=== PATIENT | male | born 1935 | race African-American/Black ===

== ENCOUNTER 2016-06-21 14:33 | Inpatient (IN) | payer MEDICARE, MEDICAID ==
[~2016-06-21] VITALS: Ht 182.9 cm; Wt 68.0 kg
[2016-06-21 15:45] VITALS: BP 149/98
[2016-06-21 15:52] LABS: BASOPHILS % (AUTO) 0.4 % (0.0-2.0); EOSINOPHILS % (AUTO) 0.1 % (0.0-3.0); LYMPHOCYTES % (AUTO) 5.2 % (20.0-45.0); MEAN CORPUSCULAR HEMOGLOBIN 29.9 PG (27.0-31.0); MEAN CORPUSCULAR HGB CONC 31.4 G/DL (32.0-36.0); MEAN CORPUSCULAR VOLUME 95 FL (80-99); MEAN PLATELET VOLUME 5.9 FL (6.5-10.1); MONOCYTES % (AUTO) 11.1 % (1.0-10.0); NEUTROPHILS % (AUTO) 83.2 % (45.0-75.0); PLATELET COUNT 264 K/UL (150-450); RED BLOOD COUNT 5.45 M/UL (4.70-6.10); RED CELL DISTRIBUTION WIDTH 12.8 % (11.6-14.8); WHITE BLOOD COUNT 11.4 K/UL (4.8-10.8)
[2016-06-21 16:00] LABS: APPEARANCE,URINE SLIGHTLY CLOUDY; KETONES,URINE NEGATIVE (NEGATIVE); LEUKOCYTE ESTERASE ,URINE 3+ (NEGATIVE); NITRITE,URINE POSITIVE (NEGATIVE); PH,URINE 8 (4.5-8.0); PROTEIN,URINE 2+ (NEGATIVE); UROBILINOGEN,URINE 4 MG/DL (0.0-1.0)
[2016-06-21 16:03] LABS: INR 1.1 (0.9-1.1); PROTHROMBIN TIME 10.8 SEC (9.30-11.50)
[2016-06-21 16:04] LABS: ALANINE AMINOTRANSFERASE 21 U/L (3-41); ALBUMIN/GLOBULIN RATIO 1.7 (1.0-2.7); ALCOHOL < 10 mg/dL; ANION GAP 22 (5-15); ASPARTATE AMINO TRANSFERASE 35 U/L (5-40); CALCIUM 9.9 mg/dL (8.6-10.2); CARBON DIOXIDE 20 mEQ/L (20-30); CHLORIDE 95 mEQ/L (98-107); CREATININE 1.3 mg/dL (0.7-1.2); HEMOLYSIS 71; POTASSIUM 5.2 mEQ/L (3.4-4.9); SODIUM 137 mEQ/L (135-145); TOTAL PROTEIN 6.8 g/dL (6.6-8.7)
[2016-06-21 16:13] LABS: BACTERIA,URINE MODERATE /HPF; ICTOTEST NEGATIVE; RBC,URINE 0-2 /HPF (0 - 0); SQUAMOUS EPITHELIAL CELL,UR OCCASIONAL /LPF (NONE/OCC); TRIPLE PHOSPHATE CRYSTAL,UR FEW /LPF
[2016-06-21 16:15] LABS: TROPONIN I < 0.30 ng/mL (<=0.30)
[2016-06-21 16:26] LABS: BILIRUBIN,DIRECT 0.4 mg/dL (0.1-0.3)
[2016-06-21] MEDS ORDERED: NKM (16:57)
--- NOTE | 2016-06-21 17:21 | Emergency Room Report ---
History of Present Illness General Chief Complaint: Syncope Source: Patient Present Illness HPI The patient is brought in apparently for a syncopal episode. The patient is stating that he is weak. Denies any pain at this time. Paramedics state Accu- Chek was normal. The patient denies any headache or trauma. He is incontinent of urine. 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 The patient was evaluated August of this year for syncope. He was bradycardic at that time. Admission was considered at that time but it was elected to have the patient observed at home when speaking with the patient's conservator. We are unable to determine who the conservatives at this time. Patient can't give more history. Allergies: Coded Allergies: No Known Allergies (Unverified , 09/04/15) Patient History Limited by: medical condition Past Medical History: see triage record Social History Narrative at home Reviewed Nursing Documentation: PMH: Agreed, PSxH: Agreed Nursing Documentation-PMH Hx Hypertension: Yes Review of Systems All Other Systems: limited Physical Exam Vital Signs Date Time Temp Pulse Resp B/P Pulse Ox O2 Delivery O2 Flow Rate FiO2 06/21/16 14:36 98.4 80 18 111/76 98 Room Air Sp02 EP Interpretation: reviewed, normal General Appearance: well appearing, no apparent distress, other - confused Head: normocephalic, atraumatic Eyes: bilateral eye PERRL, bilateral eye normal inspection ENT: moist mucus membranes Neck: supple, no bony tend Respiratory: lungs clear, normal breath sounds Cardiovascular #1: regular rate, rhythm Cardiovascular #2: 2+ radial (R) Gastrointestinal: normal inspection, normal bowel sounds, non tender, no mass, non-distended Musculoskeletal: back normal, normal range of motion, other - patient laying on gurney, not ambulatory Neurologic: alert, sensory intact, aphasia, other - eyes closed, moves all 4 with generalized weakness Psychiatric: other - confused, but attempts to answer Reflexes: 2+ knee (R), 2+ knee (L) Skin: normal inspection, warm/dry Medical Decision Making Diagnostic Impression: Primary Impression: Syncope Qualified Codes: R55 - Syncope and collapse Additional Impressions: UTI (urinary tract infection) Qualified Codes: N30.00 - Acute cystitis without hematuria Altered level of consciousness ER Course Pt presents after alleged syncopal episode. Ddx: AMI, arrhythmia, electrolyte abnormality, dehydration amongst others. Emergent evaluation with labs, EKG, CT head, CXR. Treatment with gentle hydration, cardiac monitoring. Noted prior history of similar. Complicated patient as little history available and symptoms denied. Smells of UTI. EKG unremarkable, CT with chronic changes. CXR unremarkable. Labs with UTI. Antibiotics begun. Unable to contact family or calculus professor. Patient still confused. Needs cardiac monitoring. Admit telemetry, Dr. Starks. Laboratory Tests Test 06/21/16 15:30 06/21/16 16:10 White Blood Count 11.4 K/UL (4.8-10.8) H Red Blood Count 5.45 M/UL (4.70-6.10) Hemoglobin 16.3 G/DL (14.2-18.0) Hematocrit 51.9 % (42.0-52.0) Mean Corpuscular Volume 95 FL (80-99) Mean Corpuscular Hemoglobin 29.9 PG (27.0-31.0) Mean Corpuscular Hemoglobin Concent 31.4 G/DL (32.0-36.0) L Red Cell Distribution Width 12.8 % (11.6-14.8) Platelet Count 264 K/UL (150-450) Mean Platelet Volume 5.9 FL (6.5-10.1) L Neutrophils (%) (Auto) 83.2 % (45.0-75.0) H Lymphocytes (%) (Auto) 5.2 % (20.0-45.0) L Monocytes (%) (Auto) 11.1 % (1.0-10.0) H Eosinophils (%) (Auto) 0.1 % (0.0-3.0) Basophils (%) (Auto) 0.4 % (0.0-2.0) Prothrombin Time 10.8 SEC (9.30-11.50) Prothrombin Time INR 1.1 (0.9-1.1) PTT 21 SEC (23-33) L Urine Color Yellow Urine Appearance Slightly cloudy Urine pH 8 (4.5-8.0) Urine Specific [place] 1.010 (1.005-1.035) Urine Protein 2+ (NEGATIVE) H Urine Glucose (UA) Negative (NEGATIVE) Urine Ketones Negative (NEGATIVE) Urine Occult Blood 1+ (NEGATIVE) H Urine Nitrite Positive (NEGATIVE) H Urine Bilirubin 2+ (NEGATIVE) H Urine Ictotest Negative Urine Urobilinogen 4 MG/DL (0.0-1.0) H Urine Leukocyte Esterase 3+ (NEGATIVE) H Urine RBC 0-2 /HPF (0 - 0) H Urine WBC 10-15 /HPF (0 - 0) H Urine Squamous Epithelial Cells Occasional /LPF Urine Triple Phosphate Crystals Few /LPF (NONE) H Urine Bacteria Moderate /HPF (NONE) H Sodium Level 137 mEQ/L (135-145) Potassium Level 5.2 mEQ/L (3.4-4.9) H Chloride Level 95 mEQ/L (98-107) L Carbon Dioxide Level 20 mEQ/L (20-30) Anion Gap 22 (5-15) H Blood Urea Nitrogen 32 mg/dL (7-23) H Creatinine 1.3 mg/dL (0.7-1.2) H Estimate Glomerular Filtration Rate mL/min (>60) Glucose Level 110 mg/dL (74-106) H Lactic Acid Level 0.20 mmol/L (0.66-2.22) L Calcium Level 9.9 mg/dL (8.6-10.2) Total Bilirubin 1.5 mg/dL (0.0-1.2) H Direct Bilirubin 0.4 mg/dL (0.1-0.3) H Aspartate Amino Transferase (AST) 35 U/L (5-40) Alanine Aminotransferase (ALT) 21 U/L (3-41) Alkaline Phosphatase 96 U/L (40-129) Total Creatine Kinase 440 U/L (38-174) H Troponin I < 0.30 ng/mL (<=0.30) Pro-B-Type Natriuretic Peptide 131 pg/mL (0-450) Total Protein 6.8 g/dL (6.6-8.7) Albumin 4.3 g/dL (3.5-5.2) Globulin 2.5 g/dL Albumin/Globulin Ratio 1.7 (1.0-2.7) Urine Opiates Screen Negative (NEGATIVE) Urine Barbiturates Screen Negative (NEGATIVE) Phencyclidine (PCP) Screen Negative (NEGATIVE) Urine Amphetamines Screen Negative (NEGATIVE) Urine Benzodiazepines Screen Negative (NEGATIVE) Urine Cocaine Screen Negative (NEGATIVE) Urine Marijuana (THC) Screen Negative (NEGATIVE) Serum Alcohol < 10 mg/dL Erythrocyte Sedimentation Rate 6 MM/HR (0-20) EKG Diagnostic Results Rate: normal Rhythm: NSR ST Segments: no acute changes Rhythm Strip Diag. Results EP Interpretation: yes Rhythm: NSR, no PVC's, no ectopy Chest X-Ray Diagnostic Results EP Interpretation: Yes Findings: no consolidation, no effusion, no pneumothorax, no acute cardiopulmonary disease Number of Views: 1 CT/MRI/US Diagnostic Results CT/MRI/US Diagnostic Results : Imaging Test Ordered: head Impression atrophy Last Vital Signs Date Time Temp Pulse Resp B/P Pulse Ox O2 Delivery O2 Flow Rate FiO2 06/21/16 15:45 98.0 100 23 149/98 99 Room Air Status: unchanged Disposition: ADMITTED INPATIENT Condition: Serious Referrals: NOT CHOSEN IPA/,REFERRING (PCP) Michel Davis M.D. Jun 21, 2016 17:21
[2016-06-21 17:39] VITALS: BP 124/86
[2016-06-21 20:00] VITALS: BP 140/86
[2016-06-21] MEDS ORDERED: Morphine Sulfate 2mg/ml Inj IVP PRN ×2 (21:30)
[2016-06-21] MEDS ORDERED: DuoNeb 0.5-3(2.5)mg/3ml neb HHN PRN (21:30)
[2016-06-21] MEDS ORDERED: Mylanta II UD 30ml ORAL PRN (21:30)
[2016-06-22] VITALS: BP 128/75
[2016-06-22] MEDS: D5 1/2NS 1,000 ML IV SCH ×2 (00:03→11:05)
[2016-06-22 04:00] VITALS: BP 142/83
[2016-06-22 08:00] VITALS: BP 128/85
[2016-06-22 08:15] LABS: THYROID STIMULATING HORMONE 0.987 uIU/mL (0.300-4.500)
[2016-06-22 08:17] LABS: ANION GAP 12 (5-15); BASOPHILS % (AUTO) 0.3 % (0.0-2.0); CALCIUM 8.5 mg/dL (8.6-10.2); CARBON DIOXIDE 26 mEQ/L (20-30); CHLORIDE 103 mEQ/L (98-107); CHOLESTEROL 110 mg/dL (< 200); CHOLESTEROL/HDL RATIO 1.7 (3.3-4.4); EOSINOPHILS % (AUTO) 0.3 % (0.0-3.0); HEMOLYSIS 3; LDL CHOLESTEROL (CALC.) 36 mg/dL (60-99); LYMPHOCYTES % (AUTO) 9.6 % (20.0-45.0); MAGNESIUM 2.2 mg/dL (1.7-2.5); MEAN CORPUSCULAR HEMOGLOBIN 30.6 PG (27.0-31.0); MEAN CORPUSCULAR HGB CONC 32.6 G/DL (32.0-36.0); MEAN CORPUSCULAR VOLUME 94 FL (80-99); MEAN PLATELET VOLUME 5.8 FL (6.5-10.1); MONOCYTES % (AUTO) 10.7 % (1.0-10.0); NEUTROPHILS % (AUTO) 79.2 % (45.0-75.0); PLATELET COUNT 250 K/UL (150-450); POTASSIUM 4.3 mEQ/L (3.4-4.9); RED BLOOD COUNT 4.42 M/UL (4.70-6.10); RED CELL DISTRIBUTION WIDTH 12.8 % (11.6-14.8); SODIUM 141 mEQ/L (135-145); WHITE BLOOD COUNT 10.9 K/UL (4.8-10.8)
[2016-06-22] MEDS: Aspirin Baby 81mg ORAL SCH (08:57)
[2016-06-22] MEDS: Heparin 5000 units/ml inj SUBQ SCH ×2 (09:04→21:00)
--- NOTE | 2016-06-22 09:40 | Infectious Diseases Prog Note ---
Assessment/Plan Problems: (1) UTI (urinary tract infection) Assessment & Plan: will start ceftriaxon empirically and send urine culture (2) Syncope Assessment & Plan: work up as per primary, continue tele monitor Subjective Allergies: Coded Allergies: No Known Allergies (Unverified , 09/04/15) Objective Vital Signs Last 24 Hour Vital Signs Date Time Temp Pulse Resp B/P Pulse Ox O2 Delivery O2 Flow Rate FiO2 06/22/16 08:10 80 14 Room Air 21 06/22/16 08:00 78 06/22/16 04:00 83 06/22/16 04:00 97.6 85 16 142/83 95 Room Air 06/22/16 00:00 97.9 87 16 128/75 95 Room Air 06/22/16 00:00 93 06/21/16 20:00 98 06/21/16 20:00 97.7 100 18 140/86 97 Room Air 06/21/16 18:20 98.0 98 22 138/72 99 Room Air 06/21/16 17:39 98.0 95 23 124/86 99 Room Air 06/21/16 15:45 98.0 100 23 149/98 99 Room Air 06/21/16 14:36 98.4 80 18 111/76 98 Room Air Height (Feet): 6 Height (Inches): 0.00 Weight (Pounds): 150 Laboratory Tests Test 06/21/16 15:30 06/21/16 16:10 06/22/16 07:15 White Blood Count 11.4 K/UL (4.8-10.8) H 10.9 K/UL (4.8-10.8) H Red Blood Count 5.45 M/UL (4.70-6.10) 4.42 M/UL (4.70-6.10) L Hemoglobin 16.3 G/DL (14.2-18.0) 13.5 G/DL (14.2-18.0) L Hematocrit 51.9 % (42.0-52.0) 41.4 % (42.0-52.0) L Mean Corpuscular Volume 95 FL (80-99) 94 FL (80-99) Mean Corpuscular Hemoglobin 29.9 PG (27.0-31.0) 30.6 PG (27.0-31.0) Mean Corpuscular Hemoglobin Concent 31.4 G/DL (32.0-36.0) L 32.6 G/DL (32.0-36.0) Red Cell Distribution Width 12.8 % (11.6-14.8) 12.8 % (11.6-14.8) Platelet Count 264 K/UL (150-450) 250 K/UL (150-450) Mean Platelet Volume 5.9 FL (6.5-10.1) L 5.8 FL (6.5-10.1) L Neutrophils (%) (Auto) 83.2 % (45.0-75.0) H 79.2 % (45.0-75.0) H Lymphocytes (%) (Auto) 5.2 % (20.0-45.0) L 9.6 % (20.0-45.0) L Monocytes (%) (Auto) 11.1 % (1.0-10.0) H 10.7 % (1.0-10.0) H Eosinophils (%) (Auto) 0.1 % (0.0-3.0) 0.3 % (0.0-3.0) Basophils (%) (Auto) 0.4 % (0.0-2.0) 0.3 % (0.0-2.0) Prothrombin Time 10.8 SEC (9.30-11.50) Prothromb Time International Ratio 1.1 (0.9-1.1) Activated Partial Thromboplast Time 21 SEC (23-33) L Urine Color Yellow Urine Appearance Slightly cloudy Urine pH 8 (4.5-8.0) Urine Specific [place] 1.010 (1.005-1.035) Urine Protein 2+ (NEGATIVE) H Urine Glucose (UA) Negative (NEGATIVE) Urine Ketones Negative (NEGATIVE) Urine Occult Blood 1+ (NEGATIVE) H Urine Nitrite Positive (NEGATIVE) H Urine Bilirubin 2+ (NEGATIVE) H Urine Ictotest Negative Urine Urobilinogen 4 MG/DL (0.0-1.0) H Urine Leukocyte Esterase 3+ (NEGATIVE) H Urine RBC 0-2 /HPF (0 - 0) H Urine WBC 10-15 /HPF (0 - 0) H Urine Squamous Epithelial Cells Occasional /LPF Urine Triple Phosphate Crystals Few /LPF (NONE) H Urine Bacteria Moderate /HPF (NONE) H Sodium Level 137 mEQ/L (135-145) 141 mEQ/L (135-145) Potassium Level 5.2 mEQ/L (3.4-4.9) H 4.3 mEQ/L (3.4-4.9) Chloride Level 95 mEQ/L (98-107) L 103 mEQ/L (98-107) Carbon Dioxide Level 20 mEQ/L (20-30) 26 mEQ/L (20-30) Anion Gap 22 (5-15) H 12 (5-15) Blood Urea Nitrogen 32 mg/dL (7-23) H 29 mg/dL (7-23) H Creatinine 1.3 mg/dL (0.7-1.2) H 1.0 mg/dL (0.7-1.2) Estimat Glomerular Filtration Rate mL/min (>60) mL/min (>60) Glucose Level 110 mg/dL (74-106) H 109 mg/dL (74-106) H Lactic Acid Level 0.20 mmol/L (0.66-2.22) L Calcium Level 9.9 mg/dL (8.6-10.2) 8.5 mg/dL (8.6-10.2) L Total Bilirubin 1.5 mg/dL (0.0-1.2) H Direct Bilirubin 0.4 mg/dL (0.1-0.3) H Aspartate Amino Transf (AST/SGOT) 35 U/L (5-40) Alanine Aminotransferase (ALT/SGPT) 21 U/L (3-41) Alkaline Phosphatase 96 U/L (40-129) Total Creatine Kinase 440 U/L (38-174) H Troponin I < 0.30 ng/mL (<=0.30) Pro-B-Type Natriuretic Peptide 131 pg/mL (0-450) Total Protein 6.8 g/dL (6.6-8.7) Albumin 4.3 g/dL (3.5-5.2) Globulin 2.5 g/dL Albumin/Globulin Ratio 1.7 (1.0-2.7) Urine Opiates Screen Negative (NEGATIVE) Urine Barbiturates Screen Negative (NEGATIVE) Phencyclidine (PCP) Screen Negative (NEGATIVE) Urine Amphetamines Screen Negative (NEGATIVE) Urine Benzodiazepines Screen Negative (NEGATIVE) Urine Cocaine Screen Negative (NEGATIVE) Urine Marijuana (THC) Screen Negative (NEGATIVE) Serum Alcohol < 10 mg/dL Erythrocyte Sedimentation Rate 6 MM/HR (0-20) Magnesium Level 2.2 mg/dL (1.7-2.5) Triglycerides Level 45 mg/dL (< 150) Cholesterol Level 110 mg/dL (< 200) LDL Cholesterol 36 mg/dL (60-99) L HDL Cholesterol 65 mg/dL (> 60) H Cholesterol/HDL Ratio 1.7 (3.3-4.4) L Thyroid Stimulating Hormone (TSH) 0.987 uIU/mL (0.300-4.500) Current Medications Medications (Trade) Dose Ordered Sig/Rufina Route PRN Reason Start Time Stop Time Status Last Admin Dose Admin Acetaminophen (Tylenol) 650 mg Q4H PRN ORAL Mild Pain (Pain Scale 1-3) 06/21/16 21:30 07/21/16 21:29 Al Hydroxide/Mg Hydroxide (Mylanta II) 30 ml Q6H PRN ORAL dyspepsia 06/21/16 21:30 07/21/16 21:29 Albuterol/ Ipratropium (DuoNeb 0.5-3(2.5)mg/3ml) 3 ml Q4H PRN HHN Shortness of Breath 06/21/16 21:30 06/26/16 21:29 Aspirin (ASA) 81 mg DAILY ORAL 06/22/16 09:00 07/22/16 08:59 06/22/16 08:57 Ceftriaxone Sodium/Dextrose (Rocephin/D5W 50ml) 50 ml @ 100 mls/hr Q24H IVPB 06/22/16 09:45 06/29/16 09:44 UNV Dextrose (Dextrose 50%) STAT PRN IV Hypoglycemia 06/21/16 21:30 07/21/16 21:29 Dextrose/Sodium Chloride (D5 0.45% NS) 1,000 ml @ 75 mls/hr [id number] IV 06/21/16 23:00 07/21/16 22:59 06/22/16 00:03 Diphenhydramine HCl (Benadryl) 25 mg Q6H PRN ORAL Itching/Pruritis 06/21/16 21:30 07/21/16 21:29 Heparin Sodium (Porcine) (Heparin 5000 units/ml) 5,000 units EVERY 12 HOURS SUBQ 06/22/16 09:00 07/22/16 08:59 06/22/16 09:04 Lorazepam 1 mg 1 mg Q6H PRN IV For Anxiety 06/21/16 22:15 06/28/16 22:14 Morphine Sulfate (Morphine Sulfate) 1 mg Q4H PRN IVP For Pain 06/21/16 21:30 06/28/16 21:29 Morphine Sulfate (Morphine Sulfate) 2 mg Q6H PRN IVP Moderate Pain (Pain Scale 4-6) 06/21/16 21:30 06/28/16 21:29 Ondansetron HCl (Zofran) 4 mg Q6H PRN IVP Nausea & Vomiting 06/21/16 21:30 07/21/16 21:29 Temazepam (Restoril) 15 mg DAILYPRN PRN ORAL Insomnia 06/21/16 21:30 06/28/16 21:29 aKrrie Ashby M.D. Jun 22, 2016 09:40
--- NOTE | 2016-06-22 10:28 | Diagnostic Imaging Report ---
Indication: Altered level of consciousness Technique: Continuous helical CT scanning of the head was performed utilizing automated exposure control without intravenous contrast material. Axial and coronal reconstructions were obtained. Comparison: 12/21/09 CT dose: Total DLP 1425 mGycm; CTDI vol 70.4 mGy Findings: There is no acute intracranial hemorrhage, mass effect or cortical edema. The ventricles, cisterns and sulci are prominent consistent with atrophy. Periventricular and subcortical hypoattenuation are seen, a nonspecific finding. The posterior fossa and fourth ventricle are unremarkable. Sellar and suprasellar regions are grossly unremarkable. Visualized mastoid air cells and paranasal sinuses are unremarkable. No focal lesions of the bony calvarium or soft tissues of the scalp are seen. Impression: No evidence of acute intracranial hemorrhage, mass effect or cortical edema. MRI may be obtained for more sensitive evaluation as clinically indicated. Atrophy and nonspecific periventricular and subcortical hypoattenuation suggestive of chronic ischemic microvascular changes. The CT scanner at [facility] is accredited by the [employer] and the scans are performed using protocols designed to limit radiation exposure to as low as reasonably achievable to attain images of sufficient resolution adequate for diagnostic evaluation.
--- NOTE | 2016-06-22 10:33 | Diagnostic Imaging Report ---
Indication: Shortness of breath Technique: XRAY CHEST 1 V Comparison: 09/04/15 Findings: Cardiomediastinal silhouette is stable. There is central pulmonary vascular congestion. Bibasilar interstitial opacities are noted. There is no pneumothorax or obvious effusion. Left hemidiaphragm is elevated. Atherosclerotic changes are seen. Impression: Mild central pulmonary vascular congestion. Bibasilar atelectasis. Infiltrate in the left base not excluded. Followup recommended.
--- NOTE | 2016-06-22 10:51 | Consultation ---
Consult Note Consult Note Cardiology/ EP for Dr. Martins Full note dictated. #[id number] Pt adm w/ syncope, in setting of UTI. He has a hx of syncope and loop recorder was previously inserted. Agree w/ plan for hydration, cultures, antibiotics. Continue telemetry monitoring. Will check ortho VS. Will arrange interrogation of loop recorder (st emani med) BRANDT BRADY Jun 22, 2016 10:51
--- NOTE | 2016-06-22 11:15 | History and Physical ---
History of Present Illness General Date patient seen: Jun 22, 2016 Reason for Hospitalization: Syncope Present Illness HPI The pt is a 80 yr old AA male who presented yesterday to the ED after a syncopal episode, at the time he denied any associated symptoms, he is in bed unable to provide any history at this time. He has a hx of syncope and loop recorder was previously inserted. On abx for UTI. No family to give history. Allergies: Coded Allergies: No Known Allergies (Unverified , 09/04/15) Medication History Scheduled No Known Medications* (NKM - No Known Medications*), 0 ., (Reported) Patient History Limited by: medical condition History Provided By: Medical Record, EMS Healthcare decision maker N Resuscitation status Advanced Directive on File Past Medical/Surgical History Past Medical/Surgical History: (1) Bradycardia (2) History of loop recorder Review of Systems ROS Narrative Unable to obtain any health information from pt at this time due to his mental state Physical Exam General Appearance: no apparent distress, confused Lines, tubes and drains: peripheral HEENT: normocephalic, atraumatic Neck: non-tender, normal alignment, supple Respiratory/Chest: decreased breath sounds Cardiovascular/Chest: normal rate, regular rhythm, no JVD Abdomen: non tender, soft Extremities: non-tender, normal inspection, no calf tenderness Skin Exam: warm/dry Neurologic: alert, disoriented Last 24 Hour Vital Signs Date Time Temp Pulse Resp B/P Pulse Ox O2 Delivery O2 Flow Rate FiO2 06/22/16 08:10 80 14 Room Air 21 06/22/16 08:00 78 06/22/16 08:00 97.0 98 18 128/85 95 Room Air 06/22/16 04:00 83 06/22/16 04:00 97.6 85 16 142/83 95 Room Air 06/22/16 00:00 97.9 87 16 128/75 95 Room Air 06/22/16 00:00 93 06/21/16 20:00 98 06/21/16 20:00 97.7 100 18 140/86 97 Room Air 06/21/16 18:20 98.0 98 22 138/72 99 Room Air 06/21/16 17:39 98.0 95 23 124/86 99 Room Air 06/21/16 15:45 98.0 100 23 149/98 99 Room Air 06/21/16 14:36 98.4 80 18 111/76 98 Room Air Intake and Output 06/21/16 06/22/16 19:00 07:00 Intake Total 1000 ml 596.25 ml Output Total 750 ml Balance 1000 ml -153.75 ml Intake IV Total 1000 ml 596.25 ml Output Urine Total 750 ml Laboratory Tests Test 06/21/16 15:30 06/21/16 16:10 06/22/16 07:15 White Blood Count 11.4 K/UL (4.8-10.8) H 10.9 K/UL (4.8-10.8) H Red Blood Count 5.45 M/UL (4.70-6.10) 4.42 M/UL (4.70-6.10) L Hemoglobin 16.3 G/DL (14.2-18.0) 13.5 G/DL (14.2-18.0) L Hematocrit 51.9 % (42.0-52.0) 41.4 % (42.0-52.0) L Mean Corpuscular Volume 95 FL (80-99) 94 FL (80-99) Mean Corpuscular Hemoglobin 29.9 PG (27.0-31.0) 30.6 PG (27.0-31.0) Mean Corpuscular Hemoglobin Concent 31.4 G/DL (32.0-36.0) L 32.6 G/DL (32.0-36.0) Red Cell Distribution Width 12.8 % (11.6-14.8) 12.8 % (11.6-14.8) Platelet Count 264 K/UL (150-450) 250 K/UL (150-450) Mean Platelet Volume 5.9 FL (6.5-10.1) L 5.8 FL (6.5-10.1) L Neutrophils (%) (Auto) 83.2 % (45.0-75.0) H 79.2 % (45.0-75.0) H Lymphocytes (%) (Auto) 5.2 % (20.0-45.0) L 9.6 % (20.0-45.0) L Monocytes (%) (Auto) 11.1 % (1.0-10.0) H 10.7 % (1.0-10.0) H Eosinophils (%) (Auto) 0.1 % (0.0-3.0) 0.3 % (0.0-3.0) Basophils (%) (Auto) 0.4 % (0.0-2.0) 0.3 % (0.0-2.0) Prothrombin Time 10.8 SEC (9.30-11.50) Prothromb Time International Ratio 1.1 (0.9-1.1) Activated Partial Thromboplast Time 21 SEC (23-33) L Urine Color Yellow Urine Appearance Slightly cloudy Urine pH 8 (4.5-8.0) Urine Specific [place] 1.010 (1.005-1.035) Urine Protein 2+ (NEGATIVE) H Urine Glucose (UA) Negative (NEGATIVE) Urine Ketones Negative (NEGATIVE) Urine Occult Blood 1+ (NEGATIVE) H Urine Nitrite Positive (NEGATIVE) H Urine Bilirubin 2+ (NEGATIVE) H Urine Ictotest Negative Urine Urobilinogen 4 MG/DL (0.0-1.0) H Urine Leukocyte Esterase 3+ (NEGATIVE) H Urine RBC 0-2 /HPF (0 - 0) H Urine WBC 10-15 /HPF (0 - 0) H Urine Squamous Epithelial Cells Occasional /LPF Urine Triple Phosphate Crystals Few /LPF (NONE) H Urine Bacteria Moderate /HPF (NONE) H Sodium Level 137 mEQ/L (135-145) 141 mEQ/L (135-145) Potassium Level 5.2 mEQ/L (3.4-4.9) H 4.3 mEQ/L (3.4-4.9) Chloride Level 95 mEQ/L (98-107) L 103 mEQ/L (98-107) Carbon Dioxide Level 20 mEQ/L (20-30) 26 mEQ/L (20-30) Anion Gap 22 (5-15) H 12 (5-15) Blood Urea Nitrogen 32 mg/dL (7-23) H 29 mg/dL (7-23) H Creatinine 1.3 mg/dL (0.7-1.2) H 1.0 mg/dL (0.7-1.2) Estimat Glomerular Filtration Rate mL/min (>60) mL/min (>60) Glucose Level 110 mg/dL (74-106) H 109 mg/dL (74-106) H Lactic Acid Level 0.20 mmol/L (0.66-2.22) L Calcium Level 9.9 mg/dL (8.6-10.2) 8.5 mg/dL (8.6-10.2) L Total Bilirubin 1.5 mg/dL (0.0-1.2) H Direct Bilirubin 0.4 mg/dL (0.1-0.3) H Aspartate Amino Transf (AST/SGOT) 35 U/L (5-40) Alanine Aminotransferase (ALT/SGPT) 21 U/L (3-41) Alkaline Phosphatase 96 U/L (40-129) Total Creatine Kinase 440 U/L (38-174) H Troponin I < 0.30 ng/mL (<=0.30) Pro-B-Type Natriuretic Peptide 131 pg/mL (0-450) Total Protein 6.8 g/dL (6.6-8.7) Albumin 4.3 g/dL (3.5-5.2) Globulin 2.5 g/dL Albumin/Globulin Ratio 1.7 (1.0-2.7) Urine Opiates Screen Negative (NEGATIVE) Urine Barbiturates Screen Negative (NEGATIVE) Phencyclidine (PCP) Screen Negative (NEGATIVE) Urine Amphetamines Screen Negative (NEGATIVE) Urine Benzodiazepines Screen Negative (NEGATIVE) Urine Cocaine Screen Negative (NEGATIVE) Urine Marijuana (THC) Screen Negative (NEGATIVE) Serum Alcohol < 10 mg/dL Erythrocyte Sedimentation Rate 6 MM/HR (0-20) Magnesium Level 2.2 mg/dL (1.7-2.5) Triglycerides Level 45 mg/dL (< 150) Cholesterol Level 110 mg/dL (< 200) LDL Cholesterol 36 mg/dL (60-99) L HDL Cholesterol 65 mg/dL (> 60) H Cholesterol/HDL Ratio 1.7 (3.3-4.4) L Thyroid Stimulating Hormone (TSH) 0.987 uIU/mL (0.300-4.500) Height (Feet): 6 Height (Inches): 0.00 Weight (Pounds): 150 Medications Current Medications Medications (Trade) Dose Ordered Sig/Rufina Route PRN Reason Start Time Stop Time Status Last Admin Dose Admin Acetaminophen (Tylenol) 650 mg Q4H PRN ORAL Mild Pain (Pain Scale 1-3) 06/21/16 21:30 07/21/16 21:29 Al Hydroxide/Mg Hydroxide (Mylanta II) 30 ml Q6H PRN ORAL dyspepsia 06/21/16 21:30 07/21/16 21:29 Albuterol/ Ipratropium (DuoNeb 0.5-3(2.5)mg/3ml) 3 ml Q4H PRN HHN Shortness of Breath 06/21/16 21:30 06/26/16 21:29 Aspirin (ASA) 81 mg DAILY ORAL 06/22/16 09:00 07/22/16 08:59 06/22/16 08:57 Ceftriaxone Sodium/Dextrose (Rocephin/D5W 50ml) 50 ml @ 100 mls/hr Q24H IVPB 06/22/16 16:00 06/29/16 15:59 Dextrose (Dextrose 50%) STAT PRN IV Hypoglycemia 06/21/16 21:30 07/21/16 21:29 Dextrose/Sodium Chloride (D5 0.45% NS) 1,000 ml @ 75 mls/hr [id number] IV 06/21/16 23:00 07/21/16 22:59 06/22/16 00:03 Diphenhydramine HCl (Benadryl) 25 mg Q6H PRN ORAL Itching/Pruritis 06/21/16 21:30 07/21/16 21:29 Heparin Sodium (Porcine) (Heparin 5000 units/ml) 5,000 units EVERY 12 HOURS SUBQ 06/22/16 09:00 07/22/16 08:59 06/22/16 09:04 Lorazepam 1 mg 1 mg Q6H PRN IV For Anxiety 06/21/16 22:15 06/28/16 22:14 Morphine Sulfate (Morphine Sulfate) 1 mg Q4H PRN IVP For Pain 06/21/16 21:30 06/28/16 21:29 Morphine Sulfate (Morphine Sulfate) 2 mg Q6H PRN IVP Moderate Pain (Pain Scale 4-6) 06/21/16 21:30 06/28/16 21:29 Ondansetron HCl (Zofran) 4 mg Q6H PRN IVP Nausea & Vomiting 06/21/16 21:30 07/21/16 21:29 Temazepam (Restoril) 15 mg DAILYPRN PRN ORAL Insomnia 06/21/16 21:30 06/28/16 21:29 Objective Narrative Procedure: XRAY Chest 1v Indication: Shortness of breath Technique: XRAY CHEST 1 V Comparison: 09/04/15 Findings: Cardiomediastinal silhouette is stable. There is central pulmonary vascular congestion. Bibasilar interstitial opacities are noted. There is no pneumothorax or obvious effusion. Left hemidiaphragm is elevated. Atherosclerotic changes are seen. Impression: Mild central pulmonary vascular congestion. Bibasilar atelectasis. Infiltrate in the left base not excluded. Followup recommended. CT HEAD NO CONTRAST Impression: No evidence of acute intracranial hemorrhage, mass effect or cortical edema. MRI may be obtained for more sensitive evaluation as clinically indicated. Atrophy and nonspecific periventricular and subcortical hypoattenuation suggestive of chronic ischemic microvascular changes. Assessment/Plan Problem List: (1) Syncope ICD Codes: R55 - Syncope and collapse SNOMED: [id number] Qualifiers: Qualified Codes: R55 - Syncope and collapse Status: stable Assessment/Plan Cardiology consult ID consult Neurology Consult Abx per ID Monitor neuro status Strict intake and output Hypokalemia - resolved Monitor BUN/cr Monitor Vitals Carline Fernandez N.P. Jun 22, 2016 11:15
[2016-06-22 11:59] VITALS: BP 115/77
--- NOTE | 2016-06-22 13:08 | Consultation ---
DATE OF CONSULTATION: CARDIOLOGY CONSULTATION CONSULTING PHYSICIAN: Danielle Flowers M.D. Cardiology consult is being done as coverage for Luciano Martins M.D. REASON FOR CONSULT: Syncope. HISTORY OF PRESENT ILLNESS: History is obtained primarily from the chart as the patient is a poor historian. The patient is a 80-year-old man with a history of syncope, status post loop recorder insertion, who was admitted following a syncopal episode. He cannot give any details of the event. Per the note, he was brought in by paramedics and complained of weakness. His blood pressure was 111/76 and pulse is 80, sinus rhythm. On admission, he was noted to have a mildly elevated white blood count of 11,400, normal troponin level less than 0.3, pyuria and bacteriuria. PAST MEDICAL HISTORY: As noted above. MEDICATIONS: Medications on admission unknown. Currently, ceftriaxone 1 g intravenous q.24 hours, aspirin 81 mg daily, Ativan p.r.n., DuoNeb nebulizer every 4 hours p.r.n., Tylenol, morphine, Restoril, Zofran, and Benadryl p.r.n. ALLERGIES: No known drug allergies. SOCIAL HISTORY: The patient reports smoking less than one and half pack per day and denies alcohol use. PHYSICAL EXAMINATION: VITAL SIGNS: Blood pressure is 142/83, pulse is 85, regular, respirations 16, and afebrile. GENERAL: The patient is alert, elderly appearing man in no acute distress. HEENT: Normocephalic and atraumatic. Pupils are equal, round, and reactive to light. Sclerae anicteric. NECK: Supple. There is no jugular venous distention. No carotid bruits. LUNGS: Lungs are clear to auscultation bilaterally. HEART: Regular S1 and S2 with no murmurs or S3. ABDOMEN: Soft and nontender. No palpable mass. EXTREMITIES: No cyanosis, clubbing, or edema. LABORATORY DATA: Hemoglobin 13.5, white blood count 10,900, and platelets 250,000. Sodium 141, potassium 4.3, BUN 29, creatinine 1.0, and glucose 109. Troponin less than 0.3. Urinalysis cloudy 3+ leukocyte esterase, 10-15 white blood cells, and moderate bacteria. Chest x-ray shows borderline cardiomegaly, shows no infiltrates or effusions, borderline cardiomegaly. EKG is pending. ASSESSMENT AND RECOMMENDATIONS: The patient is a 80-year-old man with a history of syncope, status post loop recorder insertion, who was admitted following a syncopal episode. He is noted to have a urinary tract infection and treatment has been initiated because of the syncope is uncertain. He may have orthostatic hypotension or may have had an arrhythmia causing this event. He will be monitored on telemetry. Orthostatic vital signs will be checked. Loop recorder interrogation will be done. Further recommendations will be made based on his clinical course and results of the above testing. Danielle Walden M.D. DR: Luis JOB#: [id number] CC:
[2016-06-22] MEDS: cefTRIAXone 1 GM in D5W 50 ML IVPB SCH (17:14)
[2016-06-22 20:00] VITALS: BP 145/92
[2016-06-22] MEDS: LORazepam Inj 2mg/ml 1ml IV PRN (21:14)
--- NOTE | 2016-06-22 21:37 | Consultation ---
DATE OF CONSULTATION: INFECTIOUS DISEASE CONSULTATION CONSULTING PHYSICIAN: Karrie Ashby M.D. REQUESTING PHYSICIAN: Saqib Starks M.D. REASON FOR CONSULTATION: Urinary tract infection. HISTORY OF PRESENT ILLNESS: The patient is a 80-year-old male who has past medical history of hypertension and syncope in the past and was brought into the [facility] for syncopal episode. The patient felt weak. Denied any headache, blurry vision, or dizziness. No head trauma. No fall. No seizure activity. He has urine incontinence. His blood sugar was found to be okay by the paramedics upon arrival. The patient had workup in the ED. The patient's urinalysis showed evidence of infection. So, I was asked by the primary provider for antibiotics recommendation. PAST MEDICAL HISTORY: Significant for hypertension and syncope. PAST SURGICAL HISTORY: Negative. MEDICATIONS: He is on heparin, aspirin, lorazepam, DuoNeb, acetaminophen, morphine, Zofran, Restoril, Benadryl, and Mylanta. ALLERGIES: He has no known drug allergy. SOCIAL HISTORY: The patient lives at home. Denied using any drugs, tobacco, or alcohol. FAMILY HISTORY: Not contributory. REVIEW OF SYSTEMS: A 12-point of system reviewed were all negative apart from the one I mentioned above in my History and Physical. PHYSICAL EXAMINATION: GENERAL: An elderly male, lying in bed, awake, alert, not in acute distress. VITAL SIGNS: Temperature 98.0 degrees, pulse 95, respirations 23, blood pressure 124/86, and pulse oximetry 99% on room air. HEENT: Normocephalic and atraumatic. Pupils are reactive to light equally. Dry oral mucosa. No exudate. NECK: Supple. No lymphadenopathy. CARDIOVASCULAR: Regular rate and rhythm. No murmur. No gallop. LUNGS: Clear bilaterally. No wheezing. No rhonchi. ABDOMEN: Soft, nontender, and nondistended. Positive bowel sounds. No hepatosplenomegaly or ascites. Repeat abdominal exam showed tenderness in the right lower quadrant with rebound, and positive McBurney's sign. No guarding. No stiffness. EXTREMITIES: Trace edema. No cyanosis. LABORATORY DATA: Lab showed white count of 11.4, hemoglobin 16.3, and platelet count of 264,000. BUN of 32 and creatinine of 1.3. Lactic acid of 0.2. Total bilirubin of 0.15. Toxicology screen was negative. Urinalysis was positive for nitrites, +3 leukocyte esterase, WBC 2-15, and moderate amount of bacteria. IMAGING: Has not reported in the computer yet. ASSESSMENT AND PLAN: 1. Urinary tract infection. The patient will be started on ceftriaxone. We will send urine culture, await results. 2. Syncope. Workup as per primary provider, recommend echocardiogram. 3. Hypertension. Continue oral medications to control blood pressure. Karrie Ashby M.D. DR: Danny JOB#: [id number] CC: MEG
[2016-06-23] MEDS: D5 1/2NS 1,000 ML IV SCH ×3 (01:40→16:51)
[2016-06-23 04:00] VITALS: BP 124/69
[2016-06-23 08:02] VITALS: BP 108/64
[2016-06-23] MEDS: Aspirin Baby 81mg ORAL SCH (08:30)
[2016-06-23] MEDS: Heparin 5000 units/ml inj SUBQ SCH ×2 (08:33→20:48)
--- NOTE | 2016-06-23 11:03 | Consultation ---
History of Present Illness General Date patient seen: Jun 23, 2016 Time patient seen: 10:59 Chief Complaint: Syncope Reason for Consultation: hematuria, UTI, retention Present Illness HPI Hx is limited due to patient's confusion, but does admit to peeing all the time at night. Does not admit to retention. Just frequency, especially at night. Can't really explain what happened last night during admission. Allergies: Coded Allergies: No Known Allergies (Unverified , 09/04/15) Medication History Scheduled No Known Medications* (NKM - No Known Medications*), 0 ., (Reported) Patient History Limited by: medical condition History Provided By: Patient Healthcare decision maker N Resuscitation status Advanced Directive on File Past Medical/Surgical History Past Medical/Surgical History: (1) Status post placement of implantable loop recorder Review of Systems Constitutional: Denies: chills, fever, malaise, no symptoms, other, see HPI, sweats, weakness Eye: Denies: acuity changes, blurred vision, discharge, double vision, eye pain , no symptoms, nose congestion, nose pain, other, see HPI, tearing ENT: Denies: ear discharge, ear pain, hearing loss, mouth pain, nasal discharge , no symptoms, nose congestion, nose pain, other, see HPI, throat pain, throat swelling Respiratory: Denies: MIRELES, cough, no symptoms, orthopnea, other, see HPI, shortness of breath, sputum, stridor, wheezing Gastrointestinal: Denies: abdominal pain, constipation, diarrhea, hematemesis, melena, nausea, no symptoms, other, see HPI, vomiting Genitourinary: Reports: dysuria Musculoskeletal: Denies: back pain, gout, joint pain, joint swelling, muscle pain, muscle stiffness, no symptoms, other, see HPI Skin: Denies: change in color, change in hair/nails, dryness, lesions, no symptoms, other, rash, see HPI Neurological: Denies: dizziness, focal weakness, headache, no symptoms, numbness, other, paresthesia, see HPI, seizure, syncope, tingling, tremors Endocrine: Denies: excessive sweating, flushing, increased thirst, increased urine, intolerance to temperature, no symptoms, other, see HPI, unexplained weight loss Hematologic/Lymphatic: Denies: anemia, blood clots, diathesis, easy bleeding, easy bruising, no symptoms, other, see HPI, swollen glands Physical Exam General Appearance: lethargic, confused Cardiovascular/Chest: normal rate Abdomen: non tender, soft Genitourinary/Rectal: martínez, other - yellow urine in tubing Skin Exam: normal pigmentation Last 24 Hour Vital Signs Date Time Temp Pulse Resp B/P Pulse Ox O2 Delivery O2 Flow Rate FiO2 06/23/16 08:02 97.3 86 20 108/64 92 Room Air 06/23/16 08:00 87 06/23/16 07:53 85 14 Room Air 21 06/23/16 04:00 98.4 92 22 124/69 93 Room Air 06/23/16 04:00 86 06/23/16 00:00 88 06/22/16 20:00 98 06/22/16 20:00 97.7 87 22 145/92 96 Room Air 06/22/16 19:00 92 14 Room Air 21 06/22/16 16:00 78 06/22/16 16:00 98.0 92 06/22/16 12:00 81 06/22/16 11:59 98.1 81 18 115/77 Room Air Intake and Output 06/22/16 06/23/16 19:00 07:00 Intake Total 1245 ml 806.25 ml Output Total 600 ml 250 ml Balance 645 ml 556.25 ml Intake Oral 320 ml IV Total 925 ml 806.25 ml Output Urine Total 600 ml 250 ml # Bowel Movements 1 1 Microbiology Date/Time Source Procedure Growth Status 06/22/16 13:30 Stool Clostridium difficile Toxin Assay - Final Complete 06/22/16 11:00 Urine,Clean Catch Urine Culture - Preliminary NO GROWTH Resulted Height (Feet): 6 Height (Inches): 0.00 Weight (Pounds): 150 Medications Current Medications Medications (Trade) Dose Ordered Sig/Rufina Route PRN Reason Start Time Stop Time Status Last Admin Dose Admin Acetaminophen (Tylenol) 650 mg Q4H PRN ORAL Mild Pain (Pain Scale 1-3) 06/21/16 21:30 07/21/16 21:29 Al Hydroxide/Mg Hydroxide (Mylanta II) 30 ml Q6H PRN ORAL dyspepsia 06/21/16 21:30 07/21/16 21:29 Albuterol/ Ipratropium (DuoNeb 0.5-3(2.5)mg/3ml) 3 ml Q4H PRN HHN Shortness of Breath 06/21/16 21:30 06/26/16 21:29 Aspirin (ASA) 81 mg DAILY ORAL 06/22/16 09:00 07/22/16 08:59 06/23/16 08:30 Ceftriaxone Sodium/Dextrose (Rocephin/D5W 50ml) 50 ml @ 100 mls/hr Q24H IVPB 06/22/16 16:00 06/29/16 15:59 06/22/16 17:14 Dextrose (Dextrose 50%) STAT PRN IV Hypoglycemia 06/21/16 21:30 07/21/16 21:29 Dextrose/Sodium Chloride (D5 0.45% NS) 1,000 ml @ 75 mls/hr [id number] IV 06/21/16 23:00 07/21/16 22:59 06/23/16 03:00 Diphenhydramine HCl (Benadryl) 25 mg Q6H PRN ORAL Itching/Pruritis 06/21/16 21:30 07/21/16 21:29 Heparin Sodium (Porcine) (Heparin 5000 units/ml) 5,000 units EVERY 12 HOURS SUBQ 06/22/16 09:00 07/22/16 08:59 06/23/16 08:33 Lorazepam 1 mg 1 mg Q6H PRN IV For Anxiety 06/21/16 22:15 06/28/16 22:14 06/22/16 21:14 Morphine Sulfate (Morphine Sulfate) 1 mg Q4H PRN IVP For Pain 06/21/16 21:30 06/28/16 21:29 Morphine Sulfate (Morphine Sulfate) 2 mg Q6H PRN IVP Moderate Pain (Pain Scale 4-6) 06/21/16 21:30 06/28/16 21:29 Ondansetron HCl (Zofran) 4 mg Q6H PRN IVP Nausea & Vomiting 06/21/16 21:30 07/21/16 21:29 Temazepam (Restoril) 15 mg DAILYPRN PRN ORAL Insomnia 06/21/16 21:30 06/28/16 21:29 Assessment/Plan Status: stable Assessment/Plan 80 yo male here for syncope. UA seems consistent with UTI, being treated. Martínez was placed in ER, but patient is more arousable now. Would not recommend retirement martínez catheterization. Recommend culture specific abx for 7-10 days, start flomax today, recommend removing martínez catheter tomorrow AM as he is high risk of self dc'ing martínez again. 1. 7-10 days culture specific abx 2. Flomax 0.8 mg daily (should continue on discharge as well) 3. Remove martínez catheter tomorrow. Jose Alfredo Guerin M.D. Jun 23, 2016 11:03
[2016-06-23 11:20] VITALS: BP 108/65
[2016-06-23 16:00] VITALS: BP_SYST 124; BP_SYST 147; BP_DIAS 79; BP_DIAS 85
--- NOTE | 2016-06-23 16:20 | General Progress Note ---
Assessment/Plan Problem List: (1) Syncope ICD Codes: R55 - Syncope and collapse SNOMED: 765258404 Qualifiers: Qualified Codes: R55 - Syncope and collapse (2) UTI (urinary tract infection) ICD Codes: N39.0 - Urinary tract infection, site not specified SNOMED: 45421224 Qualifiers: Qualified Codes: N30.00 - Acute cystitis without hematuria (3) Status post placement of implantable loop recorder ICD Codes: Z95.818 - Presence of other cardiac implants and grafts SNOMED: 499424063, 622266919, 368711308 (4) Altered level of consciousness ICD Codes: R40.4 - Transient alteration of awareness SNOMED: 8683923 Assessment/Plan Cardiology F/U ID f/u DVT prophylaxis Hematuria due to trauma - will monitor output AM labs Subjective Date patient seen: Jun 23, 2016 ROS Limited/Unobtainable: Yes Allergies: Coded Allergies: No Known Allergies (Unverified , 09/04/15) All Systems: reviewed and negative except above Subjective Trying to get out of bed, confused, not in distress Objective Last 24 Hour Vital Signs Date Time Temp Pulse Resp B/P Pulse Ox O2 Delivery O2 Flow Rate FiO2 06/23/16 12:00 75 06/23/16 11:20 97.1 70 20 108/65 93 Room Air 06/23/16 08:02 97.3 86 20 108/64 92 Room Air 06/23/16 08:00 87 06/23/16 07:53 85 14 Room Air 21 06/23/16 04:00 98.4 92 22 124/69 93 Room Air 06/23/16 04:00 86 06/23/16 00:00 88 06/22/16 20:00 98 06/22/16 20:00 97.7 87 22 145/92 96 Room Air 06/22/16 19:00 92 14 Room Air 21 Intake and Output 06/22/16 06/23/16 19:00 07:00 Intake Total 1245 ml 806.25 ml Output Total 600 ml 250 ml Balance 645 ml 556.25 ml Intake Oral 320 ml IV Total 925 ml 806.25 ml Output Urine Total 600 ml 250 ml # Bowel Movements 1 1 Height (Feet): 6 Height (Inches): 0.00 Weight (Pounds): 150 General Appearance: no apparent distress, confused EENT: normal ENT inspection Neck: non-tender, normal alignment Cardiovascular: normal peripheral pulses, normal rate, regular rhythm Respiratory/Chest: normal breath sounds, no respiratory distress Abdomen: non tender, soft, no organomegaly Extremities: non-tender, normal inspection Neurologic: disoriented Skin: normal pigmentation, warm/dry Carline Fernandez N.P. Jun 23, 2016 16:20
--- NOTE | 2016-06-23 16:28 | Cardiac Electrophysiology PN ---
Assessment/Plan Assessment/Plan 1. Recurrent Syncope and multiple documentations of bradycardia with Heart rate in 30s by interrogation of his SJ implantable loop recorder. Off Any MCKEON or AVN boo. Needs permanent pacer implantation after UTI is resolved. Watch on tele. 2. UTI.On Ceftriaxone. DW DR Wooten [employer]AD ME[employer]. Subjective Subjective Doing well on tele. No chest pain or SOB. Pacer interrogation showed Juliano episodes down to 30s on 06/01, and . Objective Last 24 Hour Vital Signs Date Time Temp Pulse Resp B/P Pulse Ox O2 Delivery O2 Flow Rate FiO2 06/23/16 12:00 75 06/23/16 11:20 97.1 70 20 108/65 93 Room Air 06/23/16 08:02 97.3 86 20 108/64 92 Room Air 06/23/16 08:00 87 06/23/16 07:53 85 14 Room Air 21 06/23/16 04:00 98.4 92 22 124/69 93 Room Air 06/23/16 04:00 86 06/23/16 00:00 88 06/22/16 20:00 98 06/22/16 20:00 97.7 87 22 145/92 96 Room Air 06/22/16 19:00 92 14 Room Air 21 Intake and Output 06/22/16 06/23/16 19:00 07:00 Intake Total 1245 ml 806.25 ml Output Total 600 ml 250 ml Balance 645 ml 556.25 ml Intake Oral 320 ml IV Total 925 ml 806.25 ml Output Urine Total 600 ml 250 ml # Bowel Movements 1 1 Microbiology Date/Time Source Procedure Growth Status 06/22/16 13:30 Stool Clostridium difficile Toxin Assay - Final Complete 06/22/16 11:00 Urine,Clean Catch Urine Culture - Preliminary NO GROWTH Resulted 06/21/16 15:30 Urine,Clean Catch Urine Culture - Final Proteus Mirabilis Complete Objective NECK: No jugular venous distention. No carotid bruits. LUNGS: Lungs are clear to auscultation bilaterally. HEART: Regular S1 and S2 with no murmurs or S3. ABDOMEN: Soft and nontender. No palpable mass. EXTREMITIES: No cyanosis, clubbing, or edema. MARY JO MCCOLLUM Jun 23, 2016 16:28
[2016-06-23] MEDS: cefTRIAXone 1 GM in D5W 50 ML IVPB SCH (16:50)
--- NOTE | 2016-06-23 18:04 | Infectious Diseases Prog Note ---
Assessment/Plan Problems: (1) UTI (urinary tract infection) Assessment & Plan: with pansensitive proteus mirabilis , will continue ceftriaxon for 7 days (2) Syncope Assessment & Plan: work up as per primary, continue tele monitor Subjective Constitutional: Reports: no symptoms HEENT: Reports: no symptoms Respiratory: Reports: no symptoms Breasts: Reports: no symptoms Cardiovascular: Reports: no symptoms Gastrointestinal/Abdominal: Reports: no symptoms Genitourinary: Reports: no symptoms Neurologic: Reports: no symptoms Psychiatric: Reports: no symptoms Skin: Reports: no symptoms Endocrine: Reports: no symptoms Hematologic: Reports: no symptoms Musculoskeletal: Reports: no symptoms Allergies: Coded Allergies: No Known Allergies (Unverified , 09/04/15) Subjective up in bed, doing well , not symptomatic Objective Vital Signs Last 24 Hour Vital Signs Date Time Temp Pulse Resp B/P Pulse Ox O2 Delivery O2 Flow Rate FiO2 06/23/16 16:00 97.4 77 19 124/79 98 Room Air 06/23/16 12:00 75 06/23/16 11:20 97.1 70 20 108/65 93 Room Air 06/23/16 08:02 97.3 86 20 108/64 92 Room Air 06/23/16 08:00 87 06/23/16 07:53 85 14 Room Air 21 06/23/16 04:00 98.4 92 22 124/69 93 Room Air 06/23/16 04:00 86 06/23/16 00:00 88 06/22/16 20:00 98 06/22/16 20:00 97.7 87 22 145/92 96 Room Air 06/22/16 19:00 92 14 Room Air 21 Height (Feet): 6 Height (Inches): 0.00 Weight (Pounds): 150 General Appearance: WD/WN, no acute distress HEENT: normocephalic, atraumatic, anicteric, mucous membranes moist Respiratory/Chest: chest wall non-tender, lungs clear, normal breath sounds, no respiratory distress, no accessory muscle use Cardiovascular: normal peripheral pulses, normal rate, regular rhythm, no gallop/murmur Abdomen: normal bowel sounds, soft, non tender, no organomegaly, non distended , no mass Extremities: no cyanosis, no clubbing Skin: no rash, no lesions, no ulcers Microbiology Date/Time Source Procedure Growth Status 06/22/16 13:30 Stool Clostridium difficile Toxin Assay - Final Complete 06/22/16 11:00 Urine,Clean Catch Urine Culture - Preliminary NO GROWTH Resulted 06/21/16 15:30 Urine,Clean Catch Urine Culture - Final Proteus Mirabilis Complete Current Medications Medications (Trade) Dose Ordered Sig/Rufina Route PRN Reason Start Time Stop Time Status Last Admin Dose Admin Acetaminophen (Tylenol) 650 mg Q4H PRN ORAL Mild Pain (Pain Scale 1-3) 06/21/16 21:30 07/21/16 21:29 Al Hydroxide/Mg Hydroxide (Mylanta II) 30 ml Q6H PRN ORAL dyspepsia 06/21/16 21:30 07/21/16 21:29 Albuterol/ Ipratropium (DuoNeb 0.5-3(2.5)mg/3ml) 3 ml Q4H PRN HHN Shortness of Breath 06/21/16 21:30 06/26/16 21:29 Aspirin (ASA) 81 mg DAILY ORAL 06/22/16 09:00 07/22/16 08:59 06/23/16 08:30 Ceftriaxone Sodium/Dextrose (Rocephin/D5W 50ml) 50 ml @ 100 mls/hr Q24H IVPB 06/22/16 16:00 06/29/16 15:59 06/23/16 16:50 Dextrose (Dextrose 50%) STAT PRN IV Hypoglycemia 06/21/16 21:30 07/21/16 21:29 Dextrose/Sodium Chloride (D5 0.45% NS) 1,000 ml @ 75 mls/hr [id number] IV 06/21/16 23:00 07/21/16 22:59 06/23/16 16:51 Diphenhydramine HCl (Benadryl) 25 mg Q6H PRN ORAL Itching/Pruritis 06/21/16 21:30 07/21/16 21:29 Heparin Sodium (Porcine) (Heparin 5000 units/ml) 5,000 units EVERY 12 HOURS SUBQ 06/22/16 09:00 07/22/16 08:59 06/23/16 08:33 Lorazepam 1 mg 1 mg Q6H PRN IV For Anxiety 06/21/16 22:15 06/28/16 22:14 06/22/16 21:14 Morphine Sulfate (Morphine Sulfate) 1 mg Q4H PRN IVP For Pain 06/21/16 21:30 06/28/16 21:29 Morphine Sulfate (Morphine Sulfate) 2 mg Q6H PRN IVP Moderate Pain (Pain Scale 4-6) 06/21/16 21:30 06/28/16 21:29 Ondansetron HCl (Zofran) 4 mg Q6H PRN IVP Nausea & Vomiting 06/21/16 21:30 07/21/16 21:29 Tamsulosin HCl (Flomax) 0.8 mg BEDTIME ORAL 06/23/16 21:00 07/23/16 20:59 Temazepam (Restoril) 15 mg DAILYPRN PRN ORAL Insomnia 06/21/16 21:30 06/28/16 21:29 Karrie Ashby M.D. Jun 23, 2016 18:04
[2016-06-23 18:34] LABS: ANION GAP 10 (5-15); CALCIUM 8.2 mg/dL (8.6-10.2); CARBON DIOXIDE 28 mEQ/L (20-30); CHLORIDE 96 mEQ/L (98-107); CREATININE 0.8 mg/dL (0.7-1.2); HEMOLYSIS 12; POTASSIUM 4.2 mEQ/L (3.4-4.9); SODIUM 134 mEQ/L (135-145)
[2016-06-23 20:00] VITALS: BP 147/85
[2016-06-23] MEDS: Tamsulosin 0.4mg cap ORAL SCH (20:53)
[2016-06-24] VITALS (7 sets, daily range): BP systolic 131–153; BP diastolic 76–100
[2016-06-24 08:50] LABS: BASOPHILS % (AUTO) 0.3 % (0.0-2.0); EOSINOPHILS % (AUTO) 0.5 % (0.0-3.0); LYMPHOCYTES % (AUTO) 8.7 % (20.0-45.0); MEAN CORPUSCULAR HEMOGLOBIN 30.3 PG (27.0-31.0); MEAN CORPUSCULAR HGB CONC 32.3 G/DL (32.0-36.0); MEAN CORPUSCULAR VOLUME 94 FL (80-99); MEAN PLATELET VOLUME 5.3 FL (6.5-10.1); MONOCYTES % (AUTO) 11.6 % (1.0-10.0); NEUTROPHILS % (AUTO) 78.8 % (45.0-75.0); PLATELET COUNT 217 K/UL (150-450); RED BLOOD COUNT 4.22 M/UL (4.70-6.10); RED CELL DISTRIBUTION WIDTH 12.3 % (11.6-14.8); WHITE BLOOD COUNT 9.3 K/UL (4.8-10.8)
[2016-06-24] MEDS: Aspirin Baby 81mg ORAL SCH (08:58)
[2016-06-24] MEDS: Heparin 5000 units/ml inj SUBQ SCH ×2 (08:59→21:10)
--- NOTE | 2016-06-24 10:07 | Cardiology Report ---
APPROVED REPORT EKG Measurement Heart [id number] Sinus rhythm with occasional premature ventricular complexes and fusion complexes Possible Inferior infarct, age undetermined Abnormal ECG
[2016-06-24] MEDS ORDERED: D5 1/2NS 1000ml IV ONE (14:52)
[2016-06-24] MEDS: cefTRIAXone 1 GM in D5W 50 ML IVPB SCH (16:55)
--- NOTE | 2016-06-24 16:59 | Cardiac Electrophysiology PN ---
Assessment/Plan Assessment/Plan 1. Recurrent Syncope and multiple documentations of bradycardia with Heart rate in 20s and 30s by interrogation of his SJ implantable loop recorder. Off Any MCKEON or AVN boo. Needs permanent pacer implantation after UTI is resolved and with psych clearance. Watch on tele. 2. UTI.On Ceftriaxone. DW RN Subjective Subjective Doing well. No chest pain or SOB. SJ Implantable loop recorder interrogation showed Juliano episodes down to 30s on 06/01, and . Objective Last 24 Hour Vital Signs Date Time Temp Pulse Resp B/P Pulse Ox O2 Delivery O2 Flow Rate FiO2 06/24/16 16:52 65 75 06/24/16 16:00 97.9 68 20 144/98 98 Room Air 06/24/16 12:00 72 06/24/16 11:22 97.3 71 20 145/86 95 Room Air 06/24/16 08:51 84 138/98 06/24/16 08:50 84 06/24/16 08:45 86 06/24/16 08:35 89 16 Room Air 21 06/24/16 08:00 79 06/24/16 07:39 97.1 53 20 153/100 91 Room Air 06/24/16 04:00 94 91 06/24/16 04:00 97.0 91 20 131/78 96 Room Air 06/24/16 04:00 87 06/24/16 00:00 97.6 94 20 133/76 95 Room Air 06/23/16 21:36 70 75 06/23/16 20:00 79 06/23/16 20:00 97.7 74 18 147/85 96 Room Air 06/23/16 19:05 89 16 Room Air 21 Intake and Output 06/23/16 06/24/16 19:00 07:00 Intake Total 1190 ml 900 ml Output Total 150 ml Balance 1040 ml 900 ml Intake Oral 390 ml IV Total 800 ml 900 ml Output Urine Total 150 ml # Voids 8 Laboratory Tests Test 06/23/16 18:08 06/24/16 08:35 Sodium Level 134 mEQ/L (135-145) L Potassium Level 4.2 mEQ/L (3.4-4.9) Chloride Level 96 mEQ/L (98-107) L Carbon Dioxide Level 28 mEQ/L (20-30) Anion Gap 10 (5-15) Blood Urea Nitrogen 14 mg/dL (7-23) Creatinine 0.8 mg/dL (0.7-1.2) Estimat Glomerular Filtration Rate mL/min (>60) Glucose Level 91 mg/dL (74-106) Calcium Level 8.2 mg/dL (8.6-10.2) L White Blood Count 9.3 K/UL (4.8-10.8) Red Blood Count 4.22 M/UL (4.70-6.10) L Hemoglobin 12.8 G/DL (14.2-18.0) L Hematocrit 39.7 % (42.0-52.0) L Mean Corpuscular Volume 94 FL (80-99) Mean Corpuscular Hemoglobin 30.3 PG (27.0-31.0) Mean Corpuscular Hemoglobin Concent 32.3 G/DL (32.0-36.0) Red Cell Distribution Width 12.3 % (11.6-14.8) Platelet Count 217 K/UL (150-450) Mean Platelet Volume 5.3 FL (6.5-10.1) L Neutrophils (%) (Auto) 78.8 % (45.0-75.0) H Lymphocytes (%) (Auto) 8.7 % (20.0-45.0) L Monocytes (%) (Auto) 11.6 % (1.0-10.0) H Eosinophils (%) (Auto) 0.5 % (0.0-3.0) Basophils (%) (Auto) 0.3 % (0.0-2.0) Microbiology Date/Time Source Procedure Growth Status 06/22/16 13:30 Stool Clostridium difficile Toxin Assay - Final Complete 06/22/16 11:00 Urine,Clean Catch Urine Culture - Preliminary Gram Negative Bacillus 1 Resulted Objective NECK: No jugular venous distention. No carotid bruits. LUNGS: Lungs are clear to auscultation bilaterally. HEART: Regular S1 and S2 with no murmurs or S3.ILR left chest ABDOMEN: Soft and nontender. No palpable mass. EXTREMITIES: No cyanosis, clubbing, or edema. MARY JO MCCOLLUM Jun 24, 2016 16:59
[2016-06-24] MEDS: D5 1/2NS 1,000 ML IV SCH (17:40)
--- NOTE | 2016-06-24 17:52 | Infectious Diseases Prog Note ---
Assessment/Plan Problems: (1) UTI (urinary tract infection) Assessment & Plan: with pansensitive proteus mirabilis , will continue ceftriaxon for 7 days (2) Syncope Assessment & Plan: work up as per primary, continue tele monitor Subjective Constitutional: Reports: no symptoms HEENT: Reports: no symptoms Respiratory: Reports: no symptoms Breasts: Reports: no symptoms Cardiovascular: Reports: no symptoms Gastrointestinal/Abdominal: Reports: no symptoms Genitourinary: Reports: no symptoms Neurologic: Reports: no symptoms Psychiatric: Reports: no symptoms Skin: Reports: no symptoms Allergies: Coded Allergies: No Known Allergies (Unverified , 09/04/15) Subjective up in bed, doing well , not symptomatic Objective Vital Signs Last 24 Hour Vital Signs Date Time Temp Pulse Resp B/P Pulse Ox O2 Delivery O2 Flow Rate FiO2 06/24/16 16:52 65 75 06/24/16 16:00 97.9 68 20 144/98 98 Room Air 06/24/16 12:00 72 06/24/16 11:22 97.3 71 20 145/86 95 Room Air 06/24/16 08:51 84 138/98 06/24/16 08:50 84 06/24/16 08:45 86 06/24/16 08:35 89 16 Room Air 21 06/24/16 08:00 79 06/24/16 07:39 97.1 53 20 153/100 91 Room Air 06/24/16 04:00 94 91 06/24/16 04:00 97.0 91 20 131/78 96 Room Air 06/24/16 04:00 87 06/24/16 00:00 97.6 94 20 133/76 95 Room Air 06/23/16 21:36 70 75 06/23/16 20:00 79 06/23/16 20:00 97.7 74 18 147/85 96 Room Air 06/23/16 19:05 89 16 Room Air 21 Height (Feet): 6 Height (Inches): 0.00 Weight (Pounds): 150 General Appearance: WD/WN, no acute distress HEENT: normocephalic, atraumatic, anicteric, mucous membranes moist Respiratory/Chest: chest wall non-tender, lungs clear, normal breath sounds, no respiratory distress, no accessory muscle use Cardiovascular: normal peripheral pulses, normal rate, regular rhythm, no gallop/murmur Abdomen: normal bowel sounds, soft, non tender, no organomegaly, non distended , no mass Extremities: no cyanosis, no clubbing Skin: no rash, no lesions, no ulcers Microbiology Date/Time Source Procedure Growth Status 06/22/16 13:30 Stool Clostridium difficile Toxin Assay - Final Complete 06/22/16 11:00 Urine,Clean Catch Urine Culture - Preliminary Gram Negative Bacillus 1 Resulted Laboratory Tests Test 06/23/16 18:08 06/24/16 08:35 Sodium Level 134 mEQ/L (135-145) L Potassium Level 4.2 mEQ/L (3.4-4.9) Chloride Level 96 mEQ/L (98-107) L Carbon Dioxide Level 28 mEQ/L (20-30) Anion Gap 10 (5-15) Blood Urea Nitrogen 14 mg/dL (7-23) Creatinine 0.8 mg/dL (0.7-1.2) Estimat Glomerular Filtration Rate mL/min (>60) Glucose Level 91 mg/dL (74-106) Calcium Level 8.2 mg/dL (8.6-10.2) L White Blood Count 9.3 K/UL (4.8-10.8) Red Blood Count 4.22 M/UL (4.70-6.10) L Hemoglobin 12.8 G/DL (14.2-18.0) L Hematocrit 39.7 % (42.0-52.0) L Mean Corpuscular Volume 94 FL (80-99) Mean Corpuscular Hemoglobin 30.3 PG (27.0-31.0) Mean Corpuscular Hemoglobin Concent 32.3 G/DL (32.0-36.0) Red Cell Distribution Width 12.3 % (11.6-14.8) Platelet Count 217 K/UL (150-450) Mean Platelet Volume 5.3 FL (6.5-10.1) L Neutrophils (%) (Auto) 78.8 % (45.0-75.0) H Lymphocytes (%) (Auto) 8.7 % (20.0-45.0) L Monocytes (%) (Auto) 11.6 % (1.0-10.0) H Eosinophils (%) (Auto) 0.5 % (0.0-3.0) Basophils (%) (Auto) 0.3 % (0.0-2.0) Current Medications Medications (Trade) Dose Ordered Sig/Rufina Route PRN Reason Start Time Stop Time Status Last Admin Dose Admin Acetaminophen (Tylenol) 650 mg Q4H PRN ORAL Mild Pain (Pain Scale 1-3) 06/21/16 21:30 07/21/16 21:29 Al Hydroxide/Mg Hydroxide (Mylanta II) 30 ml Q6H PRN ORAL dyspepsia 06/21/16 21:30 07/21/16 21:29 Albuterol/ Ipratropium (DuoNeb 0.5-3(2.5)mg/3ml) 3 ml Q4H PRN HHN Shortness of Breath 06/21/16 21:30 06/26/16 21:29 Aspirin (ASA) 81 mg DAILY ORAL 06/22/16 09:00 07/22/16 08:59 06/23/16 08:30 Ceftriaxone Sodium/Dextrose (Rocephin/D5W 50ml) 50 ml @ 100 mls/hr Q24H IVPB 06/22/16 16:00 06/29/16 15:59 06/24/16 16:55 Dextrose (Dextrose 50%) STAT PRN IV Hypoglycemia 06/21/16 21:30 07/21/16 21:29 Dextrose/Sodium Chloride (D5 0.45% NS) 1,000 ml @ 75 mls/hr [id number] IV 06/21/16 23:00 07/21/16 22:59 06/23/16 16:51 Diphenhydramine HCl (Benadryl) 25 mg Q6H PRN ORAL Itching/Pruritis 06/21/16 21:30 07/21/16 21:29 Heparin Sodium (Porcine) (Heparin 5000 units/ml) 5,000 units EVERY 12 HOURS SUBQ 06/22/16 09:00 07/22/16 08:59 06/23/16 20:48 Lorazepam 1 mg 1 mg Q6H PRN IV For Anxiety 06/21/16 22:15 06/28/16 22:14 06/22/16 21:14 Morphine Sulfate (Morphine Sulfate) 1 mg Q4H PRN IVP For Pain 06/21/16 21:30 06/28/16 21:29 Morphine Sulfate (Morphine Sulfate) 2 mg Q6H PRN IVP Moderate Pain (Pain Scale 4-6) 06/21/16 21:30 06/28/16 21:29 Ondansetron HCl (Zofran) 4 mg Q6H PRN IVP Nausea & Vomiting 06/21/16 21:30 07/21/16 21:29 Tamsulosin HCl (Flomax) 0.8 mg BEDTIME ORAL 06/23/16 21:00 07/23/16 20:59 Temazepam (Restoril) 15 mg DAILYPRN PRN ORAL Insomnia 06/21/16 21:30 06/28/16 21:29 Karrie Ashby M.D. Jun 24, 2016 17:52
[2016-06-24] MEDS: Tamsulosin 0.4mg cap ORAL SCH (21:08)
[2016-06-24] MEDS: LORazepam Inj 2mg/ml 1ml IV PRN (21:08)
--- NOTE | 2016-06-24 21:24 | Nephrology Progress Note ---
Assessment/Plan Problem List: (1) Status post placement of implantable loop recorder (2) Bradycardia (3) Syncope (4) UTI (urinary tract infection) Plan cont Rocephin per ID. cardiology following, likely needs permanent pacemaker. cont telemetry. Subjective Subjective no new c/o. bradycardia noted on implantable loop recorder. Objective Objective Last 24 Hour Vital Signs Date Time Temp Pulse Resp B/P Pulse Ox O2 Delivery O2 Flow Rate FiO2 06/24/16 20:00 97.8 79 20 145/96 98 Room Air 06/24/16 16:52 65 75 06/24/16 16:00 97.9 68 20 144/98 98 Room Air 06/24/16 16:00 67 06/24/16 12:00 72 06/24/16 11:22 97.3 71 20 145/86 95 Room Air 06/24/16 08:51 84 138/98 06/24/16 08:50 84 06/24/16 08:45 86 06/24/16 08:35 89 16 Room Air 21 06/24/16 08:00 79 06/24/16 07:39 97.1 53 20 153/100 91 Room Air 06/24/16 04:00 94 91 06/24/16 04:00 97.0 91 20 131/78 96 Room Air 06/24/16 04:00 87 06/24/16 00:00 97.6 94 20 133/76 95 Room Air 06/23/16 21:36 70 75 Intake and Output 06/23/16 06/24/16 19:00 07:00 Intake Total 1190 ml 900 ml Output Total 150 ml Balance 1040 ml 900 ml Intake Oral 390 ml IV Total 800 ml 900 ml Output Urine Total 150 ml # Voids 8 Laboratory Tests 06/24/16 08:35: White Blood Count 9.3, Red Blood Count 4.22L, Hemoglobin 12.8L, Hematocrit 39.7L , Mean Corpuscular Volume 94, Mean Corpuscular Hemoglobin 30.3, Mean Corpuscular Hemoglobin Concent 32.3, Red Cell Distribution Width 12.3, Platelet Count 217, Mean Platelet Volume 5.3L, Neutrophils (%) (Auto) 78.8H, Lymphocytes (%) (Auto) 8.7L, Monocytes (%) (Auto) 11.6H, Eosinophils (%) (Auto) 0.5, Basophils (%) (Auto) 0.3 Height (Feet): 6 Height (Inches): 0.00 Weight (Pounds): 150 General Appearance: no apparent distress Cardiovascular: normal rate, regular rhythm Respiratory/Chest: lungs clear Abdomen: non tender, soft ALMA ROSA LAN Jun 24, 2016 21:24
[2016-06-25] VITALS (7 sets, daily range): BP systolic 134–164; BP diastolic 83–113
[2016-06-25] MEDS: D5 1/2NS 1,000 ML IV SCH ×2 (07:34→20:20)
[2016-06-25] MEDS: Heparin 5000 units/ml inj SUBQ SCH ×2 (09:07→21:11)
[2016-06-25] MEDS: Aspirin Baby 81mg ORAL SCH (09:07)
--- NOTE | 2016-06-25 10:23 | General Progress Note ---
Assessment/Plan Problem List: (1) Syncope ICD Codes: R55 - Syncope and collapse SNOMED: 092642456 Qualifiers: Qualified Codes: R55 - Syncope and collapse (2) UTI (urinary tract infection) ICD Codes: N39.0 - Urinary tract infection, site not specified SNOMED: 88254209 Qualifiers: Qualified Codes: N30.00 - Acute cystitis without hematuria (3) Status post placement of implantable loop recorder ICD Codes: Z95.818 - Presence of other cardiac implants and grafts SNOMED: 393360087, 171555142, 958044502 (4) Altered level of consciousness ICD Codes: R40.4 - Transient alteration of awareness SNOMED: 7025298 Assessment/Plan Needs permanent pacer implantation after UTI is resolved and with psych clearance per cardiology Continue Rocephin per ID f/u DVT prophylaxis Monitor Neuro status AM labs Subjective Date patient seen: Jun 25, 2016 Allergies: Coded Allergies: No Known Allergies (Unverified , 09/04/15) Subjective Pt is in bed, asleep, no distress noted, according to the sitter at bedside, pt stayed awake all night Objective Last 24 Hour Vital Signs Date Time Temp Pulse Resp B/P Pulse Ox O2 Delivery O2 Flow Rate FiO2 06/25/16 08:00 97.2 96 20 147/109 92 Room Air 06/25/16 04:00 97.1 75 18 134/95 97 Room Air 06/25/16 00:00 06/25/16 00:00 98.2 64 20 164/113 97 Room Air 06/25/16 00:00 64 97 06/24/16 21:00 78 18 Room Air 21 06/24/16 20:00 91 06/24/16 20:00 97.8 79 20 145/96 98 Room Air 06/24/16 16:52 65 75 06/24/16 16:00 97.9 68 20 144/98 98 Room Air 06/24/16 16:00 67 06/24/16 12:00 72 06/24/16 11:22 97.3 71 20 145/86 95 Room Air Intake and Output 06/24/16 06/25/16 19:00 07:00 Intake Total 600 ml Output Total 250 ml 4 ml Balance 350 ml -4 ml Intake Oral 600 ml Output Urine Total 250 ml 4 ml # Voids 3 4 Height (Feet): 6 Height (Inches): 0.00 Weight (Pounds): 150 General Appearance: no apparent distress EENT: normal ENT inspection, TMs normal Neck: normal alignment, supple, normal inspection Cardiovascular: normal rate, regular rhythm, no JVD Respiratory/Chest: normal breath sounds, no respiratory distress Abdomen: non tender, soft, no organomegaly Pelvis: normal external exam Extremities: normal range of motion, non-tender Neurologic: disoriented Skin: normal pigmentation, warm/dry Carline Fernandez N.P. Jun 25, 2016 10:23
--- NOTE | 2016-06-25 15:27 | Cardiac Electrophysiology PN ---
Assessment/Plan Assessment/Plan 1. Recurrent Syncope and bradycardia with Heart rate in 20s and 30s by interrogation of his SJ implantable loop recorder. Off Any MCKEON or AVN boo. Needs permanent pacer implantation after UTI is resolved and after psych clearance. Watch on tele. 2. UTI.On Ceftriaxone. BEBE RN Subjective Subjective Confused and agitated. Sitter at bedside. No chest pain or SOB. No larry episodes or syncope while in hospital. Objective Last 24 Hour Vital Signs Date Time Temp Pulse Resp B/P Pulse Ox O2 Delivery O2 Flow Rate FiO2 06/25/16 12:00 77 06/25/16 11:57 97.2 74 19 139/95 93 Room Air 06/25/16 08:00 97.2 96 20 147/109 92 Room Air 06/25/16 08:00 85 06/25/16 07:53 96 18 Room Air 21 06/25/16 04:00 97.1 75 18 134/95 97 Room Air 06/25/16 00:00 06/25/16 00:00 98.2 64 20 164/113 97 Room Air 06/25/16 00:00 64 97 06/24/16 21:00 78 18 Room Air 21 06/24/16 20:00 91 06/24/16 20:00 97.8 79 20 145/96 98 Room Air 06/24/16 16:52 65 75 06/24/16 16:00 97.9 68 20 144/98 98 Room Air 06/24/16 16:00 67 Intake and Output 06/24/16 06/25/16 19:00 07:00 Intake Total 600 ml Output Total 250 ml 4 ml Balance 350 ml -4 ml Intake Oral 600 ml Output Urine Total 250 ml 4 ml # Voids 3 4 Labs Test 06/23/16 18:08 06/24/16 08:35 Sodium Level 134 mEQ/L (135-145) Potassium Level 4.2 mEQ/L (3.4-4.9) Chloride Level 96 mEQ/L (98-107) Carbon Dioxide Level 28 mEQ/L (20-30) Anion Gap 10 (5-15) Blood Urea Nitrogen 14 mg/dL (7-23) Creatinine 0.8 mg/dL (0.7-1.2) Estimat Glomerular Filtration Rate mL/min (>60) Glucose Level 91 mg/dL (74-106) Calcium Level 8.2 mg/dL (8.6-10.2) White Blood Count 9.3 K/UL (4.8-10.8) Red Blood Count 4.22 M/UL (4.70-6.10) Hemoglobin 12.8 G/DL (14.2-18.0) Hematocrit 39.7 % (42.0-52.0) Mean Corpuscular Volume 94 FL (80-99) Mean Corpuscular Hemoglobin 30.3 PG (27.0-31.0) Mean Corpuscular Hemoglobin Concent 32.3 G/DL (32.0-36.0) Red Cell Distribution Width 12.3 % (11.6-14.8) Platelet Count 217 K/UL (150-450) Mean Platelet Volume 5.3 FL (6.5-10.1) Neutrophils (%) (Auto) 78.8 % (45.0-75.0) Lymphocytes (%) (Auto) 8.7 % (20.0-45.0) Monocytes (%) (Auto) 11.6 % (1.0-10.0) Eosinophils (%) (Auto) 0.5 % (0.0-3.0) Basophils (%) (Auto) 0.3 % (0.0-2.0) Current Medications Medications (Trade) Dose Ordered Sig/Rufina Route PRN Reason Start Time Stop Time Status Last Admin Dose Admin Acetaminophen (Tylenol) 650 mg Q4H PRN ORAL Mild Pain (Pain Scale 1-3) 06/21/16 21:30 07/21/16 21:29 Al Hydroxide/Mg Hydroxide (Mylanta II) 30 ml Q6H PRN ORAL dyspepsia 06/21/16 21:30 07/21/16 21:29 Albuterol/ Ipratropium (DuoNeb 0.5-3(2.5)mg/3ml) 3 ml Q4H PRN HHN Shortness of Breath 06/21/16 21:30 06/26/16 21:29 Aspirin (ASA) 81 mg DAILY ORAL 06/22/16 09:00 07/22/16 08:59 06/25/16 09:07 Ceftriaxone Sodium/Dextrose (Rocephin/D5W 50ml) 50 ml @ 100 mls/hr Q24H IVPB 06/22/16 16:00 06/29/16 15:59 06/24/16 16:55 Dextrose (Dextrose 50%) STAT PRN IV Hypoglycemia 06/21/16 21:30 07/21/16 21:29 Dextrose/Sodium Chloride (D5 0.45% NS) 1,000 ml @ 75 mls/hr [id number] IV 06/21/16 23:00 07/21/16 22:59 06/25/16 07:34 Diphenhydramine HCl (Benadryl) 25 mg Q6H PRN ORAL Itching/Pruritis 06/21/16 21:30 07/21/16 21:29 Heparin Sodium (Porcine) (Heparin 5000 units/ml) 5,000 units EVERY 12 HOURS SUBQ 06/22/16 09:00 07/22/16 08:59 06/25/16 09:07 Lorazepam 1 mg 1 mg Q6H PRN IV For Anxiety 06/21/16 22:15 06/28/16 22:14 06/24/16 21:08 Morphine Sulfate (Morphine Sulfate) 1 mg Q4H PRN IVP For Pain 06/21/16 21:30 06/28/16 21:29 Morphine Sulfate (Morphine Sulfate) 2 mg Q6H PRN IVP Moderate Pain (Pain Scale 4-6) 06/21/16 21:30 06/28/16 21:29 Ondansetron HCl (Zofran) 4 mg Q6H PRN IVP Nausea & Vomiting 06/21/16 21:30 07/21/16 21:29 Tamsulosin HCl (Flomax) 0.8 mg BEDTIME ORAL 06/23/16 21:00 07/23/16 20:59 06/24/16 21:08 Temazepam (Restoril) 15 mg DAILYPRN PRN ORAL Insomnia 06/21/16 21:30 06/28/16 21:29 Objective NECK: No jugular venous distention. No carotid bruits. LUNGS: Lungs are clear to auscultation bilaterally. HEART: Regular S1 and S2 with no murmurs or S3.ILR left chest ABDOMEN: Soft and nontender. No palpable mass. EXTREMITIES: No cyanosis, clubbing, or edema. MARY JO MCCOLLUM Jun 25, 2016 15:27
[2016-06-25] MEDS: cefTRIAXone 1 GM in D5W 50 ML IVPB SCH (16:26)
--- NOTE | 2016-06-25 16:44 | Physician Query ---
PLEASE COMPLETE QUESTION IN RED BEFORE SIGNING Dear Dr. Alma Rosa Lan Date: May Senior Reservations Agent/CDS Name: Leobardo Fuller CDS Senior Reservations Agent / CDS Exercise your independent professional judgment when responding to query. Question asked do not imply a particular answer is desired/expected. Clinical Documentation States: " Altered Level Of Consciousness " documented in the assessment notes of [employer] OPERATOR Carline Fernandez. Pt is in bed, trying to get out of bed, confused, not in distress. Clinical Findings Show: Neurologic: alert, disoriented WBC=11.4,10.9 Please indicate the nature and chronicity of the condition below: [] Metabolic Encephalopathy [] Toxic Encephalopathy [] Toxic - Metabolic Encephalopathy [] Progressive Encephalopathy [] Encephalopathy, Other [] Other: [] Not Applicable Severity: [] Acute [] Chronic [] Acute on Chronic [] Unable to determine Condition Present on Admission: [] Yes [] No []Clinically Undeterminable Please also document in your Progress Notes and/or Discharge Summary and indicate if the condition was present on admission. ALMA ROSA LAN MD TIME/DATE MTDD
[2016-06-25] MEDS ORDERED: D5 1/2NS 1000ml IV ONE (17:01)
[2016-06-25] MEDS ORDERED: Tubing IV Secondary IV ONE (17:01)
--- NOTE | 2016-06-25 17:55 | Infectious Diseases Prog Note ---
Assessment/Plan Problems: (1) UTI (urinary tract infection) Assessment & Plan: with pansensitive proteus mirabilis , will continue ceftriaxon for 7 days (2) Syncope Assessment & Plan: work up as per primary, continue tele monitor Subjective Constitutional: Reports: no symptoms HEENT: Reports: no symptoms Respiratory: Reports: no symptoms Breasts: Reports: no symptoms Cardiovascular: Reports: no symptoms Gastrointestinal/Abdominal: Reports: no symptoms Genitourinary: Reports: no symptoms Neurologic: Reports: no symptoms Psychiatric: Reports: no symptoms Allergies: Coded Allergies: No Known Allergies (Unverified , 09/04/15) Subjective up in bed, doing well , not symptomatic Objective Vital Signs Last 24 Hour Vital Signs Date Time Temp Pulse Resp B/P Pulse Ox O2 Delivery O2 Flow Rate FiO2 06/25/16 16:00 97.7 84 20 142/94 95 Room Air 06/25/16 12:00 77 06/25/16 11:57 97.2 74 19 139/95 93 Room Air 06/25/16 08:00 97.2 96 20 147/109 92 Room Air 06/25/16 08:00 85 06/25/16 07:53 96 18 Room Air 21 06/25/16 04:00 97.1 75 18 134/95 97 Room Air 06/25/16 00:00 06/25/16 00:00 98.2 64 20 164/113 97 Room Air 06/25/16 00:00 64 97 06/24/16 21:00 78 18 Room Air 21 06/24/16 20:00 91 06/24/16 20:00 97.8 79 20 145/96 98 Room Air Height (Feet): 6 Height (Inches): 0.00 Weight (Pounds): 150 General Appearance: WD/WN, no acute distress HEENT: normocephalic, atraumatic, anicteric, mucous membranes moist Respiratory/Chest: chest wall non-tender, lungs clear, normal breath sounds, no respiratory distress, no accessory muscle use Cardiovascular: normal peripheral pulses, normal rate, regular rhythm, no gallop/murmur Abdomen: normal bowel sounds, soft, non tender, no organomegaly, non distended , no mass, no scars Extremities: no cyanosis, no clubbing Skin: no rash, no lesions, no ulcers Current Medications Medications (Trade) Dose Ordered Sig/Rufina Route PRN Reason Start Time Stop Time Status Last Admin Dose Admin Acetaminophen (Tylenol) 650 mg Q4H PRN ORAL Mild Pain (Pain Scale 1-3) 06/21/16 21:30 07/21/16 21:29 Al Hydroxide/Mg Hydroxide (Mylanta II) 30 ml Q6H PRN ORAL dyspepsia 06/21/16 21:30 07/21/16 21:29 Albuterol/ Ipratropium (DuoNeb 0.5-3(2.5)mg/3ml) 3 ml Q4H PRN HHN Shortness of Breath 06/21/16 21:30 06/26/16 21:29 Aspirin (ASA) 81 mg DAILY ORAL 06/22/16 09:00 07/22/16 08:59 06/25/16 09:07 Ceftriaxone Sodium/Dextrose (Rocephin/D5W 50ml) 50 ml @ 100 mls/hr Q24H IVPB 06/22/16 16:00 06/29/16 15:59 06/25/16 16:26 Dextrose (Dextrose 50%) STAT PRN IV Hypoglycemia 06/21/16 21:30 07/21/16 21:29 Dextrose/Sodium Chloride (D5 0.45% NS) 1,000 ml @ 75 mls/hr [id number] IV 06/21/16 23:00 07/21/16 22:59 06/25/16 07:34 Diphenhydramine HCl (Benadryl) 25 mg Q6H PRN ORAL Itching/Pruritis 06/21/16 21:30 07/21/16 21:29 Heparin Sodium (Porcine) (Heparin 5000 units/ml) 5,000 units EVERY 12 HOURS SUBQ 06/22/16 09:00 07/22/16 08:59 06/25/16 09:07 Lorazepam 1 mg 1 mg Q6H PRN IV For Anxiety 06/21/16 22:15 06/28/16 22:14 06/24/16 21:08 Morphine Sulfate (Morphine Sulfate) 1 mg Q4H PRN IVP For Pain 06/21/16 21:30 06/28/16 21:29 Morphine Sulfate (Morphine Sulfate) 2 mg Q6H PRN IVP Moderate Pain (Pain Scale 4-6) 06/21/16 21:30 06/28/16 21:29 Ondansetron HCl (Zofran) 4 mg Q6H PRN IVP Nausea & Vomiting 06/21/16 21:30 07/21/16 21:29 Tamsulosin HCl (Flomax) 0.8 mg BEDTIME ORAL 06/23/16 21:00 07/23/16 20:59 06/24/16 21:08 Temazepam (Restoril) 15 mg DAILYPRN PRN ORAL Insomnia 06/21/16 21:30 06/28/16 21:29 Karrie Ashby M.D. Jun 25, 2016 17:55
[2016-06-25] MEDS: Tamsulosin 0.4mg cap ORAL SCH (21:08)
[2016-06-26 00:39] VITALS: BP 151/95
[2016-06-26] MEDS: D5 1/2NS 1,000 ML IV SCH ×2 (01:38→21:42)
[2016-06-26 07:07] LABS: MEAN CORPUSCULAR HEMOGLOBIN 30.5 PG (27.0-31.0); MEAN CORPUSCULAR HGB CONC 32.7 G/DL (32.0-36.0); MEAN CORPUSCULAR VOLUME 93 FL (80-99); MEAN PLATELET VOLUME 6.4 FL (6.5-10.1); PLATELET COUNT 236 K/UL (150-450); RED BLOOD COUNT 3.93 M/UL (4.70-6.10); RED CELL DISTRIBUTION WIDTH 12.3 % (11.6-14.8); WHITE BLOOD COUNT 6.2 K/UL (4.8-10.8)
[2016-06-26 07:18] LABS: ANION GAP 13 (5-15); CALCIUM 8.2 mg/dL (8.6-10.2); CARBON DIOXIDE 27 mEQ/L (20-30); CHLORIDE 99 mEQ/L (98-107); CREATININE 0.7 mg/dL (0.7-1.2); HEMOLYSIS 3; POTASSIUM 3.8 mEQ/L (3.4-4.9); SODIUM 139 mEQ/L (135-145)
[2016-06-26 07:30] VITALS: BP 136/72
[2016-06-26 09:28] LABS: BAND NEUTROPHILS % (MANUAL) 0 % (0-8); BASOPHILS % (MANUAL) 0 % (0-2); EOSINOPHILS % (MANUAL) 0 % (0-3); LYMPHOCYTES % (MANUAL) 20 % (20-45); NEUTROPHILS % (MANUAL) 60 % (45-75); PLATELET ESTIMATE ADEQUATE; PLATELET MORPHOLOGY NORMAL; TOTAL CELLS COUNTED 100
[2016-06-26] MEDS: Aspirin Baby 81mg ORAL SCH (09:29)
[2016-06-26] MEDS: Heparin 5000 units/ml inj SUBQ SCH ×2 (09:31→21:40)
[2016-06-26 11:27] VITALS: BP 126/52
[2016-06-26 15:50] VITALS: BP 133/81
--- NOTE | 2016-06-26 16:44 | Cardiac Electrophysiology PN ---
Assessment/Plan Assessment/Plan 1. Recurrent Syncope and bradycardia with Heart rate in 20s and 30s by interrogation of his SJ implantable loop recorder. Off Any MCKEON or AVN boo. Needs permanent pacer implantation after UTI is resolved and after psych clearance. No syncope or larry on tele. 2. UTI.On Ceftriaxone. BEBE RN Subjective Subjective Pleasantly Confused. Sitter at bedside. No larry episodes or syncope while in hospital. Objective Last 24 Hour Vital Signs Date Time Temp Pulse Resp B/P Pulse Ox O2 Delivery O2 Flow Rate FiO2 06/26/16 15:50 98.2 77 23 133/81 97 Room Air 06/26/16 12:00 83 06/26/16 11:27 98.1 86 20 126/52 95 Room Air 06/26/16 08:00 90 06/26/16 07:30 97.2 87 20 136/72 95 Room Air 06/26/16 07:16 81 18 Room Air 21 06/26/16 04:00 85 06/26/16 00:39 98.1 88 19 151/95 95 Room Air 06/26/16 00:00 86 06/25/16 20:00 98.1 92 20 141/83 96 Room Air 06/25/16 20:00 93 06/25/16 19:36 99 18 Room Air 21 Intake and Output 06/25/16 06/26/16 19:00 07:00 Intake Total 877.5 ml 855 ml Output Total 20 ml Balance 877.5 ml 835 ml Intake Oral 120 ml 180 ml IV Total 757.5 ml 675 ml Output Urine Total 20 ml # Voids 2 2 Laboratory Tests Test 06/26/16 06:10 White Blood Count 6.2 K/UL (4.8-10.8) Red Blood Count 3.93 M/UL (4.70-6.10) L Hemoglobin 12.0 G/DL (14.2-18.0) L Hematocrit 36.6 % (42.0-52.0) L Mean Corpuscular Volume 93 FL (80-99) Mean Corpuscular Hemoglobin 30.5 PG (27.0-31.0) Mean Corpuscular Hemoglobin Concent 32.7 G/DL (32.0-36.0) Red Cell Distribution Width 12.3 % (11.6-14.8) Platelet Count 236 K/UL (150-450) Mean Platelet Volume 6.4 FL (6.5-10.1) L Neutrophils (%) (Auto) % (45.0-75.0) Lymphocytes (%) (Auto) % (20.0-45.0) Monocytes (%) (Auto) % (1.0-10.0) Eosinophils (%) (Auto) % (0.0-3.0) Basophils (%) (Auto) % (0.0-2.0) Differential Total Cells Counted 100 Neutrophils % (Manual) 60 % (45-75) Lymphocytes % (Manual) 20 % (20-45) Monocytes % (Manual) 20 % (1-10) H Eosinophils % (Manual) 0 % (0-3) Basophils % (Manual) 0 % (0-2) Band Neutrophils 0 % (0-8) Platelet Estimate Adequate Platelet Morphology Normal Red Blood Cell Morphology Normal Sodium Level 139 mEQ/L (135-145) Potassium Level 3.8 mEQ/L (3.4-4.9) Chloride Level 99 mEQ/L (98-107) Carbon Dioxide Level 27 mEQ/L (20-30) Anion Gap 13 (5-15) Blood Urea Nitrogen 11 mg/dL (7-23) Creatinine 0.7 mg/dL (0.7-1.2) Estimat Glomerular Filtration Rate mL/min (>60) Glucose Level 106 mg/dL (74-106) Calcium Level 8.2 mg/dL (8.6-10.2) L Objective NECK: No jugular venous distention. LUNGS: Lungs are clear bilaterally. HEART: Regular S1 and S2 with no murmurs or S3.ILR left chest ABDOMEN: Soft and nontender. No palpable mass. EXTREMITIES: No cyanosis, clubbing, or edema. MARY JO MCCOLLUM Jun 26, 2016 16:44
--- NOTE | 2016-06-26 17:18 | Infectious Diseases Prog Note ---
Assessment/Plan Problems: (1) UTI (urinary tract infection) Assessment & Plan: with pansensitive proteus mirabilis , will continue ceftriaxon for 7 days (2) Syncope Assessment & Plan: work up as per primary, continue tele monitor Subjective Constitutional: Reports: no symptoms HEENT: Reports: no symptoms Respiratory: Reports: no symptoms Cardiovascular: Reports: no symptoms Genitourinary: Reports: no symptoms Neurologic: Reports: no symptoms Allergies: Coded Allergies: No Known Allergies (Unverified , 09/04/15) Subjective up in bed, doing well , not symptomatic Objective Vital Signs Last 24 Hour Vital Signs Date Time Temp Pulse Resp B/P Pulse Ox O2 Delivery O2 Flow Rate FiO2 06/26/16 15:50 98.2 77 23 133/81 97 Room Air 06/26/16 12:00 83 06/26/16 11:27 98.1 86 20 126/52 95 Room Air 06/26/16 08:00 90 06/26/16 07:30 97.2 87 20 136/72 95 Room Air 06/26/16 07:16 81 18 Room Air 21 06/26/16 04:00 85 06/26/16 00:39 98.1 88 19 151/95 95 Room Air 06/26/16 00:00 86 06/25/16 20:00 98.1 92 20 141/83 96 Room Air 06/25/16 20:00 93 06/25/16 19:36 99 18 Room Air 21 Height (Feet): 6 Height (Inches): 0.00 Weight (Pounds): 150 General Appearance: WD/WN, no acute distress HEENT: normocephalic, atraumatic, anicteric Respiratory/Chest: chest wall non-tender, lungs clear, normal breath sounds, no respiratory distress, no accessory muscle use Cardiovascular: normal peripheral pulses, normal rate, regular rhythm, no gallop/murmur Abdomen: normal bowel sounds, soft, non tender, no organomegaly, non distended , no mass Extremities: no cyanosis, no clubbing Skin: no rash, no lesions Laboratory Tests Test 06/26/16 06:10 White Blood Count 6.2 K/UL (4.8-10.8) Red Blood Count 3.93 M/UL (4.70-6.10) L Hemoglobin 12.0 G/DL (14.2-18.0) L Hematocrit 36.6 % (42.0-52.0) L Mean Corpuscular Volume 93 FL (80-99) Mean Corpuscular Hemoglobin 30.5 PG (27.0-31.0) Mean Corpuscular Hemoglobin Concent 32.7 G/DL (32.0-36.0) Red Cell Distribution Width 12.3 % (11.6-14.8) Platelet Count 236 K/UL (150-450) Mean Platelet Volume 6.4 FL (6.5-10.1) L Neutrophils (%) (Auto) % (45.0-75.0) Lymphocytes (%) (Auto) % (20.0-45.0) Monocytes (%) (Auto) % (1.0-10.0) Eosinophils (%) (Auto) % (0.0-3.0) Basophils (%) (Auto) % (0.0-2.0) Differential Total Cells Counted 100 Neutrophils % (Manual) 60 % (45-75) Lymphocytes % (Manual) 20 % (20-45) Monocytes % (Manual) 20 % (1-10) H Eosinophils % (Manual) 0 % (0-3) Basophils % (Manual) 0 % (0-2) Band Neutrophils 0 % (0-8) Platelet Estimate Adequate Platelet Morphology Normal Red Blood Cell Morphology Normal Sodium Level 139 mEQ/L (135-145) Potassium Level 3.8 mEQ/L (3.4-4.9) Chloride Level 99 mEQ/L (98-107) Carbon Dioxide Level 27 mEQ/L (20-30) Anion Gap 13 (5-15) Blood Urea Nitrogen 11 mg/dL (7-23) Creatinine 0.7 mg/dL (0.7-1.2) Estimat Glomerular Filtration Rate mL/min (>60) Glucose Level 106 mg/dL (74-106) Calcium Level 8.2 mg/dL (8.6-10.2) L Current Medications Medications (Trade) Dose Ordered Sig/Rufina Route PRN Reason Start Time Stop Time Status Last Admin Dose Admin Acetaminophen (Tylenol) 650 mg Q4H PRN ORAL Mild Pain (Pain Scale 1-3) 06/21/16 21:30 07/21/16 21:29 Al Hydroxide/Mg Hydroxide (Mylanta II) 30 ml Q6H PRN ORAL dyspepsia 06/21/16 21:30 07/21/16 21:29 Albuterol/ Ipratropium (DuoNeb 0.5-3(2.5)mg/3ml) 3 ml Q4H PRN HHN Shortness of Breath 06/21/16 21:30 06/26/16 21:29 Aspirin (ASA) 81 mg DAILY ORAL 06/22/16 09:00 07/22/16 08:59 06/26/16 09:29 Ceftriaxone Sodium/Dextrose (Rocephin/D5W 50ml) 50 ml @ 100 mls/hr Q24H IVPB 06/22/16 16:00 06/29/16 15:59 06/25/16 16:26 Dextrose (Dextrose 50%) STAT PRN IV Hypoglycemia 06/21/16 21:30 07/21/16 21:29 Dextrose/Sodium Chloride (D5 0.45% NS) 1,000 ml @ 75 mls/hr [id number] IV 06/21/16 23:00 07/21/16 22:59 06/26/16 01:38 Diphenhydramine HCl (Benadryl) 25 mg Q6H PRN ORAL Itching/Pruritis 06/21/16 21:30 07/21/16 21:29 Heparin Sodium (Porcine) (Heparin 5000 units/ml) 5,000 units EVERY 12 HOURS SUBQ 06/22/16 09:00 07/22/16 08:59 06/25/16 21:11 Lorazepam 1 mg 1 mg Q6H PRN IV For Anxiety 06/21/16 22:15 06/28/16 22:14 06/24/16 21:08 Morphine Sulfate (Morphine Sulfate) 1 mg Q4H PRN IVP For Pain 06/21/16 21:30 06/28/16 21:29 Morphine Sulfate (Morphine Sulfate) 2 mg Q6H PRN IVP Moderate Pain (Pain Scale 4-6) 06/21/16 21:30 06/28/16 21:29 Ondansetron HCl (Zofran) 4 mg Q6H PRN IVP Nausea & Vomiting 06/21/16 21:30 07/21/16 21:29 Tamsulosin HCl (Flomax) 0.8 mg BEDTIME ORAL 06/23/16 21:00 07/23/16 20:59 06/25/16 21:08 Temazepam (Restoril) 15 mg DAILYPRN PRN ORAL Insomnia 06/21/16 21:30 06/28/16 21:29 Karrie Ashby M.D. Jun 26, 2016 17:18
[2016-06-26] MEDS: cefTRIAXone 1 GM in D5W 50 ML IVPB SCH (17:25)
--- NOTE | 2016-06-26 18:55 | General Progress Note ---
Assessment/Plan Problem List: (1) Syncope ICD Codes: R55 - Syncope and collapse SNOMED: 715418234 Qualifiers: Qualified Codes: R55 - Syncope and collapse (2) UTI (urinary tract infection) ICD Codes: N39.0 - Urinary tract infection, site not specified SNOMED: 83704397 Qualifiers: Qualified Codes: N30.00 - Acute cystitis without hematuria (3) Status post placement of implantable loop recorder ICD Codes: Z95.818 - Presence of other cardiac implants and grafts SNOMED: 403402475, 785932069, 403842016 (4) Altered level of consciousness ICD Codes: R40.4 - Transient alteration of awareness SNOMED: 4745105 Status: stable, progressing Assessment/Plan Needs permanent pacer implantation after UTI is resolved and with psych clearance per cardiology Continue Rocephin per ID, f/u DVT prophylaxis Monitor Neuro status PT/OT eval Social service consult - placement AM labs Subjective Constitutional: Denies: chills, diaphoresis, fever, malaise, no symptoms, other , weakness HEENT: Denies: blurred vision, double vision, ear discharge, ear pain, eye pain , mouth pain, mouth swelling, no symptoms, nose congestion, nose pain, other, tearing, throat pain, throat swelling Cardiovascular: Denies: chest pain, edema, irregular heart rate, lightheadedness, no symptoms, other, palpitations, syncope Respiratory: Denies: SOB at rest, SOB with excertion, cough, no symptoms, orthopnea, other, shortness of breath, sputum, stridor, wheezing Gastrointestinal/Abdominal: Denies: abdomen distended, abdominal pain, black stools, blood in stool, constipated, diarrhea, difficulty swallowing, nausea, no symptoms, other, poor appetite, poor fluid intake, rectal bleeding, tarry stools, vomiting Genitourinary: Denies: burning, discharge, flank pain, frequency, hematuria, incontinence, no symptoms, other, pain, urgency Neurologic/Psychiatric: Denies: anxiety, depressed, emotional problems, headache, no symptoms, numbness, other, paresthesia, pre-existing deficit, seizure, tingling, tremors, weakness Endocrine: Denies: excessive sweating, flushing, increased hunger, increased thirst, increased urine, intolerance to cold, intolerance to heat, no symptoms, other, unexplained weight gain, unexplained weight loss Hematologic/Lymphatic: Denies: anemia, easy bleeding, easy bruising, no symptoms, other Allergies: Coded Allergies: No Known Allergies (Unverified , 09/04/15) Subjective Pt is in bed in no distress, denies discomfort, daughter at bedside who has questions about the patient's condition, she stated that the patient lives with her but that she works all day, wants to speak to the social services manager. She also wants patient to have smoking privileges, according to her, the patient gets agitated when he doesn't smoke. Objective Last 24 Hour Vital Signs Date Time Temp Pulse Resp B/P Pulse Ox O2 Delivery O2 Flow Rate FiO2 06/26/16 15:50 98.2 77 23 133/81 97 Room Air 06/26/16 12:00 83 06/26/16 11:27 98.1 86 20 126/52 95 Room Air 06/26/16 08:00 90 06/26/16 07:30 97.2 87 20 136/72 95 Room Air 06/26/16 07:16 81 18 Room Air 21 06/26/16 04:00 85 06/26/16 00:39 98.1 88 19 151/95 95 Room Air 06/26/16 00:00 86 06/25/16 20:00 98.1 92 20 141/83 96 Room Air 06/25/16 20:00 93 06/25/16 19:36 99 18 Room Air 21 Intake and Output 06/25/16 06/26/16 19:00 07:00 Intake Total 877.5 ml 855 ml Output Total 20 ml Balance 877.5 ml 835 ml Intake Oral 120 ml 180 ml IV Total 757.5 ml 675 ml Output Urine Total 20 ml # Voids 2 2 Laboratory Tests 06/26/16 06:10: White Blood Count 6.2, Red Blood Count 3.93L, Hemoglobin 12.0L, Hematocrit 36.6L , Mean Corpuscular Volume 93, Mean Corpuscular Hemoglobin 30.5, Mean Corpuscular Hemoglobin Concent 32.7, Red Cell Distribution Width 12.3, Platelet Count 236, Mean Platelet Volume 6.4L, Neutrophils (%) (Auto) , Lymphocytes (%) ( Auto) , Monocytes (%) (Auto) , Eosinophils (%) (Auto) , Basophils (%) (Auto) , Differential Total Cells Counted 100, Neutrophils % (Manual) 60, Lymphocytes % ( Manual) 20, Monocytes % (Manual) 20H, Eosinophils % (Manual) 0, Basophils % ( Manual) 0, Band Neutrophils 0, Platelet Estimate Adequate, Platelet Morphology Normal, Red Blood Cell Morphology Normal, Sodium Level 139, Potassium Level 3.8 , Chloride Level 99, Carbon Dioxide Level 27, Anion Gap 13, Blood Urea Nitrogen 11, Creatinine 0.7, Estimat Glomerular Filtration Rate , Glucose Level 106, Calcium Level 8.2L Height (Feet): 6 Height (Inches): 0.00 Weight (Pounds): 150 General Appearance: no apparent distress, confused EENT: normal ENT inspection, TMs normal Neck: normal alignment, supple, normal inspection Cardiovascular: normal rate, regular rhythm, no JVD Respiratory/Chest: normal breath sounds, no respiratory distress Abdomen: non tender, soft, no organomegaly, no mass Pelvis: normal external exam Extremities: normal range of motion, non-tender, normal inspection, no calf tenderness Neurologic: normal mood/affect, disoriented Carline Fernandez N.P. Jun 26, 2016 18:55
[2016-06-26 20:00] VITALS: BP 136/78
[2016-06-26] MEDS: Tamsulosin 0.4mg cap ORAL SCH (21:39)
[2016-06-27] VITALS: BP 148/95
[2016-06-27 04:00] VITALS: BP 159/91
[2016-06-27] MEDS: Aspirin Baby 81mg ORAL SCH (09:18)
[2016-06-27] MEDS: Heparin 5000 units/ml inj SUBQ SCH ×2 (09:19→22:00)
[2016-06-27 12:00] VITALS: BP 131/92
[2016-06-27 12:30] LABS: BASOPHILS % (AUTO) 2.5 % (0.0-2.0); LYMPHOCYTES % (AUTO) 28.7 % (20.0-45.0); MEAN CORPUSCULAR HEMOGLOBIN 30.5 PG (27.0-31.0); MEAN CORPUSCULAR HGB CONC 31.9 G/DL (32.0-36.0); MEAN CORPUSCULAR VOLUME 96 FL (80-99); MEAN PLATELET VOLUME 5.2 FL (6.5-10.1); MONOCYTES % (AUTO) 13.1 % (1.0-10.0); NEUTROPHILS % (AUTO) 54.6 % (45.0-75.0); PLATELET COUNT 260 K/UL (150-450); RED BLOOD COUNT 4.45 M/UL (4.70-6.10); RED CELL DISTRIBUTION WIDTH 12.3 % (11.6-14.8); WHITE BLOOD COUNT 5.5 K/UL (4.8-10.8)
[2016-06-27 12:50] LABS: ANION GAP 12 (5-15); CALCIUM 8.8 mg/dL (8.6-10.2); CARBON DIOXIDE 26 mEQ/L (20-30); CHLORIDE 100 mEQ/L (98-107); CREATININE 0.7 mg/dL (0.7-1.2); HEMOLYSIS 7; POTASSIUM 3.9 mEQ/L (3.4-4.9); SODIUM 138 mEQ/L (135-145)
[2016-06-27] MEDS: D5 1/2NS 1,000 ML IV SCH (12:51)
--- NOTE | 2016-06-27 14:13 | Cardiology Report ---
APPROVED REPORT EKG Measurement Heart [id number] ID [id number] Normal sinus rhythm Nonspecific ST abnormality Abnormal ECG
--- NOTE | 2016-06-27 14:54 | Cardiac Electrophysiology PN ---
Assessment/Plan Assessment/Plan 1. Recurrent Syncope and bradycardia with Heart rate in 20s and 30s by interrogation of his S[employer] implantable loop recorder. Off Any MCKOEN or AVN boo. Consider permanent pacer implantation after UTI is resolved and after psych clearance. No syncope or larry on tele. 2. UTI.On Ceftriaxone. BEBE RN Subjective Subjective Pleasant. More alert. Sitter at bedside. No arrhythmia or syncope while in hospital. Objective Last 24 Hour Vital Signs Date Time Temp Pulse Resp B/P Pulse Ox O2 Delivery O2 Flow Rate FiO2 06/27/16 12:00 80 06/27/16 12:00 97.5 71 20 131/92 95 Room Air 06/27/16 08:00 96 06/27/16 07:30 96 18 Room Air 21 06/27/16 04:00 63 06/27/16 00:00 97.9 75 18 148/95 94 Room Air 06/27/16 00:00 102 06/26/16 20:00 97 06/26/16 20:00 97.7 82 25 136/78 98 Room Air 06/26/16 18:30 98 18 Room Air 21 06/26/16 16:00 78 06/26/16 15:50 98.2 77 23 133/81 97 Room Air Intake and Output 06/26/16 06/27/16 19:00 07:00 Intake Total 1995 ml 1465 ml Output Total 750 ml 775 ml Balance 1245 ml 690 ml Intake Oral 1320 ml 790 ml IV Total 675 ml 675 ml Output Urine Total 750 ml 775 ml # Voids 8 Laboratory Tests Test 06/27/16 12:05 White Blood Count 5.5 K/UL (4.8-10.8) Red Blood Count 4.45 M/UL (4.70-6.10) L Hemoglobin 13.6 G/DL (14.2-18.0) L Hematocrit 42.6 % (42.0-52.0) Mean Corpuscular Volume 96 FL (80-99) Mean Corpuscular Hemoglobin 30.5 PG (27.0-31.0) Mean Corpuscular Hemoglobin Concent 31.9 G/DL (32.0-36.0) L Red Cell Distribution Width 12.3 % (11.6-14.8) Platelet Count 260 K/UL (150-450) Mean Platelet Volume 5.2 FL (6.5-10.1) L Neutrophils (%) (Auto) 54.6 % (45.0-75.0) Lymphocytes (%) (Auto) 28.7 % (20.0-45.0) Monocytes (%) (Auto) 13.1 % (1.0-10.0) H Eosinophils (%) (Auto) 1.0 % (0.0-3.0) Basophils (%) (Auto) 2.5 % (0.0-2.0) H Sodium Level 138 mEQ/L (135-145) Potassium Level 3.9 mEQ/L (3.4-4.9) Chloride Level 100 mEQ/L (98-107) Carbon Dioxide Level 26 mEQ/L (20-30) Anion Gap 12 (5-15) Blood Urea Nitrogen 10 mg/dL (7-23) Creatinine 0.7 mg/dL (0.7-1.2) Estimat Glomerular Filtration Rate mL/min (>60) Glucose Level 93 mg/dL (74-106) Calcium Level 8.8 mg/dL (8.6-10.2) Objective NECK: No jugular venous distention. LUNGS: Lungs are clear bilaterally. HEART: Regular S1 and S2 with no murmurs or S3.ILR left chest ABDOMEN: Soft and nontender. No palpable mass. EXTREMITIES: No cyanosis, clubbing, or edema. MARY JO MCCOLLUM Jun 27, 2016 14:54
[2016-06-27 16:00] VITALS: BP 139/91
[2016-06-27] MEDS: cefTRIAXone 1 GM in D5W 50 ML IVPB SCH (17:28)
--- NOTE | 2016-06-27 17:42 | Infectious Diseases Prog Note ---
Assessment/Plan Problems: (1) UTI (urinary tract infection) Assessment & Plan: with pansensitive proteus mirabilis , will continue ceftriaxon for 7 days (2) Syncope Assessment & Plan: work up as per primary, continue tele monitor Subjective Constitutional: Reports: no symptoms HEENT: Reports: no symptoms Respiratory: Reports: no symptoms Breasts: Reports: no symptoms Cardiovascular: Reports: no symptoms Gastrointestinal/Abdominal: Reports: no symptoms Genitourinary: Reports: no symptoms Neurologic: Reports: no symptoms Psychiatric: Reports: no symptoms Skin: Reports: no symptoms Endocrine: Reports: no symptoms Hematologic: Reports: no symptoms Allergies: Coded Allergies: No Known Allergies (Unverified , 09/04/15) Subjective up in bed, doing well , not symptomatic Objective Vital Signs Last 24 Hour Vital Signs Date Time Temp Pulse Resp B/P Pulse Ox O2 Delivery O2 Flow Rate FiO2 06/27/16 16:00 98.1 77 20 139/91 96 Room Air 06/27/16 12:00 80 06/27/16 12:00 97.5 71 20 131/92 95 Room Air 06/27/16 08:00 96 06/27/16 07:30 96 18 Room Air 21 06/27/16 04:00 63 06/27/16 00:00 97.9 75 18 148/95 94 Room Air 06/27/16 00:00 102 06/26/16 20:00 97 06/26/16 20:00 97.7 82 25 136/78 98 Room Air 06/26/16 18:30 98 18 Room Air 21 Height (Feet): 6 Height (Inches): 0.00 Weight (Pounds): 150 General Appearance: WD/WN, no acute distress HEENT: normocephalic, atraumatic, anicteric Respiratory/Chest: chest wall non-tender, lungs clear, normal breath sounds, no respiratory distress Cardiovascular: normal peripheral pulses, normal rate, regular rhythm, no gallop/murmur Abdomen: normal bowel sounds, soft, non tender, no organomegaly, non distended , no mass Extremities: no cyanosis, no clubbing Skin: no rash, no lesions Laboratory Tests Test 06/27/16 12:05 White Blood Count 5.5 K/UL (4.8-10.8) Red Blood Count 4.45 M/UL (4.70-6.10) L Hemoglobin 13.6 G/DL (14.2-18.0) L Hematocrit 42.6 % (42.0-52.0) Mean Corpuscular Volume 96 FL (80-99) Mean Corpuscular Hemoglobin 30.5 PG (27.0-31.0) Mean Corpuscular Hemoglobin Concent 31.9 G/DL (32.0-36.0) L Red Cell Distribution Width 12.3 % (11.6-14.8) Platelet Count 260 K/UL (150-450) Mean Platelet Volume 5.2 FL (6.5-10.1) L Neutrophils (%) (Auto) 54.6 % (45.0-75.0) Lymphocytes (%) (Auto) 28.7 % (20.0-45.0) Monocytes (%) (Auto) 13.1 % (1.0-10.0) H Eosinophils (%) (Auto) 1.0 % (0.0-3.0) Basophils (%) (Auto) 2.5 % (0.0-2.0) H Sodium Level 138 mEQ/L (135-145) Potassium Level 3.9 mEQ/L (3.4-4.9) Chloride Level 100 mEQ/L (98-107) Carbon Dioxide Level 26 mEQ/L (20-30) Anion Gap 12 (5-15) Blood Urea Nitrogen 10 mg/dL (7-23) Creatinine 0.7 mg/dL (0.7-1.2) Estimat Glomerular Filtration Rate mL/min (>60) Glucose Level 93 mg/dL (74-106) Calcium Level 8.8 mg/dL (8.6-10.2) Current Medications Medications (Trade) Dose Ordered Sig/Rufina Route PRN Reason Start Time Stop Time Status Last Admin Dose Admin Acetaminophen (Tylenol) 650 mg Q4H PRN ORAL Mild Pain (Pain Scale 1-3) 06/21/16 21:30 07/21/16 21:29 Al Hydroxide/Mg Hydroxide (Mylanta II) 30 ml Q6H PRN ORAL dyspepsia 06/21/16 21:30 07/21/16 21:29 Aspirin (ASA) 81 mg DAILY ORAL 06/22/16 09:00 07/22/16 08:59 06/27/16 09:18 Ceftriaxone Sodium/Dextrose (Rocephin/D5W 50ml) 50 ml @ 100 mls/hr Q24H IVPB 06/22/16 16:00 06/29/16 15:59 06/27/16 17:28 Dextrose (Dextrose 50%) STAT PRN IV Hypoglycemia 06/21/16 21:30 07/21/16 21:29 Dextrose/Sodium Chloride (D5 0.45% NS) 1,000 ml @ 75 mls/hr [id number] IV 06/21/16 23:00 07/21/16 22:59 06/27/16 12:51 Diphenhydramine HCl (Benadryl) 25 mg Q6H PRN ORAL Itching/Pruritis 06/21/16 21:30 07/21/16 21:29 Heparin Sodium (Porcine) (Heparin 5000 units/ml) 5,000 units EVERY 12 HOURS SUBQ 06/22/16 09:00 07/22/16 08:59 06/27/16 09:19 Lorazepam 1 mg 1 mg Q6H PRN IV For Anxiety 06/21/16 22:15 06/28/16 22:14 06/24/16 21:08 Morphine Sulfate (Morphine Sulfate) 1 mg Q4H PRN IVP For Pain 06/21/16 21:30 06/28/16 21:29 Morphine Sulfate (Morphine Sulfate) 2 mg Q6H PRN IVP Moderate Pain (Pain Scale 4-6) 06/21/16 21:30 06/28/16 21:29 Ondansetron HCl (Zofran) 4 mg Q6H PRN IVP Nausea & Vomiting 06/21/16 21:30 07/21/16 21:29 Tamsulosin HCl (Flomax) 0.8 mg BEDTIME ORAL 06/23/16 21:00 07/23/16 20:59 06/26/16 21:39 Temazepam (Restoril) 15 mg DAILYPRN PRN ORAL Insomnia 06/21/16 21:30 06/28/16 21:29 06/27/16 00:41 Karrie Ashby M.D. Jun 27, 2016 17:42
--- NOTE | 2016-06-27 18:20 | General Progress Note ---
Assessment/Plan Problem List: (1) Syncope ICD Codes: R55 - Syncope and collapse SNOMED: 268027932 Qualifiers: Qualified Codes: R55 - Syncope and collapse (2) UTI (urinary tract infection) ICD Codes: N39.0 - Urinary tract infection, site not specified SNOMED: 85871946 Qualifiers: Qualified Codes: N30.00 - Acute cystitis without hematuria (3) Status post placement of implantable loop recorder ICD Codes: Z95.818 - Presence of other cardiac implants and grafts SNOMED: 972897325, 247896860, 126649978 (4) Altered level of consciousness ICD Codes: R40.4 - Transient alteration of awareness SNOMED: 5820387 Assessment/Plan Needs permanent pacer implantation after UTI is resolved and with psych clearance per cardiology Continue Rocephin per ID, f/u DVT prophylaxis Monitor Neuro status PT/OT eval Social service consult - placement Psyche consult - Dr Mendoza AM labs Subjective ROS Limited/Unobtainable: Yes Allergies: Coded Allergies: No Known Allergies (Unverified , 09/04/15) Subjective Pt is in bed in no distress, denies discomfort, having dinner, confused, sitter at bedside Objective Last 24 Hour Vital Signs Date Time Temp Pulse Resp B/P Pulse Ox O2 Delivery O2 Flow Rate FiO2 06/27/16 16:00 98.1 77 20 139/91 96 Room Air 06/27/16 12:00 80 06/27/16 12:00 97.5 71 20 131/92 95 Room Air 06/27/16 08:00 96 06/27/16 07:30 96 18 Room Air 21 06/27/16 04:00 63 06/27/16 00:00 97.9 75 18 148/95 94 Room Air 06/27/16 00:00 102 06/26/16 20:00 97 06/26/16 20:00 97.7 82 25 136/78 98 Room Air 06/26/16 18:30 98 18 Room Air 21 Intake and Output 06/26/16 06/27/16 19:00 07:00 Intake Total 1995 ml 1465 ml Output Total 750 ml 775 ml Balance 1245 ml 690 ml Intake Oral 1320 ml 790 ml IV Total 675 ml 675 ml Output Urine Total 750 ml 775 ml # Voids 8 Laboratory Tests 06/27/16 12:05: White Blood Count 5.5, Red Blood Count 4.45L, Hemoglobin 13.6L, Hematocrit 42.6 , Mean Corpuscular Volume 96, Mean Corpuscular Hemoglobin 30.5, Mean Corpuscular Hemoglobin Concent 31.9L, Red Cell Distribution Width 12.3, Platelet Count 260, Mean Platelet Volume 5.2L, Neutrophils (%) (Auto) 54.6, Lymphocytes (%) (Auto) 28.7, Monocytes (%) (Auto) 13.1H, Eosinophils (%) (Auto) 1.0, Basophils (%) (Auto) 2.5H, Sodium Level 138, Potassium Level 3.9, Chloride Level 100, Carbon Dioxide Level 26, Anion Gap 12, Blood Urea Nitrogen 10, Creatinine 0.7, Estimat Glomerular Filtration Rate , Glucose Level 93, Calcium Level 8.8 Height (Feet): 6 Height (Inches): 0.00 Weight (Pounds): 150 General Appearance: no apparent distress, alert EENT: normal ENT inspection, TMs normal Neck: normal alignment, supple, normal inspection Cardiovascular: normal rate, regular rhythm, no JVD Respiratory/Chest: lungs clear, normal breath sounds Abdomen: non tender, soft, no organomegaly, no mass Pelvis: normal external exam Extremities: normal range of motion, non-tender, normal inspection, no calf tenderness Neurologic: alert, responsive, disoriented Skin: normal pigmentation, warm/dry Carline Fernandez N.P. Jun 27, 2016 18:20
[2016-06-27 20:00] VITALS: BP 121/73
[2016-06-27] MEDS: Tamsulosin 0.4mg cap ORAL SCH (21:58)
[2016-06-28 00:14] VITALS: BP 111/70
[2016-06-28] MEDS: D5 1/2NS 1,000 ML IV SCH ×2 (03:00→15:00)
[2016-06-28 04:08] VITALS: BP 121/79
[2016-06-28 08:04] VITALS: BP 148/76
[2016-06-28] MEDS: Aspirin Baby 81mg ORAL SCH (09:28)
[2016-06-28] MEDS: Heparin 5000 units/ml inj SUBQ SCH ×2 (09:30→20:25)
--- NOTE | 2016-06-28 11:03 | Nephrology Progress Note ---
Assessment/Plan Problem List: (1) Status post placement of implantable loop recorder (2) Bradycardia (3) Syncope (4) UTI (urinary tract infection) (5) Altered level of consciousness Plan per cardio, patient will need pacemaker placement once cleared by ID. however, patient has been uncooperative with medical management. psycho following. d/c planning to snf if ok with cardio. Subjective Subjective appears comfortable. calm. sitter at bedside. Objective Objective Last 24 Hour Vital Signs Date Time Temp Pulse Resp B/P Pulse Ox O2 Delivery O2 Flow Rate FiO2 06/28/16 08:04 97.7 68 20 148/76 95 Room Air 06/28/16 04:08 98.6 79 21 121/79 94 Room Air 06/28/16 03:23 74 06/28/16 00:14 97.5 93 20 111/70 98 06/27/16 23:47 78 06/27/16 20:00 99.1 78 19 121/73 96 Room Air 06/27/16 20:00 91 06/27/16 16:00 98.1 77 20 139/91 96 Room Air 06/27/16 16:00 86 06/27/16 12:00 80 06/27/16 12:00 97.5 71 20 131/92 95 Room Air Intake and Output 06/27/16 06/28/16 19:00 07:00 Intake Total 1355 ml 1140 ml Output Total 225 ml 300 ml Balance 1130 ml 840 ml Intake Oral 480 ml 240 ml IV Total 875 ml 900 ml Output Urine Total 225 ml 300 ml # Voids 1 Laboratory Tests 06/27/16 12:05: White Blood Count 5.5, Red Blood Count 4.45L, Hemoglobin 13.6L, Hematocrit 42.6 , Mean Corpuscular Volume 96, Mean Corpuscular Hemoglobin 30.5, Mean Corpuscular Hemoglobin Concent 31.9L, Red Cell Distribution Width 12.3, Platelet Count 260, Mean Platelet Volume 5.2L, Neutrophils (%) (Auto) 54.6, Lymphocytes (%) (Auto) 28.7, Monocytes (%) (Auto) 13.1H, Eosinophils (%) (Auto) 1.0, Basophils (%) (Auto) 2.5H, Sodium Level 138, Potassium Level 3.9, Chloride Level 100, Carbon Dioxide Level 26, Anion Gap 12, Blood Urea Nitrogen 10, Creatinine 0.7, Estimat Glomerular Filtration Rate , Glucose Level 93, Calcium Level 8.8 Height (Feet): 6 Height (Inches): 0.00 Weight (Pounds): 150 General Appearance: no apparent distress Cardiovascular: normal rate, regular rhythm Respiratory/Chest: lungs clear Abdomen: non tender, soft TODD SERRATO Jun 28, 2016 11:03
[2016-06-28 11:15] VITALS: BP 133/80
--- NOTE | 2016-06-28 14:24 | Cardiac Electrophysiology PN ---
Assessment/Plan Assessment/Plan 1. Recurrent Syncope and bradycardia with Heart rate in 20s and 30s by interrogation of his SJ implantable loop recorder. Off Any MCKEON or AVN boo.Permanent pacer implantation after UTI is resolved and after psych clearance if able to get consent. Currently patient confused. 2. UTI.On Ceftriaxone. BEBE RN Subjective Subjective Comfortable in NAD. Sitter at bedside. No arrhythmia or syncope on tele. Objective Last 24 Hour Vital Signs Date Time Temp Pulse Resp B/P Pulse Ox O2 Delivery O2 Flow Rate FiO2 06/28/16 12:37 62 06/28/16 11:15 97.9 79 20 133/80 96 Room Air 06/28/16 08:04 97.7 68 20 148/76 95 Room Air 06/28/16 08:00 76 06/28/16 04:08 98.6 79 21 121/79 94 Room Air 06/28/16 03:23 74 06/28/16 00:14 97.5 93 20 111/70 98 06/27/16 23:47 78 06/27/16 20:00 99.1 78 19 121/73 96 Room Air 06/27/16 20:00 91 06/27/16 16:00 98.1 77 20 139/91 96 Room Air 06/27/16 16:00 86 Intake and Output 06/27/16 06/28/16 19:00 07:00 Intake Total 1355 ml 1140 ml Output Total 225 ml 300 ml Balance 1130 ml 840 ml Intake Oral 480 ml 240 ml IV Total 875 ml 900 ml Output Urine Total 225 ml 300 ml # Voids 1 Labs Test 06/27/16 12:05 White Blood Count 5.5 K/UL (4.8-10.8) Red Blood Count 4.45 M/UL (4.70-6.10) Hemoglobin 13.6 G/DL (14.2-18.0) Hematocrit 42.6 % (42.0-52.0) Mean Corpuscular Volume 96 FL (80-99) Mean Corpuscular Hemoglobin 30.5 PG (27.0-31.0) Mean Corpuscular Hemoglobin Concent 31.9 G/DL (32.0-36.0) Red Cell Distribution Width 12.3 % (11.6-14.8) Platelet Count 260 K/UL (150-450) Mean Platelet Volume 5.2 FL (6.5-10.1) Neutrophils (%) (Auto) 54.6 % (45.0-75.0) Lymphocytes (%) (Auto) 28.7 % (20.0-45.0) Monocytes (%) (Auto) 13.1 % (1.0-10.0) Eosinophils (%) (Auto) 1.0 % (0.0-3.0) Basophils (%) (Auto) 2.5 % (0.0-2.0) Sodium Level 138 mEQ/L (135-145) Potassium Level 3.9 mEQ/L (3.4-4.9) Chloride Level 100 mEQ/L (98-107) Carbon Dioxide Level 26 mEQ/L (20-30) Anion Gap 12 (5-15) Blood Urea Nitrogen 10 mg/dL (7-23) Creatinine 0.7 mg/dL (0.7-1.2) Estimat Glomerular Filtration Rate mL/min (>60) Glucose Level 93 mg/dL (74-106) Calcium Level 8.8 mg/dL (8.6-10.2) Current Medications Medications (Trade) Dose Ordered Sig/Rufina Route PRN Reason Start Time Stop Time Status Last Admin Dose Admin Acetaminophen (Tylenol) 650 mg Q4H PRN ORAL Mild Pain (Pain Scale 1-3) 06/21/16 21:30 07/21/16 21:29 Al Hydroxide/Mg Hydroxide (Mylanta II) 30 ml Q6H PRN ORAL dyspepsia 06/21/16 21:30 07/21/16 21:29 Aspirin (ASA) 81 mg DAILY ORAL 06/22/16 09:00 07/22/16 08:59 06/28/16 09:28 Ceftriaxone Sodium/Dextrose (Rocephin/D5W 50ml) 50 ml @ 100 mls/hr Q24H IVPB 06/22/16 16:00 06/29/16 15:59 06/27/16 17:28 Dextrose (Dextrose 50%) STAT PRN IV Hypoglycemia 06/21/16 21:30 07/21/16 21:29 Dextrose/Sodium Chloride (D5 0.45% NS) 1,000 ml @ 75 mls/hr [id number] IV 06/21/16 23:00 07/21/16 22:59 06/28/16 03:00 Diphenhydramine HCl (Benadryl) 25 mg Q6H PRN ORAL Itching/Pruritis 06/21/16 21:30 07/21/16 21:29 Heparin Sodium (Porcine) (Heparin 5000 units/ml) 5,000 units EVERY 12 HOURS SUBQ 06/22/16 09:00 07/22/16 08:59 06/28/16 09:30 Lorazepam 1 mg 1 mg Q6H PRN IV For Anxiety 06/21/16 22:15 06/28/16 22:14 06/24/16 21:08 Morphine Sulfate (Morphine Sulfate) 1 mg Q4H PRN IVP For Pain 06/21/16 21:30 06/28/16 21:29 Morphine Sulfate (Morphine Sulfate) 2 mg Q6H PRN IVP Moderate Pain (Pain Scale 4-6) 06/21/16 21:30 06/28/16 21:29 Ondansetron HCl (Zofran) 4 mg Q6H PRN IVP Nausea & Vomiting 06/21/16 21:30 07/21/16 21:29 Tamsulosin HCl (Flomax) 0.8 mg BEDTIME ORAL 06/23/16 21:00 07/23/16 20:59 06/27/16 21:58 Temazepam (Restoril) 15 mg DAILYPRN PRN ORAL Insomnia 06/21/16 21:30 06/28/16 21:29 06/27/16 00:41 Objective NECK: No jugular venous distention. LUNGS: Lungs are clear bilaterally. HEART: Regular S1 and S2 with no murmurs or S3.ILR left chest ABDOMEN: Soft and nontender. No palpable mass. EXTREMITIES: No cyanosis, clubbing, or edema. MARY JO MCCOLLUM Jun 28, 2016 14:24
--- NOTE | 2016-06-28 14:35 | Diagnostic Imaging Report ---
Indication: Pain and acute renal failure Technique: Renal ultrasound Findings: The right kidney measures 11.7 cm in length. The left kidney measures 10.7 cm in length. Bilateral kidneys demonstrate normal echogenicity. There is no hydronephrosis. There is a questionable punctate echogenic non-shadowing focus of the left kidney. The visualized portions of the inferior vena cava are unremarkable. Bladder is collapsed by Bran catheter. Impression: No hydronephrosis. Bran catheter. Questionable punctate echogenic non-shadowing focus of the left kidney possibly representing a nonobstructive calculus if real. Clinical correlation recommended.
[2016-06-28] MEDS: cefTRIAXone 1 GM in D5W 50 ML IVPB SCH (16:00)
[2016-06-28] MEDS ORDERED: NS 275ml ONE (16:21)
[2016-06-28] MEDS ORDERED: Tubing IV Secondary IV ONE (16:24)
[2016-06-28] MEDS ORDERED: D5 1/2NS 1000ml IV ONE (16:24)
[2016-06-28 16:30] VITALS: BP 148/76
--- NOTE | 2016-06-28 17:58 | Infectious Diseases Prog Note ---
Assessment/Plan Problems: (1) UTI (urinary tract infection) Assessment & Plan: with pansensitive proteus mirabilis , received ceftriaxon for 7 days , will d/c today (2) Syncope Assessment & Plan: resolved, continue tele monitor Subjective Constitutional: Reports: no symptoms HEENT: Reports: no symptoms Respiratory: Reports: no symptoms Breasts: Reports: no symptoms Cardiovascular: Reports: no symptoms Gastrointestinal/Abdominal: Reports: no symptoms Genitourinary: Reports: no symptoms Neurologic: Reports: no symptoms Psychiatric: Reports: no symptoms Skin: Reports: no symptoms Allergies: Coded Allergies: No Known Allergies (Unverified , 09/04/15) Subjective up in bed, doing well , not symptomatic Objective Vital Signs Last 24 Hour Vital Signs Date Time Temp Pulse Resp B/P Pulse Ox O2 Delivery O2 Flow Rate FiO2 06/28/16 16:00 76 06/28/16 12:37 62 06/28/16 11:15 97.9 79 20 133/80 96 Room Air 06/28/16 08:04 97.7 68 20 148/76 95 Room Air 06/28/16 08:00 76 06/28/16 04:08 98.6 79 21 121/79 94 Room Air 06/28/16 03:23 74 06/28/16 00:14 97.5 93 20 111/70 98 06/27/16 23:47 78 06/27/16 20:00 99.1 78 19 121/73 96 Room Air 06/27/16 20:00 91 Height (Feet): 6 Height (Inches): 0.00 Weight (Pounds): 150 General Appearance: WD/WN, no acute distress HEENT: normocephalic, atraumatic, anicteric Respiratory/Chest: chest wall non-tender, lungs clear, normal breath sounds, no respiratory distress Cardiovascular: normal peripheral pulses, normal rate, regular rhythm, no JVD Abdomen: normal bowel sounds, soft, non tender, no organomegaly, non distended , no scars Extremities: no cyanosis, no clubbing Current Medications Medications (Trade) Dose Ordered Sig/Rufina Route PRN Reason Start Time Stop Time Status Last Admin Dose Admin Acetaminophen (Tylenol) 650 mg Q4H PRN ORAL Mild Pain (Pain Scale 1-3) 06/21/16 21:30 07/21/16 21:29 Al Hydroxide/Mg Hydroxide (Mylanta II) 30 ml Q6H PRN ORAL dyspepsia 06/21/16 21:30 07/21/16 21:29 Aspirin (ASA) 81 mg DAILY ORAL 06/22/16 09:00 07/22/16 08:59 06/28/16 09:28 Ceftriaxone Sodium/Dextrose (Rocephin/D5W 50ml) 50 ml @ 100 mls/hr Q24H IVPB 06/22/16 16:00 06/29/16 15:59 06/27/16 17:28 Dextrose (Dextrose 50%) STAT PRN IV Hypoglycemia 06/21/16 21:30 07/21/16 21:29 Dextrose/Sodium Chloride (D5 0.45% NS) 1,000 ml @ 75 mls/hr [id number] IV 06/21/16 23:00 07/21/16 22:59 06/28/16 15:00 Diphenhydramine HCl (Benadryl) 25 mg Q6H PRN ORAL Itching/Pruritis 06/21/16 21:30 07/21/16 21:29 Donepezil HCl (Aricept) 5 mg QHS ORAL 06/28/16 21:00 07/28/16 20:59 Heparin Sodium (Porcine) (Heparin 5000 units/ml) 5,000 units EVERY 12 HOURS SUBQ 06/22/16 09:00 07/22/16 08:59 06/28/16 09:30 Lorazepam 1 mg 1 mg Q6H PRN IV For Anxiety 06/21/16 22:15 06/28/16 22:14 06/24/16 21:08 Morphine Sulfate (Morphine Sulfate) 1 mg Q4H PRN IVP For Pain 06/21/16 21:30 06/28/16 21:29 Morphine Sulfate (Morphine Sulfate) 2 mg Q6H PRN IVP Moderate Pain (Pain Scale 4-6) 06/21/16 21:30 06/28/16 21:29 Ondansetron HCl (Zofran) 4 mg Q6H PRN IVP Nausea & Vomiting 06/21/16 21:30 07/21/16 21:29 Tamsulosin HCl (Flomax) 0.8 mg BEDTIME ORAL 06/23/16 21:00 07/23/16 20:59 06/27/16 21:58 Temazepam (Restoril) 15 mg DAILYPRN PRN ORAL Insomnia 06/21/16 21:30 06/28/16 21:29 06/27/16 00:41 Karrie Ashby M.D. Jun 28, 2016 17:58
[2016-06-28 19:39] VITALS: BP 121/84
[2016-06-28 20:40] LABS: BASOPHILS % (AUTO) 0.9 % (0.0-2.0); EOSINOPHILS % (AUTO) 1.8 % (0.0-3.0); LYMPHOCYTES % (AUTO) 26.5 % (20.0-45.0); MEAN CORPUSCULAR HEMOGLOBIN 30.7 PG (27.0-31.0); MEAN CORPUSCULAR VOLUME 96 FL (80-99); MEAN PLATELET VOLUME 4.6 FL (6.5-10.1); MONOCYTES % (AUTO) 15.6 % (1.0-10.0); NEUTROPHILS % (AUTO) 55.2 % (45.0-75.0); PLATELET COUNT 299 K/UL (150-450); RED BLOOD COUNT 3.98 M/UL (4.70-6.10); RED CELL DISTRIBUTION WIDTH 12.3 % (11.6-14.8); WHITE BLOOD COUNT 5.8 K/UL (4.8-10.8)
[2016-06-28] MEDS: Donepezil 5mg Tab ORAL SCH (20:41)
[2016-06-28] MEDS: Tamsulosin 0.4mg cap ORAL SCH (22:06)
[2016-06-29] VITALS (7 sets, daily range): BP systolic 111–188; BP diastolic 60–92
--- NOTE | 2016-06-29 00:17 | Consultation ---
DATE OF CONSULTATION: 06/27/2016 INITIAL PSYCHIATRIC CONSULTATION HISTORY OF PRESENT ILLNESS: This is a patient who is 80-year-old. The patient was admitted to [facility] after syncopal episode, but the problem is that he has been very confused and has altered mental status, confused and disorganized. He also has a urinary tract infection for which he takes antibiotics for. So there was a psychiatric consultation requesting clearance for this patient. He is denying suicidal or homicidal ideations, although he does have altered mental status and confusion. PAST MEDICAL HISTORY: See Internal Medicine note, but appears he has bradycardia and syncopal reaction. PSYCHIATRIC HISTORY: Paranoid schizophrenia, rule out dementia with psychosis. SOCIAL HISTORY: Financially supported by [facility] and Medicare. SUBSTANCE ABUSE HISTORY: No history of any drug or alcohol use. ALLERGIES: No known drug allergies. MENTAL STATUS EXAMINATION: The patient is a 80-year-old male with psychomotor retardation. Mood is depressed. Affect guarded and restricted. Thought process is disorganized and illogical. No signs of any suicidal or homicidal thoughts. Insight and judgment is poor. DIAGNOSES: AXIS I Major depression with psychotic features, rule out pseudodementia. PLAN: This patient is a pleasant male. I am going to start this patient on psychotropic medication regimen consisting of . I am going to continue his current medications, but now this patient does have some altered mental status. I will continue to follow him throughout hospital course. Try to improve his cognition. So, I am going to observe this patient throughout hospital course. I would like to thank, Dr. Starks, for this interesting consultation. Chart reviewed. Discussed with the staff. The patient was seen and assessed at bedside. Divya Donald M.D. DR: ALESSANDRO JOB#: [id number] CC:
--- NOTE | 2016-06-29 00:28 | Progress Note ---
DATE: 06/28/2016 FOLLOWUP NOTE: This is a 80-year-old male patient. The patient appears to be psychiatrically cleared. He appears to be at baseline, but I am also going to add medication regimen. The patient has medication regimen of Aricept 5 mg daily at bedtime to prevent any further decline in his cognition. He does have altered mental status. He is confused and seems to have no insight while he is in the hospital currently. He has been in the hospital for days now. Chart is reviewed and discussed with the staff. The patient was seen and assessed at the bedside. Divya Donald M.D. DR: Jair JOB#: [id number] CC:
[2016-06-29] MEDS: Aspirin Baby 81mg ORAL SCH (08:25)
[2016-06-29] MEDS: D5 1/2NS 1,000 ML IV SCH ×2 (08:25→17:40)
[2016-06-29] MEDS: Heparin 5000 units/ml inj SUBQ SCH ×2 (08:25→20:23)
--- NOTE | 2016-06-29 12:00 | Diagnostic Imaging Report ---
Indication: Pain Technique: Grayscale and duplex images of the kidneys, retroperitoneum, and bladder were obtained. Comparison:6 06/22/2016 Findings: Right kidney measures 11.4 cm in length. Left kidney measures 11 cm in length. Both kidneys demonstrate normal echogenicity. No hydronephrosis. Right kidney demonstrates a small cyst. Non-shadowing echogenic foci are seen in the left renal sinus, could represent small nonobstructing calculi in the left lower renal sinus. Normal inferior vena cava. Bladder is normal. Previously demonstrated Bran catheter is no longer present There is a normal-sized prostate Impression: Questionable nonobstructing left lower pole renal calculi, also described previously Negative for hydronephrosis Incidental finding right renal cyst.
--- NOTE | 2016-06-29 12:38 | Consultation ---
History of Present Illness General Date patient seen: Jun 29, 2016 Time patient seen: 12:34 Chief Complaint: Syncope Reason for Consultation: hematuria, UTI, retention Present Illness HPI 80 yo male seen in last admission a few days ago as well for traumatic martínez pull, hematuria, UTI. Returned a few days ago for syncope again. nurse noted blood at tip of penis last night. since then patient has been symptom free, clear yellow urine. patient is confused but comfortable Allergies: Coded Allergies: No Known Allergies (Unverified , 09/04/15) Medication History Scheduled No Known Medications* (NKM - No Known Medications*), 0 ., (Reported) Patient History Limited by: medical condition History Provided By: Patient, Medical Record Healthcare decision maker N Resuscitation status Advanced Directive on File Past Medical/Surgical History Past Medical/Surgical History: (1) UTI (urinary tract infection) (2) Bradycardia (3) Status post placement of implantable loop recorder Review of Systems Constitutional: Denies: chills, fever, malaise, no symptoms, other, see HPI, sweats, weakness Eye: Denies: acuity changes, blurred vision, discharge, double vision, eye pain , no symptoms, nose congestion, nose pain, other, see HPI, tearing ENT: Denies: ear discharge, ear pain, hearing loss, mouth pain, nasal discharge , no symptoms, nose congestion, nose pain, other, see HPI, throat pain, throat swelling Respiratory: Denies: MIRELES, cough, no symptoms, orthopnea, other, see HPI, shortness of breath, sputum, stridor, wheezing Cardiovascular: Denies: PND, chest pain, edema, no symptoms, other, palpitations, see HPI, syncope Gastrointestinal: Denies: abdominal pain, constipation, diarrhea, hematemesis, melena, nausea, no symptoms, other, see HPI, vomiting Genitourinary: Denies: discharge, dysuria, frequency, hematuria, incontinence, no symptoms, other, pain, retention, see HPI, urgency, vag bleed/dc Musculoskeletal: Denies: back pain, gout, joint pain, joint swelling, muscle pain, muscle stiffness, no symptoms, other, see HPI Skin: Denies: change in color, change in hair/nails, dryness, lesions, no symptoms, other, rash, see HPI Psychiatric: Denies: HI, SI, anxiety, depressed feelings, emotional problems, hallucinations, no symptoms, other, prior hx, see HPI Neurological: Denies: dizziness, focal weakness, headache, no symptoms, numbness, other, paresthesia, see HPI, seizure, syncope, tingling, tremors Endocrine: Denies: excessive sweating, flushing, increased thirst, increased urine, intolerance to temperature, no symptoms, other, see HPI, unexplained weight loss Hematologic/Lymphatic: Denies: anemia, blood clots, diathesis, easy bleeding, easy bruising, no symptoms, other, see HPI, swollen glands Physical Exam General Appearance: WD/WN Neck: non-tender Respiratory/Chest: lungs clear Abdomen: non tender, soft Genitourinary/Rectal: normal genital exam Skin Exam: normal pigmentation, warm/dry Last 24 Hour Vital Signs Date Time Temp Pulse Resp B/P Pulse Ox O2 Delivery O2 Flow Rate FiO2 06/29/16 11:35 96.8 60 20 158/92 95 Room Air 06/29/16 08:00 67 06/29/16 07:51 96.6 72 20 131/87 98 Room Air 06/29/16 06:40 155/91 06/29/16 04:04 98.4 81 21 161/86 95 Room Air 06/29/16 03:57 65 06/29/16 00:25 98.7 75 20 188/90 98 Room Air 06/28/16 23:57 62 06/28/16 19:51 70 06/28/16 19:39 98.4 79 20 121/84 95 Room Air 06/28/16 16:30 98.2 86 20 148/76 96 Room Air 06/28/16 16:00 76 06/28/16 12:37 62 Intake and Output 06/28/16 06/29/16 19:00 07:00 Intake Total 635 ml 825 ml Output Total 200 ml Balance 635 ml 625 ml Intake Oral 560 ml IV Total 75 ml 825 ml Output Urine Total 200 ml # Voids 4 2 Laboratory Tests Test 06/28/16 20:30 White Blood Count 5.8 K/UL (4.8-10.8) Red Blood Count 3.98 M/UL (4.70-6.10) L Hemoglobin 12.2 G/DL (14.2-18.0) L Hematocrit 38.2 % (42.0-52.0) L Mean Corpuscular Volume 96 FL (80-99) Mean Corpuscular Hemoglobin 30.7 PG (27.0-31.0) Mean Corpuscular Hemoglobin Concent 32.0 G/DL (32.0-36.0) Red Cell Distribution Width 12.3 % (11.6-14.8) Platelet Count 299 K/UL (150-450) Mean Platelet Volume 4.6 FL (6.5-10.1) L Neutrophils (%) (Auto) 55.2 % (45.0-75.0) Lymphocytes (%) (Auto) 26.5 % (20.0-45.0) Monocytes (%) (Auto) 15.6 % (1.0-10.0) H Eosinophils (%) (Auto) 1.8 % (0.0-3.0) Basophils (%) (Auto) 0.9 % (0.0-2.0) Height (Feet): 6 Height (Inches): 0.00 Weight (Pounds): 150 Medications Current Medications Medications (Trade) Dose Ordered Sig/Rufina Route PRN Reason Start Time Stop Time Status Last Admin Dose Admin Acetaminophen (Tylenol) 650 mg Q4H PRN ORAL Mild Pain (Pain Scale 1-3) 06/21/16 21:30 07/21/16 21:29 Al Hydroxide/Mg Hydroxide (Mylanta II) 30 ml Q6H PRN ORAL dyspepsia 06/21/16 21:30 07/21/16 21:29 Aspirin (ASA) 81 mg DAILY ORAL 06/22/16 09:00 07/22/16 08:59 06/29/16 08:25 Dextrose (Dextrose 50%) STAT PRN IV Hypoglycemia 06/21/16 21:30 07/21/16 21:29 Dextrose/Sodium Chloride (D5 0.45% NS) 1,000 ml @ 75 mls/hr [id number] IV 06/21/16 23:00 07/21/16 22:59 06/29/16 08:25 Diphenhydramine HCl (Benadryl) 25 mg Q6H PRN ORAL Itching/Pruritis 06/21/16 21:30 07/21/16 21:29 06/29/16 08:25 Donepezil HCl (Aricept) 5 mg QHS ORAL 06/28/16 21:00 07/28/16 20:59 06/28/16 20:41 Heparin Sodium (Porcine) (Heparin 5000 units/ml) 5,000 units EVERY 12 HOURS SUBQ 06/22/16 09:00 07/22/16 08:59 06/28/16 09:30 Ondansetron HCl (Zofran) 4 mg Q6H PRN IVP Nausea & Vomiting 06/21/16 21:30 07/21/16 21:29 Tamsulosin HCl (Flomax) 0.8 mg BEDTIME ORAL 06/23/16 21:00 07/23/16 20:59 06/28/16 22:06 Objective Narrative Renal ultrasound: no hydro, empty bladder Assessment/Plan Status: doing well Assessment/Plan 80 yo male here for syncope. seen originally for traumatic martínez pull and hematuria that resolved quickly. still being treated for UTI. hematuria likely left over from UTI and traumatic martínez pull. patient is not a good candidate for new martínez and ultrasound shows empty bladder. Would highly recommend AGAINST martínez catheterization. Continue abx and flomax into skilled nursing. 1. Finish abx course 2. no oley 3. continue flomax 0.4 mg indefinitely. Jose Alfredo Guerin M.D. Jun 29, 2016 12:38
[2016-06-29] MEDS: Donepezil 5mg Tab ORAL SCH (20:16)
[2016-06-29] MEDS: Tamsulosin 0.4mg cap ORAL SCH (20:17)
--- NOTE | 2016-06-29 22:29 | Nephrology Progress Note ---
Assessment/Plan Problem List: (1) Status post placement of implantable loop recorder (2) Bradycardia (3) Syncope (4) UTI (urinary tract infection) Plan cont Rocephin per ID. cardiology following, likely needs permanent pacemaker. cont telemetry. needs psych clearance for consent. if deemed unable to make consent, will need DPOA or conservator. Subjective Subjective no acute events. Objective Objective Last 24 Hour Vital Signs Date Time Temp Pulse Resp B/P Pulse Ox O2 Delivery O2 Flow Rate FiO2 06/29/16 20:03 97.2 75 16 142/68 97 Room Air 06/29/16 19:35 63 06/29/16 16:26 97.3 113 20 111/68 92 Room Air 06/29/16 16:00 64 06/29/16 12:00 94 06/29/16 11:35 96.8 60 20 158/92 95 Room Air 06/29/16 08:00 67 06/29/16 07:51 96.6 72 20 131/87 98 Room Air 06/29/16 06:40 155/91 06/29/16 04:04 98.4 81 21 161/86 95 Room Air 06/29/16 03:57 65 06/29/16 00:25 98.7 75 20 188/90 98 Room Air 06/28/16 23:57 62 Intake and Output 06/28/16 06/29/16 19:00 07:00 Intake Total 635 ml 825 ml Output Total 200 ml Balance 635 ml 625 ml Intake Oral 560 ml IV Total 75 ml 825 ml Output Urine Total 200 ml # Voids 4 2 Height (Feet): 6 Height (Inches): 0.00 Weight (Pounds): 150 General Appearance: no apparent distress Cardiovascular: normal rate, regular rhythm, bradycardia Respiratory/Chest: lungs clear Abdomen: normal bowel sounds, non tender, soft Neurologic: alert ALMA ROSA LAN Jun 29, 2016 22:29
[2016-06-30] VITALS: BP 161/99
[2016-06-30 04:02] VITALS: BP 154/96
[2016-06-30] MEDS: D5 1/2NS 1,000 ML IV SCH ×2 (07:00→20:08)
[2016-06-30 08:00] VITALS: BP 160/95
[2016-06-30] MEDS: Aspirin Baby 81mg ORAL SCH (08:45)
[2016-06-30] MEDS: Heparin 5000 units/ml inj SUBQ SCH ×2 (08:45→20:11)
--- NOTE | 2016-06-30 09:58 | Consultation ---
DATE OF CONSULTATION: 06/28/2016 PSYCHOTHERAPY CONSULTATION PROGRESS NOTE TREATING ATTENDING PHYSICIAN: Saqib Starks M.D. HISTORY OF PRESENT ILLNESS: The patient is a 80-year-old male. The patient was admitted to the hospital with syncope, slightly confused, disorganized, and altered mental status, unable to provide a viable information. He is poorly cooperative and communicative; however, he does not recall why he was brought to the hospital, what he is being treated for, does not recall the episode of syncope that he experienced as well. He states that he feels very helpless and hopeless due to his current condition during the hospital, states he does not like to be in the hospital. However, he does not know why he was brought into the hospital. The patient is aware of his date of , he is not aware of the day or the time. He is referred for psychotherapeutic services due to confusion and disorientation in his thought process and altered mental status. This clinician assessed the patient. At this time, the patient denies suicidal or homicidal thoughts of ideation. There is no indication for auditory or visual hallucinations for this patient. PAST MEDICAL HISTORY: Includes a history of bradycardia and history of reported. ALLERGIES: The patient has no known drug allergies. SUBSTANCE ABUSE HISTORY: There is no indication of history of alcohol use, illicit substance use, or smoking cigarettes for this patient. PSYCHIATRIC HISTORY: There is no indicated history of specific confusion in the past. SOCIAL HISTORY: The patient is independent according to his self report, financially sustained through Medicare. MENTAL STATUS EXAMINATION: The patient is alert and oriented to person and place. His mood is depressed. Affect is blunted. Thought process, disorganized. Thought content confused. The patient has poor attention and concentration. Poor insight, judgment, and impulse control. This clinician assessed the patient. Provided the patient with supportive psychotherapy, reality orientation, and coping skills DIAGNOSES: AXIS I: Rule out major neurocognitive disorder, Alzheimer's type without behavioral disturbances, rule out severe dementia. AXIS II: Deferred. AXIS III: Per History and Physical. AXIS IV: Problems with social environment. PLAN: This clinician assessed the patient. Provided the patient with reality orientation, provided the patient with supportive psychotherapy, encouraging the patient to articulate his thoughts with the nursing staff. Continue with medication management and behavioral management. This clinician has reviewed the patient's chart. Discussed the treatment with nursing staff. Kayode Stevnes PsyD. DR: PIERCE JOB#: [id number] CC:
--- NOTE | 2016-06-30 09:58 | Progress Note ---
DATE: 06/29/2016 SUBJECTIVE: This is a 80-year-old male patient. He is still confused, disorganized, and altered mental status. PLAN: For this patient is cleared. I am going to continue treatment. He will be continued to be followed by Psychiatry to prevent any decline in his cognition. Continue him on Aricept 5 mg q.h.s. Chart reviewed and discussed with staff. Seen and assessed at bedside. Divya Donald M.D. DR: DORIE JOB#: [id number] CC:
--- NOTE | 2016-06-30 09:58 | Progress Note ---
DATE: 06/29/2016 PSYCHOTHERAPY CONSULTATION PROGRESS NOTE TREATING ATTENDING PHYSICIAN: Saqib Starks M.D. SUBJECTIVE: The patient is a 80-year-old male. The patient has confusion and altered mental status with a diagnosis of major depression with psychotic features, rule out pseudodementia. The patient has in the past also . This clinician assessed this patient and provided the patient with reality orientation and supportive psychotherapy. Encouraging the patient to participate in treatment milieu. Adjusting the patient's . Continue with medication management and behavioral management. This clinician has reviewed the patient's chart. Discussed the treatment with the nursing staff. Kayode Stevens PsyD. DR: JOHNNIE JOB#: [id number] CC:
--- NOTE | 2016-06-30 10:48 | General Progress Note ---
Assessment/Plan Problem List: (1) Syncope ICD Codes: R55 - Syncope and collapse SNOMED: 061369869 Qualifiers: Qualified Codes: R55 - Syncope and collapse (2) UTI (urinary tract infection) ICD Codes: N39.0 - Urinary tract infection, site not specified SNOMED: 67281417 Qualifiers: Qualified Codes: N30.00 - Acute cystitis without hematuria (3) Status post placement of implantable loop recorder ICD Codes: Z95.818 - Presence of other cardiac implants and grafts SNOMED: 670646436, [id number], [id number] (4) Altered level of consciousness ICD Codes: R40.4 - Transient alteration of awareness SNOMED: 8247008 Status: doing well, stable Assessment/Plan Needs permanent pacer implantation after UTI is resolved and with psych clearance per cardiology Continue Rocephin per ID, f/u DVT prophylaxis Monitor Neuro status PT/OT eval Social service consult - placement Psyche f/u DC plan - SNF AM labs Subjective Date patient seen: Jun 30, 2016 Constitutional: Denies: chills, diaphoresis, fever, malaise, no symptoms, other , weakness HEENT: Denies: blurred vision, double vision, ear discharge, ear pain, eye pain , mouth pain, mouth swelling, no symptoms, nose congestion, nose pain, other, tearing, throat pain, throat swelling Cardiovascular: Denies: chest pain, edema, irregular heart rate, lightheadedness, no symptoms, other, palpitations, syncope Respiratory: Denies: SOB at rest, SOB with excertion, cough, no symptoms, orthopnea, other, shortness of breath, sputum, stridor, wheezing Gastrointestinal/Abdominal: Denies: abdomen distended, abdominal pain, black stools, blood in stool, constipated, diarrhea, difficulty swallowing, nausea, no symptoms, other, poor appetite, poor fluid intake, rectal bleeding, tarry stools, vomiting Genitourinary: Denies: burning, discharge, flank pain, frequency, hematuria, incontinence, no symptoms, other, pain, urgency Neurologic/Psychiatric: Denies: anxiety, depressed, emotional problems, headache, no symptoms, numbness, other, paresthesia, pre-existing deficit, seizure, tingling, tremors, weakness Endocrine: Denies: excessive sweating, flushing, increased hunger, increased thirst, increased urine, intolerance to cold, intolerance to heat, no symptoms, other, unexplained weight gain, unexplained weight loss Hematologic/Lymphatic: Denies: anemia, easy bleeding, easy bruising, no symptoms, other Allergies: Coded Allergies: No Known Allergies (Unverified , 09/04/15) Subjective Pt is in bed in no distress, denies discomfort, confused, sitter at bedside Objective Last 24 Hour Vital Signs Date Time Temp Pulse Resp B/P Pulse Ox O2 Delivery O2 Flow Rate FiO2 06/30/16 08:00 97.7 65 20 160/95 97 Room Air 06/30/16 04:02 97.8 88 21 154/96 94 Room Air 06/30/16 04:00 79 06/30/16 00:00 98.4 68 20 161/99 96 Room Air 06/29/16 23:55 64 06/29/16 20:03 97.2 75 16 142/68 97 Room Air 06/29/16 19:35 63 06/29/16 16:26 97.3 113 20 111/68 92 Room Air 06/29/16 16:00 64 06/29/16 12:00 94 06/29/16 11:35 96.8 60 20 158/92 95 Room Air Intake and Output 06/29/16 06/30/16 19:00 07:00 Intake Total 975 ml 790 ml Output Total 400 ml 400 ml Balance 575 ml 390 ml Intake Oral 900 ml IV Total 75 ml 790 ml Output Urine Total 400 ml 400 ml # Voids 2 1 Height (Feet): 6 Height (Inches): 0.00 Weight (Pounds): 150 General Appearance: no apparent distress EENT: normal ENT inspection Neck: non-tender, normal alignment, supple, normal inspection Cardiovascular: normal rate, regular rhythm, no JVD Respiratory/Chest: lungs clear, normal breath sounds Abdomen: soft, no organomegaly, no mass, abnormal bowel sounds Pelvis: normal external exam Extremities: normal range of motion, non-tender Neurologic: disoriented Skin: normal pigmentation, warm/dry Carline Fernandez N.P. Jun 30, 2016 10:48
[2016-06-30 12:00] VITALS: BP 129/54
--- NOTE | 2016-06-30 15:05 | Infectious Diseases Prog Note ---
Assessment/Plan Problems: (1) UTI (urinary tract infection) Assessment & Plan: with pansensitive proteus mirabilis , received ceftriaxon for 7 days already , off antibiotics (2) Syncope Assessment & Plan: resolved, continue tele monitor Subjective Constitutional: Reports: no symptoms HEENT: Reports: no symptoms Respiratory: Reports: no symptoms Breasts: Reports: no symptoms Cardiovascular: Reports: no symptoms Gastrointestinal/Abdominal: Reports: no symptoms Genitourinary: Reports: no symptoms Neurologic: Reports: no symptoms Psychiatric: Reports: no symptoms Skin: Reports: no symptoms Endocrine: Reports: no symptoms Allergies: Coded Allergies: No Known Allergies (Unverified , 09/04/15) Subjective he was comfortable, resting in bed, denied any symptoms Objective Vital Signs Last 24 Hour Vital Signs Date Time Temp Pulse Resp B/P Pulse Ox O2 Delivery O2 Flow Rate FiO2 06/30/16 12:00 75 06/30/16 12:00 97.7 60 18 129/54 95 Room Air 06/30/16 08:00 97.7 65 20 160/95 97 Room Air 06/30/16 08:00 73 06/30/16 04:02 97.8 88 21 154/96 94 Room Air 06/30/16 04:00 79 06/30/16 00:00 98.4 68 20 161/99 96 Room Air 06/29/16 23:55 64 06/29/16 20:03 97.2 75 16 142/68 97 Room Air 06/29/16 19:35 63 06/29/16 16:26 97.3 113 20 111/68 92 Room Air 06/29/16 16:00 64 Height (Feet): 6 Height (Inches): 0.00 Weight (Pounds): 150 General Appearance: WD/WN, no acute distress HEENT: normocephalic, atraumatic, anicteric Respiratory/Chest: chest wall non-tender, lungs clear, normal breath sounds, no respiratory distress, no accessory muscle use Cardiovascular: normal peripheral pulses, normal rate, regular rhythm, no gallop/murmur Abdomen: normal bowel sounds, soft, non tender, no organomegaly, non distended , no mass Extremities: no cyanosis, no clubbing Skin: no rash, no lesions, no ulcers Current Medications Medications (Trade) Dose Ordered Sig/Rufnia Route PRN Reason Start Time Stop Time Status Last Admin Dose Admin Acetaminophen (Tylenol) 650 mg Q4H PRN ORAL Mild Pain (Pain Scale 1-3) 06/21/16 21:30 07/21/16 21:29 Al Hydroxide/Mg Hydroxide (Mylanta II) 30 ml Q6H PRN ORAL dyspepsia 06/21/16 21:30 07/21/16 21:29 Aspirin (ASA) 81 mg DAILY ORAL 06/22/16 09:00 07/22/16 08:59 06/30/16 08:45 Dextrose (Dextrose 50%) STAT PRN IV Hypoglycemia 06/21/16 21:30 07/21/16 21:29 Dextrose/Sodium Chloride (D5 0.45% NS) 1,000 ml @ 75 mls/hr [id number] IV 06/21/16 23:00 07/21/16 22:59 06/29/16 08:25 Diphenhydramine HCl (Benadryl) 25 mg Q6H PRN ORAL Itching/Pruritis 06/21/16 21:30 07/21/16 21:29 06/29/16 20:16 Heparin Sodium (Porcine) (Heparin 5000 units/ml) 5,000 units EVERY 12 HOURS SUBQ 06/22/16 09:00 07/22/16 08:59 06/30/16 08:45 Lorazepam (Ativan) 1 mg Q6H PRN ORAL For Anxiety 06/29/16 22:45 07/06/16 22:44 Olanzapine (ZyPREXA) 2.5 mg BEDTIME ORAL 06/30/16 21:00 07/30/16 20:59 Ondansetron HCl (Zofran) 4 mg Q6H PRN IVP Nausea & Vomiting 06/21/16 21:30 07/21/16 21:29 Tamsulosin HCl (Flomax) 0.8 mg BEDTIME ORAL 06/23/16 21:00 07/23/16 20:59 06/29/16 20:17 Karrie Ashby M.D. Jun 30, 2016 15:05
--- NOTE | 2016-06-30 15:56 | Cardiac Electrophysiology PN ---
Assessment/Plan Assessment/Plan 1. Recurrent Syncope and bradycardia with Heart rate in 20s and 30s by interrogation of his SJ implantable loop recorder. Off Any MCKEON or AVN boo. Permanent pacer implantation after psych clearance. Currently patient confused and unable to consent. 2. UTI. Resolved. BEBE RN Subjective Subjective Comfortable in NAD. Sitter at bedside.No events over the weekend. Objective Last 24 Hour Vital Signs Date Time Temp Pulse Resp B/P Pulse Ox O2 Delivery O2 Flow Rate FiO2 06/30/16 12:00 75 06/30/16 12:00 97.7 60 18 129/54 95 Room Air 06/30/16 08:00 97.7 65 20 160/95 97 Room Air 06/30/16 08:00 73 06/30/16 04:02 97.8 88 21 154/96 94 Room Air 06/30/16 04:00 79 06/30/16 00:00 98.4 68 20 161/99 96 Room Air 06/29/16 23:55 64 06/29/16 20:03 97.2 75 16 142/68 97 Room Air 06/29/16 19:35 63 06/29/16 16:26 97.3 113 20 111/68 92 Room Air 06/29/16 16:00 64 Intake and Output 06/29/16 06/30/16 19:00 07:00 Intake Total 975 ml 790 ml Output Total 400 ml 400 ml Balance 575 ml 390 ml Intake Oral 900 ml IV Total 75 ml 790 ml Output Urine Total 400 ml 400 ml # Voids 2 1 Labs Test 06/28/16 20:30 White Blood Count 5.8 K/UL (4.8-10.8) Red Blood Count 3.98 M/UL (4.70-6.10) Hemoglobin 12.2 G/DL (14.2-18.0) Hematocrit 38.2 % (42.0-52.0) Mean Corpuscular Volume 96 FL (80-99) Mean Corpuscular Hemoglobin 30.7 PG (27.0-31.0) Mean Corpuscular Hemoglobin Concent 32.0 G/DL (32.0-36.0) Red Cell Distribution Width 12.3 % (11.6-14.8) Platelet Count 299 K/UL (150-450) Mean Platelet Volume 4.6 FL (6.5-10.1) Neutrophils (%) (Auto) 55.2 % (45.0-75.0) Lymphocytes (%) (Auto) 26.5 % (20.0-45.0) Monocytes (%) (Auto) 15.6 % (1.0-10.0) Eosinophils (%) (Auto) 1.8 % (0.0-3.0) Basophils (%) (Auto) 0.9 % (0.0-2.0) Current Medications Medications (Trade) Dose Ordered Sig/Rufina Route PRN Reason Start Time Stop Time Status Last Admin Dose Admin Acetaminophen (Tylenol) 650 mg Q4H PRN ORAL Mild Pain (Pain Scale 1-3) 06/21/16 21:30 07/21/16 21:29 Al Hydroxide/Mg Hydroxide (Mylanta II) 30 ml Q6H PRN ORAL dyspepsia 06/21/16 21:30 07/21/16 21:29 Aspirin (ASA) 81 mg DAILY ORAL 06/22/16 09:00 07/22/16 08:59 06/30/16 08:45 Dextrose (Dextrose 50%) STAT PRN IV Hypoglycemia 06/21/16 21:30 07/21/16 21:29 Dextrose/Sodium Chloride (D5 0.45% NS) 1,000 ml @ 75 mls/hr [id number] IV 06/21/16 23:00 07/21/16 22:59 06/29/16 08:25 Diphenhydramine HCl (Benadryl) 25 mg Q6H PRN ORAL Itching/Pruritis 06/21/16 21:30 07/21/16 21:29 06/29/16 20:16 Heparin Sodium (Porcine) (Heparin 5000 units/ml) 5,000 units EVERY 12 HOURS SUBQ 06/22/16 09:00 07/22/16 08:59 06/30/16 08:45 Lorazepam (Ativan) 1 mg Q6H PRN ORAL For Anxiety 06/29/16 22:45 07/06/16 22:44 Olanzapine (ZyPREXA) 2.5 mg BEDTIME ORAL 06/30/16 21:00 07/30/16 20:59 Ondansetron HCl (Zofran) 4 mg Q6H PRN IVP Nausea & Vomiting 06/21/16 21:30 07/21/16 21:29 Tamsulosin HCl (Flomax) 0.8 mg BEDTIME ORAL 06/23/16 21:00 07/23/16 20:59 06/29/16 20:17 Objective NECK: No jugular venous distention. LUNGS: Lungs are clear bilaterally. HEART: Regular S1 and S2 with no murmurs or S3.ILR left chest ABDOMEN: Soft and nontender. No palpable mass. EXTREMITIES: No cyanosis, clubbing, or edema. MARY JO MCCOLLUM Jun 30, 2016 15:56
[2016-06-30 16:00] VITALS: BP 120/74
[2016-06-30] MEDS ORDERED: D5 1/2NS 1000ml IV ONE (18:03)
--- NOTE | 2016-06-30 19:17 | Consultation ---
DATE OF CONSULTATION: 06/29/2016 HISTORY OF PRESENT ILLNESS: This is a 80-year-old male who has been admitted to the hospital for syncopal episode and psychiatry was consulted to clear the patient prior to the pacemaker placement. Apparently, the patient has been discharged two days prior now has been readmitted due to syncopal episode again. The patient also has some amount of UA, UTI, and retention. During the evaluation, the patient is mucid, alert, and oriented. He was able to provide history. We discussed the permanent pacer implantation after UTI is resolved. The patient was able to understand and minimum amount of information was given to her, as the patient was still confused and somewhat disorganized. The patient is 1 to 1. According to nay, the patient has been confused most of the day. However, there is no waxing and waning consciousness. It is reviewed the patient has become more lucid and more engaged. However, he is not at his baseline. He does endorse impairment of concentration and memory attention. He does not endorse any delusions. No auditory or visual hallucinations. However there is a disorder with the thought process. There is also some episodes of anxiety and agitation. During the evaluation, patient was unable to understand process, communicate, nor appreciate. The information was giving to him in regards to the permanent pacer implantation. PAST PSYCHIATRIC HISTORY: The patient was admitted with no psychotropic medication on board and he has been no known psychiatric illness, however, it does appear that he has endorsed with delirium due to urinary tract infection. PAST MEDICAL HISTORY: Significant for urinary tract infection, congestive heart failure, bradycardia, syncopal status post placement of implantable loop recorder. ALLERGIES: No known drug allergies. SUBSTANCE ABUSE HISTORY: No history of illicit drugs or alcohol. SOCIAL HISTORY: The patient resides in a detention. MENTAL STATUS EXAM: The patient was in no acute distress however confused and was unable to understand. Medical admission was given to him. He does endorse impairment, concentration, and memory attention. ASSESSMENT: Mason I Delirium due to urinary tract infection and cognitive impairment. Mason II Deferred. Mason III As above. Mason IV Moderate. Mason V Global assessment of functioning is 25. PLAN: 1. The patient will be started on Zyprexa 2.5 mg at bedtime. 2. Ativan as needed. 3. If the patient's cognitive impairment does not improved, the patient may need probate conservatorship. Susan Garcia M.D. DR: JODI JOB#: [id number] CC:
[2016-06-30 20:00] VITALS: BP 127/60
[2016-06-30] MEDS: OLANZapine 2.5mg tab ORAL SCH (20:08)
[2016-06-30] MEDS: Tamsulosin 0.4mg cap ORAL SCH (20:09)
[2016-06-30] MEDS ORDERED: Losartan 50mg tab ORAL PRN (21:45)
[2016-07-01 00:05] VITALS: BP 149/89
[2016-07-01 04:07] VITALS: BP 159/90
--- NOTE | 2016-07-01 04:37 | Progress Note ---
DATE: 06/30/2016 PSYCHOTHERAPY CONSULTATION PROGRESS NOTE TREATING ATTENDING PHYSICIAN: Saqib Starks M.D. SUBJECTIVE: The patient is a 80-year-old male, very confused, disorganized, altered in his mental status, unable to requiring continued hospitalization . The patient has poor insight, poor judgement, and poor impulse control. PLAN: This clinician assessed this patient . Provided the patient with reality orientation and supportive psychotherapy. Continue with medication management and behavioral management. This clinician has reviewed the patient's chart. Discussed the treatment with the nursing staff. 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 Kaoyde Stevens PsyD. DR: PARMJIT JOB#: [id number] CC:
[2016-07-01 08:00] VITALS: BP 174/93
[2016-07-01] MEDS: LORazepam 1mg tab ORAL PRN (09:53)
[2016-07-01] MEDS: Aspirin Baby 81mg ORAL SCH (09:53)
[2016-07-01] MEDS: Heparin 5000 units/ml inj SUBQ SCH ×2 (09:53→22:00)
[2016-07-01] MEDS: D5 1/2NS 1,000 ML IV SCH ×2 (09:58→23:00)
[2016-07-01 12:00] VITALS: BP 133/57
[2016-07-01 16:00] VITALS: BP 170/65
--- NOTE | 2016-07-01 16:18 | Cardiac Electrophysiology PN ---
Assessment/Plan Assessment/Plan 1. Recurrent Syncope and bradycardia with Heart rate in 20s and 30s by interrogation of his SJ implantable loop recorder. Off Any MCKEON or AVN boo. Permanent pacer implantation tomorrow if OK with psych. Consent for upgrading ILR to PPM was signed by DPOA/sister 2. UTI. Resolved. 3. 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 Sitter at bedside. Sister who has the DPOA signed the consent for ILR upgrade to pacer. Objective Last 24 Hour Vital Signs Date Time Temp Pulse Resp B/P Pulse Ox O2 Delivery O2 Flow Rate FiO2 07/01/16 12:00 72 07/01/16 12:00 97.7 73 18 133/57 93 Room Air 07/01/16 08:00 87 18 174/93 Room Air 07/01/16 08:00 75 07/01/16 04:07 98.0 71 20 159/90 100 Room Air 07/01/16 00:05 97.2 70 20 149/89 98 Room Air 07/01/16 00:00 70 06/30/16 20:00 69 06/30/16 20:00 97.4 77 21 127/60 96 Room Air Intake and Output 06/30/16 07/01/16 19:00 07:00 Intake Total 150 ml Output Total 260 ml Balance 150 ml -260 ml Intake Oral 150 ml Output Urine Total 260 ml # Voids 1 4 Objective NECK: No jugular venous distention. LUNGS: Lungs are clear bilaterally. HEART: Regular S1 and S2 with no murmurs or S3.ILR left chest ABDOMEN: Soft and nontender. EXTREMITIES: No cyanosis, clubbing, or edema. MARY JO MCCOLLUM Jul 01, 2016 16:18
--- NOTE | 2016-07-01 17:18 | Infectious Diseases Prog Note ---
Assessment/Plan Problems: (1) UTI (urinary tract infection) Assessment & Plan: with pansensitive proteus mirabilis , received ceftriaxon for 7 days already , off antibiotics (2) Syncope Assessment & Plan: resolved, continue tele monitor Subjective Constitutional: Reports: no symptoms HEENT: Reports: no symptoms Respiratory: Reports: no symptoms Breasts: Reports: no symptoms Cardiovascular: Reports: no symptoms Gastrointestinal/Abdominal: Reports: no symptoms Genitourinary: Reports: no symptoms Neurologic: Reports: no symptoms Psychiatric: Reports: no symptoms Skin: Reports: no symptoms Allergies: Coded Allergies: No Known Allergies (Unverified , 09/04/15) Subjective he was comfortable, resting in bed, denied any symptoms Objective Vital Signs Last 24 Hour Vital Signs Date Time Temp Pulse Resp B/P Pulse Ox O2 Delivery O2 Flow Rate FiO2 07/01/16 16:00 97.7 65 18 170/65 95 07/01/16 12:00 72 07/01/16 12:00 97.7 73 18 133/57 93 Room Air 07/01/16 08:00 87 18 174/93 Room Air 07/01/16 08:00 75 07/01/16 04:07 98.0 71 20 159/90 100 Room Air 07/01/16 00:05 97.2 70 20 149/89 98 Room Air 07/01/16 00:00 70 06/30/16 20:00 69 06/30/16 20:00 97.4 77 21 127/60 96 Room Air Height (Feet): 6 Height (Inches): 0.00 Weight (Pounds): 150 General Appearance: WD/WN, no acute distress HEENT: normocephalic, atraumatic, anicteric, mucous membranes moist Respiratory/Chest: chest wall non-tender, lungs clear, normal breath sounds, no respiratory distress, no accessory muscle use Cardiovascular: normal peripheral pulses, normal rate, regular rhythm, no gallop/murmur Abdomen: normal bowel sounds, soft, non tender, no organomegaly, non distended , no mass Extremities: no cyanosis, no clubbing Skin: no rash, no lesions, no ulcers Current Medications Medications (Trade) Dose Ordered Sig/Rufina Route PRN Reason Start Time Stop Time Status Last Admin Dose Admin Acetaminophen (Tylenol) 650 mg Q4H PRN ORAL Mild Pain (Pain Scale 1-3) 06/21/16 21:30 07/21/16 21:29 Al Hydroxide/Mg Hydroxide (Mylanta II) 30 ml Q6H PRN ORAL dyspepsia 06/21/16 21:30 07/21/16 21:29 Aspirin (ASA) 81 mg DAILY ORAL 06/22/16 09:00 07/22/16 08:59 07/01/16 09:53 Dextrose (Dextrose 50%) STAT PRN IV Hypoglycemia 06/21/16 21:30 07/21/16 21:29 Dextrose/Sodium Chloride (D5 0.45% NS) 1,000 ml @ 75 mls/hr [id number] IV 06/21/16 23:00 07/21/16 22:59 07/01/16 09:58 Diphenhydramine HCl (Benadryl) 25 mg Q6H PRN ORAL Itching/Pruritis 06/21/16 21:30 07/21/16 21:29 06/29/16 20:16 Heparin Sodium (Porcine) (Heparin 5000 units/ml) 5,000 units EVERY 12 HOURS SUBQ 06/22/16 09:00 07/22/16 08:59 07/01/16 09:53 Lorazepam (Ativan) 1 mg Q6H PRN ORAL For Anxiety 06/29/16 22:45 07/06/16 22:44 07/01/16 09:53 Losartan Potassium (Cozaar) 50 mg Q12H PRN ORAL SBP > 150 06/30/16 21:45 07/30/16 21:44 Olanzapine (ZyPREXA) 2.5 mg BEDTIME ORAL 06/30/16 21:00 07/30/16 20:59 06/30/16 20:08 Ondansetron HCl (Zofran) 4 mg Q6H PRN IVP Nausea & Vomiting 06/21/16 21:30 07/21/16 21:29 Tamsulosin HCl (Flomax) 0.8 mg BEDTIME ORAL 06/23/16 21:00 07/23/16 20:59 06/30/16 20:09 Karrie Ashby M.D. Jul 01, 2016 17:18
[2016-07-01 20:00] VITALS: BP 136/72
[2016-07-01] MEDS: Tamsulosin 0.4mg cap ORAL SCH (22:00)
[2016-07-01] MEDS: OLANZapine 2.5mg tab ORAL SCH (22:00)
--- NOTE | 2016-07-01 22:11 | Nephrology Progress Note ---
Assessment/Plan Problem List: (1) Status post placement of implantable loop recorder (2) Bradycardia (3) Syncope (4) UTI (urinary tract infection) Assessment: s/p abx. Plan cardiology following, needs permanent pacemaker. consent signed by DPOA. f/u recs per cardio. Subjective Subjective no new c/o. Objective Objective Last 24 Hour Vital Signs Date Time Temp Pulse Resp B/P Pulse Ox O2 Delivery O2 Flow Rate FiO2 07/01/16 20:00 97.8 63 19 136/72 96 Room Air 07/01/16 17:38 170/65 07/01/16 16:00 97.7 65 18 170/65 95 07/01/16 12:00 72 07/01/16 12:00 97.7 73 18 133/57 93 Room Air 07/01/16 08:00 87 18 174/93 Room Air 07/01/16 08:00 75 07/01/16 04:07 98.0 71 20 159/90 100 Room Air 07/01/16 00:05 97.2 70 20 149/89 98 Room Air 07/01/16 00:00 70 Intake and Output 06/30/16 07/01/16 19:00 07:00 Intake Total 150 ml Output Total 260 ml Balance 150 ml -260 ml Intake Oral 150 ml Output Urine Total 260 ml # Voids 1 4 Height (Feet): 6 Height (Inches): 0.00 Weight (Pounds): 150 General Appearance: no apparent distress Cardiovascular: normal rate, regular rhythm Respiratory/Chest: lungs clear Abdomen: non tender, soft, no organomegaly Extremities: trace edema Neurologic: alert ALMA ROSA LAN Jul 01, 2016 22:11
[2016-07-02] VITALS: BP 134/77
[2016-07-02 04:08] VITALS: BP 140/78
[2016-07-02 07:48] VITALS: BP 116/74
[2016-07-02] MEDS: LORazepam 1mg tab ORAL PRN (08:29)
[2016-07-02] MEDS: Aspirin Baby 81mg ORAL SCH (08:29)
[2016-07-02] MEDS: Heparin 5000 units/ml inj SUBQ SCH ×3 (08:31→20:46)
--- NOTE | 2016-07-02 10:49 | General Progress Note ---
Assessment/Plan Problem List: (1) Syncope ICD Codes: R55 - Syncope and collapse SNOMED: 927792685 Qualifiers: Qualified Codes: R55 - Syncope and collapse (2) UTI (urinary tract infection) ICD Codes: N39.0 - Urinary tract infection, site not specified SNOMED: 35769550 Qualifiers: Qualified Codes: N30.00 - Acute cystitis without hematuria Status: doing well, stable Assessment/Plan Needs permanent pacer implantation after UTI is resolved and with psych clearance per cardiology off abx per ID, f/u DVT prophylaxis Monitor Neuro status PT/OT eval Social service consult - placement Psyche f/u DC plan - SNF AM labs Subjective ROS Limited/Unobtainable: Yes Allergies: Coded Allergies: No Known Allergies (Unverified , 09/04/15) Subjective In bed, asleep, not in distress, according to the sitter at bedside, pt has been cooperative Objective Last 24 Hour Vital Signs Date Time Temp Pulse Resp B/P Pulse Ox O2 Delivery O2 Flow Rate FiO2 07/02/16 07:48 97.2 74 20 116/74 94 Room Air 07/02/16 04:08 97.0 66 20 140/78 100 Room Air 07/02/16 04:00 60 07/02/16 00:00 70 07/02/16 00:00 97.0 69 20 134/77 98 Room Air 07/01/16 20:00 83 07/01/16 20:00 97.8 63 19 136/72 96 Room Air 07/01/16 17:38 170/65 07/01/16 16:00 68 07/01/16 16:00 97.7 65 18 170/65 95 07/01/16 12:00 72 07/01/16 12:00 97.7 73 18 133/57 93 Room Air Intake and Output 07/01/16 07/02/16 19:00 07:00 Intake Total 725 ml Output Total 2 ml Balance 725 ml -2 ml Intake Oral 500 ml IV Total 225 ml Output Urine Total 2 ml Height (Feet): 6 Height (Inches): 0.00 Weight (Pounds): 150 General Appearance: no apparent distress EENT: normal ENT inspection Neck: normal alignment, supple Cardiovascular: normal rate, regular rhythm, no JVD Respiratory/Chest: normal breath sounds, no respiratory distress Abdomen: non tender, soft, no organomegaly Pelvis: normal external exam Extremities: normal range of motion Neurologic: responsive, normal mood/affect Skin: normal pigmentation, warm/dry Carline Fernandez N.P. Jul 02, 2016 10:49
[2016-07-02 11:30] VITALS: BP 127/75
[2016-07-02] MEDS: D5 1/2NS 1,000 ML IV SCH (12:20)
--- NOTE | 2016-07-02 14:21 | Cardiac Electrophysiology PN ---
Assessment/Plan Assessment/Plan 1. Recurrent Syncope and bradycardia with Heart rate in 20s and 30s by interrogation of his SJ implantable loop recorder. Off Any MCKEON or AVN boo. Permanent pacer implantation when OK with psych. Consent for upgrading ILR to PPM was signed by DPOA/sister. Now awaiting paper works from daughter. 2. UTI. Resolved. 3. 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 Sister who has the DPOA signed the consent for ILR upgrade to pacer and bringing the DPOA documents today. Objective Last 24 Hour Vital Signs Date Time Temp Pulse Resp B/P Pulse Ox O2 Delivery O2 Flow Rate FiO2 07/02/16 12:00 89 07/02/16 11:30 97.3 63 20 127/75 93 Room Air 07/02/16 08:00 71 07/02/16 07:48 97.2 74 20 116/74 94 Room Air 07/02/16 04:08 97.0 66 20 140/78 100 Room Air 07/02/16 04:00 60 07/02/16 00:00 70 07/02/16 00:00 97.0 69 20 134/77 98 Room Air 07/01/16 20:00 83 07/01/16 20:00 97.8 63 19 136/72 96 Room Air 07/01/16 17:38 170/65 07/01/16 16:00 68 07/01/16 16:00 97.7 65 18 170/65 95 Intake and Output 07/01/16 07/02/16 19:00 07:00 Intake Total 725 ml Output Total 2 ml Balance 725 ml -2 ml Intake Oral 500 ml IV Total 225 ml Output Urine Total 2 ml Objective NECK: No jugular venous distention. LUNGS: Lungs are clear bilaterally. HEART: Regular S1 and S2 with no murmurs or S3.ILR left chest ABDOMEN: Soft and nontender. EXTREMITIES: No cyanosis, clubbing, or edema. MARY JO MCCOLLUM Jul 02, 2016 14:21
[2016-07-02 16:00] VITALS: BP 136/80
--- NOTE | 2016-07-02 16:23 | Infectious Diseases Prog Note ---
Assessment/Plan Problems: (1) UTI (urinary tract infection) Assessment & Plan: with pansensitive proteus mirabilis , received Ceftriaxon for 7 days already , now off antibiotics , doing well , afebrile (2) Syncope Assessment & Plan: need PPM as per cardiology recommendation, continue tele monitor Subjective Constitutional: Reports: no symptoms HEENT: Reports: no symptoms Respiratory: Reports: no symptoms Cardiovascular: Reports: no symptoms Gastrointestinal/Abdominal: Reports: no symptoms Genitourinary: Reports: no symptoms Neurologic: Reports: no symptoms Psychiatric: Reports: no symptoms Skin: Reports: no symptoms Allergies: Coded Allergies: No Known Allergies (Unverified , 09/04/15) Subjective he denied any syncope, comfortable, resting in bed, not in distress Objective Vital Signs Last 24 Hour Vital Signs Date Time Temp Pulse Resp B/P Pulse Ox O2 Delivery O2 Flow Rate FiO2 07/02/16 12:00 89 07/02/16 11:30 97.3 63 20 127/75 93 Room Air 07/02/16 08:00 71 07/02/16 07:48 97.2 74 20 116/74 94 Room Air 07/02/16 04:08 97.0 66 20 140/78 100 Room Air 07/02/16 04:00 60 07/02/16 00:00 70 07/02/16 00:00 97.0 69 20 134/77 98 Room Air 07/01/16 20:00 83 07/01/16 20:00 97.8 63 19 136/72 96 Room Air 07/01/16 17:38 170/65 Height (Feet): 6 Height (Inches): 0.00 Weight (Pounds): 150 General Appearance: WD/WN, no acute distress HEENT: normocephalic, atraumatic, anicteric, mucous membranes moist Respiratory/Chest: chest wall non-tender, lungs clear, normal breath sounds, no respiratory distress, no accessory muscle use Cardiovascular: normal peripheral pulses, normal rate, regular rhythm, no gallop/murmur, no JVD Abdomen: normal bowel sounds, soft, non tender, no organomegaly, non distended , no mass, no scars Extremities: no cyanosis, no clubbing Skin: no rash, no lesions Current Medications Medications (Trade) Dose Ordered Sig/Rufina Route PRN Reason Start Time Stop Time Status Last Admin Dose Admin Acetaminophen (Tylenol) 650 mg Q4H PRN ORAL Mild Pain (Pain Scale 1-3) 06/21/16 21:30 07/21/16 21:29 Al Hydroxide/Mg Hydroxide (Mylanta II) 30 ml Q6H PRN ORAL dyspepsia 06/21/16 21:30 07/21/16 21:29 Aspirin (ASA) 81 mg DAILY ORAL 06/22/16 09:00 07/22/16 08:59 07/02/16 08:29 Dextrose (Dextrose 50%) STAT PRN IV Hypoglycemia 06/21/16 21:30 07/21/16 21:29 Dextrose/Sodium Chloride (D5 0.45% NS) 1,000 ml @ 75 mls/hr [id number] IV 06/21/16 23:00 07/21/16 22:59 07/01/16 09:58 Diphenhydramine HCl (Benadryl) 25 mg Q6H PRN ORAL Itching/Pruritis 06/21/16 21:30 07/21/16 21:29 06/29/16 20:16 Heparin Sodium (Porcine) (Heparin 5000 units/ml) 5,000 units EVERY 12 HOURS SUBQ 06/22/16 09:00 07/22/16 08:59 07/02/16 08:31 Lorazepam (Ativan) 1 mg Q6H PRN ORAL For Anxiety 06/29/16 22:45 07/06/16 22:44 07/02/16 08:29 Losartan Potassium (Cozaar) 50 mg Q12H ORAL 07/02/16 21:00 07/05/16 20:59 Olanzapine (ZyPREXA) 2.5 mg BEDTIME ORAL 06/30/16 21:00 07/30/16 20:59 06/30/16 20:08 Ondansetron HCl (Zofran) 4 mg Q6H PRN IVP Nausea & Vomiting 06/21/16 21:30 07/21/16 21:29 Tamsulosin HCl (Flomax) 0.8 mg BEDTIME ORAL 06/23/16 21:00 07/23/16 20:59 06/30/16 20:09 Karrie Ashby M.D. Jul 02, 2016 16:23
[2016-07-02 20:00] VITALS: BP 103/67
[2016-07-02] MEDS: OLANZapine 2.5mg tab ORAL SCH (20:39)
[2016-07-02] MEDS: Losartan 50mg tab ORAL SCH (20:39)
[2016-07-02] MEDS: Tamsulosin 0.4mg cap ORAL SCH (20:40)
--- NOTE | 2016-07-03 00:10 | General Progress Note ---
Assessment/Plan Status: not improved Assessment/Plan The pt lacks capacity to sign consent form please see the subjective section. Subjective Date patient seen: Jul 02, 2016 Neurologic/Psychiatric: Reports: emotional problems, pre-existing deficit Allergies: Coded Allergies: No Known Allergies (Unverified , 09/04/15) Subjective The pt is still confused and has cognitive impairment. the pt is unable to sign consent form. I have spoken to staff and inform them. A person who has power of account services specialist or probate conservatorship may sign the consent instead of pt. Objective Last 24 Hour Vital Signs Date Time Temp Pulse Resp B/P Pulse Ox O2 Delivery O2 Flow Rate FiO2 07/02/16 20:00 97.9 66 19 103/67 97 Room Air 07/02/16 20:00 73 07/02/16 16:00 63 07/02/16 16:00 97.8 67 19 136/80 97 Room Air 07/02/16 12:00 89 07/02/16 11:30 97.3 63 20 127/75 93 Room Air 07/02/16 08:00 71 07/02/16 07:48 97.2 74 20 116/74 94 Room Air 07/02/16 04:08 97.0 66 20 140/78 100 Room Air 07/02/16 04:00 60 07/02/16 00:00 70 07/02/16 00:00 97.0 69 20 134/77 98 Room Air Intake and Output 07/01/16 07/02/16 19:00 07:00 Intake Total 725 ml Output Total 2 ml Balance 725 ml -2 ml Intake Oral 500 ml IV Total 225 ml Output Urine Total 2 ml Height (Feet): 6 Height (Inches): 0.00 Weight (Pounds): 150 General Appearance: no apparent distress, alert, confused, thin Neurologic: alert, normal mood/affect, disoriented Susan Garcia M.D. Jul 03, 2016 00:10
[2016-07-03 00:20] VITALS: BP 150/93
[2016-07-03] MEDS: D5 1/2NS 1,000 ML IV SCH ×2 (01:40→15:00)
[2016-07-03 04:03] VITALS: BP 159/93
[2016-07-03 07:54] VITALS: BP 104/56
[2016-07-03] MEDS: Aspirin Baby 81mg ORAL SCH (08:44)
[2016-07-03] MEDS: Heparin 5000 units/ml inj SUBQ SCH ×2 (08:46→20:50)
[2016-07-03] MEDS: Losartan 50mg tab ORAL SCH ×2 (09:00→20:49)
[2016-07-03 11:36] VITALS: BP 159/86
--- NOTE | 2016-07-03 11:37 | Nephrology Progress Note ---
Assessment/Plan Problem List: (1) Status post placement of implantable loop recorder (2) Bradycardia (3) Syncope (4) UTI (urinary tract infection) Assessment: s/p abx. Plan cardiology following, needs permanent pacemaker. consent signed by DPOA.need to confirm DPOA. f/u recs per cardio. Subjective Subjective no acute events. waiting on DPOA documents from sister to consent for pacemaker. Objective Objective Last 24 Hour Vital Signs Date Time Temp Pulse Resp B/P Pulse Ox O2 Delivery O2 Flow Rate FiO2 07/03/16 09:00 104/56 07/03/16 08:00 73 07/03/16 07:54 97.3 66 20 104/56 91 Room Air 07/03/16 04:03 98.3 59 21 159/93 94 Room Air 07/03/16 04:00 65 07/03/16 00:20 98.4 63 20 150/93 96 Room Air 07/03/16 00:00 66 07/02/16 20:00 97.9 66 19 103/67 97 Room Air 07/02/16 20:00 73 07/02/16 16:00 63 07/02/16 16:00 97.8 67 19 136/80 97 Room Air 07/02/16 12:00 89 Intake and Output 07/02/16 07/03/16 19:00 07:00 Intake Total 690 ml Output Total 700 ml Balance 690 ml -700 ml Intake Oral 690 ml Output Urine Total 700 ml # Voids 1 Height (Feet): 6 Height (Inches): 0.00 Weight (Pounds): 150 General Appearance: no apparent distress Cardiovascular: normal rate, regular rhythm Respiratory/Chest: lungs clear Abdomen: non tender, soft Extremities: non-pitting Neurologic: alert, responsive ALMA ROSA LAN Jul 03, 2016 11:37
[2016-07-03 16:12] VITALS: BP 154/98
--- NOTE | 2016-07-03 16:22 | Infectious Diseases Prog Note ---
Assessment/Plan Problems: (1) UTI (urinary tract infection) Assessment & Plan: with pansensitive proteus mirabilis , received Ceftriaxon for 7 days already , now off antibiotics , doing well , afebrile (2) Syncope Assessment & Plan: need PPM as per cardiology recommendation, continue tele monitor Subjective Constitutional: Reports: no symptoms HEENT: Reports: no symptoms Respiratory: Reports: no symptoms Breasts: Reports: no symptoms Cardiovascular: Reports: no symptoms Gastrointestinal/Abdominal: Reports: no symptoms Genitourinary: Reports: no symptoms Neurologic: Reports: no symptoms Psychiatric: Reports: no symptoms Skin: Reports: no symptoms Allergies: Coded Allergies: No Known Allergies (Unverified , 09/04/15) Subjective he denied any syncope, comfortable, resting in bed, not in distress Objective Vital Signs Last 24 Hour Vital Signs Date Time Temp Pulse Resp B/P Pulse Ox O2 Delivery O2 Flow Rate FiO2 07/03/16 16:12 98.2 62 18 154/98 97 Room Air 07/03/16 12:00 80 07/03/16 11:36 97.6 69 18 159/86 93 Room Air 07/03/16 09:00 104/56 07/03/16 08:00 73 07/03/16 07:54 97.3 66 20 104/56 91 Room Air 07/03/16 04:03 98.3 59 21 159/93 94 Room Air 07/03/16 04:00 65 07/03/16 00:20 98.4 63 20 150/93 96 Room Air 07/03/16 00:00 66 07/02/16 20:00 97.9 66 19 103/67 97 Room Air 07/02/16 20:00 73 Height (Feet): 6 Height (Inches): 0.00 Weight (Pounds): 150 General Appearance: WD/WN, no acute distress HEENT: normocephalic, atraumatic, anicteric, mucous membranes moist Respiratory/Chest: chest wall non-tender, lungs clear, normal breath sounds, no respiratory distress, no accessory muscle use Cardiovascular: normal peripheral pulses, normal rate, regular rhythm, no gallop/murmur Abdomen: normal bowel sounds, soft, non tender, no organomegaly, non distended , no mass Extremities: no cyanosis, no clubbing Skin: no rash, no lesions, no ulcers Current Medications Medications (Trade) Dose Ordered Sig/Rufina Route PRN Reason Start Time Stop Time Status Last Admin Dose Admin Acetaminophen (Tylenol) 650 mg Q4H PRN ORAL Mild Pain (Pain Scale 1-3) 06/21/16 21:30 07/21/16 21:29 Al Hydroxide/Mg Hydroxide (Mylanta II) 30 ml Q6H PRN ORAL dyspepsia 06/21/16 21:30 07/21/16 21:29 Aspirin (ASA) 81 mg DAILY ORAL 06/22/16 09:00 07/22/16 08:59 07/03/16 08:44 Dextrose (Dextrose 50%) STAT PRN IV Hypoglycemia 06/21/16 21:30 07/21/16 21:29 Dextrose/Sodium Chloride (D5 0.45% NS) 1,000 ml @ 75 mls/hr [id number] IV 06/21/16 23:00 07/21/16 22:59 07/01/16 09:58 Diphenhydramine HCl (Benadryl) 25 mg Q6H PRN ORAL Itching/Pruritis 06/21/16 21:30 07/21/16 21:29 06/29/16 20:16 Heparin Sodium (Porcine) (Heparin 5000 units/ml) 5,000 units EVERY 12 HOURS SUBQ 06/22/16 09:00 07/22/16 08:59 07/02/16 08:31 Lorazepam (Ativan) 1 mg Q6H PRN ORAL For Anxiety 06/29/16 22:45 07/06/16 22:44 07/02/16 08:29 Losartan Potassium (Cozaar) 50 mg Q12H ORAL 07/02/16 21:00 07/05/16 20:59 Olanzapine (ZyPREXA) 2.5 mg BEDTIME ORAL 06/30/16 21:00 07/30/16 20:59 07/02/16 20:39 Ondansetron HCl (Zofran) 4 mg Q6H PRN IVP Nausea & Vomiting 06/21/16 21:30 07/21/16 21:29 Tamsulosin HCl (Flomax) 0.8 mg BEDTIME ORAL 06/23/16 21:00 07/23/16 20:59 07/02/16 20:40 Karrie Ashby M.D. Jul 03, 2016 16:22
--- NOTE | 2016-07-03 18:22 | Cardiac Electrophysiology PN ---
Assessment/Plan Problem List: (1) Status post placement of implantable loop recorder (2) Bradycardia (3) Syncope (4) Altered level of consciousness Status: stable, progressing Status Narrative Mr. Barbour was adm w/ syncope He has inserted loop recorder which showed SB w/ rates in the 30s at times, incl day of syncope (though not certain of time) Assessment/Plan Will review tracings of ILR recording w/ [facility]. Would favor perm pacing and loop rec explant if low HRs confirmed. Subjective ROS Limited/Unobtainable: No Subjective No c/o chest pain, palpitations or dyspnea Alert/ confused, Objective Last 24 Hour Vital Signs Date Time Temp Pulse Resp B/P Pulse Ox O2 Delivery O2 Flow Rate FiO2 07/03/16 16:12 98.2 62 18 154/98 97 Room Air 07/03/16 12:00 80 07/03/16 11:36 97.6 69 18 159/86 93 Room Air 07/03/16 09:00 104/56 07/03/16 08:00 73 07/03/16 07:54 97.3 66 20 104/56 91 Room Air 07/03/16 04:03 98.3 59 21 159/93 94 Room Air 07/03/16 04:00 65 07/03/16 00:20 98.4 63 20 150/93 96 Room Air 07/03/16 00:00 66 07/02/16 20:00 97.9 66 19 103/67 97 Room Air 07/02/16 20:00 73 General Appearance: WD/WN, no apparent distress, alert EENT: PERRL/EOMI Neck: supple, no JVD Rhythm: NSR Cardiovascular: normal rate, regular rhythm, no gallop/murmur Respiratory/Chest: lungs clear Abdomen: non tender, soft Intake and Output 07/02/16 07/03/16 19:00 07:00 Intake Total 690 ml Output Total 700 ml Balance 690 ml -700 ml Intake Oral 690 ml Output Urine Total 700 ml # Voids 1 BRANDT BRADY Jul 03, 2016 18:22
[2016-07-03 20:00] VITALS: BP 122/74
[2016-07-03] MEDS: Tamsulosin 0.4mg cap ORAL SCH (20:49)
[2016-07-03] MEDS: OLANZapine 2.5mg tab ORAL SCH (20:50)
[2016-07-04] VITALS (14 sets, daily range): BP systolic 130–183; BP diastolic 72–107
[2016-07-04] MEDS ORDERED: NS Irrig 1000ml ONE (07:00)
[2016-07-04] MEDS ORDERED: LR 1000ml ONE (07:00)
[2016-07-04] MEDS ORDERED: Lidocaine 1% MPF 10mg/ml 5ml ONE (07:00)
[2016-07-04] MEDS ORDERED: Midazolam 2mg/2ml Inj ONE (07:00)
[2016-07-04] MEDS ORDERED: Propofol 10mg/ml 20ml IV ONE (07:00)
[2016-07-04 08:23] LABS: ANION GAP 10 (5-15); CALCIUM 9.3 mg/dL (8.6-10.2); CARBON DIOXIDE 29 mEQ/L (20-30); CHLORIDE 101 mEQ/L (98-107); CREATININE 0.9 mg/dL (0.7-1.2); HEMOLYSIS 8; POTASSIUM 4.4 mEQ/L (3.4-4.9); SODIUM 140 mEQ/L (135-145)
[2016-07-04 08:32] LABS: BASOPHILS % (AUTO) 0.9 % (0.0-2.0); EOSINOPHILS % (AUTO) 0.6 % (0.0-3.0); LYMPHOCYTES % (AUTO) 20.8 % (20.0-45.0); MEAN CORPUSCULAR HEMOGLOBIN 30.9 PG (27.0-31.0); MEAN CORPUSCULAR HGB CONC 32.9 G/DL (32.0-36.0); MEAN CORPUSCULAR VOLUME 94 FL (80-99); MEAN PLATELET VOLUME 4.8 FL (6.5-10.1); MONOCYTES % (AUTO) 7.1 % (1.0-10.0); NEUTROPHILS % (AUTO) 70.6 % (45.0-75.0); PLATELET COUNT 366 K/UL (150-450); RED BLOOD COUNT 4.41 M/UL (4.70-6.10); RED CELL DISTRIBUTION WIDTH 12.8 % (11.6-14.8); WHITE BLOOD COUNT 6.6 K/UL (4.8-10.8)
[2016-07-04 08:41] LABS: INR 1.1 (0.9-1.1); PROTHROMBIN TIME 10.7 SEC (9.30-11.50)
[2016-07-04] MEDS: Aspirin Baby 81mg ORAL SCH (08:56)
[2016-07-04] MEDS: Losartan 50mg tab ORAL SCH ×2 (09:00→21:00)
[2016-07-04] MEDS: Heparin 5000 units/ml inj SUBQ SCH ×3 (09:00→22:00)
[2016-07-04] MEDS: LORazepam 1mg tab ORAL PRN (12:27)
--- NOTE | 2016-07-04 16:26 | Infectious Diseases Prog Note ---
Assessment/Plan Problems: (1) UTI (urinary tract infection) Assessment & Plan: resolved , with pansensitive proteus mirabilis , received Ceftriaxon for 7 days already , now off antibiotics , doing well , afebrile (2) Syncope Assessment & Plan: need PPM as per cardiology recommendation, continue tele monitor Subjective Constitutional: Reports: no symptoms HEENT: Reports: no symptoms Respiratory: Reports: no symptoms Breasts: Reports: no symptoms Cardiovascular: Reports: no symptoms Gastrointestinal/Abdominal: Reports: no symptoms Genitourinary: Reports: no symptoms Neurologic: Reports: no symptoms Psychiatric: Reports: no symptoms Skin: Reports: no symptoms Allergies: Coded Allergies: No Known Allergies (Unverified , 09/04/15) Subjective he denied any syncope, comfortable, resting in bed, not in distress Objective Vital Signs Last 24 Hour Vital Signs Date Time Temp Pulse Resp B/P Pulse Ox O2 Delivery O2 Flow Rate FiO2 07/04/16 16:00 97.1 81 20 147/97 97 Room Air 07/04/16 12:00 79 07/04/16 11:19 97.8 70 20 134/72 95 Room Air 07/04/16 08:00 62 07/04/16 07:50 97.7 75 19 130/94 94 Room Air 07/04/16 04:20 59 145/90 07/04/16 04:18 98.2 68 169/92 94 Room Air 07/04/16 04:00 59 07/04/16 00:24 98.8 65 19 147/90 95 Room Air 07/03/16 20:49 154/98 07/03/16 20:00 73 07/03/16 20:00 97.9 72 18 122/74 93 Room Air Height (Feet): 6 Height (Inches): 0.00 Weight (Pounds): 150 General Appearance: WD/WN, no acute distress HEENT: normocephalic, atraumatic, anicteric, mucous membranes moist Respiratory/Chest: chest wall non-tender, lungs clear, normal breath sounds, no respiratory distress, no accessory muscle use Cardiovascular: normal peripheral pulses, normal rate, regular rhythm Abdomen: normal bowel sounds, soft, non tender, no organomegaly, non distended , no mass Extremities: no cyanosis, no clubbing Skin: no rash, no lesions, no ulcers Laboratory Tests Test 07/04/16 07:20 White Blood Count 6.6 K/UL (4.8-10.8) Red Blood Count 4.41 M/UL (4.70-6.10) L Hemoglobin 13.6 G/DL (14.2-18.0) L Hematocrit 41.4 % (42.0-52.0) L Mean Corpuscular Volume 94 FL (80-99) Mean Corpuscular Hemoglobin 30.9 PG (27.0-31.0) Mean Corpuscular Hemoglobin Concent 32.9 G/DL (32.0-36.0) Red Cell Distribution Width 12.8 % (11.6-14.8) Platelet Count 366 K/UL (150-450) Mean Platelet Volume 4.8 FL (6.5-10.1) L Neutrophils (%) (Auto) 70.6 % (45.0-75.0) Lymphocytes (%) (Auto) 20.8 % (20.0-45.0) Monocytes (%) (Auto) 7.1 % (1.0-10.0) Eosinophils (%) (Auto) 0.6 % (0.0-3.0) Basophils (%) (Auto) 0.9 % (0.0-2.0) Prothrombin Time 10.7 SEC (9.30-11.50) Prothromb Time International Ratio 1.1 (0.9-1.1) Activated Partial Thromboplast Time 26 SEC (23-33) Sodium Level 140 mEQ/L (135-145) Potassium Level 4.4 mEQ/L (3.4-4.9) Chloride Level 101 mEQ/L (98-107) Carbon Dioxide Level 29 mEQ/L (20-30) Anion Gap 10 (5-15) Blood Urea Nitrogen 15 mg/dL (7-23) Creatinine 0.9 mg/dL (0.7-1.2) Estimat Glomerular Filtration Rate mL/min (>60) Glucose Level 84 mg/dL (74-106) Calcium Level 9.3 mg/dL (8.6-10.2) Current Medications Medications (Trade) Dose Ordered Sig/Rufina Route PRN Reason Start Time Stop Time Status Last Admin Dose Admin Acetaminophen (Tylenol) 650 mg Q4H PRN ORAL Mild Pain (Pain Scale 1-3) 06/21/16 21:30 07/21/16 21:29 Al Hydroxide/Mg Hydroxide (Mylanta II) 30 ml Q6H PRN ORAL dyspepsia 06/21/16 21:30 07/21/16 21:29 Aspirin (ASA) 81 mg DAILY ORAL 06/22/16 09:00 07/22/16 08:59 07/04/16 08:56 Dextrose (Dextrose 50%) STAT PRN IV Hypoglycemia 06/21/16 21:30 07/21/16 21:29 Diphenhydramine HCl (Benadryl) 25 mg Q6H PRN ORAL Itching/Pruritis 06/21/16 21:30 07/21/16 21:29 06/29/16 20:16 Heparin Sodium (Porcine) (Heparin 5000 units/ml) 5,000 units EVERY 12 HOURS SUBQ 06/22/16 09:00 07/22/16 08:59 07/03/16 20:50 Lorazepam (Ativan) 1 mg Q6H PRN ORAL For Anxiety 06/29/16 22:45 07/06/16 22:44 07/04/16 12:27 Losartan Potassium 50 mg 50 mg Q12H ORAL 07/02/16 21:00 07/05/16 20:59 07/03/16 20:49 Olanzapine (ZyPREXA) 2.5 mg BEDTIME ORAL 06/30/16 21:00 07/30/16 20:59 07/03/16 20:50 Ondansetron HCl (Zofran) 4 mg Q6H PRN IVP Nausea & Vomiting 06/21/16 21:30 07/21/16 21:29 Sodium Chloride (0.45% NS 1000ml) 1,000 ml @ 70 mls/hr [id number] IV 07/03/16 20:00 08/02/16 19:59 07/04/16 11:05 Tamsulosin HCl (Flomax) 0.8 mg BEDTIME ORAL 06/23/16 21:00 07/23/16 20:59 07/03/16 20:49 Karrie Ashby M.D. Jul 04, 2016 16:26
--- NOTE | 2016-07-04 16:47 | General Progress Note ---
Assessment/Plan Problem List: (1) Syncope ICD Codes: R55 - Syncope and collapse SNOMED: 239779327 Qualifiers: Qualified Codes: R55 - Syncope and collapse (2) UTI (urinary tract infection) ICD Codes: N39.0 - Urinary tract infection, site not specified SNOMED: 73057055 Qualifiers: Qualified Codes: N30.00 - Acute cystitis without hematuria (3) Altered level of consciousness ICD Codes: R40.4 - Transient alteration of awareness SNOMED: 8200610 Assessment/Plan Cardiology f/u off abx per ID, f/u DVT prophylaxis Monitor Neuro status PT/OT eval Psych f/u DC plan - SNF AM labs Subjective ROS Limited/Unobtainable: Yes Allergies: Coded Allergies: No Known Allergies (Unverified , 09/04/15) Subjective Sitting in wheelchair outside the room with the sitter watching him, he occasionally tries to get up and walk. In no distress. Objective Last 24 Hour Vital Signs Date Time Temp Pulse Resp B/P Pulse Ox O2 Delivery O2 Flow Rate FiO2 07/04/16 16:00 97.1 81 20 147/97 97 Room Air 07/04/16 12:00 79 07/04/16 11:19 97.8 70 20 134/72 95 Room Air 07/04/16 08:00 62 07/04/16 07:50 97.7 75 19 130/94 94 Room Air 07/04/16 04:20 59 145/90 07/04/16 04:18 98.2 68 169/92 94 Room Air 07/04/16 04:00 59 07/04/16 00:24 98.8 65 19 147/90 95 Room Air 07/03/16 20:49 154/98 07/03/16 20:00 73 07/03/16 20:00 97.9 72 18 122/74 93 Room Air Intake and Output 07/03/16 07/04/16 19:00 07:00 Intake Total 700 ml 1100 ml Output Total 650 ml 1200 ml Balance 50 ml -100 ml Intake Oral 700 ml 400 ml IV Total 700 ml Output Urine Total 650 ml 1200 ml Laboratory Tests 07/04/16 07:20: White Blood Count 6.6, Red Blood Count 4.41L, Hemoglobin 13.6L, Hematocrit 41.4L , Mean Corpuscular Volume 94, Mean Corpuscular Hemoglobin 30.9, Mean Corpuscular Hemoglobin Concent 32.9, Red Cell Distribution Width 12.8, Platelet Count 366, Mean Platelet Volume 4.8L, Neutrophils (%) (Auto) 70.6, Lymphocytes ( %) (Auto) 20.8, Monocytes (%) (Auto) 7.1, Eosinophils (%) (Auto) 0.6, Basophils (%) (Auto) 0.9, Prothrombin Time 10.7, Prothromb Time International Ratio 1.1, Activated Partial Thromboplast Time 26, Sodium Level 140, Potassium Level 4.4, Chloride Level 101, Carbon Dioxide Level 29, Anion Gap 10, Blood Urea Nitrogen 15, Creatinine 0.9, Estimat Glomerular Filtration Rate , Glucose Level 84, Calcium Level 9.3 Height (Feet): 6 Height (Inches): 0.00 Weight (Pounds): 150 General Appearance: no apparent distress, confused, agitated EENT: normal ENT inspection Neck: normal alignment, supple, normal inspection Cardiovascular: normal rate, regular rhythm Respiratory/Chest: lungs clear, normal breath sounds, no respiratory distress Abdomen: non tender, soft, no organomegaly Pelvis: normal external exam Extremities: normal range of motion, non-tender, normal inspection, no calf tenderness Neurologic: disoriented Skin: normal pigmentation, warm/dry Carline Fernandez N.P. Jul 04, 2016 16:47
[2016-07-04] MEDS ORDERED: Iothalamate Meglumine 60% 30ML INJ ONE (17:04)
[2016-07-04] MEDS ORDERED: Bacitracin 50000 Units Vial ONE (17:04)
[2016-07-04] MEDS ORDERED: Bupivacaine 0.25% Inj 30ml INJ ONE (17:29)
[2016-07-04] MEDS ORDERED: NS Irrig 1000ml IRRIG ONE (17:30)
--- NOTE | 2016-07-04 17:43 | Anethesia Preoperative Eval ---
Anesthesia Pre-op PMH/ROS General Date of Evaluation: Jul 04, 2016 Time of Evaluation: 17:03 Anesthesiologist: Ethan ASA Score: ASA 4 Mallampati Score Class I : Soft palate, uvula, fauces, pillars visible Class II: Soft palate, uvula, fauces visible Class III: Soft palate, base of uvula visible Class IV: Only hard plate visible Surgeon: Win Diagnosis: Bradycardia Anesthesia History: none Social History: smoking Family History: no anesthesia problems Allergies: Coded Allergies: No Known Allergies (Unverified , 09/04/15) Medications: see eMAR Past Medical History Cardiovascular: Reports: HTN, arrhythmia - Syncope, Juliano to 30,s Neurologic/Psychiatric: Reports: dementia HEENT: Reports: cataract (L), cataract (R) Anesthesia Pre-op Phys. Exam Physician Exam Last Vital Signs Date Time Temp Pulse Resp B/P Pulse Ox O2 Delivery O2 Flow Rate FiO2 07/04/16 16:00 97.1 81 20 147/97 97 Room Air 06/29/16 20:03 Constitutional: NAD Neurologic: CN 2-12 intact Cardiovascular: RRR Respiratory: CTA Gastrointestinal: S/NT/ND Airway Exam Mallampati Score: Class III MO: limited ROM: limited Teeth: missing Anesthesia Pre-op A/P Labs Hematology Test 07/04/16 07:20 White Blood Count 6.6 K/UL (4.8-10.8) Red Blood Count 4.41 M/UL (4.70-6.10) L Hemoglobin 13.6 G/DL (14.2-18.0) L Hematocrit 41.4 % (42.0-52.0) L Mean Corpuscular Volume 94 FL (80-99) Mean Corpuscular Hemoglobin 30.9 PG (27.0-31.0) Mean Corpuscular Hemoglobin Concent 32.9 G/DL (32.0-36.0) Red Cell Distribution Width 12.8 % (11.6-14.8) Platelet Count 366 K/UL (150-450) Mean Platelet Volume 4.8 FL (6.5-10.1) L Neutrophils (%) (Auto) 70.6 % (45.0-75.0) Lymphocytes (%) (Auto) 20.8 % (20.0-45.0) Monocytes (%) (Auto) 7.1 % (1.0-10.0) Eosinophils (%) (Auto) 0.6 % (0.0-3.0) Basophils (%) (Auto) 0.9 % (0.0-2.0) Coagulation Test 07/04/16 07:20 Prothrombin Time 10.7 SEC (9.30-11.50) Prothromb Time International Ratio 1.1 (0.9-1.1) Activated Partial Thromboplast Time 26 SEC (23-33) Chemistry Test 07/04/16 07:20 Sodium Level 140 mEQ/L (135-145) Potassium Level 4.4 mEQ/L (3.4-4.9) Chloride Level 101 mEQ/L (98-107) Carbon Dioxide Level 29 mEQ/L (20-30) Anion Gap 10 (5-15) Blood Urea Nitrogen 15 mg/dL (7-23) Creatinine 0.9 mg/dL (0.7-1.2) Estimat Glomerular Filtration Rate mL/min (>60) Glucose Level 84 mg/dL (74-106) Calcium Level 9.3 mg/dL (8.6-10.2) Risk Assessment & Plan Assessment: ASA 4 Plan: GA Status Change Before Surgery: No Pre-Antibiotics Dru Gram Ancef IV Given Within 1 Hr of Incision: Yes Time Given: 17:44 Norm Long MD Jul 04, 2016 17:43
--- NOTE | 2016-07-04 17:50 | Immediate Post-Op Evaluation ---
Immediate Post-Op Evalulation Immediate Post-Op Evalulation Procedure: Permanent Pacemaker Date of Evaluation: Jul 04, 2016 Time of Evaluation: 19:08 IV Fluids: 600 LR Blood Products: 0 Estimated Blood Loss: 20 Urinary Output: 0 Blood Pressure Systolic: 180 Blood Pressure Diastolic: 107 Pulse Rate: 82 Respiratory Rate: 16 O2 Sat by Pulse Oximetry: 100 Temperature (Fahrenheit): 98.6 Pain Score (1-10): 2 Nausea: No Vomiting: No Complications 0 Patient Status: awake, reacts, patent, none Hydration Status: adequate Dru Gram Ancef IV Given Within 1 Hr of Incision: Yes Time Given: 17:44 Norm Long MD Jul 04, 2016 17:50
--- NOTE | 2016-07-04 17:50 | 48 Hour Post Anesthesia Eval ---
Post Anesthesia Evaluation Procedure: Permanent Pacemaker Date of Evaluation: Jul 04, 2016 Time of Evaluation: 21:11 Blood Pressure Systolic: 172 0: 101 Pulse Rate: 82 Respiratory Rate: 18 Temperature (Fahrenheit): 98.6 O2 Sat by Pulse Oximetry: 99 Airway: patent Nausea: No Vomiting: No Pain Intensity: 2 Hydration Status: adequate Cardiopulmonary Status: Stable Mental Status/LOC: patient returned to baseline Follow-up Care/Observations: 0 Post-Anesthesia Complications: 0 Follow-up care needed: N/A Norm Long MD Jul 04, 2016 17:50
--- NOTE | 2016-07-04 18:54 | Pre-Procedure Note/Attestation ---
Pre-Procedure Note/Attestation Complete Prior to Procedure Planned Procedure: not applicable Procedure Narrative: syncope/ sick sinus Indications for Procedure Pre-Operative Diagnosis: perm pacemaker implanted via L cephalic vein Loop recorder explanted Attestation I attest that I discussed the nature of the procedure; its benefits; risks and complications; and alternatives (and the risks and benefits of such alternatives ), prior to the procedure, with the patient (or the patient's legal community relations representative). I attest that, if there was a reasonable possibility of needing a blood transfusion, the patient (or the patient's legal community relations representative) was given the [facility] standardized written summary, pursuant to the Iván Rehobeth Blood Safety Act ([place] Health and Safety Code # 1645, as amended). I attest that I re-evaluated the patient just prior to the surgery and that there has been no change in the patient's H&P, except as documented below: none BRANDT BRADY Jul 04, 2016 18:54
--- NOTE | 2016-07-04 18:58 | Operative Note - PDOC ---
Operative Note Operative Note Pre-op Diagnosis: sick sinus/ syncope Procedure: pacemaker implant. loop recorder explant Post-op Diagnosis: same as preop Surgeon: betsy melo Rivet Hole Puncher: none Anesthesia: general Specimen: yes Condition: stable Estimated Blood Loss: minimal Drains: none Implant(s) used?: Yes Indications for Procedure perm pacemaker implant Description of Procedure see dictation Pacemaker implanted via L cephalic v BRANDT MELO Jul 04, 2016 18:58
[2016-07-04] MEDS ORDERED: Milk of Magnesia 30ml Ud ORAL PRN (19:00)
[2016-07-04] MEDS ORDERED: Norco 5mg/325mg tab ORAL PRN ×2 (19:00→19:15)
[2016-07-04] MEDS ORDERED: fentaNYL 100 mcg/2 mL IV PRN (19:15)
[2016-07-04] MEDS ORDERED: Labetalol 5mg/ml 20ml vial IV PRN (19:15)
[2016-07-04] MEDS ORDERED: Midazolam 2mg/2ml Inj IVP PRN (19:15)
[2016-07-04] MEDS ORDERED: DiphenhydrAMINE 50mg/ml Inj IVP PRN (19:15)
[2016-07-04] MEDS ORDERED: Metoclopramide 10mg/2ml Inj IVP PRN (19:15)
[2016-07-04] MEDS ORDERED: Norco 7.5mg/325mg tab ORAL PRN (19:15)
[2016-07-04] MEDS ORDERED: Hydromorphone 0.5mg/0.5ml inj IVP PRN (19:15)
[2016-07-04] MEDS ORDERED: Meperidine 25mg/ml Inj IV PRN (19:15)
[2016-07-04] MEDS ORDERED: Ketorolac 30mg Inj IV PRN (19:15)
[2016-07-04] MEDS ORDERED: Ketorolac 60mg Inj IV PRN (19:15)
[2016-07-04] MEDS ORDERED: Oxycodone/Acetaminophen 5-325 ORAL PRN (19:15)
[2016-07-04] MEDS ORDERED: LR 1000ml 1,000 ML IVLG SCH (19:15)
[2016-07-04] MEDS ORDERED: LORazepam Inj 2mg/ml 1ml IV PRN (19:15)
[2016-07-04] MEDS ORDERED: Atropine Inj 1mg/10ml Syr IV PRN (19:15)
[2016-07-04] MEDS: Tamsulosin 0.4mg cap ORAL SCH (21:00)
[2016-07-04] MEDS: OLANZapine 2.5mg tab ORAL SCH (21:00)
--- NOTE | 2016-07-04 23:07 | Operative Note - Dictated ---
PERMANENT PACEMAKER PLACEMENT AND LOOP RECORDER REMOVAL INDICATION: Syncope and severe sinus bradycardia. CLINICAL HISTORY: The patient is a 80-year-old man, who was admitted with syncope. He had had previous syncopal episodes and had an inserted loop recorder placed. The loop recorder showed sinus bradycardia, rate of about 30 beats per minute at the time of his syncope. The implanted device is a [employer] [id number], serial number [id number]. The atrial lead is a [employer] Tendril 2088TC, serial number [id number]. The ventricle lead is [employer] Tendril 2088TC, serial number [id number]. Pacing and sensing in the atrium, pacing threshold 1 volt at 0.4 milliseconds, in the ventricle 0.5 volts at 0.4 milliseconds. Sensing is greater than 5 millivolts in the atrium and greater than 12 millivolts in the ventricle. Lead impedance is 430 ohms in the atrium and 530 ohms in the ventricle. ANESTHESIA: Local and intravenous sedation. DESCRIPTION OF PROCEDURE: The patient was brought to the operating room and received sedation as per the anesthesiologist, Dr. De La Cruz. The left chest was sterilely prepped and draped in the usual manner. The skin and underlying soft tissues over the left deltopectoral groove were infiltrated with 1% Xylocaine local anesthetic. An incision was made and this was carried down to the prepectoral fascia using blunt and Bovie dissection. The left cephalic vein was isolated. The proximal loop and distal tie of silk suture were placed. The vein was then incised. Two guidewires were advanced under fluoroscopy into the low right atrium. The ventricular lead was placed directly through the vein and positioned in the right ventricular apex under fluoroscopy. The screw was advanced under fluoroscopy. The above pacing and sensing thresholds were obtained. There was no diaphragmatic stimulation with pacing at 10 volts. The lead was secured with two nonabsorbable sutures via the suture sleeve. Next, the atrial lead was passed directly through the vein and was positioned in the right atrial appendage under fluoroscopy. The screw was advanced under fluoroscopy. The above pacing and sensing thresholds were obtained. There was no diaphragmatic stimulation with pacing at 10 volts. The lead was gently secured with two nonabsorbable sutures via the suture sleeve. An intramuscular pocket was created using blunt and Bovie dissection. The pocket was flushed with an antibiotic solution. The generator was brought to the field. Atrial and ventricular leads were attached and the setscrew was tightened and checked. The leads and generator were placed into the intramuscular pocket with the excess lead coiled beneath the generator. The incision was then closed with 2-0 and 4-0 Monocryl absorbable suture. A sterile dressing was applied. Next, the loop recorder was explanted. An incision was made over the previous incision. This was carried down to the capsule on closing the recorder. The recorder was extracted. The pocket was flushed with antibiotic solution. The incision was then closed with 2-0 and 4-0 Monocryl absorbable suture and a sterile dressing applied. The patient tolerated the procedure well and there were no intraprocedural complications. Danielle Walden M.D. DR: DERRICK JOB#: [id number] CC:
[2016-07-05 00:12] VITALS: BP 154/62
--- NOTE | 2016-07-05 00:18 | Progress Note ---
SUBJECTIVE: Today, he had placement of permanent pacemaker. Mental status unchanged. He is a poor historian and unable to provide any history. Calm and he is in no acute distress. MENTAL STATUS EXAMINATION: Confused and disoriented. Mood is anxious. Affect is constricted. Congruent mood. Thought process is concrete. Thought content, no suicidal or homicidal ideations. ASSESSMENT: Cognitive impairment. PLAN: 1. The patient will be continued on current medications. 2. We will continue to follow and adjust the medications. Susan Garcia M.D. DR: Lon JOB#: [id number] CC:
[2016-07-05 04:10] VITALS: BP 163/99
--- NOTE | 2016-07-05 07:38 | Progress Note 2 Sig ---
DATE: 06/21/2016 SUBJECTIVE: The patient is seen in the telemetry unit sitting in the wheelchair outside the room, obviously agitated with at the bedside trying to get him to sit in the wheelchair. The patient is scheduled for pacemaker placement today. MEDICATIONS: Cozaar, Zyprexa, Ativan, Flomax, heparin, aspirin, Tylenol, and Zofran. OBJECTIVE: VITAL SIGNS: Blood pressure 145/90, heart rate is 59, temperature is 97.7 degrees, O2 saturation is 94% on room air. HEAD AND NECK: Normocephalic and atraumatic. NECK: Supple. Trachea midline. LUNGS: Clear bilaterally. CARDIOVASCULAR: Regular rate and rhythm. S1 and S2. ABDOMEN: Soft, nontender, and nondistended. EXTREMITIES: No edema. No cyanosis. No clubbing. LABORATORY DATA: Chemistry shows white count of 6.6, hemoglobin 10.6, hematocrit 41.4, and platelet count of 366,000. BMP, sodium is 140, potassium 4.4, chloride is 101, bicarbonate 29, BUN 15, creatinine 0.9, and glucose is 84. ASSESSMENT: 1. Altered mental status. 2. Hypertension. 3. Urinary tract infection. 4. Syncope. 5. Psychosis. PLAN: Continue Psychiatry followup. Continue medications. Monitor the patient's neurological status. Pacemaker placement per Cardiology. The patient is off antibiotics and will continue with Infectious Disease recommendation. We will continue PT/OT evaluation. Discharge planning needs to be made after pacemaker placement. Saqib Starks M.D. Carline Fernandez DR: Ling JOB#: [id number] CC:
[2016-07-05 08:00] VITALS: BP 160/101
[2016-07-05] MEDS: Losartan 50mg tab ORAL SCH ×2 (09:00→09:49)
[2016-07-05] MEDS: Aspirin Baby 81mg ORAL SCH (09:22)
[2016-07-05] MEDS: Heparin 5000 units/ml inj SUBQ SCH ×2 (09:23→20:21)
[2016-07-05] MEDS: Docusate 100mg cap ORAL SCH ×2 (09:35→17:17)
--- NOTE | 2016-07-05 09:49 | Nephrology Progress Note ---
Assessment/Plan Problem List: (1) Status post placement of implantable loop recorder (2) Bradycardia Assessment: s/p pacemaker (3) Syncope (4) UTI (urinary tract infection) (5) Altered level of consciousness Plan pacemaker interrogation pending. psycho following. d/c planning to snf if ok with cardio. Subjective Subjective s/p pacemaker yest. tolerated well. no complaints. Objective Objective Last 24 Hour Vital Signs Date Time Temp Pulse Resp B/P Pulse Ox O2 Delivery O2 Flow Rate FiO2 07/05/16 08:00 96.8 66 22 160/101 97 Room Air 07/05/16 04:10 98.6 69 20 163/99 96 Room Air 07/05/16 04:00 68 07/05/16 00:12 98.7 78 20 154/62 94 Nasal Cannula 3.0 07/05/16 00:00 71 07/04/16 20:00 97.4 62 18 164/97 99 Nasal Cannula 3.0 07/04/16 19:50 61 17 166/95 99 Nasal Cannula 3.0 07/04/16 19:40 79 182/106 07/04/16 19:40 68 18 183/101 99 Nasal Cannula 3.0 07/04/16 19:30 70 21 170/100 97 Nasal Cannula 3.0 07/04/16 19:15 72 17 182/103 97 Nasal Cannula 3.0 07/04/16 19:05 77 18 162/103 100 Nasal Cannula 3.0 07/04/16 19:00 70 15 148/103 100 Nasal Cannula 3.0 07/04/16 19:00 82 18 99 07/04/16 18:59 82 16 100 07/04/16 18:57 97.6 77 16 180/107 100 Simple Mask 6.0 07/04/16 16:00 97.1 81 20 147/97 97 Room Air 07/04/16 12:00 79 07/04/16 11:19 97.8 70 20 134/72 95 Room Air Intake and Output 07/04/16 07/05/16 19:00 07:00 Intake Total 1000 ml 1050 ml Output Total 440 ml Balance 560 ml 1050 ml IV Total 1000 ml 1050 ml Output Urine Total 425 ml Estimated Blood Loss 15 ml # Voids 3 Height (Feet): 6 Height (Inches): 0.00 Weight (Pounds): 150 General Appearance: no apparent distress Cardiovascular: normal rate, regular rhythm Respiratory/Chest: lungs clear Abdomen: non tender, soft TODD SERRATO Jul 05, 2016 09:49
--- NOTE | 2016-07-05 11:05 | Diagnostic Imaging Report ---
Indication: Status post pacemaker Comparison: 06/21/16 A single view chest radiograph was obtained. Findings: Pacemakers in place in the left anterior chest wall. 2 leads are noted. There is no pneumothorax demonstrated. There is mild patchy atelectasis at the lung bases. Heart is enlarged. Aorta is moderately ectatic. Impression: Status post pacemaker placement.
[2016-07-05 12:00] VITALS: BP 132/83
[2016-07-05 12:03] LABS: BASOPHILS % (AUTO) 0.5 % (0.0-2.0); EOSINOPHILS % (AUTO) 0.7 % (0.0-3.0); LYMPHOCYTES % (AUTO) 12.6 % (20.0-45.0); MEAN CORPUSCULAR HEMOGLOBIN 31.1 PG (27.0-31.0); MEAN CORPUSCULAR HGB CONC 33.2 G/DL (32.0-36.0); MEAN CORPUSCULAR VOLUME 94 FL (80-99); MEAN PLATELET VOLUME 5.1 FL (6.5-10.1); NEUTROPHILS % (AUTO) 75.2 % (45.0-75.0); PLATELET COUNT 327 K/UL (150-450); RED BLOOD COUNT 4.11 M/UL (4.70-6.10); RED CELL DISTRIBUTION WIDTH 12.6 % (11.6-14.8); WHITE BLOOD COUNT 6.7 K/UL (4.8-10.8)
[2016-07-05 12:21] LABS: ANION GAP 11 (5-15); CARBON DIOXIDE 30 mEQ/L (20-30); CHLORIDE 99 mEQ/L (98-107); CREATININE 0.9 mg/dL (0.7-1.2); HEMOLYSIS 2; POTASSIUM 4.2 mEQ/L (3.4-4.9); SODIUM 140 mEQ/L (135-145)
--- NOTE | 2016-07-05 14:48 | Infectious Diseases Prog Note ---
Assessment/Plan Problems: (1) UTI (urinary tract infection) Assessment & Plan: resolved , with pansensitive proteus mirabilis , received Ceftriaxon for 7 days already , now off antibiotics , doing well , afebrile (2) Syncope Assessment & Plan: need PPM as per cardiology recommendation, continue tele monitor Subjective Constitutional: Reports: no symptoms HEENT: Reports: no symptoms Respiratory: Reports: no symptoms Breasts: Reports: no symptoms Cardiovascular: Reports: no symptoms Gastrointestinal/Abdominal: Reports: no symptoms Genitourinary: Reports: no symptoms Neurologic: Reports: no symptoms Psychiatric: Reports: no symptoms Skin: Reports: no symptoms Endocrine: Reports: no symptoms Hematologic: Reports: no symptoms Allergies: Coded Allergies: No Known Allergies (Unverified , 09/04/15) Subjective he denied any syncope, comfortable, resting in bed, not in distress Objective Vital Signs Last 24 Hour Vital Signs Date Time Temp Pulse Resp B/P Pulse Ox O2 Delivery O2 Flow Rate FiO2 07/05/16 12:00 69 07/05/16 12:00 97.5 70 18 132/83 97 Room Air 07/05/16 09:49 160/101 07/05/16 08:00 66 07/05/16 08:00 96.8 66 22 160/101 97 Room Air 07/05/16 04:10 98.6 69 20 163/99 96 Room Air 07/05/16 04:00 68 07/05/16 00:12 98.7 78 20 154/62 94 Nasal Cannula 3.0 07/05/16 00:00 71 07/04/16 20:00 97.4 62 18 164/97 99 Nasal Cannula 3.0 07/04/16 19:50 61 17 166/95 99 Nasal Cannula 3.0 07/04/16 19:40 79 182/106 07/04/16 19:40 68 18 183/101 99 Nasal Cannula 3.0 07/04/16 19:30 70 21 170/100 97 Nasal Cannula 3.0 07/04/16 19:15 72 17 182/103 97 Nasal Cannula 3.0 07/04/16 19:05 77 18 162/103 100 Nasal Cannula 3.0 07/04/16 19:00 70 15 148/103 100 Nasal Cannula 3.0 07/04/16 19:00 82 18 99 07/04/16 18:59 82 16 100 07/04/16 18:57 97.6 77 16 180/107 100 Simple Mask 6.0 07/04/16 16:00 97.1 81 20 147/97 97 Room Air Height (Feet): 6 Height (Inches): 0.00 Weight (Pounds): 150 General Appearance: WD/WN, no acute distress HEENT: normocephalic, atraumatic, anicteric Respiratory/Chest: chest wall non-tender, lungs clear, normal breath sounds, no respiratory distress, no accessory muscle use Cardiovascular: normal peripheral pulses, normal rate, regular rhythm, no gallop/murmur Abdomen: normal bowel sounds, soft, non tender, no organomegaly, non distended , no mass Extremities: no cyanosis, no clubbing Skin: no rash, no lesions Laboratory Tests Test 07/05/16 10:50 White Blood Count 6.7 K/UL (4.8-10.8) Red Blood Count 4.11 M/UL (4.70-6.10) L Hemoglobin 12.8 G/DL (14.2-18.0) L Hematocrit 38.5 % (42.0-52.0) L Mean Corpuscular Volume 94 FL (80-99) Mean Corpuscular Hemoglobin 31.1 PG (27.0-31.0) H Mean Corpuscular Hemoglobin Concent 33.2 G/DL (32.0-36.0) Red Cell Distribution Width 12.6 % (11.6-14.8) Platelet Count 327 K/UL (150-450) Mean Platelet Volume 5.1 FL (6.5-10.1) L Neutrophils (%) (Auto) 75.2 % (45.0-75.0) H Lymphocytes (%) (Auto) 12.6 % (20.0-45.0) L Monocytes (%) (Auto) 11.0 % (1.0-10.0) H Eosinophils (%) (Auto) 0.7 % (0.0-3.0) Basophils (%) (Auto) 0.5 % (0.0-2.0) Sodium Level 140 mEQ/L (135-145) Potassium Level 4.2 mEQ/L (3.4-4.9) Chloride Level 99 mEQ/L (98-107) Carbon Dioxide Level 30 mEQ/L (20-30) Anion Gap 11 (5-15) Blood Urea Nitrogen 13 mg/dL (7-23) Creatinine 0.9 mg/dL (0.7-1.2) Estimat Glomerular Filtration Rate mL/min (>60) Glucose Level 136 mg/dL (74-106) H Calcium Level 9.0 mg/dL (8.6-10.2) Current Medications Medications (Trade) Dose Ordered Sig/Rufina Route PRN Reason Start Time Stop Time Status Last Admin Dose Admin Acetaminophen (Tylenol) 650 mg Q6H PRN ORAL Mild Pain (Pain Scale 1-3) 07/04/16 19:00 08/03/16 18:59 Acetaminophen/ Hydrocodone Bitart (Imbler 5/325) 1 tab Q4H PRN ORAL Moderate Pain (Pain Scale 4-6) 07/04/16 19:00 07/11/16 18:59 Al Hydroxide/Mg Hydroxide (Mylanta II) 30 ml Q6H PRN ORAL dyspepsia 06/21/16 21:30 07/21/16 21:29 Aspirin (ASA) 81 mg DAILY ORAL 06/22/16 09:00 07/22/16 08:59 07/05/16 09:22 Clonidine HCl (Catapres) 0.1 mg EVERY 6 HOURS PRN ORAL For High Blood Pressure 07/05/16 11:15 08/04/16 11:14 Dextrose (Dextrose 50%) STAT PRN IV Hypoglycemia 06/21/16 21:30 07/21/16 21:29 Diphenhydramine HCl (Benadryl) 25 mg Q6H PRN ORAL Itching/Pruritis 06/21/16 21:30 07/21/16 21:29 06/29/16 20:16 Docusate Sodium (Colace) 100 mg TWICE A DAY ORAL 07/05/16 09:00 08/04/16 08:59 07/05/16 09:35 Heparin Sodium (Porcine) (Heparin 5000 units/ml) 5,000 units EVERY 12 HOURS SUBQ 07/04/16 22:00 08/03/16 21:59 07/05/16 09:23 Lorazepam (Ativan) 1 mg Q6H PRN ORAL For Anxiety 06/29/16 22:45 07/06/16 22:44 07/04/16 12:27 Losartan Potassium 50 mg 50 mg Q12H ORAL 07/02/16 21:00 07/05/16 20:59 07/05/16 09:49 Magnesium Hydroxide (Mom) 30 ml BIDPRN PRN ORAL Constipation 07/04/16 19:00 08/03/16 18:59 Olanzapine (ZyPREXA) 2.5 mg BEDTIME ORAL 06/30/16 21:00 07/30/16 20:59 07/03/16 20:50 Ondansetron HCl (Zofran) 4 mg Q6H PRN IVP Nausea & Vomiting 07/04/16 19:00 08/03/16 18:59 Sennosides (Senokot) 8.6 mg BIDPRN PRN ORAL Constipation 07/04/16 19:00 08/03/16 18:59 Sodium Chloride (0.45% NS 1000ml) 1,000 ml @ 70 mls/hr [id number] IV 07/03/16 20:00 08/02/16 19:59 07/05/16 11:14 Tamsulosin HCl (Flomax) 0.8 mg BEDTIME ORAL 06/23/16 21:00 07/23/16 20:59 07/03/16 20:49 Karrie Ashby M.D. Jul 05, 2016 14:48
[2016-07-05 16:00] VITALS: BP 127/80
[2016-07-05 20:00] VITALS: BP 118/55
[2016-07-05] MEDS: Tamsulosin 0.4mg cap ORAL SCH (20:20)
[2016-07-05] MEDS: OLANZapine 2.5mg tab ORAL SCH (20:20)
[2016-07-06] VITALS: BP 139/68
[2016-07-06 04:00] VITALS: BP 124/68
[2016-07-06 08:00] VITALS: BP 126/85
[2016-07-06] MEDS: Aspirin Baby 81mg ORAL SCH (09:05)
[2016-07-06] MEDS: Docusate 100mg cap ORAL SCH (09:05)
[2016-07-06] MEDS: Heparin 5000 units/ml inj SUBQ SCH (09:09)
[2016-07-06] MEDS ORDERED: TYLENOL EXTRA500 MG ORAL (10:32)
[2016-07-06] MEDS ORDERED: MYLANTA30 M1 ORAL (10:35)
[2016-07-06] MEDS ORDERED: ASPIRIN81 MG ORAL (10:36)
[2016-07-06] MEDS ORDERED: CLONIDINE HCL0.1 MG PO (10:37)
[2016-07-06] MEDS ORDERED: BENADRYL25 MG ORAL (10:39)
[2016-07-06] MEDS ORDERED: COLACE100 MG/10 GT (10:39)
[2016-07-06] MEDS ORDERED: NORCO 5-325 TA1 EACH ORAL (10:40)
[2016-07-06] MEDS ORDERED: ATIVAN1 MG ORAL (10:41)
[2016-07-06] MEDS ORDERED: MOM30 ML ORAL (10:42)
[2016-07-06] MEDS ORDERED: SENNA8.6 M2 PO (10:43)
[2016-07-06] MEDS ORDERED: OLANZAPINE2.5 MG ORAL (10:43)
[2016-07-06] MEDS ORDERED: TAMSULOSIN HCL0.4 MG ORAL (10:44)
[2016-07-06] MEDS ORDERED: 1/2 NS 1000ml IV ONE (11:19)
[2016-07-06] MEDS ORDERED: Tubing IV Secondary IV ONE ×2 (11:19)
--- NOTE | 2016-07-07 13:52 | Discharge Summary ---
Discharge Summary Hospital Course Date of Admission Jun 21, 2016 at 16:58 Date of Discharge Jul 06, 2016 at 11:20 Admitting Diagnosis SYNCOPE Reason for Hospitalization: recurrent syncope HPI Ariel Barbour is a 80 year old male who was admitted on Jun 21, 2016 at 16:58 for Syncope The patient is brought in apparently for a syncopal episode. The patient is stating that he is weak. Denies any pain at this time. Paramedics state Accu- Chek was normal. The patient denies any headache or trauma. He is incontinent of urine. Apparently family state the patient passed out (according to dipper and baker report). The patient was evaluated August of this year for syncope. He was bradycardic at that time. Admission was considered at that time but it was elected to have the patient observed at home when speaking with the patient's conservator. We are unable to determine who the conservatives at this time. Consultations cardio - dr Jerry returned materials inspector - dr Talbot ID- dr Ashby psyc -dr Garcia Procedures s/p 07/04 permanent pacemaker implantation Hospital Course 71 y/old male with hx of recurrent syncopal episode and symptomatic bradycardia on tele cardio followed episodes of HR in 20-30 by interrogation of SJ implanted loop recorder off any SA or AV blockers cardio recommended permanent pacemaker placement s/p 07/04 permanent pacemaker implantation tolerated procedure well CXR post procedure - no evidence of pneumothorax pain management BP management with ARB , may need further optimization as outpatient O2, HHN prn CXR negative for any acute cardiopulmonary disease s/p 7 days Rx for UTI, ( urien cx + Proteus) ID follows currently off abx, afebrile, no leucocytosis, no urinary symptoms Psych followed patient with underlying dementia and initially with delirium 2 to UTI and cognitive impairment CT ehead no acute intracranial pathology psych medication regimen optimized DVT prophylaxis PT/OT renal US no hydro, renal parameters stable dc to SNF Discharge Medications Continued Medications: Acetaminophen* (Tylenol Extra Strength*) 500 Mg Tablet 650 MG ORAL Q6H PRN for Mild Pain/Temp > 100.5, TAB 0 Refills Al Hydroxide/mg Hydroxide (Mag-Al Liquid) 30 Ml Oral.susp 30 ML ORAL Q6HR PRN for Nausea & Vomiting, ML Aspirin* (Aspirin*) 81 Mg Tab.chew 81 MG ORAL DAILY, TAB Clonidine Hcl (Clonidine Hcl) 0.1 Mg Tablet 0.1 MG PO Q6HR PRN for For High Blood Pressure, TAB Diphenhydramine Hcl* (Benadryl*) 25 Mg Capsule 25 MG ORAL Q6H PRN for Itching, CAP Docusate Sodium (Docusate Sodium) 50 Mg/5 Ml Liquid 100 MG GT TWICE A DAY, EA Hydrocodone Bit/Acetaminophen 5-325* (Antigo 5-325*) 1 Each Tablet 1 TAB ORAL Q4H PRN for Moderate Pain (Pain Scale 4-6), TAB 0 Refills Lorazepam* (Ativan*) 1 Mg Tablet 1 MG ORAL Q6HR PRN for For Anxiety, TAB Magnesium Hydroxide (Milk of Magnesia) 400 Mg/5 Ml Oral.susp 30 ML ORAL BID PRN for Constipation, ML Olanzapine (Olanzapine) 2.5 Mg Tablet 2.5 MG ORAL BEDTIME, #30 TAB 0 Refills Sennosides (Senna) 8.6 Mg Tablet 8.6 MG PO BID PRN for Constipation, TAB Tamsulosin Hcl (Tamsulosin Hcl*) 0.4 Mg Cap.er.24h 0.8 MG ORAL BEDTIME, CAP Discontinued Medications: No Known Medications* (NKM - No Known Medications*) . 0 ., 0 Refills Discharge Condition Upon Discharge: stable Discharge Disposition Patient was discharged to SNF/Subacute Facility(03) Discharge Diagnoses: (1) Syncope (2) Symptomatic bradycardia (3) Presence of permanent cardiac pacemaker (4) History of loop recorder (5) UTI (lower urinary tract infection) (6) Delirium due to general medical condition (7) Dementia Discharge Instructions Discharge Instructions Follow up with: MD at the facility Call MD/Return to Hospital if: fever, chills, recurring syncope, dizziness, diaphoresis, SOB, chest pain Diet: cardiac 2 GM Na, low fat Activity: as tolerated Special Instructions I have been assigned to complete a D/C Summary on this account. I was not involved in the patient management Christie Morris NP (Vanchtein) Jul 07, 2016 13:52
== END 2016-07-06 11:20 | DRG 242 ==
LOC: EDBD 14:33 → EMR 15:19 → EDBEDREQ 16:42 → 2E 16:58
PROC: 0JPT02Z Removal of Monitoring Device from Trunk Subcutaneous Tissue and Fascia, Open Approach (ICD-10-PCS; principal; 2016-06-21)
PROC: 02HL3JZ Insertion of Pacemaker Lead into Left Ventricle, Percutaneous Approach (ICD-10-PCS; principal; 2016-06-21)
PROC: 02H73JZ Insertion of Pacemaker Lead into Left Atrium, Percutaneous Approach (ICD-10-PCS; principal; 2016-06-21)
PROC: 0JH606Z Insertion of Pacemaker, Dual Chamber into Chest Subcutaneous Tissue and Fascia, Open Approach (ICD-10-PCS; principal; 2016-06-21)
DX: R00.1 Bradycardia, unspecified (principal); G93.41 Metabolic encephalopathy; N39.0 Urinary tract infection, site not specified; F05 Delirium due to known physiological condition; F03.90 Unspecified dementia, unspecified severity, without behavioral disturbance, psychotic disturbance, mood disturbance, and anxiety; F20.0 Paranoid schizophrenia; R55 Syncope and collapse; I10 Essential (primary) hypertension; Z95.818 Presence of other cardiac implants and grafts; F17.200 Nicotine dependence, unspecified, uncomplicated; B96.4 Proteus (mirabilis) (morganii) as the cause of diseases classified elsewhere
CPT/HCPCS: 36415; 70450; 71010; 76775; 80048; 80053; 80061; 80300; 80329; 81003; 82248; 82550; 82962; 83605; 83735; 83880; 84443; 84484; 85007; 85025; 85610; 85651; 85730; 87086; 87181; 87493; 93005; 94003; 94150; 94664; J2250

== ENCOUNTER 2016-08-10 23:12 | Inpatient (IN) | payer MEDICARE, MEDICAID ==
[~2016-08-10] VITALS: Ht 180.3 cm; Wt 68.9 kg
[~2016-08-10 23:12] MED LIST: ASPIRIN81 MG ORAL; ATIVAN1 MG ORAL; BENADRYL25 MG ORAL; CLONIDINE HCL0.1 MG PO; COLACE100 MG/10 GT; MOM30 ML ORAL; MYLANTA30 M1 ORAL; NKM; NORCO 5-325 TA1 EACH ORAL; OLANZAPINE2.5 MG ORAL; SENNA8.6 M2 PO; TAMSULOSIN HCL0.4 MG ORAL; TYLENOL EXTRA500 MG ORAL
[2016-08-11] VITALS: BP 132/88
[2016-08-11 04:00] VITALS: BP 159/111
[2016-08-11 07:49] LABS: AMMONIA 16 umol/L (16-60)
[2016-08-11 07:50] LABS: BASOPHILS % (AUTO) 0.7 % (0.0-2.0); EOSINOPHILS % (AUTO) 1.7 % (0.0-3.0); LYMPHOCYTES % (AUTO) 19.9 % (20.0-45.0); MEAN CORPUSCULAR HEMOGLOBIN 29.8 PG (27.0-31.0); MEAN CORPUSCULAR HGB CONC 32.1 G/DL (32.0-36.0); MEAN CORPUSCULAR VOLUME 93 FL (80-99); MEAN PLATELET VOLUME 5.2 FL (6.5-10.1); NEUTROPHILS % (AUTO) 61.8 % (45.0-75.0); PLATELET COUNT 288 K/UL (150-450); RED CELL DISTRIBUTION WIDTH 12.3 % (11.6-14.8)
[2016-08-11 07:53] VITALS: BP 146/82
[2016-08-11 07:53] LABS: ALANINE AMINOTRANSFERASE 17 U/L (3-41); ALBUMIN/GLOBULIN RATIO 1.2 (1.0-2.7); ANION GAP 12 (5-15); ASPARTATE AMINO TRANSFERASE 16 U/L (5-40); CARBON DIOXIDE 29 mEQ/L (20-30); CHLORIDE 100 mEQ/L (98-107); CREATININE 0.8 mg/dL (0.7-1.2); HEMOLYSIS 0; MAGNESIUM 2.2 mg/dL (1.7-2.5); PHOSPHORUS 2.8 mg/dL (2.5-4.8); POTASSIUM 3.8 mEQ/L (3.4-4.9); SODIUM 141 mEQ/L (135-145)
[2016-08-11] MEDS: Heparin 5000 units/ml inj SUBQ SCH ×3 (09:00→20:38)
[2016-08-11 11:47] VITALS: BP 152/92
--- NOTE | 2016-08-11 12:12 | History & Physical ---
History and Physical History & Physicial Dictated for Int Med-Dr Hawkins no. [id number]. KAY FARNSWORTH Aug 11, 2016 12:12
--- NOTE | 2016-08-11 14:28 | Cardiac Electrophysiology PN ---
Subjective Subjective [id number]. Pacer 06/2016 Objective Last 24 Hour Vital Signs Date Time Temp Pulse Resp B/P Pulse Ox O2 Delivery O2 Flow Rate FiO2 08/11/16 11:47 98.2 61 19 152/92 97 Room Air 08/11/16 11:31 97.7 08/11/16 07:53 97.7 62 19 146/82 98 Room Air 08/11/16 04:00 97.3 74 14 159/111 95 Room Air 08/11/16 00:00 97.7 67 16 132/88 99 Room Air Intake and Output 08/10/16 08/11/16 19:00 07:00 Intake Total 360 ml Balance 360 ml Intake Oral 360 ml # Voids 2 Laboratory Tests Test 08/11/16 06:30 White Blood Count 6.0 K/UL (4.8-10.8) Red Blood Count 4.00 M/UL (4.70-6.10) L Hemoglobin 11.9 G/DL (14.2-18.0) L Hematocrit 37.2 % (42.0-52.0) L Mean Corpuscular Volume 93 FL (80-99) Mean Corpuscular Hemoglobin 29.8 PG (27.0-31.0) Mean Corpuscular Hemoglobin Concent 32.1 G/DL (32.0-36.0) Red Cell Distribution Width 12.3 % (11.6-14.8) Platelet Count 288 K/UL (150-450) Mean Platelet Volume 5.2 FL (6.5-10.1) L Neutrophils (%) (Auto) 61.8 % (45.0-75.0) Lymphocytes (%) (Auto) 19.9 % (20.0-45.0) L Monocytes (%) (Auto) 16.0 % (1.0-10.0) H Eosinophils (%) (Auto) 1.7 % (0.0-3.0) Basophils (%) (Auto) 0.7 % (0.0-2.0) Sodium Level 141 mEQ/L (135-145) Potassium Level 3.8 mEQ/L (3.4-4.9) Chloride Level 100 mEQ/L (98-107) Carbon Dioxide Level 29 mEQ/L (20-30) Anion Gap 12 (5-15) Blood Urea Nitrogen 15 mg/dL (7-23) Creatinine 0.8 mg/dL (0.7-1.2) Estimat Glomerular Filtration Rate mL/min (>60) Glucose Level 207 mg/dL (74-106) H Calcium Level 9.0 mg/dL (8.6-10.2) Phosphorus Level 2.8 mg/dL (2.5-4.8) Magnesium Level 2.2 mg/dL (1.7-2.5) Total Bilirubin 0.3 mg/dL (0.0-1.2) Aspartate Amino Transf (AST/SGOT) 16 U/L (5-40) Alanine Aminotransferase (ALT/SGPT) 17 U/L (3-41) Alkaline Phosphatase 73 U/L (40-129) Ammonia 16 umol/L (16-60) Total Protein 6.0 g/dL (6.6-8.7) L Albumin 3.3 g/dL (3.5-5.2) L Globulin 2.7 g/dL Albumin/Globulin Ratio 1.2 (1.0-2.7) Thyroid Stimulating Hormone (TSH) 1.040 uIU/mL (0.300-4.500) MARY JO MCCOLLUM Aug 11, 2016 14:28
[2016-08-11 16:00] VITALS: BP 144/94
[2016-08-11] MEDS: Lisinopril 10mg tab ORAL SCH (16:29)
--- NOTE | 2016-08-11 17:07 | Consultation ---
History of Present Illness General Date patient seen: Aug 11, 2016 Chief Complaint: ALOC Referring physician: Dr. Drake Reason for Consultation: inpatint management Present Illness HPI 80 year old male with hx of COPD, pace maker, BPH, psychosis, was taken to [facility] for ALOC, after initial evaluation pt was transferred to [facility] for further treatment. Pt looks cachectic, naked with dippers on. Doens't have any acute complains. Allergies: Coded Allergies: No Known Allergies (Unverified , 09/04/15) Medication History Scheduled Aspirin* (Aspirin*), 81 MG ORAL DAILY, (Reported) Docusate Sodium (Docusate Sodium), 100 MG GT TWICE A DAY, (Reported) Olanzapine (Olanzapine), 2.5 MG ORAL BEDTIME, (Reported) Tamsulosin Hcl (Tamsulosin Hcl*), 0.8 MG ORAL BEDTIME, (Reported) Scheduled PRN Acetaminophen* (Tylenol Extra Strength*), 650 MG ORAL Q6H PRN for Mild Pain/ Temp > 100.5, (Reported) Al Hydroxide/mg Hydroxide (Mag-Al Liquid), 30 ML ORAL Q6HR PRN for Nausea & Vomiting, (Reported) Clonidine Hcl (Clonidine Hcl), 0.1 MG PO Q6HR PRN for For High Blood Pressure, ( Reported) Diphenhydramine Hcl* (Benadryl*), 25 MG ORAL Q6H PRN for Itching, (Reported) Hydrocodone Bit/Acetaminophen 5-325* ([place] 5-325*), 1 TAB ORAL Q4H PRN for Moderate Pain (Pain Scale 4-6), (Reported) Lorazepam* (Ativan*), 1 MG ORAL Q6HR PRN for For Anxiety, (Reported) Magnesium Hydroxide (Milk of Magnesia), 30 ML ORAL BID PRN for Constipation, ( Reported) Sennosides (Senna), 8.6 MG PO BID PRN for Constipation, (Reported) Patient History Healthcare decision maker N Resuscitation status Advanced Directive on File Past Medical/Surgical History Past Medical/Surgical History: (1) Dementia (2) Syncope (3) Status post placement of implantable loop recorder (4) Presence of permanent cardiac pacemaker Review of Systems All Other Systems: negative except mentioned in HPI Physical Exam Lines, tubes and drains: peripheral Last 24 Hour Vital Signs Date Time Temp Pulse Resp B/P Pulse Ox O2 Delivery O2 Flow Rate FiO2 08/11/16 16:29 144/94 08/11/16 16:00 97.7 63 20 144/94 97 Room Air 08/11/16 11:47 98.2 61 19 152/92 97 Room Air 08/11/16 11:31 97.7 08/11/16 07:53 97.7 62 19 146/82 98 Room Air 08/11/16 04:00 97.3 74 14 159/111 95 Room Air 08/11/16 00:00 97.7 67 16 132/88 99 Room Air Intake and Output 08/10/16 08/11/16 18:59 06:59 Intake Total 360 ml Balance 360 ml Intake Oral 360 ml # Voids 2 Laboratory Tests Test 08/11/16 06:30 White Blood Count 6.0 K/UL (4.8-10.8) Red Blood Count 4.00 M/UL (4.70-6.10) L Hemoglobin 11.9 G/DL (14.2-18.0) L Hematocrit 37.2 % (42.0-52.0) L Mean Corpuscular Volume 93 FL (80-99) Mean Corpuscular Hemoglobin 29.8 PG (27.0-31.0) Mean Corpuscular Hemoglobin Concent 32.1 G/DL (32.0-36.0) Red Cell Distribution Width 12.3 % (11.6-14.8) Platelet Count 288 K/UL (150-450) Mean Platelet Volume 5.2 FL (6.5-10.1) L Neutrophils (%) (Auto) 61.8 % (45.0-75.0) Lymphocytes (%) (Auto) 19.9 % (20.0-45.0) L Monocytes (%) (Auto) 16.0 % (1.0-10.0) H Eosinophils (%) (Auto) 1.7 % (0.0-3.0) Basophils (%) (Auto) 0.7 % (0.0-2.0) Sodium Level 141 mEQ/L (135-145) Potassium Level 3.8 mEQ/L (3.4-4.9) Chloride Level 100 mEQ/L (98-107) Carbon Dioxide Level 29 mEQ/L (20-30) Anion Gap 12 (5-15) Blood Urea Nitrogen 15 mg/dL (7-23) Creatinine 0.8 mg/dL (0.7-1.2) Estimat Glomerular Filtration Rate mL/min (>60) Glucose Level 207 mg/dL (74-106) H Calcium Level 9.0 mg/dL (8.6-10.2) Phosphorus Level 2.8 mg/dL (2.5-4.8) Magnesium Level 2.2 mg/dL (1.7-2.5) Total Bilirubin 0.3 mg/dL (0.0-1.2) Aspartate Amino Transf (AST/SGOT) 16 U/L (5-40) Alanine Aminotransferase (ALT/SGPT) 17 U/L (3-41) Alkaline Phosphatase 73 U/L (40-129) Ammonia 16 umol/L (16-60) Total Protein 6.0 g/dL (6.6-8.7) L Albumin 3.3 g/dL (3.5-5.2) L Globulin 2.7 g/dL Albumin/Globulin Ratio 1.2 (1.0-2.7) Thyroid Stimulating Hormone (TSH) 1.040 uIU/mL (0.300-4.500) Height (Feet): 5 Height (Inches): 11.00 Weight (Pounds): 152 Medications Current Medications Medications (Trade) Dose Ordered Sig/Rufina Route PRN Reason Start Time Stop Time Status Last Admin Dose Admin Acetaminophen (Tylenol) 650 mg Q4H PRN ORAL Mild Pain/Temp > 100.5 08/11/16 01:00 09/10/16 00:59 08/11/16 09:53 Heparin Sodium (Porcine) (Heparin 5000 units/ml) 5,000 units EVERY 12 HOURS SUBQ 08/11/16 09:00 09/10/16 08:59 Lisinopril (Zestril) 10 mg DAILY ORAL 08/11/16 16:00 09/10/16 15:59 08/11/16 16:29 Objective Narrative General Appearance: cachectic Lines, tubes and drains: peripheral, PICC HEENT: normocephalic, anicteric Neck: non-tender, supple Respiratory/Chest: chest wall non-tender, lungs clear Cardiovascular/Chest: normal peripheral pulses, regular rhythm Abdomen: normal bowel sounds, non tender Genitourinary/Rectal: normal genital exam, normal rectal exam Assessment/Plan Problem List: (1) Altered level of consciousness ICD Codes: R40.4 - Transient alteration of awareness SNOMED: 4794780 (2) Dementia ICD Codes: F03.90 - Unspecified dementia without behavioral disturbance SNOMED: 91848639 (3) Cachexia ICD Codes: R64 - Cachexia SNOMED: 917566489 (4) Psychosis ICD Codes: F29 - Unspecified psychosis not due to a substance or known physiological condition SNOMED: 19770318 Assessment/Plan CT head Psychiatry evaluation pt/ot social service evaluation titrate cardiac meds get PSA KRISTY JAMES Aug 11, 2016 17:07
[2016-08-11 18:25] LABS: INR 1.1 (0.9-1.1)
--- NOTE | 2016-08-11 19:42 | Neurology Progress Note ---
Objective Physical Exam Last Vital Signs Date Time Temp Pulse Resp B/P Pulse Ox O2 Delivery O2 Flow Rate FiO2 08/11/16 16:29 144/94 08/11/16 16:00 97.7 63 20 97 Room Air Laboratory Tests Test 08/11/16 06:30 08/11/16 17:55 White Blood Count 6.0 K/UL (4.8-10.8) Red Blood Count 4.00 M/UL (4.70-6.10) L Hemoglobin 11.9 G/DL (14.2-18.0) L Hematocrit 37.2 % (42.0-52.0) L Mean Corpuscular Volume 93 FL (80-99) Mean Corpuscular Hemoglobin 29.8 PG (27.0-31.0) Mean Corpuscular Hemoglobin Concent 32.1 G/DL (32.0-36.0) Red Cell Distribution Width 12.3 % (11.6-14.8) Platelet Count 288 K/UL (150-450) Mean Platelet Volume 5.2 FL (6.5-10.1) L Neutrophils (%) (Auto) 61.8 % (45.0-75.0) Lymphocytes (%) (Auto) 19.9 % (20.0-45.0) L Monocytes (%) (Auto) 16.0 % (1.0-10.0) H Eosinophils (%) (Auto) 1.7 % (0.0-3.0) Basophils (%) (Auto) 0.7 % (0.0-2.0) Sodium Level 141 mEQ/L (135-145) Potassium Level 3.8 mEQ/L (3.4-4.9) Chloride Level 100 mEQ/L (98-107) Carbon Dioxide Level 29 mEQ/L (20-30) Anion Gap 12 (5-15) Blood Urea Nitrogen 15 mg/dL (7-23) Creatinine 0.8 mg/dL (0.7-1.2) Estimat Glomerular Filtration Rate mL/min (>60) Glucose Level 207 mg/dL (74-106) H Calcium Level 9.0 mg/dL (8.6-10.2) Phosphorus Level 2.8 mg/dL (2.5-4.8) Magnesium Level 2.2 mg/dL (1.7-2.5) Total Bilirubin 0.3 mg/dL (0.0-1.2) Aspartate Amino Transf (AST/SGOT) 16 U/L (5-40) Alanine Aminotransferase (ALT/SGPT) 17 U/L (3-41) Alkaline Phosphatase 73 U/L (40-129) Ammonia 16 umol/L (16-60) Total Protein 6.0 g/dL (6.6-8.7) L Albumin 3.3 g/dL (3.5-5.2) L Globulin 2.7 g/dL Albumin/Globulin Ratio 1.2 (1.0-2.7) Thyroid Stimulating Hormone (TSH) 1.040 uIU/mL (0.300-4.500) Erythrocyte Sedimentation Rate Pending Reticulocyte Count Pending Prothrombin Time 11.0 SEC (9.30-11.50) Prothromb Time International Ratio 1.1 (0.9-1.1) Activated Partial Thromboplast Time 26 SEC (23-33) Iron Level 27 ug/dL (59-158) L Total Iron Binding Capacity 203 ug/dL (250-400) L Percent Iron Saturation 13 % (15-50) L Unsaturated Iron Binding 176 ug/dL (112-346) Lactate Dehydrogenase 223 U/L (135-230) Carcinoembryonic Antigen 3.4 ng/mL H Vitamin B12 Level 332 pg/mL (211-946) Folate Pending Impression/Recommendations Problems: (1) Psychosis (2) Presence of permanent cardiac pacemaker Status: unchanged Recommendations #[id number] LYNDA GA Aug 11, 2016 19:42
[2016-08-11 19:54] LABS: ERYTHROCYTE SEDIMENTATION RATE 38 MM/HR (0-20)
[2016-08-11 20:00] VITALS: BP 161/103
[2016-08-11] MEDS: OLANZapine 2.5mg tab ORAL SCH (20:38)
[2016-08-11] MEDS: Tamsulosin 0.4mg cap ORAL SCH (20:38)
--- NOTE | 2016-08-11 22:19 | History and Physical Report ---
DATE OF ADMISSION: 08/10/2016 CHIEF COMPLAINT: The patient is a 80-year-old male, who presents with chief complaint of altered mental status. HISTORY OF PRESENT ILLNESS: The patient was last admitted to [facility] in May 2016. Please see History and Physical and discharge summary dictated that time. The patient apparently lives at home with his significant other. Apparently, the patient began to experience altered mental status yesterday, 08/09/2016. The patient presented to [facility] emergency room. The patient was found to have altered mental status. The patient was transferred to [facility] for insurance purposes. The patient is admitted for generalized weakness and altered mental status. PAST MEDICAL HISTORY: Significant for: 1. Bradycardia, status post pacemaker implantation. 2. Alzheimer dementia. PAST SURGICAL HISTORY: The patient denies. CURRENT MEDICATIONS: 1. Aspirin 81 mg one tablet p.o. daily. 2. Clonidine 0.1 mg one tablet p.o. every 6 hours p.r.n. 3. [place] 5/325 mg one tablet p.o. 4 hours p.r.n. 4. Ativan 1 mg one tablet p.o. q.6 hours p.r.n. 5. Zyprexa 2.5 mg one tablet p.o. at bedtime. 6. Flomax 0.4 mg one tablet p.o. daily. ALLERGIES: No known drug allergies. SOCIAL HISTORY: The patient lives with his significant other named Laney. The patient denies alcohol use. The patient admits to tobacco use 1/2 pack per day. REVIEW OF SYSTEMS: Constitutional: The patient denies weight loss or weight gain. The patient denies fevers or chills. HEENT: The patient denies ear or throat pain. Cardiovascular: The patient denies palpitations or chest pain. Chest: The patient denies wheeze or shortness of breath. Abdominal: The patient denies nausea, vomiting, diarrhea, or constipation. Genitourinary: The patient denies dysuria or increased frequency of urination. Neuromuscular: The patient complains of generalized weakness. The patient denies seizures. PHYSICAL EXAMINATION: VITAL SIGNS: Temperature 97.7, respirations 16, pulse 67, and blood pressure 132/88. GENERAL: The patient is a thin-appearing male, in no apparent distress. HEENT: Eyes, pupils are equal and responsive to light and accommodation. Extraocular movements are intact. NECK: Supple. No lymphadenopathy. CHEST: Lungs are clear to auscultation bilaterally without wheezes or rales. CARDIOVASCULAR: Regular and rate, S1, S2. No murmurs, rubs, or gallops. ABDOMEN: Soft, nontender, and nondistended. Positive bowel sounds. No hepatosplenomegaly. Currently, no rebound or guarding. EXTREMITIES: Negative for clubbing, cyanosis, or edema. RECTAL/GENITAL: Refused. NEUROLOGICAL: Cranial nerves II through XII are grossly intact without focal deficits. Motor strength is 5/5 bilaterally. Deep tendon reflexes are 2+ plantar. LABORATORY STUDIES: WBC 7.5, hemoglobin 12.6, hematocrit 38.4, and platelets 282,000. Sodium 140, potassium 4.1, chloride 104, CO2 of 31, BUN 14, creatinine 0.77, and glucose is 105. ASSESSMENT AND PLAN: This is a 80-year-old male: 1. Altered mental status. 2. Alzheimer dementia. 3. Benign prostatic hypertrophy. 4. altered mental status. This may be urinary tract infection versus cerebrovascular accident. A neurology consultation is obtained with Dr. Marcial. An MRI of the brain is pending. We will follow the recommendation. The patient is not a candidate for MRI of the brain, as the patient has a pacemaker in situ. A CT scan of the brain is pending. 5. Bradycardia. The patient is status post pacemaker. A pacemaker check is pending by Dr. Luciano Martins. 6. Benign prostatic hypertrophy. Continue Flomax as above. Anurag Drake M.D. DR: CLIFF JOB#: [id number] CC:
--- NOTE | 2016-08-11 22:39 | Consultation ---
DATE OF CONSULTATION: CARDIOLOGY CONSULTATION: REFERRING PHYSICIAN: Josue Hawkins M.D. REASON FOR CONSULTATION: Evaluation of the patient's pacemaker in the patient with weakness. HISTORY OF PRESENT ILLNESS: The patient is a 80-year-old gentleman, I am quite familiar with from his previous admission. He has history of hypertension and history of permanent pacemaker implantation as well as history of bradycardia and syncope, who underwent an explantation of the loop recorder and placement of a pacemaker on 07/04/2016. The pacemaker is from [employer]. The patient was at [facility]. He was taken to [place] from the care home for altered mental status and was found that the patient is not able to provide any meaningful information. The patient was then transferred to [facility] for further evaluation and management. At the time of my evaluation, the patient denies any chest pain, palpitation, or shortness of breath. PAST MEDICAL HISTORY: 1. Hypertension. 2. Recurrent syncope status post implantable loop recorder and subsequent upgrade to a dual-chamber permanent pacemaker in June 2016. 3. History of syncope and UTI. SOCIAL HISTORY: Does not smoke or drink alcohol. FAMILY HISTORY: Noncontributory. REVIEW OF SYSTEM: Negative other than what is mentioned in the history of present illness. PHYSICAL EXAMINATION: VITAL SIGNS: Blood pressure is 150/92, pulse 61, respiration 19, and temperature 98.2 degrees. HEAD AND NECK: Shows no JVD. LUNGS: Clear. CARDIOVASCULAR: Shows regular S1 and S2 with no gallop or murmur. Pacemaker in the left subclavian is intact. ABDOMEN: Soft. EXTREMITIES: No pitting edema. LABORATORY AND DIAGNOSTIC DATA: White count of 6, hemoglobin 11.9, hematocrit 37.2, and platelet count 288,000. Sodium 141, potassium 3.8, BUN 15, creatinine 0.8, and glucose of 207. INR is 1.1. Urine toxicology screen is negative. ASSESSMENT AND PLAN: 1. History of syncope and bradycardia status post upgrade of loop recorder [employer] pacemaker. We will try to interrogate the pacemaker for further evaluation and management. 2. History of recurrent syncope and symptomatic bradycardia. 3. History of hypertension angiotensin receptor boo in the past. that would be resumed. blood pressure is 150/92. Thank very much, Dr. Hawkins, for allowing me to participate in the care of this patient. Please do not hesitate to contact for any questions regarding my evaluation. Luciano Martins M.D. DR: Baldo JOB#: [id number] CC:
[2016-08-11 23:00] LABS: RETICULOCYTE COUNT 0.6 % (0.0-2.0)
[2016-08-12] VITALS: BP 123/79
[2016-08-12 04:00] VITALS: BP 125/72
--- NOTE | 2016-08-12 04:19 | Consultation ---
DATE OF CONSULTATION: 08/11/2016 NEUROLOGICAL CONSULTATION CONSULTING PHYSICIAN: Manolo Marcial M.D. REQUESTING PHYSICIAN: Josue Hawkins M.D. HISTORY OF PRESENT ILLNESS: The patient is a 80-year-old man seen in neurological consultation to evaluate changes in mental status. The patient is a very poor historian. This was provided from the review of records and discussion with the nursing staff. Apparently, the patient was brought in from home to [facility] Emergency Room with information that the patient was very groggy this morning and was unable to be wake up, as he was brought to emergency room, he was very awake, it was noted that his baseline to be confused. Apparently, EMS tried to wake him up in the morning and took them at least a minute or two prodding to wake him up. His vital signs on admission were stable. He was afebrile. Initial laboratory work revealed mild anemia, hemoglobin 12.6, and hematocrit 38.4. Electrolyte panel was unremarkable. The patient was transported to this facility for diagnostic studies and treatment. On arrival, he was described as being very confused and disoriented. Most recent assessment that was presence of major depression with psychotic features although previously he was diagnosed with paranoid schizophrenia. On admission, laboratory work was obtained revealing normal CBC study, normal coagulation panel, and chemistry panel was unremarkable with normal B12, TSH and slightly elevated CEA of 3.4. PAST MEDICAL HISTORY: The patient has a history of pacemaker, history of chronic obstructive pulmonary disease, benign prostatic hypertrophy, and chronic psychosis with dementia. TREATMENT PRIOR TO ADMISSION: Included clonidine, aspirin, [place] p.r.n., lorazepam, olanzapine, tamsulosin and senna. ALLERGIES: None reported. SOCIAL HISTORY: The patient was not descriptive, denying alcohol or drug abuse. FAMILY HISTORY: Unavailable. REVIEW OF SYMPTOMS: The patient was hostile stating that he is healthy and he is not sure why he is here. He is visiting his brother. PHYSICAL EXAMINATION: GENERAL: Well-developed somewhat disheveled man with not in acute distress, lying in bed, watching TV. VITAL SIGNS: At this time, stable blood pressure 144/94. He is afebrile. HEENT: Head normocephalic. No evidence of trauma. Eyes, ears, nose and throat are clear. NECK: Supple. No meningeal signs. MUSCULOSKELETAL: Multiple old healed bruises in both lower extremities. Peripheral pulses 1+ symmetric. MENTAL STATUS: He is alert. He has a good eye contact. He was able to give his name and age, but not the place, time, and address. He was non-cooperative, suspicious, paranoid, looking to throw material on me. He was very suspicious. He was becoming hostile and really resisting to examination. CRANIAL NERVE II: Pupils both responding to light and accommodation. Extraocular movement intact. No nystagmus. CRANIAL NERVE V: Normal corneal responses. CRANIAL NERVE VII: No facial asymmetry. CRANIAL NERVE VIII: Normal hearing. CRANIAL NERVES IX THROUGH XII: Tongue is in midline. MOTOR EXAMINATION: Normal muscle tone. Strength is 5/5 in all extremities. No involuntary movement. Deep reflexes 2+ bilaterally. Plantar response is mute. SENSORY EXAMINATION: Withdrawing to pin stimulation all limbs. Gait not tested. The patient indicated that he is not using cane or walker. IMPRESSION: 1. This is a 80-year-old male with a history of transient hypersomnia to rule out a drug-induced encephalopathy. No evidence of seizures. No evidence of transient ischemic attack, strokes, or syncope detected. 2. Chronic psychiatric disorder exacerbation. 3. Hypertension. 4. Pacemaker. 5. Chronic obstructive pulmonary disease. RECOMMENDATIONS: 1. The patient will need a psychiatrist assessment to evaluate his antipsychotic treatment. 2. Observe for any paroxysmal events. 3. Orthostatic blood pressure measurements. Thank you for allowing me to see this interesting patient in consultation. Manolo Marcial M.D. DR: KYMBERLY JOB#: [id number] CC:
[2016-08-12 06:56] LABS: EOSINOPHILS % (AUTO) 2.6 % (0.0-3.0); LYMPHOCYTES % (AUTO) 26.2 % (20.0-45.0); MEAN CORPUSCULAR HEMOGLOBIN 30.2 PG (27.0-31.0); MEAN CORPUSCULAR VOLUME 94 FL (80-99); MEAN PLATELET VOLUME 4.6 FL (6.5-10.1); MONOCYTES % (AUTO) 13.7 % (1.0-10.0); NEUTROPHILS % (AUTO) 56.5 % (45.0-75.0); PLATELET COUNT 279 K/UL (150-450); RED BLOOD COUNT 4.01 M/UL (4.70-6.10); WHITE BLOOD COUNT 6.4 K/UL (4.8-10.8)
[2016-08-12 07:09] LABS: TROPONIN I < 0.30 ng/mL (<=0.30)
[2016-08-12 07:19] LABS: PSA TOTAL 0.8 ng/mL (< 4.5)
[2016-08-12 07:21] LABS: ANION GAP 11 (5-15); CALCIUM 8.9 mg/dL (8.6-10.2); CARBON DIOXIDE 27 mEQ/L (20-30); CHLORIDE 100 mEQ/L (98-107); CREATININE 0.8 mg/dL (0.7-1.2); HEMOLYSIS 7; POTASSIUM 4.2 mEQ/L (3.4-4.9); SODIUM 138 mEQ/L (135-145)
[2016-08-12 08:15] VITALS: BP 138/87
[2016-08-12 08:42] LABS: BAND NEUTROPHILS % (MANUAL) 0 % (0-8); BASOPHILS % (MANUAL) 0 % (0-2); EOSINOPHILS % (MANUAL) 0 % (0-3); LYMPHOCYTES % (MANUAL) 21 % (20-45); NEUTROPHILS % (MANUAL) 68 % (45-75); PLATELET ESTIMATE ADEQUATE; PLATELET MORPHOLOGY NORMAL; TOTAL CELLS COUNTED 100
[2016-08-12] MEDS: Heparin 5000 units/ml inj SUBQ SCH ×2 (09:00→20:12)
[2016-08-12] MEDS: Lisinopril 10mg tab ORAL SCH (09:14)
[2016-08-12 10:14] LABS: PATH BLOOD SMEAR/OMC SENT TO PATHOLOGIST
--- NOTE | 2016-08-12 10:39 | Diagnostic Imaging Report ---
Indications: DYSPNEA Technique: Portable AP chest Findings: Comparison: 07/04/2016 Interstitial prominence previously noted throughout both lungs appears to have decreased. Associated nodular opacities in right upper and lower lung zones have also decreased. Current image is better exposed. Linear densities persist in the left upper lobe, both lower lung zones. No new pulmonary parenchymal abnormality demonstrated. No pleural disease is evident. Cardiomediastinal silhouette stable. IMPRESSION: Apparent decrease in bilateral interstitial prominence may represent improvement in pulmonary edema or interstitial pneumonitis. Some of the apparent change may be technically related, however. Decrease in associated nodular opacities in left lung with residual in left base. Focal pneumonia or neoplasm not excludable. Consider contrast-enhanced CT scan the thorax if does not completely resolve. Persistent bilateral subsegmental atelectasis versus scarring
[2016-08-12 12:12] VITALS: BP 146/68
--- NOTE | 2016-08-12 14:35 | Cardiology Report ---
APPROVED REPORT EKG Measurement Heart [id number] Abnormal ECG Dual-Chamber Pacemaker
--- NOTE | 2016-08-12 15:49 | Cardiac Electrophysiology PN ---
Assessment/Plan Assessment/Plan 1. History of syncope and bradycardia status post upgrade of loop recorder to [employer] pacemaker. 2. History of recurrent syncope and symptomatic bradycardia. 3. History of hypertension on Lisinopril 10 daily. 4. Dementia on Zyprexa BEBE RN Subjective Subjective Pleasantly Confused. Refusing meds.No events overnight. Objective Last 24 Hour Vital Signs Date Time Temp Pulse Resp B/P Pulse Ox O2 Delivery O2 Flow Rate FiO2 08/12/16 12:12 97.9 66 19 146/68 97 Nasal Cannula 08/12/16 10:48 98.0 08/12/16 09:14 138/87 08/12/16 08:15 98.0 71 20 138/87 97 Room Air 08/12/16 04:00 97.5 55 20 125/72 100 Room Air 08/12/16 00:00 97.1 60 18 123/79 100 Room Air 08/11/16 20:00 97.8 62 20 161/103 97 Room Air 08/11/16 16:29 144/94 08/11/16 16:00 97.7 63 20 144/94 97 Room Air Intake and Output 08/11/16 08/12/16 19:00 07:00 Intake Total 420 ml 480 ml Balance 420 ml 480 ml Intake Oral 420 ml 480 ml # Voids 1 4 Laboratory Tests Test 08/11/16 17:55 08/12/16 06:00 Erythrocyte Sedimentation Rate 38 MM/HR (0-20) H Reticulocyte Count 0.6 % (0.0-2.0) Prothrombin Time 11.0 SEC (9.30-11.50) Prothromb Time International Ratio 1.1 (0.9-1.1) Activated Partial Thromboplast Time 26 SEC (23-33) Iron Level 27 ug/dL (59-158) L Total Iron Binding Capacity 203 ug/dL (250-400) L Percent Iron Saturation 13 % (15-50) L Unsaturated Iron Binding 176 ug/dL (112-346) Lactate Dehydrogenase 223 U/L (135-230) Carcinoembryonic Antigen 3.4 ng/mL H Vitamin B12 Level 332 pg/mL (211-946) Folate 4.4 ng/mL (>3.0) White Blood Count 6.4 K/UL (4.8-10.8) Red Blood Count 4.01 M/UL (4.70-6.10) L Hemoglobin 12.1 G/DL (14.2-18.0) L Hematocrit 37.8 % (42.0-52.0) L Mean Corpuscular Volume 94 FL (80-99) Mean Corpuscular Hemoglobin 30.2 PG (27.0-31.0) Mean Corpuscular Hemoglobin Concent 32.0 G/DL (32.0-36.0) Red Cell Distribution Width 12.0 % (11.6-14.8) Platelet Count 279 K/UL (150-450) Mean Platelet Volume 4.6 FL (6.5-10.1) L Neutrophils (%) (Auto) 56.5 % (45.0-75.0) Lymphocytes (%) (Auto) 26.2 % (20.0-45.0) Monocytes (%) (Auto) 13.7 % (1.0-10.0) H Eosinophils (%) (Auto) 2.6 % (0.0-3.0) Basophils (%) (Auto) 1.0 % (0.0-2.0) Differential Total Cells Counted 100 Neutrophils % (Manual) 68 % (45-75) Lymphocytes % (Manual) 21 % (20-45) Monocytes % (Manual) 11 % (1-10) H Eosinophils % (Manual) 0 % (0-3) Basophils % (Manual) 0 % (0-2) Band Neutrophils 0 % (0-8) Platelet Estimate Adequate Platelet Morphology Normal Red Blood Cell Morphology Normal Sodium Level 138 mEQ/L (135-145) Potassium Level 4.2 mEQ/L (3.4-4.9) Chloride Level 100 mEQ/L (98-107) Carbon Dioxide Level 27 mEQ/L (20-30) Anion Gap 11 (5-15) Blood Urea Nitrogen 15 mg/dL (7-23) Creatinine 0.8 mg/dL (0.7-1.2) Estimat Glomerular Filtration Rate mL/min (>60) Glucose Level 92 mg/dL (74-106) # Calcium Level 8.9 mg/dL (8.6-10.2) Troponin I < 0.30 ng/mL (<=0.30) Pro-B-Type Natriuretic Peptide 179 pg/mL (0-450) Prostate Specific Antigen 0.8 ng/mL (< 4.5) Objective HEAD AND NECK: Shows no JVD. LUNGS: Clear. CARDIOVASCULAR: Shows regular S1 and S2 with no gallop or murmur. Pacemaker in the left subclavian is intact. ABDOMEN: Soft. EXTREMITIES: No pitting edema. MARY JO MCCOLLUM Aug 12, 2016 15:49
[2016-08-12 16:00] VITALS: BP 119/70
--- NOTE | 2016-08-12 17:06 | Internal Med Progress Note ---
Subjective Date of Service: Aug 12, 2016 Physician Name NoelleKay Attending Physician Josue Hawkins MD Current Medications Medications (Trade) Dose Ordered Sig/Rufina Route PRN Reason Start Time Stop Time Status Last Admin Dose Admin Acetaminophen (Tylenol) 650 mg Q4H PRN ORAL Mild Pain/Temp > 100.5 08/11/16 01:00 09/10/16 00:59 08/12/16 09:14 Heparin Sodium (Porcine) (Heparin 5000 units/ml) 5,000 units EVERY 12 HOURS SUBQ 08/11/16 09:00 09/10/16 08:59 Lisinopril (Zestril) 10 mg DAILY ORAL 08/11/16 16:00 09/10/16 15:59 08/12/16 09:14 Olanzapine (ZyPREXA) 2.5 mg BEDTIME ORAL 08/11/16 21:00 09/10/16 20:59 08/11/16 20:38 Tamsulosin HCl (Flomax) 0.8 mg BEDTIME ORAL 08/11/16 21:00 09/10/16 20:59 08/11/16 20:38 Allergies: Coded Allergies: No Known Allergies (Unverified , 09/04/15) ROS Limited/Unobtainable: Yes Subjective 80 YO M admitted with altered mental status. Cover for Int Med-Dr Hawkins. Objective Last Vital Signs Date Time Temp Pulse Resp B/P Pulse Ox O2 Delivery O2 Flow Rate FiO2 08/12/16 16:00 97.9 74 18 119/70 Room Air 08/12/16 12:12 97 General Appearance: WD/WN, no apparent distress, alert EENT: PERRL/EOMI, normal ENT inspection Neck: non-tender, normal alignment, supple, normal inspection Cardiovascular: normal peripheral pulses, normal rate, regular rhythm, no gallop/murmur, no JVD Respiratory/Chest: chest wall non-tender, lungs clear, normal breath sounds, no respiratory distress, no accessory muscle use Abdomen: normal bowel sounds, non tender, soft, no organomegaly, no mass Extremities: normal range of motion Neurologic: darklight inspector II-XII grossly normal, no motor/sensory deficits Skin: normal pigmentation Laboratory Tests Test 08/11/16 17:55 08/12/16 06:00 Erythrocyte Sedimentation Rate 38 MM/HR (0-20) H Reticulocyte Count 0.6 % (0.0-2.0) Prothrombin Time 11.0 SEC (9.30-11.50) Prothromb Time International Ratio 1.1 (0.9-1.1) Activated Partial Thromboplast Time 26 SEC (23-33) Iron Level 27 ug/dL (59-158) L Total Iron Binding Capacity 203 ug/dL (250-400) L Percent Iron Saturation 13 % (15-50) L Unsaturated Iron Binding 176 ug/dL (112-346) Lactate Dehydrogenase 223 U/L (135-230) Carcinoembryonic Antigen 3.4 ng/mL H Vitamin B12 Level 332 pg/mL (211-946) Folate 4.4 ng/mL (>3.0) White Blood Count 6.4 K/UL (4.8-10.8) Red Blood Count 4.01 M/UL (4.70-6.10) L Hemoglobin 12.1 G/DL (14.2-18.0) L Hematocrit 37.8 % (42.0-52.0) L Mean Corpuscular Volume 94 FL (80-99) Mean Corpuscular Hemoglobin 30.2 PG (27.0-31.0) Mean Corpuscular Hemoglobin Concent 32.0 G/DL (32.0-36.0) Red Cell Distribution Width 12.0 % (11.6-14.8) Platelet Count 279 K/UL (150-450) Mean Platelet Volume 4.6 FL (6.5-10.1) L Neutrophils (%) (Auto) 56.5 % (45.0-75.0) Lymphocytes (%) (Auto) 26.2 % (20.0-45.0) Monocytes (%) (Auto) 13.7 % (1.0-10.0) H Eosinophils (%) (Auto) 2.6 % (0.0-3.0) Basophils (%) (Auto) 1.0 % (0.0-2.0) Differential Total Cells Counted 100 Neutrophils % (Manual) 68 % (45-75) Lymphocytes % (Manual) 21 % (20-45) Monocytes % (Manual) 11 % (1-10) H Eosinophils % (Manual) 0 % (0-3) Basophils % (Manual) 0 % (0-2) Band Neutrophils 0 % (0-8) Platelet Estimate Adequate Platelet Morphology Normal Red Blood Cell Morphology Normal Sodium Level 138 mEQ/L (135-145) Potassium Level 4.2 mEQ/L (3.4-4.9) Chloride Level 100 mEQ/L (98-107) Carbon Dioxide Level 27 mEQ/L (20-30) Anion Gap 11 (5-15) Blood Urea Nitrogen 15 mg/dL (7-23) Creatinine 0.8 mg/dL (0.7-1.2) Estimat Glomerular Filtration Rate mL/min (>60) Glucose Level 92 mg/dL (74-106) # Calcium Level 8.9 mg/dL (8.6-10.2) Troponin I < 0.30 ng/mL (<=0.30) Pro-B-Type Natriuretic Peptide 179 pg/mL (0-450) Prostate Specific Antigen 0.8 ng/mL (< 4.5) Intake and Output 08/11/16 08/12/16 19:00 07:00 Intake Total 420 ml 480 ml Balance 420 ml 480 ml Intake Oral 420 ml 480 ml # Voids 1 4 Assessment/Plan Problem List: (1) BPH (benign prostatic hypertrophy) Assessment & Plan: Cont flomax. (2) Alzheimer's dementia (3) Bradycardia Assessment & Plan: see cardiology note. (4) Altered mental status Assessment & Plan: See neuro note; workup in progress. (5) Hypertension Assessment & Plan: Cont lisinopril. Status: not improved KAY FARNSWORTH Aug 12, 2016 17:06
--- NOTE | 2016-08-12 17:29 | Pulmonology Progress Note ---
Assessment/Plan Problems: (1) COPD (chronic obstructive pulmonary disease) (2) Altered level of consciousness (3) Cachexia (4) Psychosis (5) Debility (6) Hypertension (7) Dementia Assessment/Plan respiratory treatment monitor bp spych evaluation pt/ot Subjective ROS Limited/Unobtainable: No Allergies: Coded Allergies: No Known Allergies (Unverified , 09/04/15) Objective Last 24 Hour Vital Signs Date Time Temp Pulse Resp B/P Pulse Ox O2 Delivery O2 Flow Rate FiO2 08/12/16 16:00 97.9 74 18 119/70 Room Air 08/12/16 12:12 97.9 66 19 146/68 97 Nasal Cannula 08/12/16 10:48 98.0 08/12/16 09:14 138/87 08/12/16 08:15 98.0 71 20 138/87 97 Room Air 08/12/16 04:00 97.5 55 20 125/72 100 Room Air 08/12/16 00:00 97.1 60 18 123/79 100 Room Air 08/11/16 20:00 97.8 62 20 161/103 97 Room Air Intake and Output 08/11/16 08/12/16 19:00 07:00 Intake Total 420 ml 480 ml Balance 420 ml 480 ml Intake Oral 420 ml 480 ml # Voids 1 4 Objective General Appearance: WD/WN HEENT: normocephalic, atraumatic Respiratory/Chest: chest wall non-tender, lungs clear Cardiovascular: normal peripheral pulses, normal rate, regular rhythm Abdomen: normal bowel sounds, soft, non tender, no organomegaly Genitourinary: normal external genitalia Extremities: no cyanosis, no clubbing Skin: no rash, no lesions Neurologic/Psychiatric: paranormal investigator II-XII grossly normal Laboratory Tests 08/11/16 17:55: Erythrocyte Sedimentation Rate 38H, Reticulocyte Count 0.6, Prothrombin Time 11.0, Prothromb Time International Ratio 1.1, Activated Partial Thromboplast Time 26, Iron Level 27L, Total Iron Binding Capacity 203L, Percent Iron Saturation 13L, Unsaturated Iron Binding 176, Lactate Dehydrogenase 223, Carcinoembryonic Antigen 3.4H, Vitamin B12 Level 332, Folate 4.4 08/12/16 06:00: White Blood Count 6.4, Red Blood Count 4.01L, Hemoglobin 12.1L, Hematocrit 37.8L , Mean Corpuscular Volume 94, Mean Corpuscular Hemoglobin 30.2, Mean Corpuscular Hemoglobin Concent 32.0, Red Cell Distribution Width 12.0, Platelet Count 279, Mean Platelet Volume 4.6L, Neutrophils (%) (Auto) 56.5, Lymphocytes ( %) (Auto) 26.2, Monocytes (%) (Auto) 13.7H, Eosinophils (%) (Auto) 2.6, Basophils (%) (Auto) 1.0, Differential Total Cells Counted 100, Neutrophils % ( Manual) 68, Lymphocytes % (Manual) 21, Monocytes % (Manual) 11H, Eosinophils % ( Manual) 0, Basophils % (Manual) 0, Band Neutrophils 0, Platelet Estimate Adequate, Platelet Morphology Normal, Red Blood Cell Morphology Normal, Sodium Level 138, Potassium Level 4.2, Chloride Level 100, Carbon Dioxide Level 27, Anion Gap 11, Blood Urea Nitrogen 15, Creatinine 0.8, Estimat Glomerular Filtration Rate , Glucose Level 92#, Calcium Level 8.9, Troponin I < 0.30, Pro-B -Type Natriuretic Peptide 179, Prostate Specific Antigen 0.8 08/12/16 16:00: Stool Occult Blood [Pending] Current Medications Medications (Trade) Dose Ordered Sig/Rufina Route PRN Reason Start Time Stop Time Status Last Admin Dose Admin Acetaminophen (Tylenol) 650 mg Q4H PRN ORAL Mild Pain/Temp > 100.5 08/11/16 01:00 09/10/16 00:59 08/12/16 09:14 Heparin Sodium (Porcine) (Heparin 5000 units/ml) 5,000 units EVERY 12 HOURS SUBQ 08/11/16 09:00 09/10/16 08:59 Lisinopril (Zestril) 10 mg DAILY ORAL 08/11/16 16:00 09/10/16 15:59 08/12/16 09:14 Olanzapine (ZyPREXA) 2.5 mg BEDTIME ORAL 08/11/16 21:00 09/10/16 20:59 08/11/16 20:38 Tamsulosin HCl (Flomax) 0.8 mg BEDTIME ORAL 08/11/16 21:00 09/10/16 20:59 08/11/16 20:38 KRISTY JAMES Aug 12, 2016 17:29
[2016-08-12 19:00] VITALS: BP 127/82
[2016-08-12] MEDS: OLANZapine 2.5mg tab ORAL SCH (20:11)
[2016-08-12] MEDS: Tamsulosin 0.4mg cap ORAL SCH (20:11)
[2016-08-13] VITALS: BP 133/79
[2016-08-13 04:00] VITALS: BP 164/97
[2016-08-13 07:43] LABS: EOSINOPHILS % (AUTO) 2.4 % (0.0-3.0); MEAN CORPUSCULAR HEMOGLOBIN 29.9 PG (27.0-31.0); MEAN CORPUSCULAR HGB CONC 32.1 G/DL (32.0-36.0); MEAN CORPUSCULAR VOLUME 93 FL (80-99); MEAN PLATELET VOLUME 4.6 FL (6.5-10.1); MONOCYTES % (AUTO) 11.3 % (1.0-10.0); NEUTROPHILS % (AUTO) 53.3 % (45.0-75.0); PLATELET COUNT 287 K/UL (150-450); RED BLOOD COUNT 4.13 M/UL (4.70-6.10); RED CELL DISTRIBUTION WIDTH 12.2 % (11.6-14.8); WHITE BLOOD COUNT 5.6 K/UL (4.8-10.8)
[2016-08-13 07:51] LABS: ANION GAP 10 (5-15); CALCIUM 9.2 mg/dL (8.6-10.2); CARBON DIOXIDE 30 mEQ/L (20-30); CHLORIDE 100 mEQ/L (98-107); CREATININE 0.7 mg/dL (0.7-1.2); HEMOLYSIS 6; POTASSIUM 4.4 mEQ/L (3.4-4.9); SODIUM 140 mEQ/L (135-145)
[2016-08-13] MEDS: Lisinopril 10mg tab ORAL SCH (08:30)
[2016-08-13] MEDS: Heparin 5000 units/ml inj SUBQ SCH ×2 (08:30→20:31)
--- NOTE | 2016-08-13 11:46 | Internal Med Progress Note ---
Subjective Date of Service: Aug 13, 2016 Physician Name NoelleKay Attending Physician Josue Hawkins MD Current Medications Medications (Trade) Dose Ordered Sig/Rufina Route PRN Reason Start Time Stop Time Status Last Admin Dose Admin Acetaminophen (Tylenol) 650 mg Q4H PRN ORAL Mild Pain/Temp > 100.5 08/11/16 01:00 09/10/16 00:59 08/12/16 09:14 Heparin Sodium (Porcine) (Heparin 5000 units/ml) 5,000 units EVERY 12 HOURS SUBQ 08/11/16 09:00 09/10/16 08:59 Lisinopril (Zestril) 10 mg DAILY ORAL 08/11/16 16:00 09/10/16 15:59 08/12/16 09:14 Olanzapine (ZyPREXA) 2.5 mg BEDTIME ORAL 08/11/16 21:00 09/10/16 20:59 08/12/16 20:11 Tamsulosin HCl (Flomax) 0.8 mg BEDTIME ORAL 08/11/16 21:00 09/10/16 20:59 08/12/16 20:11 Allergies: Coded Allergies: No Known Allergies (Unverified , 09/04/15) ROS Limited/Unobtainable: No Constitutional: Reports: no symptoms HEENT: Reports: no symptoms Cardiovascular: Reports: no symptoms Respiratory: Reports: no symptoms Gastrointestinal/Abdominal: Reports: no symptoms Genitourinary: Reports: no symptoms Neurologic/Psychiatric: Reports: no symptoms Subjective 80 YO M admitted with altered mental status. Rambling about his father ? confused? Cover for Int Med-Dr Hawkins. Objective Last Vital Signs Date Time Temp Pulse Resp B/P Pulse Ox O2 Delivery O2 Flow Rate FiO2 08/13/16 04:00 96.6 65 18 164/97 97 Room Air Laboratory Tests Test 08/12/16 16:00 08/13/16 06:00 Stool Occult Blood Pending White Blood Count 5.6 K/UL (4.8-10.8) Red Blood Count 4.13 M/UL (4.70-6.10) L Hemoglobin 12.3 G/DL (14.2-18.0) L Hematocrit 38.4 % (42.0-52.0) L Mean Corpuscular Volume 93 FL (80-99) Mean Corpuscular Hemoglobin 29.9 PG (27.0-31.0) Mean Corpuscular Hemoglobin Concent 32.1 G/DL (32.0-36.0) Red Cell Distribution Width 12.2 % (11.6-14.8) Platelet Count 287 K/UL (150-450) Mean Platelet Volume 4.6 FL (6.5-10.1) L Neutrophils (%) (Auto) 53.3 % (45.0-75.0) Lymphocytes (%) (Auto) 32.0 % (20.0-45.0) Monocytes (%) (Auto) 11.3 % (1.0-10.0) H Eosinophils (%) (Auto) 2.4 % (0.0-3.0) Basophils (%) (Auto) 1.0 % (0.0-2.0) Sodium Level 140 mEQ/L (135-145) Potassium Level 4.4 mEQ/L (3.4-4.9) Chloride Level 100 mEQ/L (98-107) Carbon Dioxide Level 30 mEQ/L (20-30) Anion Gap 10 (5-15) Blood Urea Nitrogen 13 mg/dL (7-23) Creatinine 0.7 mg/dL (0.7-1.2) Estimat Glomerular Filtration Rate mL/min (>60) Glucose Level 97 mg/dL (74-106) Calcium Level 9.2 mg/dL (8.6-10.2) Microbiology Date/Time Source Procedure Growth Status 08/12/16 16:00 Urine,Clean Catch Urine Culture - Preliminary Resulted Intake and Output 08/12/16 08/13/16 19:00 07:00 Intake Total 960 ml 635 ml Balance 960 ml 635 ml Intake Oral 960 ml 635 ml # Voids 4 3 # Bowel Movements 1 Objective General Appearance: WD/WN, no apparent distress, alert EENT: PERRL/EOMI, normal ENT inspection Neck: non-tender, normal alignment, supple, normal inspection Cardiovascular: normal peripheral pulses, normal rate, regular rhythm, no gallop/murmur, no JVD Respiratory/Chest: chest wall non-tender, lungs clear, normal breath sounds, no respiratory distress, no accessory muscle use Abdomen: normal bowel sounds, non tender, soft, no organomegaly, no mass Extremities: normal range of motion Neurologic: programming coordinator II-XII grossly normal, no motor/sensory deficits Skin: normal pigmentation Assessment/Plan Problem List: (1) BPH (benign prostatic hypertrophy) Assessment & Plan: Cont flomax. (2) Alzheimer's dementia (3) Bradycardia Assessment & Plan: see cardiology note. (4) Altered mental status Assessment & Plan: See neuro note; workup in progress. (5) Hypertension Assessment & Plan: Cont lisinopril. Status: progressing Assessment/Plan Discharge planning: [facility] facility KAY FARNSWORTH Aug 13, 2016 11:46
[2016-08-13 12:15] VITALS: BP 122/65
[2016-08-13 16:14] VITALS: BP 115/78
--- NOTE | 2016-08-13 16:17 | Cardiac Electrophysiology PN ---
Assessment/Plan Assessment/Plan 1. History of syncope and bradycardia status post upgrade of loop recorder to [employer] pacemaker. 2. History of syncope and symptomatic bradycardia. 3. History of hypertension on Lisinopril 10 daily. 4. Dementia on Zyprexa BEBE RN Subjective Subjective Pleasantly Confused.Sitter at bedside. Thinks he is at his home.No events overnight. Objective Last 24 Hour Vital Signs Date Time Temp Pulse Resp B/P Pulse Ox O2 Delivery O2 Flow Rate FiO2 08/13/16 16:14 98.3 70 21 115/78 97 Room Air 08/13/16 12:15 98.0 78 21 122/65 95 Room Air 08/13/16 04:00 96.6 65 18 164/97 97 Room Air 08/13/16 00:00 97.0 62 18 133/79 98 Room Air 08/12/16 19:00 97.5 68 18 127/82 96 Room Air Intake and Output 08/12/16 08/13/16 19:00 07:00 Intake Total 960 ml 635 ml Balance 960 ml 635 ml Intake Oral 960 ml 635 ml # Voids 4 3 # Bowel Movements 1 Laboratory Tests Test 08/13/16 06:00 White Blood Count 5.6 K/UL (4.8-10.8) Red Blood Count 4.13 M/UL (4.70-6.10) L Hemoglobin 12.3 G/DL (14.2-18.0) L Hematocrit 38.4 % (42.0-52.0) L Mean Corpuscular Volume 93 FL (80-99) Mean Corpuscular Hemoglobin 29.9 PG (27.0-31.0) Mean Corpuscular Hemoglobin Concent 32.1 G/DL (32.0-36.0) Red Cell Distribution Width 12.2 % (11.6-14.8) Platelet Count 287 K/UL (150-450) Mean Platelet Volume 4.6 FL (6.5-10.1) L Neutrophils (%) (Auto) 53.3 % (45.0-75.0) Lymphocytes (%) (Auto) 32.0 % (20.0-45.0) Monocytes (%) (Auto) 11.3 % (1.0-10.0) H Eosinophils (%) (Auto) 2.4 % (0.0-3.0) Basophils (%) (Auto) 1.0 % (0.0-2.0) Sodium Level 140 mEQ/L (135-145) Potassium Level 4.4 mEQ/L (3.4-4.9) Chloride Level 100 mEQ/L (98-107) Carbon Dioxide Level 30 mEQ/L (20-30) Anion Gap 10 (5-15) Blood Urea Nitrogen 13 mg/dL (7-23) Creatinine 0.7 mg/dL (0.7-1.2) Estimat Glomerular Filtration Rate mL/min (>60) Glucose Level 97 mg/dL (74-106) Calcium Level 9.2 mg/dL (8.6-10.2) Microbiology Date/Time Source Procedure Growth Status 08/12/16 16:00 Urine,Clean Catch Urine Culture - Preliminary Resulted Objective HEAD AND NECK: Shows no JVD. LUNGS: Clear. CARDIOVASCULAR: Shows regular S1 and S2 with no gallop or murmur. Pacemaker in the left subclavian is intact. ABDOMEN: Soft. EXTREMITIES: No pitting edema. MARY JO MCCOLLUM Aug 13, 2016 16:17
--- NOTE | 2016-08-13 17:56 | Pulmonology Progress Note ---
Assessment/Plan Problems: (1) Altered level of consciousness (2) Dementia (3) Cachexia (4) Psychosis Assessment/Plan improving titrate fio2 to st of 92 pt/ot psych evaluation dc planning Subjective ROS Limited/Unobtainable: No Interval Events: awake, conflsed Constitutional: Reports: no symptoms - u Allergies: Coded Allergies: No Known Allergies (Unverified , 09/04/15) Objective Last 24 Hour Vital Signs Date Time Temp Pulse Resp B/P Pulse Ox O2 Delivery O2 Flow Rate FiO2 08/13/16 16:14 98.3 70 21 115/78 97 Room Air 08/13/16 12:15 98.0 78 21 122/65 95 Room Air 08/13/16 04:00 96.6 65 18 164/97 97 Room Air 08/13/16 00:00 97.0 62 18 133/79 98 Room Air 08/12/16 19:00 97.5 68 18 127/82 96 Room Air Intake and Output 08/12/16 08/13/16 19:00 07:00 Intake Total 960 ml 635 ml Balance 960 ml 635 ml Intake Oral 960 ml 635 ml # Voids 4 3 # Bowel Movements 1 Objective HEENT: normocephalic, atraumatic Respiratory/Chest: chest wall non-tender, lungs clear Cardiovascular: normal peripheral pulses, normal rate, regular rhythm Abdomen: normal bowel sounds, soft, non tender, no organomegaly Genitourinary: normal external genitalia Extremities: no cyanosis, no clubbing Skin: no rash, no lesions Neurologic/Psychiatric: winder 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 II-XII grossly normal General Appearance: cachetic Microbiology Date/Time Source Procedure Growth Status 08/12/16 16:00 Urine,Clean Catch Urine Culture - Preliminary Resulted Laboratory Tests 08/13/16 06:00: White Blood Count 5.6, Red Blood Count 4.13L, Hemoglobin 12.3L, Hematocrit 38.4L , Mean Corpuscular Volume 93, Mean Corpuscular Hemoglobin 29.9, Mean Corpuscular Hemoglobin Concent 32.1, Red Cell Distribution Width 12.2, Platelet Count 287, Mean Platelet Volume 4.6L, Neutrophils (%) (Auto) 53.3, Lymphocytes ( %) (Auto) 32.0, Monocytes (%) (Auto) 11.3H, Eosinophils (%) (Auto) 2.4, Basophils (%) (Auto) 1.0, Sodium Level 140, Potassium Level 4.4, Chloride Level 100, Carbon Dioxide Level 30, Anion Gap 10, Blood Urea Nitrogen 13, Creatinine 0.7, Estimat Glomerular Filtration Rate , Glucose Level 97, Calcium Level 9.2 Current Medications Medications (Trade) Dose Ordered Sig/Rufina Route PRN Reason Start Time Stop Time Status Last Admin Dose Admin Acetaminophen (Tylenol) 650 mg Q4H PRN ORAL Mild Pain/Temp > 100.5 08/11/16 01:00 09/10/16 00:59 08/12/16 09:14 Heparin Sodium (Porcine) (Heparin 5000 units/ml) 5,000 units EVERY 12 HOURS SUBQ 08/11/16 09:00 09/10/16 08:59 Lisinopril (Zestril) 10 mg DAILY ORAL 08/11/16 16:00 09/10/16 15:59 08/12/16 09:14 Olanzapine (ZyPREXA) 2.5 mg BEDTIME ORAL 08/11/16 21:00 09/10/16 20:59 08/12/16 20:11 Tamsulosin HCl (Flomax) 0.8 mg BEDTIME ORAL 08/11/16 21:00 09/10/16 20:59 08/12/16 20:11 KRISTY JAMES Aug 13, 2016 17:56
[2016-08-13 20:30] VITALS: BP 167/87
[2016-08-13] MEDS: OLANZapine 2.5mg tab ORAL SCH (20:44)
[2016-08-13] MEDS: Tamsulosin 0.4mg cap ORAL SCH (20:45)
[2016-08-14 04:00] VITALS: BP 156/97
[2016-08-14 06:44] LABS: BASOPHILS % (AUTO) 0.8 % (0.0-2.0); EOSINOPHILS % (AUTO) 2.2 % (0.0-3.0); LYMPHOCYTES % (AUTO) 29.3 % (20.0-45.0); MEAN CORPUSCULAR HEMOGLOBIN 30.9 PG (27.0-31.0); MEAN CORPUSCULAR HGB CONC 32.7 G/DL (32.0-36.0); MEAN CORPUSCULAR VOLUME 95 FL (80-99); MEAN PLATELET VOLUME 4.7 FL (6.5-10.1); MONOCYTES % (AUTO) 16.4 % (1.0-10.0); NEUTROPHILS % (AUTO) 51.4 % (45.0-75.0); PLATELET COUNT 294 K/UL (150-450); RED BLOOD COUNT 4.01 M/UL (4.70-6.10); RED CELL DISTRIBUTION WIDTH 12.2 % (11.6-14.8)
[2016-08-14 06:48] LABS: ANION GAP 11 (5-15); CALCIUM 9.2 mg/dL (8.6-10.2); CARBON DIOXIDE 29 mEQ/L (20-30); CHLORIDE 100 mEQ/L (98-107); CREATININE 0.8 mg/dL (0.7-1.2); HEMOLYSIS 2; POTASSIUM 4.7 mEQ/L (3.4-4.9); SODIUM 140 mEQ/L (135-145)
[2016-08-14 07:54] VITALS: BP 135/80
[2016-08-14] MEDS: Lisinopril 10mg tab ORAL SCH (08:55)
[2016-08-14] MEDS: Heparin 5000 units/ml inj SUBQ SCH (08:55)
[2016-08-14 11:28] VITALS: BP 128/84
--- NOTE | 2016-08-14 14:55 | Cardiac Electrophysiology PN ---
Assessment/Plan Assessment/Plan 1. History of syncope and bradycardia status post upgrade of loop recorder to [employer] pacemaker. 2. Hypertension on Lisinopril 10 daily. 3. Dementia on Zyprexa BEBE RN Subjective Subjective Pleasantly Confused.Sitter at bedside.Comfortable in NAD..No events overnight. Objective Last 24 Hour Vital Signs Date Time Temp Pulse Resp B/P Pulse Ox O2 Delivery O2 Flow Rate FiO2 08/14/16 11:28 97.0 68 20 128/84 100 Room Air 08/14/16 07:54 97.6 76 19 135/80 100 Room Air 08/14/16 04:00 97.7 62 20 156/97 97 Room Air 08/13/16 20:30 97.5 65 18 167/87 96 Room Air 08/13/16 16:14 98.3 70 21 115/78 97 Room Air Intake and Output 08/13/16 08/14/16 19:00 07:00 Intake Total 720 ml 300 ml Output Total 200 ml Balance 720 ml 100 ml Intake Oral 720 ml 300 ml Output Urine Total 200 ml # Voids 6 7 # Bowel Movements 1 Laboratory Tests Test 08/14/16 05:20 White Blood Count 6.0 K/UL (4.8-10.8) Red Blood Count 4.01 M/UL (4.70-6.10) L Hemoglobin 12.4 G/DL (14.2-18.0) L Hematocrit 37.9 % (42.0-52.0) L Mean Corpuscular Volume 95 FL (80-99) Mean Corpuscular Hemoglobin 30.9 PG (27.0-31.0) Mean Corpuscular Hemoglobin Concent 32.7 G/DL (32.0-36.0) Red Cell Distribution Width 12.2 % (11.6-14.8) Platelet Count 294 K/UL (150-450) Mean Platelet Volume 4.7 FL (6.5-10.1) L Neutrophils (%) (Auto) 51.4 % (45.0-75.0) Lymphocytes (%) (Auto) 29.3 % (20.0-45.0) Monocytes (%) (Auto) 16.4 % (1.0-10.0) H Eosinophils (%) (Auto) 2.2 % (0.0-3.0) Basophils (%) (Auto) 0.8 % (0.0-2.0) Sodium Level 140 mEQ/L (135-145) Potassium Level 4.7 mEQ/L (3.4-4.9) Chloride Level 100 mEQ/L (98-107) Carbon Dioxide Level 29 mEQ/L (20-30) Anion Gap 11 (5-15) Blood Urea Nitrogen 17 mg/dL (7-23) Creatinine 0.8 mg/dL (0.7-1.2) Estimat Glomerular Filtration Rate mL/min (>60) Glucose Level 76 mg/dL (74-106) Calcium Level 9.2 mg/dL (8.6-10.2) Microbiology Date/Time Source Procedure Growth Status 08/12/16 16:00 Urine,Clean Catch Urine Culture - Final Mixed Gram Positive Organism Complete Objective HEAD AND NECK: Shows no JVD. LUNGS: Clear. CARDIOVASCULAR: Shows regular S1 and S2 with no gallop or murmur. Pacemaker in the left subclavian is intact. ABDOMEN: Soft. EXTREMITIES: No pitting edema. MARY JO MCCOLLUM Aug 14, 2016 14:55
[2016-08-14 16:00] VITALS: BP 135/71
[2016-08-14] MEDS ORDERED: HEPARIN SO5000 UNIT2 SUBQ (16:55)
[2016-08-14] MEDS ORDERED: TYLENOL EXTRA500 MG ORAL (16:55)
[2016-08-14] MEDS ORDERED: ZYPREXA5 MG ORAL (16:56)
[2016-08-14] MEDS ORDERED: ZESTRIL10 M1 ORAL (16:56)
--- NOTE | 2016-08-14 18:52 | Discharge Summary ---
Discharge Summary Hospital Course Date of Admission Aug 10, 2016 at 23:12 Date of Discharge Admitting Diagnosis HPI Ariel Barbour is a 80 year old male who was admitted on Aug 10, 2016 at 23:12 for Altered Mental Status Hospital Course Dictated for Int med-Dr Hawkins no. [id number]. Discharge Discharge Disposition Patient was discharged to SNF/Subacute Facility(03) Discharge Diagnoses: KAY FARNSWORTH Aug 14, 2016 18:52
--- NOTE | 2016-08-14 20:00 | Consultation ---
DATE OF CONSULTATION: 08/13/2016 HISTORY OF PRESENT ILLNESS: The patient is a 80-year-old, male, who has been admitted to the hospital for medical stabilization. The patient has a history of multiple medical problems including bradycardia, psychotic disorder, dementia. The patient was on one-to-one as he is at fall risk. During the evaluation, the patient was disinhibited, loud, disorganized and presenting with impairment in concentration, memory and attention. He was alert however was disoriented, was not able to provide any history. He was also delusional. PAST PSYCHIATRIC HISTORY: Diagnosed with psychotic disorder in the past and treated with Zyprexa. PAST MEDICAL HISTORY: Includes bradycardia and status post pacemaker implantation, Alzheimer dementia. PAST SURGICAL HISTORY: None. MEDICATIONS: In the hospital aspirin, clonidine, Solo, Ativan, Zyprexa, Flomax. ALLERGIES: No known drug allergies. SUBSTANCE ABUSE HISTORY: No known history of illicit drug use or alcohol. MENTAL STATUS EXAMINATION: The patient is alert and oriented to self. Mood is elevated. Affect is expansive and appropriate and congruent with mood. Thought process is disorganized. Thought content, positive for delusions. Cognition is impaired. Insight and judgment, non-existent. ASSESSMENT: 1. Psychotic disorder, dementia. 2. Delirium, improved PLAN: 1. The patient will be continued on Zyprexa. We will increase the dosage to 5 mg at bedtime. 2. We will continue to follow and readjust the medication. Susan Garcia M.D. DR: Dwight JOB#: [id number] CC:
[2016-08-14] MEDS ORDERED: OLANZapine 2.5mg tab ORAL SCH (21:00)
--- NOTE | 2016-08-14 22:20 | Pulmonology Progress Note ---
Assessment/Plan Problems: (1) Altered level of consciousness (2) Dementia (3) Cachexia (4) Psychosis (5) COPD (chronic obstructive pulmonary disease) (6) Debility (7) BPH (benign prostatic hypertrophy) Assessment/Plan respiratory treatment titrate fio2 pt/ot dc planning Subjective ROS Limited/Unobtainable: No Allergies: Coded Allergies: No Known Allergies (Unverified , 09/04/15) Objective Last 24 Hour Vital Signs Date Time Temp Pulse Resp B/P Pulse Ox O2 Delivery O2 Flow Rate FiO2 08/14/16 16:00 98.1 66 20 135/71 100 Room Air 08/14/16 11:28 97.0 68 20 128/84 100 Room Air 08/14/16 07:54 97.6 76 19 135/80 100 Room Air 08/14/16 04:00 97.7 62 20 156/97 97 Room Air Intake and Output 08/13/16 08/14/16 19:00 07:00 Intake Total 720 ml 300 ml Output Total 200 ml Balance 720 ml 100 ml Intake Oral 720 ml 300 ml Output Urine Total 200 ml # Voids 6 7 # Bowel Movements 1 Objective General Appearance: WD/WN HEENT: normocephalic, atraumatic Respiratory/Chest: chest wall non-tender, lungs clear Cardiovascular: normal peripheral pulses, normal rate, regular rhythm Abdomen: normal bowel sounds, soft, non tender, no organomegaly Genitourinary: normal external genitalia Extremities: no cyanosis, no clubbing Skin: no rash, no lesions Neurologic/Psychiatric: 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 technician II-XII 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 normal Microbiology Date/Time Source Procedure Growth Status 08/12/16 16:00 Urine,Clean Catch Urine Culture - Final Mixed Gram Positive Organism Complete Laboratory Tests 08/14/16 05:20: White Blood Count 6.0, Red Blood Count 4.01L, Hemoglobin 12.4L, Hematocrit 37.9L , Mean Corpuscular Volume 95, Mean Corpuscular Hemoglobin 30.9, Mean Corpuscular Hemoglobin Concent 32.7, Red Cell Distribution Width 12.2, Platelet Count 294, Mean Platelet Volume 4.7L, Neutrophils (%) (Auto) 51.4, Lymphocytes ( %) (Auto) 29.3, Monocytes (%) (Auto) 16.4H, Eosinophils (%) (Auto) 2.2, Basophils (%) (Auto) 0.8, Sodium Level 140, Potassium Level 4.7, Chloride Level 100, Carbon Dioxide Level 29, Anion Gap 11, Blood Urea Nitrogen 17, Creatinine 0.8, Estimat Glomerular Filtration Rate , Glucose Level 76, Calcium Level 9.2 KRISTY JAMES Aug 14, 2016 22:20
--- NOTE | 2016-08-14 23:19 | Discharge Summary ---
DATE OF ADMISSION: 08/10/2016 DATE OF DISCHARGE: 08/14/2016 ADMITTING DIAGNOSES: 1. Altered mental status. 2. Hypertension. 3. Alzheimer's dementia. 4. Bradycardia. 5. Benign prostatic hypertrophy. 6. Left lung opacity. 7. Pacemaker. DISCHARGE DIAGNOSES: 1. Altered mental status. 2. Hypertension. 3. Alzheimer's dementia. 4. Bradycardia. 5. Benign prostatic hypertrophy. 6. Lung opacity. 7. Pacemaker. HOSPITAL COURSE BY PROBLEM LIST: 1. Altered mental status. A Neurology consultation was obtained with Dr. Martini. Altered mental status to be secondary to Alzheimer's dementia. The patient has follow up with Dr. Martini as an outpatient. 2. Hypertension. The patient remained on lisinopril 10 mg one tablet p.o. daily. The patient is to continue as an outpatient. 3. Bradycardia. A Cardiology consultation was obtained with Dr. Luciano Martins. A pacemaker check was performed. The pacemaker was functioning properly. The patient will follow up with Dr. Martins as an outpatient. 4. Benign prostatic hypertrophy. The patient remained on Flomax 0.8 mg 1 tablet by mouth daily. The patient is to continue as an outpatient. 5. Left lung opacity, stable. 6. Pacemaker in situ. DISCHARGE MEDICATIONS: Please refer to discharge medication list. DISCHARGE INSTRUCTIONS: The patient is discharged to [facility] today 08/14/2016. Anurag Drake M.D. DR: Kevin JOB#: [id number] CC:
== END 2016-08-14 19:37 | DRG 57 ==
LOC: 4E 23:12
DX: G30.9 Alzheimer's disease, unspecified (principal); R64 Cachexia; R00.1 Bradycardia, unspecified; F02.80 Dementia in other diseases classified elsewhere, unspecified severity, without behavioral disturbance, psychotic disturbance, mood disturbance, and anxiety; N40.0 Benign prostatic hyperplasia without lower urinary tract symptoms; F29 Unspecified psychosis not due to a substance or known physiological condition; F17.200 Nicotine dependence, unspecified, uncomplicated; Z95.0 Presence of cardiac pacemaker; I10 Essential (primary) hypertension; D64.9 Anemia, unspecified; R91.8 Other nonspecific abnormal finding of lung field
CPT/HCPCS: 36415; 71010; 80048; 80053; 82140; 82270; 82378; 82607; 82746; 83540; 83550; 83615; 83735; 83880; 84100; 84153; 84443; 84484; 85007; 85025; 85044; 85060; 85610; 85651; 85730; 87086; 93005

== ENCOUNTER 2016-11-13 12:31 | Inpatient (IN) | payer MEDICARE, MEDICAID ==
[~2016-11-13] VITALS: Ht 180.3 cm; Wt 81.6 kg
[~2016-11-13 12:31] MED LIST changes: +HEPARIN SO5000 UNIT2 SUBQ; +ZESTRIL10 M1 ORAL; +ZYPREXA5 MG ORAL
[2016-11-13 12:40] VITALS: BP 91/61
--- NOTE | 2016-11-13 12:50 | Emergency Room Report ---
History of Present Illness General Chief Complaint: Seizure Source: Patient, Medical Record Present Illness HPI Patient presents from home with complaints of seizure activity It was reported that a family member saw the patient having a tonic-clonic seizure Unknown duration of time Patient himself at this time is awake denies any previous history of seizure disorder Denies any chest pressures of breath denies any back or flank pain Denies any focal weakness denies any change in medications Patient denies any neck pain or photophobia We are waiting for family to arrive to obtain further input Allergies: Coded Allergies: No Known Allergies (Unverified , 09/04/15) Patient History Past Medical History: see triage record Pertinent Family History: none Reviewed Nursing Documentation: PMH: Agreed, PSxH: Agreed Nursing Documentation-PMH Past Medical History: No History, Except For Hx Cardiac Problems: Yes Hx Hypertension: Yes Hx Pacemaker: Yes - Left Chest Hx Cancer: No Hx Gastrointestinal Problems: No Hx Neurological Problems: Yes Hx Dementia: Yes Review of Systems All Other Systems: negative except mentioned in HPI Physical Exam Vital Signs Date Time Temp Pulse Resp B/P Pulse Ox O2 Delivery O2 Flow Rate FiO2 11/13/16 12:26 97.9 66 16 101/89 100 Room Air Sp02 EP Interpretation: reviewed, normal General Appearance: well appearing, no apparent distress Head: normocephalic, atraumatic Eyes: bilateral eye EOMI, bilateral eye PERRL ENT: hearing grossly normal, TMs + canals normal, uvula midline, dry mucus membranes Neck: full range of motion, supple, no meningismus, no bony tend Respiratory: lungs clear, normal breath sounds, no rhonchi, no respiratory distress, no retraction, no accessory muscle use Cardiovascular #1: normal peripheral pulses, regular rate, rhythm, no edema, no gallop, no JVD, no murmur Gastrointestinal: normal bowel sounds, non tender, soft, no mass, no organomegaly, non-distended, no guarding, no hernia, no pulsatile mass, no rebound Musculoskeletal: normal inspection Neurologic: oriented x3, responsive, project development leader III-XII nml as tested, motor strength/ tone normal, sensory intact Psychiatric: mood/affect normal Skin: normal color, no rash, warm/dry, palpation normal Lymphatic: normal inspection, no adenopathy Medical Decision Making Diagnostic Impression: Primary Impression: Epileptic seizure, generalized ER Course Multiple differentials including but not limited to metabolic, neurological, infectious pathology considered Patient remained afebrile here Baseline blood work is at baseline level seeking region does not show any acute disease given the patient's age and possible new onset seizures patient was admitted for further inpatient care Labs Test 11/13/16 13:00 White Blood Count 6.3 K/UL (4.8-10.8) Red Blood Count 4.94 M/UL (4.70-6.10) Hemoglobin 13.9 G/DL (14.2-18.0) Hematocrit 44.7 % (42.0-52.0) Mean Corpuscular Volume 90 FL (80-99) Mean Corpuscular Hemoglobin 28.1 PG (27.0-31.0) Mean Corpuscular Hemoglobin Concent 31.1 G/DL (32.0-36.0) Red Cell Distribution Width 13.4 % (11.6-14.8) Platelet Count 317 K/UL (150-450) Mean Platelet Volume 5.2 FL (6.5-10.1) Neutrophils (%) (Auto) 57.5 % (45.0-75.0) Lymphocytes (%) (Auto) 24.8 % (20.0-45.0) Monocytes (%) (Auto) 15.6 % (1.0-10.0) Eosinophils (%) (Auto) 1.1 % (0.0-3.0) Basophils (%) (Auto) 1.1 % (0.0-2.0) Prothrombin Time 10.7 SEC (9.30-11.50) Prothromb Time International Ratio 1.1 (0.9-1.1) Activated Partial Thromboplast Time 23 SEC (23-33) Sodium Level 140 mEQ/L (135-145) Potassium Level 3.8 mEQ/L (3.4-4.9) Chloride Level 99 mEQ/L (98-107) Carbon Dioxide Level 26 mEQ/L (20-30) Anion Gap 15 (5-15) Blood Urea Nitrogen 15 mg/dL (7-23) Creatinine 0.9 mg/dL (0.7-1.2) Estimat Glomerular Filtration Rate mL/min (>60) Glucose Level 82 mg/dL (74-106) Calcium Level 9.7 mg/dL (8.6-10.2) Total Bilirubin 0.4 mg/dL (0.0-1.2) Aspartate Amino Transf (AST/SGOT) 16 U/L (5-40) Alanine Aminotransferase (ALT/SGPT) 12 U/L (3-41) Alkaline Phosphatase 90 U/L (40-129) Total Creatine Kinase 156 U/L (38-174) Creatine Kinase MB 3.1 ng/mL (< 6.7) Creatine Kinase MB Relative Index 1.9 Troponin I < 0.30 ng/mL (<=0.30) Pro-B-Type Natriuretic Peptide 66 pg/mL (0-450) Total Protein 6.9 g/dL (6.6-8.7) Albumin 3.7 g/dL (3.5-5.2) Globulin 3.2 g/dL Albumin/Globulin Ratio 1.1 (1.0-2.7) Lipase 35 U/L (< 60) Rhythm Strip Diag. Results EP Interpretation: yes Rate: 77 Rhythm: NSR, no PVC's, no ectopy Chest X-Ray Diagnostic Results EP Interpretation: Yes Findings: no consolidation, no effusion, no pneumothorax, other - Left hemidiaphragm is elevated Number of Views: 1 CT/MRI/US Diagnostic Results CT/MRI/US Diagnostic Results : Impression CT head no acute disease Last Vital Signs Date Time Temp Pulse Resp B/P Pulse Ox O2 Delivery O2 Flow Rate FiO2 11/13/16 12:26 97.9 66 16 101/89 100 Room Air Status: improved Disposition: ADMITTED INPATIENT Condition: Serious ANDRES MCKAY D.O. November 13, 2016 12:50
[2016-11-13] MEDS ORDERED: TAMSULOSIN HCL0.4 MG ORAL (13:12)
[2016-11-13 13:13] LABS: BASOPHILS % (AUTO) 1.1 % (0.0-2.0); EOSINOPHILS % (AUTO) 1.1 % (0.0-3.0); LYMPHOCYTES % (AUTO) 24.8 % (20.0-45.0); MEAN CORPUSCULAR HEMOGLOBIN 28.1 PG (27.0-31.0); MEAN CORPUSCULAR HGB CONC 31.1 G/DL (32.0-36.0); MEAN CORPUSCULAR VOLUME 90 FL (80-99); MEAN PLATELET VOLUME 5.2 FL (6.5-10.1); MONOCYTES % (AUTO) 15.6 % (1.0-10.0); NEUTROPHILS % (AUTO) 57.5 % (45.0-75.0); PLATELET COUNT 317 K/UL (150-450); RED BLOOD COUNT 4.94 M/UL (4.70-6.10); RED CELL DISTRIBUTION WIDTH 13.4 % (11.6-14.8); WHITE BLOOD COUNT 6.3 K/UL (4.8-10.8)
[2016-11-13 13:19] LABS: INR 1.1 (0.9-1.1); PROTHROMBIN TIME 10.7 SEC (9.30-11.50)
[2016-11-13 13:24] LABS: TROPONIN I < 0.30 ng/mL (<=0.30)
[2016-11-13 13:27] LABS: ALANINE AMINOTRANSFERASE 12 U/L (3-41); ALBUMIN/GLOBULIN RATIO 1.1 (1.0-2.7); ANION GAP 15 (5-15); ASPARTATE AMINO TRANSFERASE 16 U/L (5-40); CALCIUM 9.7 mg/dL (8.6-10.2); CARBON DIOXIDE 26 mEQ/L (20-30); CHLORIDE 99 mEQ/L (98-107); CREATININE 0.9 mg/dL (0.7-1.2); HEMOLYSIS 10; LIPASE 35 U/L (< 60); POTASSIUM 3.8 mEQ/L (3.4-4.9); SODIUM 140 mEQ/L (135-145); TOTAL PROTEIN 6.9 g/dL (6.6-8.7)
--- NOTE | 2016-11-13 13:28 | Diagnostic Imaging Report ---
Indications: Chest pain Technique: Portable AP chest Findings: Comparison: None Left lung volume remains decreased compared to right with persistent elevation of left hemidiaphragm. Linear densities persist in both lung bases. Right midlung linear density versus minor fissure pleural thickening has decreased. Cardiac silhouette remains enlarged. Pulmonary vasculature remains within normal limits. No pleural abnormalities demonstrated. Aortic arch calcification and elongation, left chest wall pacemaker again noted IMPRESSION: No evidence of acute cardiopulmonary disease Interval decrease in right midlung subsegmental atelectasis versus right minor fissure pleural thickening/fluid Stable chronic changes as described
--- NOTE | 2016-11-13 13:35 | Diagnostic Imaging Report ---
Indications: New onset seizure Technique: Continuous helical CT imaging of the brain was performed with automatic exposure control on a Siemens sensation [address] scanner. Axial and coronal images were reconstructed at 5 mm slice thickness and interval. CTDI volume(s): 70 mGy Total DLP: 1362 mGy-cm Findings: Comparison: 06/21/16 Chronic microvascular ischemic changes throughout the bilateral periventricular and deep white matter, moderate diffuse atrophy are unchanged. No evidence of mass or hemorrhage, other attenuation abnormality, mass effect, midline shift, hydrocephalus or increased intracranial pressure. Bone window images are unremarkable. Visualized paranasal sinuses and mastoid air cells are clear. IMPRESSION: No evidence of acute intracranial pathology, unchanged. Examination suboptimal for evaluation of first-time seizure. MRI of the brain without and with gadolinium, seizure protocol, recommended for more complete evaluation, as clinically indicated. Stable chronic age-related changes as described. The CT scanner at [facility] is accredited by the [employer] and the scans are performed using protocols designed to limit radiation exposure to as low as reasonably achievable to attain images of sufficient resolution adequate for diagnostic evaluation.
[2016-11-13 13:37] LABS: CKMB 3.1 ng/mL (< 6.7)
[2016-11-13] MEDS ORDERED: levETIRAcetam 500mg vial IV ONE (13:55)
[2016-11-13 13:58] LABS: APPEARANCE,URINE TURBID; KETONES,URINE 1+ (NEGATIVE); LEUKOCYTE ESTERASE ,URINE 3+ (NEGATIVE); NITRITE,URINE NEGATIVE (NEGATIVE); PH,URINE 6 (4.5-8.0); PROTEIN,URINE 2+ (NEGATIVE); UROBILINOGEN,URINE 4 MG/DL (0.0-1.0)
[2016-11-13] MEDS ORDERED: levETIRAcetam 500 MG in D5W 110 ML IVPB ONE (14:00)
[2016-11-13 14:20] LABS: BACTERIA,URINE MANY /HPF; SQUAMOUS EPITHELIAL CELL,UR FEW /LPF (NONE/OCC); WBC,URINE 30-40 /HPF (0 - 0)
[2016-11-13 14:21] LABS: HYALINE CASTS, URINE 0-2 /LPF; ICTOTEST NEGATIVE
[2016-11-13] MEDS ORDERED: Zolpidem 5mg tab ORAL PRN (14:30)
[2016-11-13] MEDS ORDERED: Mylanta II UD 30ml ORAL PRN (14:30)
[2016-11-13] MEDS ORDERED: Morphine Sulfate 2mg/ml Inj IVP PRN (14:30)
[2016-11-13] MEDS ORDERED: LORazepam Inj 2mg/ml 1ml IV PRN (14:30)
[2016-11-13] MEDS ORDERED: Miralax 17gm pkt ORAL PRN (14:30)
[2016-11-13] MEDS ORDERED: ZYPREXA2.5 MG ORAL (14:57)
[2016-11-13] MEDS ORDERED: ECOTRIN81 MG PO (14:57)
[2016-11-13] MEDS ORDERED: cefTRIAXone 1 GM in D5W 55 ML IVPB ONE (15:15)
[2016-11-13 16:27] VITALS: BP 135/93
[2016-11-13 20:00] VITALS: BP 167/68
[2016-11-13] MEDS: Tamsulosin 0.4mg cap ORAL SCH (21:00)
[2016-11-13] MEDS: Heparin 5000 units/ml inj SUBQ SCH (21:00)
--- NOTE | 2016-11-13 23:01 | Consultation ---
History of Present Illness General Date patient seen: November 13, 2016 Chief Complaint: Seizure Referring physician: Dr. Hawkins Reason for Consultation: inpatient management Present Illness HPI 81 year old female with hx of dementia, CVA, seizure disorder BIBA with cc seizure activity It was reported that a family member saw the patient having a tonic-clonic seizure Pt was asymptomatic on arrival, he denied any chest pressures of breath denies any back or flank pain Denies any focal weakness denies any change in medications Pt is admitted for further treatment. Allergies: Coded Allergies: No Known Allergies (Unverified , 09/04/15) Medication History Scheduled Aspirin (Ecotrin), 81 MG PO DAILY, (Reported) Divalproex Sodium* (Depakote*), 250 MG ORAL EVERY 12 HOURS Levetiracetam (Levetiracetam), 250 MG ORAL Q12HR Lisinopril* (Zestril*), 10 MG ORAL DAILY, (Reported) Olanzapine* (Zyprexa*), 5 MG ORAL BEDTIME, (Reported) Olanzapine* (Zyprexa*), 2.5 MG ORAL DAILY, (Reported) Tamsulosin Hcl (Tamsulosin Hcl*), 0.8 MG ORAL BEDTIME, (Reported) Tamsulosin Hcl (Tamsulosin Hcl*), 0.4 MG ORAL BEDTIME, (Reported) Scheduled PRN Acetaminophen* (Tylenol Extra Strength*), 650 MG ORAL Q4HR PRN for Mild Pain/ Temp > 100.5, (Reported) Al Hydroxide/mg Hydroxide (Mag-Al Plus Suspension), 30 ML ORAL Q6H PRN Discontinued Medications Heparin Sod (Porcine) (Heparin Sodium*), 5,000 UNITS SUBQ EVERY 12 HOURS, ( Reported) Discontinued Reason: MD discontinued med Patient History Healthcare decision maker Resuscitation status Full Code Advanced Directive on File Past Medical/Surgical History Past Medical/Surgical History: (1) Dementia (2) Cachexia (3) COPD (chronic obstructive pulmonary disease) Review of Systems All Other Systems: negative except mentioned in HPI Physical Exam General Appearance: cachetic Lines, tubes and drains: peripheral, central line HEENT: normocephalic, atraumatic Neck: non-tender, normal alignment Respiratory/Chest: chest wall non-tender, lungs clear Breasts: no masses Cardiovascular/Chest: normal peripheral pulses, normal rate Last 24 Hour Vital Signs Date Time Temp Pulse Resp B/P Pulse Ox O2 Delivery O2 Flow Rate FiO2 11/13/16 20:00 96.6 76 20 167/68 97 Room Air 11/13/16 16:27 98.2 75 20 135/93 98 Room Air 11/13/16 15:01 98.2 72 18 112/68 100 Room Air 11/13/16 12:40 98.2 69 17 91/61 100 Room Air 11/13/16 12:40 69 17 Room Air 11/13/16 12:26 97.9 66 16 101/89 100 Room Air Laboratory Tests Test 11/13/16 13:00 11/13/16 13:45 White Blood Count 6.3 K/UL (4.8-10.8) Red Blood Count 4.94 M/UL (4.70-6.10) Hemoglobin 13.9 G/DL (14.2-18.0) L Hematocrit 44.7 % (42.0-52.0) Mean Corpuscular Volume 90 FL (80-99) Mean Corpuscular Hemoglobin 28.1 PG (27.0-31.0) Mean Corpuscular Hemoglobin Concent 31.1 G/DL (32.0-36.0) L Red Cell Distribution Width 13.4 % (11.6-14.8) Platelet Count 317 K/UL (150-450) Mean Platelet Volume 5.2 FL (6.5-10.1) L Neutrophils (%) (Auto) 57.5 % (45.0-75.0) Lymphocytes (%) (Auto) 24.8 % (20.0-45.0) Monocytes (%) (Auto) 15.6 % (1.0-10.0) H Eosinophils (%) (Auto) 1.1 % (0.0-3.0) Basophils (%) (Auto) 1.1 % (0.0-2.0) Prothrombin Time 10.7 SEC (9.30-11.50) Prothromb Time International Ratio 1.1 (0.9-1.1) Activated Partial Thromboplast Time 23 SEC (23-33) Sodium Level 140 mEQ/L (135-145) Potassium Level 3.8 mEQ/L (3.4-4.9) Chloride Level 99 mEQ/L (98-107) Carbon Dioxide Level 26 mEQ/L (20-30) Anion Gap 15 (5-15) Blood Urea Nitrogen 15 mg/dL (7-23) Creatinine 0.9 mg/dL (0.7-1.2) Estimat Glomerular Filtration Rate mL/min (>60) Glucose Level 82 mg/dL (74-106) Calcium Level 9.7 mg/dL (8.6-10.2) Total Bilirubin 0.4 mg/dL (0.0-1.2) Aspartate Amino Transf (AST/SGOT) 16 U/L (5-40) Alanine Aminotransferase (ALT/SGPT) 12 U/L (3-41) Alkaline Phosphatase 90 U/L (40-129) Total Creatine Kinase 156 U/L (38-174) Creatine Kinase MB 3.1 ng/mL (< 6.7) Creatine Kinase MB Relative Index 1.9 Troponin I < 0.30 ng/mL (<=0.30) Pro-B-Type Natriuretic Peptide 66 pg/mL (0-450) Total Protein 6.9 g/dL (6.6-8.7) Albumin 3.7 g/dL (3.5-5.2) Globulin 3.2 g/dL Albumin/Globulin Ratio 1.1 (1.0-2.7) Lipase 35 U/L (< 60) HIV (1&2) Antibody Rapid Negative (NEGATIVE) Urine Color Yellow Urine Appearance Turbid Urine pH 6 (4.5-8.0) Urine Specific Cullen 1.020 (1.005-1.035) Urine Protein 2+ (NEGATIVE) H Urine Glucose (UA) Negative (NEGATIVE) Urine Ketones 1+ (NEGATIVE) H Urine Occult Blood 1+ (NEGATIVE) H Urine Nitrite Negative (NEGATIVE) Urine Bilirubin 1+ (NEGATIVE) H Urine Ictotest Negative Urine Urobilinogen 4 MG/DL (0.0-1.0) H Urine Leukocyte Esterase 3+ (NEGATIVE) H Urine RBC 2-4 /HPF (0 - 0) H Urine WBC 30-40 /HPF (0 - 0) H Urine Squamous Epithelial Cells Few /LPF (NONE/OCC) Urine Bacteria Many /HPF (NONE) H Urine Hyaline Casts 0-2 /LPF (NONE) H Height (Feet): 5 Height (Inches): 11.00 Weight (Pounds): 180 Medications Current Medications Medications (Trade) Dose Ordered Sig/Rufina Route PRN Reason Start Time Stop Time Status Last Admin Dose Admin Acetaminophen (Tylenol) 650 mg Q4H PRN ORAL fever 11/13/16 14:30 12/13/16 14:29 Al Hydroxide/Mg Hydroxide (Mylanta II) 30 ml Q6H PRN ORAL dyspepsia 11/13/16 14:30 12/13/16 14:29 Ceftriaxone Sodium/Dextrose (Rocephin/D5W) 55 ml @ 110 mls/hr Q24H IVPB 11/14/16 16:00 11/21/16 15:59 Dextrose (Dextrose 50%) STAT PRN IV Hypoglycemia 11/13/16 14:30 12/13/16 14:29 Heparin Sodium (Porcine) (Heparin 5000 units/ml) 5,000 units EVERY 12 HOURS SUBQ 11/13/16 21:00 12/13/16 20:59 Levetiracetam 500 mg 500 mg Q12HR ORAL 11/13/16 21:00 12/13/16 20:59 Lisinopril (Zestril) 10 mg DAILY ORAL 11/14/16 09:00 12/14/16 08:59 Lorazepam (Ativan 2mg/ml 1ml) 2 mg Q1H PRN IV seizures 11/13/16 14:30 11/20/16 14:29 11/13/16 18:46 Morphine Sulfate (Morphine Sulfate) 1 mg Q4H PRN IVP For Pain 11/13/16 14:30 11/20/16 14:29 Olanzapine (ZyPREXA) 5 mg BEDTIME ORAL 11/13/16 21:00 12/13/16 20:59 Ondansetron HCl (Zofran) 4 mg Q6H PRN IVP Nausea & Vomiting 11/13/16 14:30 12/13/16 14:29 Polyethylene Glycol (Miralax) 17 gm HSPRN PRN ORAL Constipation 11/13/16 14:30 12/13/16 14:29 Tamsulosin HCl (Flomax) 0.4 mg BEDTIME ORAL 11/13/16 21:00 12/13/16 20:59 Zolpidem Tartrate (Ambien) 5 mg HSPRN PRN ORAL Insomnia 11/13/16 14:30 12/13/16 14:29 Assessment/Plan Problem List: (1) Epileptic seizure, generalized ICD Codes: G40.309 - Generalized idiopathic epilepsy and epileptic syndromes, not intractable, without status epilepticus SNOMED: 70113856 (2) Agitation ICD Codes: R45.1 - Restlessness and agitation SNOMED: 60545839 (3) COPD (chronic obstructive pulmonary disease) ICD Codes: J44.9 - Chronic obstructive pulmonary disease, unspecified SNOMED: 29302264 (4) Delirium due to general medical condition ICD Codes: F05 - Delirium due to known physiological condition SNOMED: 4941229 (5) Dementia ICD Codes: F03.90 - Unspecified dementia without behavioral disturbance SNOMED: 75711574 (6) Cachexia ICD Codes: R64 - Cachexia SNOMED: 677071388 Assessment/Plan seizure precaution neuro and psych evaluation monitor BP risk stratification for CVA pt/ot swallow evaluation cardiac evaluation KRISTY JAMES November 13, 2016 23:01
[2016-11-14] VITALS: BP 154/93
--- NOTE | 2016-11-14 01:46 | History and Physical Report ---
DATE OF ADMISSION: 11/13/2016 CHIEF COMPLAINT: The patient is an 81-year-old male, presents with complaint of seizure. HISTORY OF PRESENT ILLNESS: The patient was at home. The patient apparently had a generalized tonic-clonic seizure in front of a family member. The patient was transported to [place] emergency room via 911. The patient himself is hostile and not cooperative with the interview. The patient was admitted for new onset seizure disorder. PAST MEDICAL HISTORY: Significant for, 1. Bradycardia, status post pacemaker implantation. 2. Alzheimer's dementia. PAST SURGICAL HISTORY: Significant for pacemaker implantation. CURRENT MEDICATIONS: 1. Aspirin 81 mg one tablet p.o. daily. 2. Lisinopril 10 mg one tablet p.o. daily. 3. Zyprexa 5 mg one tablet p.o. nightly. 4. Flomax 0.8 mg p.o. nightly. ALLERGIES: No known drug allergies. SOCIAL HISTORY: The patient lives at home with his significant other. The patient states her name is Laney. The patient denies tobacco. The patient denies alcohol use. The patient admits to tobacco use of one-half pack per day. REVIEW OF SYSTEMS: Unable to assess secondary to the patient's altered mental status. PHYSICAL EXAMINATION: VITAL SIGNS: Temperature 97.9 degrees, respirations 16, pulse 66, and blood pressure 101/89. GENERAL: The patient is well-developed and well-nourished thin-appearing male, who is agitated. HEENT: Eyes, pupils are equal and responsive to light and accommodation. Extraocular movements are intact. NECK: Supple without lymphadenopathy. CHEST: Lungs are clear to auscultation bilaterally without wheezes or rales. CARDIOVASCULAR: Regular rate. S1 and S2 normal without murmurs, rubs, or gallops. ABDOMEN: Soft, nontender, and nondistended. Positive bowel sounds. No hepatosplenomegaly. Currently, no rebound or guarding noted. EXTREMITIES: Negative for clubbing, cyanosis, or edema. RECTAL: Refused. GENITAL: Refused. NEUROLOGIC: Cranial nerves II through XII are grossly intact without focal deficits. Motor strength is 5/5 bilaterally. Deep tendon reflexes 2+ plantar. LABORATORY STUDIES: WBC 6.3, hemoglobin 13.9, hematocrit 44.7, and platelets 317,000. Sodium 140, potassium 3.8, chloride 99, CO2 26, BUN 15, creatinine 0.9, and glucose 82. Urinalysis showed 2+ protein, 1+ ketones, 1+ occult blood, and 3+ leukocyte esterase with 30 [address] scan of the brain was reported as chronic age related changes, otherwise no acute mass or hemorrhage. ASSESSMENT: This is an 81-year-old male, 1. Seizure. 2. Altered mental status. 3. Urinary tract infection. 4. Hypertension. 5. Benign prostatic hypertrophy. 6. Agitation. TREATMENT: 1. Seizure. A Neurology consultation has been obtained with Dr. Marcial. We will follow recommendation of Dr. Marcial. The patient was given Keppra in the emergency room intravenously. 2. Urinary tract infection. The patient has been started empirically on ceftriaxone intravenously. Urine culture is pending. 3. Hypertension. Continue lisinopril as above. 4. Benign prostatic hypertrophy. Continue Flomax as above. 5. Agitation. Continue Zyprexa as above. Anurag Drake M.D. DR: Romulo JOB#: [id number] CC:
[2016-11-14 04:00] VITALS: BP 207/125
[2016-11-14 07:07] LABS: BASOPHILS % (AUTO) 1.2 % (0.0-2.0); EOSINOPHILS % (AUTO) 1.8 % (0.0-3.0); LYMPHOCYTES % (AUTO) 29.2 % (20.0-45.0); MEAN CORPUSCULAR HEMOGLOBIN 28.1 PG (27.0-31.0); MEAN CORPUSCULAR HGB CONC 31.2 G/DL (32.0-36.0); MEAN CORPUSCULAR VOLUME 90 FL (80-99); MEAN PLATELET VOLUME 5.2 FL (6.5-10.1); MONOCYTES % (AUTO) 14.6 % (1.0-10.0); NEUTROPHILS % (AUTO) 53.2 % (45.0-75.0); PLATELET COUNT 257 K/UL (150-450); RED CELL DISTRIBUTION WIDTH 13.4 % (11.6-14.8); WHITE BLOOD COUNT 6.5 K/UL (4.8-10.8)
[2016-11-14 08:03] LABS: ALANINE AMINOTRANSFERASE 11 U/L (3-41); ALBUMIN/GLOBULIN RATIO 1.1 (1.0-2.7); ANION GAP 16 (5-15); ASPARTATE AMINO TRANSFERASE 17 U/L (5-40); CALCIUM 9.6 mg/dL (8.6-10.2); CARBON DIOXIDE 24 mEQ/L (20-30); CHLORIDE 97 mEQ/L (98-107); CREATININE 0.8 mg/dL (0.7-1.2); HEMOLYSIS 44; POTASSIUM 4.2 mEQ/L (3.4-4.9); SODIUM 137 mEQ/L (135-145); TOTAL PROTEIN 6.8 g/dL (6.6-8.7)
[2016-11-14 08:15] VITALS: BP 151/94
[2016-11-14] MEDS: Lisinopril 10mg tab ORAL SCH (09:09)
[2016-11-14] MEDS: Heparin 5000 units/ml inj SUBQ SCH ×2 (09:11→20:42)
[2016-11-14 12:15] VITALS: BP 140/86
--- NOTE | 2016-11-14 12:58 | Pulmonology Progress Note ---
Assessment/Plan Assessment/Plan ASSESSMENT 1. Seizure disorder with breakthrough epsidoe . 2. acute toxic encepahlopathy ( due to seziure). 3. UTI 4. Hypertension. 5. COPD 6. pacemaker 7. Schizophrenia 8. BPH PLAN OF CARE [place] floor seizure precautions continue Keppra sitter at the bedside neuro eval CT head no acute changes abx, fup with urine cx O2 HHN prn BP management with RICH and optimize as needed continue Flomax, monitor for signs of urinary retention resume home antipsychotic medications, if agitated- may benefit from psych eval DVT prophylaxis case discussed and evaluated by supervising physician Subjective Allergies: Coded Allergies: No Known Allergies (Unverified , 09/04/15) Subjective sitter at the bedsides no further seizure activity Objective Last 24 Hour Vital Signs Date Time Temp Pulse Resp B/P Pulse Ox O2 Delivery O2 Flow Rate FiO2 11/14/16 09:09 151/94 11/14/16 08:15 97.1 71 21 151/94 96 Room Air 11/14/16 04:00 97.2 77 22 207/125 99 Room Air 11/14/16 00:00 96.8 65 20 154/93 96 Room Air 11/13/16 20:00 96.6 76 20 167/68 97 Room Air 11/13/16 16:27 98.2 75 20 135/93 98 Room Air 11/13/16 15:01 98.2 72 18 112/68 100 Room Air Intake and Output 11/13/16 11/14/16 19:00 07:00 Intake Total 615 ml Output Total 300 ml Balance 315 ml Intake IV Total 615 ml Output Urine Total 300 ml # Voids 3 General Appearance: no acute distress, other - awake, responsive HEENT: normocephalic, atraumatic, anicteric Respiratory/Chest: lungs clear - with moderate air entry , normal breath sounds , no respiratory distress, other - left chest pacemaker Cardiovascular: normal peripheral pulses, normal rate, regular rhythm, no JVD Abdomen: normal bowel sounds, soft, non tender, non distended Genitourinary: normal external genitalia Neurologic/Psychiatric: abnormal gait, alert, responsive Musculoskeletal: atrophy - BLE Laboratory Tests 11/13/16 13:00: White Blood Count 6.3, Red Blood Count 4.94, Hemoglobin 13.9L, Hematocrit 44.7, Mean Corpuscular Volume 90, Mean Corpuscular Hemoglobin 28.1, Mean Corpuscular Hemoglobin Concent 31.1L, Red Cell Distribution Width 13.4, Platelet Count 317, Mean Platelet Volume 5.2L, Neutrophils (%) (Auto) 57.5, Lymphocytes (%) (Auto) 24.8, Monocytes (%) (Auto) 15.6H, Eosinophils (%) (Auto) 1.1, Basophils (%) ( Auto) 1.1, Prothrombin Time 10.7, Prothromb Time International Ratio 1.1, Activated Partial Thromboplast Time 23, Sodium Level 140, Potassium Level 3.8, Chloride Level 99, Carbon Dioxide Level 26, Anion Gap 15, Blood Urea Nitrogen 15 , Creatinine 0.9, Estimat Glomerular Filtration Rate , Glucose Level 82, Calcium Level 9.7, Total Bilirubin 0.4, Aspartate Amino Transf (AST/SGOT) 16, Alanine Aminotransferase (ALT/SGPT) 12, Alkaline Phosphatase 90, Total Creatine Kinase 156, Creatine Kinase MB 3.1, Creatine Kinase MB Relative Index 1.9, Troponin I < 0.30, Pro-B-Type Natriuretic Peptide 66, Total Protein 6.9, Albumin 3.7, Globulin 3.2, Albumin/Globulin Ratio 1.1, Lipase 35, HIV (1&2) Antibody Rapid Negative 11/13/16 13:45: Urine Color Yellow, Urine Appearance Turbid, Urine pH 6, Urine Specific Logan 1.020, Urine Protein 2+H, Urine Glucose (UA) Negative, Urine Ketones 1+H, Urine Occult Blood 1+H, Urine Nitrite Negative, Urine Bilirubin 1+H, Urine Ictotest Negative, Urine Urobilinogen 4H, Urine Leukocyte Esterase 3+H, Urine RBC 2-4H, Urine WBC 30-40H, Urine Squamous Epithelial Cells Few, Urine Bacteria ManyH, Urine Hyaline Casts 0-2H 11/14/16 04:45: White Blood Count 6.5, Red Blood Count 4.90, Hemoglobin 13.7L, Hematocrit 44.1, Mean Corpuscular Volume 90, Mean Corpuscular Hemoglobin 28.1, Mean Corpuscular Hemoglobin Concent 31.2L, Red Cell Distribution Width 13.4, Platelet Count 257, Mean Platelet Volume 5.2L, Neutrophils (%) (Auto) 53.2, Lymphocytes (%) (Auto) 29.2, Monocytes (%) (Auto) 14.6H, Eosinophils (%) (Auto) 1.8, Basophils (%) ( Auto) 1.2, Sodium Level 137, Potassium Level 4.2, Chloride Level 97L, Carbon Dioxide Level 24, Anion Gap 16H, Blood Urea Nitrogen 15, Creatinine 0.8, Estimat Glomerular Filtration Rate , Glucose Level 81, Calcium Level 9.6, Total Bilirubin 0.3, Aspartate Amino Transf (AST/SGOT) 17, Alanine Aminotransferase ( ALT/SGPT) 11, Alkaline Phosphatase 92, Total Protein 6.8, Albumin 3.7, Globulin 3.1, Albumin/Globulin Ratio 1.1, Hepatitis B Surface Antigen [Pending], Hepatitis C Antibody [Pending] Current Medications Medications (Trade) Dose Ordered Sig/Rufina Route PRN Reason Start Time Stop Time Status Last Admin Dose Admin Acetaminophen (Tylenol) 650 mg Q4H PRN ORAL fever 11/13/16 14:30 12/13/16 14:29 Al Hydroxide/Mg Hydroxide (Mylanta II) 30 ml Q6H PRN ORAL dyspepsia 11/13/16 14:30 12/13/16 14:29 Ceftriaxone Sodium/Dextrose (Rocephin/D5W) 55 ml @ 110 mls/hr Q24H IVPB 11/14/16 16:00 11/21/16 15:59 Dextrose (Dextrose 50%) STAT PRN IV Hypoglycemia 11/13/16 14:30 12/13/16 14:29 Heparin Sodium (Porcine) (Heparin 5000 units/ml) 5,000 units EVERY 12 HOURS SUBQ 11/13/16 21:00 12/13/16 20:59 11/14/16 09:11 Levetiracetam 500 mg 500 mg Q12HR ORAL 11/13/16 21:00 12/13/16 20:59 11/14/16 09:09 Lisinopril (Zestril) 10 mg DAILY ORAL 11/14/16 09:00 12/14/16 08:59 11/14/16 09:09 Lorazepam (Ativan 2mg/ml 1ml) 2 mg Q1H PRN IV seizures 11/13/16 14:30 11/20/16 14:29 11/13/16 18:46 Morphine Sulfate (Morphine Sulfate) 1 mg Q4H PRN IVP For Pain 11/13/16 14:30 11/20/16 14:29 Olanzapine (ZyPREXA) 5 mg BEDTIME ORAL 11/13/16 21:00 12/13/16 20:59 Ondansetron HCl (Zofran) 4 mg Q6H PRN IVP Nausea & Vomiting 11/13/16 14:30 12/13/16 14:29 Polyethylene Glycol (Miralax) 17 gm HSPRN PRN ORAL Constipation 11/13/16 14:30 12/13/16 14:29 Tamsulosin HCl (Flomax) 0.4 mg BEDTIME ORAL 11/13/16 21:00 12/13/16 20:59 Zolpidem Tartrate (Ambien) 5 mg HSPRN PRN ORAL Insomnia 11/13/16 14:30 12/13/16 14:29 Arturo (Christie Hitchcock NP November 14, 2016 12:58
[2016-11-14] MEDS: cefTRIAXone 1 GM in D5W 55 ML IVPB SCH (16:06)
[2016-11-14 16:15] VITALS: BP 125/87
--- NOTE | 2016-11-14 17:47 | Internal Med Progress Note ---
Subjective Date of Service: November 14, 2016 Physician Name FarnsworthKay Attending Physician Josue Hawkins MD Current Medications Medications (Trade) Dose Ordered Sig/Rufina Route PRN Reason Start Time Stop Time Status Last Admin Dose Admin Acetaminophen (Tylenol) 650 mg Q4H PRN ORAL fever 11/13/16 14:30 12/13/16 14:29 Al Hydroxide/Mg Hydroxide (Mylanta II) 30 ml Q6H PRN ORAL dyspepsia 11/13/16 14:30 12/13/16 14:29 Ceftriaxone Sodium/Dextrose (Rocephin/D5W) 55 ml @ 110 mls/hr Q24H IVPB 11/14/16 16:00 11/21/16 15:59 11/14/16 16:06 Dextrose (Dextrose 50%) STAT PRN IV Hypoglycemia 11/13/16 14:30 12/13/16 14:29 Heparin Sodium (Porcine) (Heparin 5000 units/ml) 5,000 units EVERY 12 HOURS SUBQ 11/13/16 21:00 12/13/16 20:59 11/14/16 09:11 Levetiracetam 500 mg 500 mg Q12HR ORAL 11/13/16 21:00 12/13/16 20:59 11/14/16 09:09 Lisinopril (Zestril) 10 mg DAILY ORAL 11/14/16 09:00 12/14/16 08:59 11/14/16 09:09 Lorazepam (Ativan 2mg/ml 1ml) 2 mg Q1H PRN IV seizures 11/13/16 14:30 11/20/16 14:29 11/13/16 18:46 Morphine Sulfate (Morphine Sulfate) 1 mg Q4H PRN IVP For Pain 11/13/16 14:30 11/20/16 14:29 Olanzapine (ZyPREXA) 5 mg BEDTIME ORAL 11/13/16 21:00 12/13/16 20:59 Ondansetron HCl (Zofran) 4 mg Q6H PRN IVP Nausea & Vomiting 11/13/16 14:30 12/13/16 14:29 Polyethylene Glycol (Miralax) 17 gm HSPRN PRN ORAL Constipation 11/13/16 14:30 12/13/16 14:29 Tamsulosin HCl (Flomax) 0.4 mg BEDTIME ORAL 11/13/16 21:00 12/13/16 20:59 Zolpidem Tartrate (Ambien) 5 mg HSPRN PRN ORAL Insomnia 11/13/16 14:30 12/13/16 14:29 Allergies: Coded Allergies: No Known Allergies (Unverified , 09/04/15) ROS Limited/Unobtainable: No Constitutional: Reports: no symptoms HEENT: Reports: no symptoms Cardiovascular: Reports: no symptoms Respiratory: Reports: no symptoms Gastrointestinal/Abdominal: Reports: no symptoms Genitourinary: Reports: no symptoms Neurologic/Psychiatric: Reports: no symptoms Subjective 81 YO M admitted with seizure. Cover for Int Jt-Dr Hawkins. Objective Last Vital Signs Date Time Temp Pulse Resp B/P Pulse Ox O2 Delivery O2 Flow Rate FiO2 11/14/16 12:15 98.4 85 20 140/86 97 Room Air Laboratory Tests Test 11/14/16 04:45 White Blood Count 6.5 K/UL (4.8-10.8) Red Blood Count 4.90 M/UL (4.70-6.10) Hemoglobin 13.7 G/DL (14.2-18.0) L Hematocrit 44.1 % (42.0-52.0) Mean Corpuscular Volume 90 FL (80-99) Mean Corpuscular Hemoglobin 28.1 PG (27.0-31.0) Mean Corpuscular Hemoglobin Concent 31.2 G/DL (32.0-36.0) L Red Cell Distribution Width 13.4 % (11.6-14.8) Platelet Count 257 K/UL (150-450) Mean Platelet Volume 5.2 FL (6.5-10.1) L Neutrophils (%) (Auto) 53.2 % (45.0-75.0) Lymphocytes (%) (Auto) 29.2 % (20.0-45.0) Monocytes (%) (Auto) 14.6 % (1.0-10.0) H Eosinophils (%) (Auto) 1.8 % (0.0-3.0) Basophils (%) (Auto) 1.2 % (0.0-2.0) Sodium Level 137 mEQ/L (135-145) Potassium Level 4.2 mEQ/L (3.4-4.9) Chloride Level 97 mEQ/L (98-107) L Carbon Dioxide Level 24 mEQ/L (20-30) Anion Gap 16 (5-15) H Blood Urea Nitrogen 15 mg/dL (7-23) Creatinine 0.8 mg/dL (0.7-1.2) Estimat Glomerular Filtration Rate mL/min (>60) Glucose Level 81 mg/dL (74-106) Calcium Level 9.6 mg/dL (8.6-10.2) Total Bilirubin 0.3 mg/dL (0.0-1.2) Aspartate Amino Transf (AST/SGOT) 17 U/L (5-40) Alanine Aminotransferase (ALT/SGPT) 11 U/L (3-41) Alkaline Phosphatase 92 U/L (40-129) Total Protein 6.8 g/dL (6.6-8.7) Albumin 3.7 g/dL (3.5-5.2) Globulin 3.1 g/dL Albumin/Globulin Ratio 1.1 (1.0-2.7) Hepatitis B Surface Antigen Pending Hepatitis C Antibody Pending Intake and Output 11/13/16 11/14/16 19:00 07:00 Intake Total 615 ml Output Total 300 ml Balance 315 ml Intake IV Total 615 ml Output Urine Total 300 ml # Voids 3 Objective General: alert, cooperative, no distress, appears stated age Head: normocephalic, without obvious abnormality, atraumatic Eyes: conjunctivae/corneas clear. PERRL, EOM's intact Throat: lips, mucosa, and tongue normal. MMM Neck: supple, symmetrical, trachea midline, and no JVD Lungs: clear to auscultation bilaterally Heart: regular rate and rhythm, S1, S2 normal, no murmur, click, rub or gallop Abdomen: soft, non-tender, non-distended, bowel sounds normal; no masses or organomegaly Extremities: extremities normal, atraumatic, no cyanosis or edema Pulses: 2+ and symmetric Skin: skin color, texture, turgor normal; no rashes or lesions Neurologic: grossly normal, no focal deficits Assessment/Plan Problem List: (1) Agitation Assessment & Plan: Await psych conuslt. 1:1 Sitter (2) Epileptic seizure, generalized Assessment & Plan: Cont keppra. Await neuro consult. (3) Altered mental status (4) UTI (lower urinary tract infection) Assessment & Plan: await urine culture results. Cont rocephin for now (5) BPH (benign prostatic hypertrophy) (6) Hypertension Status: not improved KAY FARNSWORTH November 14, 2016 17:47
--- NOTE | 2016-11-14 18:52 | Neurology Progress Note ---
Interim History Interim History ROS Limited/Unobtainable: No Objective Physical Exam Last Vital Signs Date Time Temp Pulse Resp B/P Pulse Ox O2 Delivery O2 Flow Rate FiO2 11/14/16 16:15 97.8 72 20 125/87 98 Room Air Laboratory Tests Test 11/14/16 04:45 White Blood Count 6.5 K/UL (4.8-10.8) Red Blood Count 4.90 M/UL (4.70-6.10) Hemoglobin 13.7 G/DL (14.2-18.0) L Hematocrit 44.1 % (42.0-52.0) Mean Corpuscular Volume 90 FL (80-99) Mean Corpuscular Hemoglobin 28.1 PG (27.0-31.0) Mean Corpuscular Hemoglobin Concent 31.2 G/DL (32.0-36.0) L Red Cell Distribution Width 13.4 % (11.6-14.8) Platelet Count 257 K/UL (150-450) Mean Platelet Volume 5.2 FL (6.5-10.1) L Neutrophils (%) (Auto) 53.2 % (45.0-75.0) Lymphocytes (%) (Auto) 29.2 % (20.0-45.0) Monocytes (%) (Auto) 14.6 % (1.0-10.0) H Eosinophils (%) (Auto) 1.8 % (0.0-3.0) Basophils (%) (Auto) 1.2 % (0.0-2.0) Sodium Level 137 mEQ/L (135-145) Potassium Level 4.2 mEQ/L (3.4-4.9) Chloride Level 97 mEQ/L (98-107) L Carbon Dioxide Level 24 mEQ/L (20-30) Anion Gap 16 (5-15) H Blood Urea Nitrogen 15 mg/dL (7-23) Creatinine 0.8 mg/dL (0.7-1.2) Estimat Glomerular Filtration Rate mL/min (>60) Glucose Level 81 mg/dL (74-106) Calcium Level 9.6 mg/dL (8.6-10.2) Total Bilirubin 0.3 mg/dL (0.0-1.2) Aspartate Amino Transf (AST/SGOT) 17 U/L (5-40) Alanine Aminotransferase (ALT/SGPT) 11 U/L (3-41) Alkaline Phosphatase 92 U/L (40-129) Total Protein 6.8 g/dL (6.6-8.7) Albumin 3.7 g/dL (3.5-5.2) Globulin 3.1 g/dL Albumin/Globulin Ratio 1.1 (1.0-2.7) Hepatitis B Surface Antigen Pending Hepatitis C Antibody Pending Impression/Recommendations Problems: (1) Epileptic seizure, generalized (2) Status post placement of implantable loop recorder Status: not improved Recommendations #[id number] LYNDA GA November 14, 2016 18:52
[2016-11-14] MEDS: Tamsulosin 0.4mg cap ORAL SCH (20:39)
--- NOTE | 2016-11-15 02:46 | Consultation ---
DATE OF CONSULTATION: 11/14/2016 NEUROLOGICAL CONSULTATION CONSULTING PHYSICIAN: Manolo Marcial M.D. REQUESTING PHYSICIAN: Anurag Drake M.D. HISTORY OF PRESENT ILLNESS: This is an 81-year-old gentleman, seen in neurological consultation to evaluate episodes of seizure witnessed by personnel. Paramedics were called to the scene. His blood pressure was 101/89 and heart rate of 66. The patient was found to be supine on the ground, in no distress status post tonic-clonic seizure lasting 2 minutes. The patient's family stated that the patient was initially in a wheelchair when he started to develop a generalized shaking. He was helped to the ground. He was postictal, but no evidence of trauma noted. The patient was brought to the emergency room. On admission, he was awake. He was unaware why he is in the hospital. His vital signs remained stable. His blood pressure was 101/89. He was fully alert and oriented. His initial workup included a CAT scan of the brain without contrast revealed diffuse atrophy, chronic microvascular disease throughout bilateral periventricular deep white matter. No midline shift. No hemorrhage noted. Chest x-ray, no evidence of acute cardiopulmonary disease. Lab work included normal CBC. Chemistry panel was unremarkable. Normal troponin. Urinalysis with many bacteria, 2 to 4 WBCs, 3+ leukocyte esterase, and 2+ protein. Following admission, the patient described as being agitated and restless and required a sitter. The patient was known to me from a previous assessment 2 months ago when he was suspected to have seizures. He was brought to this hospital with episode of hypersomnia, but the cause of this was not detected. He was diagnosed with dementia, psychosis, COPD, benign prostatic hypertrophy, and subsequently he was discharged in a stable condition. The patient has a history of syncope or bradycardia, status post loop recorder placement, and history of hypertension. MEDICATIONS: Treatment prior to admission included lisinopril, Zyprexa 5 mg at bedtime, tamsulosin, aspirin, and Tylenol as needed. ALLERGIES: None reported. SOCIAL HISTORY: He is a . He lives with his family. There is no alcohol or drug abuse. Nonsmoker. REVIEW OF SYMPTOMS: The patient indicated he is feeling well. He is not aware of having seizures. Denies headache or dizziness. No chest pain. No palpitation. No respiratory problems. No abdominal pain or discomfort. No urine or bowel incontinence. PHYSICAL EXAMINATION: GENERAL: The patient is a well-developed and well-nourished man, in no acute distress, lying comfortably in bed, fully awake. VITAL SIGNS: Blood pressure 143/70 and respirations 14. HEENT: Head is normocephalic. No evidence of injuries. Eyes, ears, and throat are clear. NECK: Rigid in all directions. MUSCULOSKELETAL: No deformities. Peripheral pulses 1+ symmetric. MENTAL STATUS: The patient is alert and oriented to his name, age, place, but he is quite poor historian, forgetful. He is now more comfortable, coherent, and follows commands. CRANIAL NERVE II: Pupils both responding to light and accommodation. Extraocular movement intact. No nystagmus. CRANIAL NERVE V: Normal corneal responses. CRANIAL NERVE VII: No gross asymmetry. CRANIAL NERVE VIII: Decreased hearing. CRANIAL NERVES IX THROUGH XII: Tongue is in midline. Symmetric palate elevation. MOTOR EXAMINATION: Revealed diffuse rigidity in both lower extremities. No involuntary movement. Strength is 5/5. Deep tendon reflexes 3+ bilaterally. Plantar response is questionable. Babinski on the right. SENSORY EXAMINATION: Withdrawing to pin stimulation in all limbs. Gait not tested, but reported being very unstable. IMPRESSION: 1. This is an 81-year-old man with a new onset of generalized seizure activity witnessed by the family. 2. Chronic psychiatric disorder. 3. Hypotension. 4. Urinary tract infection. 5. Pacemaker in place. 6. Chronic obstructive pulmonary disease. RECOMMENDATIONS: 1. Obtain electroencephalogram. 2. Continue with Keppra 500 mg b.i.d. 3. Continue aspirin and statins. 4. Continue supportive care. 5. Have psychiatric reevaluation for maintenance of psychotropic. 6. I will suggest to change anticonvulsant Keppra to Depakote 500 mg b.i.d. 7. We will monitor liver function levels. Thank you for allowing me to see this interesting patient in neurological consultation. Manolo Marcial M.D. DR: KYMBERLY JOB#: [id number] CC:
[2016-11-15 07:53] VITALS: BP 144/93
[2016-11-15] MEDS: Lisinopril 10mg tab ORAL SCH (08:46)
[2016-11-15] MEDS: Heparin 5000 units/ml inj SUBQ SCH ×2 (08:49→21:04)
[2016-11-15 12:00] VITALS: BP 121/78
--- NOTE | 2016-11-15 14:55 | Internal Med Progress Note ---
Subjective Date of Service: November 15, 2016 Physician Name Farnsworth,Kay Attending Physician Josue Hawkins MD Current Medications Medications (Trade) Dose Ordered Sig/Rufina Route PRN Reason Start Time Stop Time Status Last Admin Dose Admin Acetaminophen (Tylenol) 650 mg Q4H PRN ORAL fever 11/13/16 14:30 12/13/16 14:29 Al Hydroxide/Mg Hydroxide (Mylanta II) 30 ml Q6H PRN ORAL dyspepsia 11/13/16 14:30 12/13/16 14:29 Ceftriaxone Sodium/Dextrose (Rocephin/D5W) 55 ml @ 110 mls/hr Q24H IVPB 11/14/16 16:00 11/21/16 15:59 11/14/16 16:06 Dextrose (Dextrose 50%) STAT PRN IV Hypoglycemia 11/13/16 14:30 12/13/16 14:29 Divalproex Sodium (Depakote) 250 mg EVERY 12 HOURS ORAL 11/14/16 21:00 12/14/16 20:59 11/15/16 08:46 Heparin Sodium (Porcine) 5000 units 5,000 units EVERY 12 HOURS SUBQ 11/13/16 21:00 12/13/16 20:59 11/15/16 08:49 Levetiracetam (Keppra) 250 mg Q12HR ORAL 11/14/16 21:00 12/14/16 20:59 11/15/16 08:46 Lisinopril (Zestril) 10 mg DAILY ORAL 11/14/16 09:00 12/14/16 08:59 11/15/16 08:46 Lorazepam (Ativan 2mg/ml 1ml) 2 mg Q1H PRN IV seizures 11/13/16 14:30 11/20/16 14:29 11/13/16 18:46 Morphine Sulfate (Morphine Sulfate) 1 mg Q4H PRN IVP For Pain 11/13/16 14:30 11/20/16 14:29 Olanzapine (ZyPREXA) 5 mg BEDTIME ORAL 11/13/16 21:00 12/13/16 20:59 11/14/16 20:39 Ondansetron HCl (Zofran) 4 mg Q6H PRN IVP Nausea & Vomiting 11/13/16 14:30 12/13/16 14:29 Polyethylene Glycol (Miralax) 17 gm HSPRN PRN ORAL Constipation 11/13/16 14:30 12/13/16 14:29 Tamsulosin HCl (Flomax) 0.4 mg BEDTIME ORAL 11/13/16 21:00 12/13/16 20:59 11/14/16 20:39 Zolpidem Tartrate (Ambien) 5 mg HSPRN PRN ORAL Insomnia 11/13/16 14:30 12/13/16 14:29 Allergies: Coded Allergies: No Known Allergies (Unverified , 09/04/15) ROS Limited/Unobtainable: No Constitutional: Reports: no symptoms HEENT: Reports: no symptoms Cardiovascular: Reports: no symptoms Respiratory: Reports: no symptoms Gastrointestinal/Abdominal: Reports: no symptoms Genitourinary: Reports: no symptoms Neurologic/Psychiatric: Reports: no symptoms Subjective 81 YO M admitted with seizure. Cover for Int Med-Dr Hawkins. Objective Last Vital Signs Date Time Temp Pulse Resp B/P Pulse Ox O2 Delivery O2 Flow Rate FiO2 11/15/16 12:00 97.2 72 18 121/78 98 Room Air Microbiology Date/Time Source Procedure Growth Status 11/13/16 13:45 Nasal Nares MRSA Culture - 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 Complete 11/13/16 13:45 Urine,Clean Catch Urine Culture - Preliminary NO GROWTH AFTER 24 HOURS Resulted 11/13/16 13:45 Rectum VRE Culture - Final NO VANCOMYCIN RESISTANT ENTEROCOCCUS ... Complete Intake and Output 11/14/16 11/15/16 19:00 07:00 Intake Total 1635 ml 280 ml Balance 1635 ml 280 ml Intake Oral 1580 ml 280 ml IV Total 55 ml # Voids 7 3 Objective General: alert, cooperative, no distress, appears stated age Head: normocephalic, without obvious abnormality, atraumatic Eyes: conjunctivae/corneas clear. PERRL, EOM's intact Throat: lips, mucosa, and tongue normal. MMM Neck: supple, symmetrical, trachea midline, and no JVD Lungs: clear to auscultation bilaterally Heart: regular rate and rhythm, S1, S2 normal, no murmur, click, rub or gallop Abdomen: soft, non-tender, non-distended, bowel sounds normal; no masses or organomegaly Extremities: extremities normal, atraumatic, no cyanosis or edema Pulses: 2+ and symmetric Skin: skin color, texture, turgor normal; no rashes or lesions Neurologic: grossly normal, no focal deficits Assessment/Plan Problem List: (1) Agitation Assessment & Plan: Await psych conuslt. 1:1 Sitter (2) Epileptic seizure, generalized Assessment & Plan: Await EEG. D/Ct keppra; start depakote-see neuro consult. (3) Altered mental status (4) UTI (lower urinary tract infection) Assessment & Plan: await urine culture results. Cont rocephin for now (5) BPH (benign prostatic hypertrophy) (6) Hypertension Status: not improved KAY FARNSWORTH November 15, 2016 14:55
--- NOTE | 2016-11-15 15:23 | Pulmonology Progress Note ---
Assessment/Plan Assessment/Plan ASSESSMENT 1. New onset of generalized seizure disorder 2. Acute toxic encephalopathy ( due to seizure snf underlying psychiatric disorder ). 3. UTI 4. Hypertension. 5. COPD 6. pacemaker 7. Schizophrenia 8. BPH PLAN OF CARE MS floor seizure precautions continue Keppra and Depakote neuro eval noted and appreciated further regimen of anticonvulsant as per neuro management sitter at the bedside CT head no acute changes EEG abx, fup with urine cx, urien cx preliminary negative O2 HHN prn BP management with RICH and optimize as needed continue Flomax, monitor for signs of urinary retention resume home antipsychotic medications, consider psych eval DVT prophylaxis case discussed and evaluated by supervising physician Subjective Allergies: Coded Allergies: No Known Allergies (Unverified , 09/04/15) Subjective sitter at the bedsides no further seizure activity Objective Last 24 Hour Vital Signs Date Time Temp Pulse Resp B/P Pulse Ox O2 Delivery O2 Flow Rate FiO2 11/15/16 12:00 97.2 72 18 121/78 98 Room Air 11/15/16 08:46 144/93 11/15/16 07:53 97.3 67 18 144/93 97 Room Air 11/14/16 16:15 97.8 72 20 125/87 98 Room Air Intake and Output 11/14/16 11/15/16 19:00 07:00 Intake Total 1635 ml 280 ml Balance 1635 ml 280 ml Intake Oral 1580 ml 280 ml IV Total 55 ml # Voids 7 3 Objective General Appearance: no acute distress, other - awake, responsive HEENT: normocephalic, atraumatic, anicteric Respiratory/Chest: lungs clear - with moderate air entry , normal breath sounds , no respiratory distress, other - left chest pacemaker Cardiovascular: normal peripheral pulses, normal rate, regular rhythm, no JVD Abdomen: normal bowel sounds, soft, non tender, non distended Genitourinary: normal external genitalia Neurologic/Psychiatric: abnormal gait, alert, responsive Musculoskeletal: atrophy - BLE Microbiology Date/Time Source Procedure Growth Status 11/13/16 13:45 Nasal Nares MRSA Culture - 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 Complete 11/13/16 13:45 Urine,Clean Catch Urine Culture - Preliminary NO GROWTH AFTER 24 HOURS Resulted 11/13/16 13:45 Rectum VRE Culture - Final NO VANCOMYCIN RESISTANT ENTEROCOCCUS ... Complete Current Medications Medications (Trade) Dose Ordered Sig/Rufina Route PRN Reason Start Time Stop Time Status Last Admin Dose Admin Acetaminophen (Tylenol) 650 mg Q4H PRN ORAL fever 11/13/16 14:30 12/13/16 14:29 Al Hydroxide/Mg Hydroxide (Mylanta II) 30 ml Q6H PRN ORAL dyspepsia 11/13/16 14:30 12/13/16 14:29 Ceftriaxone Sodium/Dextrose (Rocephin/D5W) 55 ml @ 110 mls/hr Q24H IVPB 11/14/16 16:00 11/21/16 15:59 11/14/16 16:06 Dextrose (Dextrose 50%) STAT PRN IV Hypoglycemia 11/13/16 14:30 12/13/16 14:29 Divalproex Sodium (Depakote) 250 mg EVERY 12 HOURS ORAL 11/14/16 21:00 12/14/16 20:59 11/15/16 08:46 Heparin Sodium (Porcine) 5000 units 5,000 units EVERY 12 HOURS SUBQ 11/13/16 21:00 12/13/16 20:59 11/15/16 08:49 Levetiracetam (Keppra) 250 mg Q12HR ORAL 11/14/16 21:00 12/14/16 20:59 11/15/16 08:46 Lisinopril (Zestril) 10 mg DAILY ORAL 11/14/16 09:00 12/14/16 08:59 11/15/16 08:46 Lorazepam (Ativan 2mg/ml 1ml) 2 mg Q1H PRN IV seizures 11/13/16 14:30 11/20/16 14:29 11/13/16 18:46 Morphine Sulfate (Morphine Sulfate) 1 mg Q4H PRN IVP For Pain 11/13/16 14:30 11/20/16 14:29 Olanzapine (ZyPREXA) 5 mg BEDTIME ORAL 11/13/16 21:00 12/13/16 20:59 11/14/16 20:39 Ondansetron HCl (Zofran) 4 mg Q6H PRN IVP Nausea & Vomiting 11/13/16 14:30 12/13/16 14:29 Polyethylene Glycol (Miralax) 17 gm HSPRN PRN ORAL Constipation 5/18/17 14:30 12/13/16 14:29 Tamsulosin HCl (Flomax) 0.4 mg BEDTIME ORAL 11/13/16 21:00 12/13/16 20:59 11/14/16 20:39 Zolpidem Tartrate (Ambien) 5 mg HSPRN PRN ORAL Insomnia 11/13/16 14:30 12/13/16 14:29 Art[facility]Mon[facility] HospitalChristie iSms NP November 15, 2016 15:23
[2016-11-15 16:00] VITALS: BP 141/92
[2016-11-15] MEDS: cefTRIAXone 1 GM in D5W 55 ML IVPB SCH (17:05)
[2016-11-15] MEDS ORDERED: NS 275ml ONE (17:38)
[2016-11-15] MEDS ORDERED: Tubing IV Secondary IV ONE (17:38)
[2016-11-15 20:26] VITALS: BP 120/77
[2016-11-15] MEDS: Tamsulosin 0.4mg cap ORAL SCH (21:03)
[2016-11-15 23:56] VITALS: BP 123/74
[2016-11-16 03:57] VITALS: BP 118/69
[2016-11-16 08:00] VITALS: BP 105/65
[2016-11-16] MEDS: Lisinopril 10mg tab ORAL SCH (08:49)
[2016-11-16] MEDS: Heparin 5000 units/ml inj SUBQ SCH ×2 (08:53→20:22)
--- NOTE | 2016-11-16 10:56 | Pulmonology Progress Note ---
Assessment/Plan Assessment/Plan ASSESSMENT 1. New onset of generalized seizure disorder 2. Acute toxic encephalopathy ( due to seizure snf underlying psychiatric disorder ). 3. UTI 4. Hypertension. 5. COPD 6. pacemaker 7. Schizophrenia 8. BPH PLAN OF CARE MS floor seizure precautions continue Keppra and Depakote neuro eval noted and appreciated further regimen of anticonvulsant as per neuro management sitter at the bedside CT head no acute changes EEG per neuro urine cx negative, afebrile, no leukocytosis, dc abx O2 HHN prn BP management with RICH and optimize as needed continue Flomax, monitor for signs of urinary retention resume home antipsychotic medications, consider psych eval per PMD discretion DVT prophylaxis case discussed and evaluated by supervising physician Subjective Allergies: Coded Allergies: No Known Allergies (Unverified , 09/04/15) Subjective sitter at the bedsides no further seizure activity patient in the chair, denies chest pain, SB, dizziness, blackout Objective Last 24 Hour Vital Signs Date Time Temp Pulse Resp B/P Pulse Ox O2 Delivery O2 Flow Rate FiO2 11/16/16 08:49 105/65 11/16/16 08:00 97.0 88 18 105/65 97 Room Air 11/16/16 03:57 97.5 86 16 118/69 98 Room Air 11/15/16 23:56 97.8 85 17 123/74 98 Room Air 11/15/16 20:26 97.7 83 17 120/77 98 Room Air 11/15/16 16:00 97.0 64 18 141/92 96 Room Air 11/15/16 12:00 97.2 72 18 121/78 98 Room Air Intake and Output 11/15/16 11/16/16 19:00 07:00 Intake Total 1670 ml 380 ml Balance 1670 ml 380 ml Intake Oral 1560 ml 380 ml IV Total 110 ml # Voids 5 3 Objective General Appearance: no acute distress, other - awake, responsive HEENT: normocephalic, atraumatic, anicteric Respiratory/Chest: lungs clear - with moderate air entry , normal breath sounds , no respiratory distress, other - left chest pacemaker Cardiovascular: normal peripheral pulses, normal rate, regular rhythm, no JVD Abdomen: normal bowel sounds, soft, non tender, non distended Genitourinary: normal external genitalia Neurologic/Psychiatric: abnormal gait, alert, responsive Musculoskeletal: atrophy - BLE Microbiology Date/Time Source Procedure Growth Status 11/13/16 13:45 Nasal Nares MRSA Culture - 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 Complete 11/13/16 13:45 Urine,Clean Catch Urine Culture - Final NO GROWTH AFTER 48 HOURS Complete 11/13/16 13:45 Rectum VRE Culture - Final NO VANCOMYCIN RESISTANT ENTEROCOCCUS ... Complete Current Medications Medications (Trade) Dose Ordered Sig/Rufina Route PRN Reason Start Time Stop Time Status Last Admin Dose Admin Acetaminophen (Tylenol) 650 mg Q4H PRN ORAL fever 11/13/16 14:30 12/13/16 14:29 Al Hydroxide/Mg Hydroxide (Mylanta II) 30 ml Q6H PRN ORAL dyspepsia 11/13/16 14:30 12/13/16 14:29 Ceftriaxone Sodium/Dextrose (Rocephin/D5W) 55 ml @ 110 mls/hr Q24H IVPB 11/14/16 16:00 11/21/16 15:59 11/15/16 17:05 Dextrose (Dextrose 50%) STAT PRN IV Hypoglycemia 11/13/16 14:30 12/13/16 14:29 Divalproex Sodium (Depakote) 250 mg EVERY 12 HOURS ORAL 11/14/16 21:00 12/14/16 20:59 11/16/16 08:52 Heparin Sodium (Porcine) 5000 units 5,000 units EVERY 12 HOURS SUBQ 11/13/16 21:00 12/13/16 20:59 11/16/16 08:53 Levetiracetam (Keppra) 250 mg Q12HR ORAL 11/14/16 21:00 12/14/16 20:59 11/16/16 08:51 Lisinopril (Zestril) 10 mg DAILY ORAL 11/14/16 09:00 12/14/16 08:59 11/15/16 08:46 Lorazepam (Ativan 2mg/ml 1ml) 2 mg Q1H PRN IV seizures 11/13/16 14:30 11/20/16 14:29 11/13/16 18:46 Morphine Sulfate (Morphine Sulfate) 1 mg Q4H PRN IVP For Pain 11/13/16 14:30 11/20/16 14:29 Olanzapine (ZyPREXA) 5 mg BEDTIME ORAL 11/13/16 21:00 12/13/16 20:59 11/15/16 21:04 Ondansetron HCl (Zofran) 4 mg Q6H PRN IVP Nausea & Vomiting 11/13/16 14:30 12/13/16 14:29 Polyethylene Glycol (Miralax) 17 gm HSPRN PRN ORAL Constipation 11/13/16 14:30 12/13/16 14:29 Tamsulosin HCl (Flomax) 0.4 mg BEDTIME ORAL 11/13/16 21:00 12/13/16 20:59 11/15/16 21:03 Zolpidem Tartrate (Ambien) 5 mg HSPRN PRN ORAL Insomnia 11/13/16 14:30 12/13/16 14:29 Arturo LeeJames J. Peters Va Medical CenterChristie Sims NP November 16, 2016 10:56
--- NOTE | 2016-11-16 14:51 | Cardiology Report ---
APPROVED REPORT EKG Measurement Heart [id number] Normal sinus rhythm Nonspecific T wave abnormality Abnormal ECG
--- NOTE | 2016-11-16 15:30 | Internal Med Progress Note ---
Subjective Date of Service: November 16, 2016 Physician Name DrakeAnurag fournier Attending Physician Josue Hawkins MD Current Medications Medications (Trade) Dose Ordered Sig/Rufina Route PRN Reason Start Time Stop Time Status Last Admin Dose Admin Acetaminophen (Tylenol) 650 mg Q4H PRN ORAL fever 11/13/16 14:30 12/13/16 14:29 Al Hydroxide/Mg Hydroxide (Mylanta II) 30 ml Q6H PRN ORAL dyspepsia 11/13/16 14:30 12/13/16 14:29 Dextrose (Dextrose 50%) STAT PRN IV Hypoglycemia 11/13/16 14:30 12/13/16 14:29 Divalproex Sodium (Depakote) 250 mg EVERY 12 HOURS ORAL 11/14/16 21:00 12/14/16 20:59 11/16/16 08:52 Heparin Sodium (Porcine) (Heparin 5000 units/ml) 5,000 units EVERY 12 HOURS SUBQ 11/13/16 21:00 12/13/16 20:59 11/16/16 08:53 Levetiracetam (Keppra) 250 mg Q12HR ORAL 11/14/16 21:00 12/14/16 20:59 11/16/16 08:51 Lisinopril (Zestril) 10 mg DAILY ORAL 11/14/16 09:00 12/14/16 08:59 11/15/16 08:46 Lorazepam (Ativan 2mg/ml 1ml) 2 mg Q1H PRN IV seizures 11/13/16 14:30 11/20/16 14:29 11/13/16 18:46 Morphine Sulfate (Morphine Sulfate) 1 mg Q4H PRN IVP For Pain 11/13/16 14:30 11/20/16 14:29 Olanzapine (ZyPREXA) 5 mg BEDTIME ORAL 11/13/16 21:00 12/13/16 20:59 11/15/16 21:04 Ondansetron HCl (Zofran) 4 mg Q6H PRN IVP Nausea & Vomiting 11/13/16 14:30 12/13/16 14:29 Polyethylene Glycol (Miralax) 17 gm HSPRN PRN ORAL Constipation 11/13/16 14:30 12/13/16 14:29 Tamsulosin HCl (Flomax) 0.4 mg BEDTIME ORAL 11/13/16 21:00 12/13/16 20:59 11/15/16 21:03 Zolpidem Tartrate (Ambien) 5 mg HSPRN PRN ORAL Insomnia 11/13/16 14:30 12/13/16 14:29 Allergies: Coded Allergies: No Known Allergies (Unverified , 09/04/15) ROS Limited/Unobtainable: No Constitutional: Reports: no symptoms HEENT: Reports: no symptoms Cardiovascular: Reports: no symptoms Respiratory: Reports: no symptoms Gastrointestinal/Abdominal: Reports: no symptoms Genitourinary: Reports: no symptoms Neurologic/Psychiatric: Reports: no symptoms Subjective 81 YO M admitted with seizure. Cover for Int Med-Dr Hawkins. Objective Last Vital Signs Date Time Temp Pulse Resp B/P Pulse Ox O2 Delivery O2 Flow Rate FiO2 11/16/16 08:49 105/65 11/16/16 08:00 97.0 88 18 97 Room Air Intake and Output 11/15/16 11/16/16 19:00 07:00 Intake Total 1670 ml 380 ml Balance 1670 ml 380 ml Intake Oral 1560 ml 380 ml IV Total 110 ml # Voids 5 3 Objective General: alert, cooperative, no distress, appears stated age Head: normocephalic, without obvious abnormality, atraumatic Eyes: conjunctivae/corneas clear. PERRL, EOM's intact Throat: lips, mucosa, and tongue normal. MMM Neck: supple, symmetrical, trachea midline, and no JVD Lungs: clear to auscultation bilaterally Heart: regular rate and rhythm, S1, S2 normal, no murmur, click, rub or gallop Abdomen: soft, non-tender, non-distended, bowel sounds normal; no masses or organomegaly Extremities: extremities normal, atraumatic, no cyanosis or edema Pulses: 2+ and symmetric Skin: skin color, texture, turgor normal; no rashes or lesions Neurologic: grossly normal, no focal deficits Assessment/Plan Problem List: (1) Agitation Assessment & Plan: Await psych conuslt. 1:1 Sitter (2) Epileptic seizure, generalized Assessment & Plan: Await EEG. D/Ct keppra; start depakote-see neuro consult. (3) Altered mental status (4) UTI (lower urinary tract infection) Assessment & Plan: await urine culture results. Cont rocephin for now (5) BPH (benign prostatic hypertrophy) (6) Hypertension Status: stable ANURAG DRAKE November 16, 2016 15:30
[2016-11-16 16:00] VITALS: BP 121/80
[2016-11-16 20:00] VITALS: BP 102/70
[2016-11-16] MEDS: Tamsulosin 0.4mg cap ORAL SCH (20:22)
[2016-11-17] VITALS (7 sets, daily range): BP systolic 94–145; BP diastolic 47–96
[2016-11-17 07:00] LABS: BASOPHILS % (AUTO) 0.7 % (0.0-2.0); EOSINOPHILS % (AUTO) 1.3 % (0.0-3.0); LYMPHOCYTES % (AUTO) 34.6 % (20.0-45.0); MEAN CORPUSCULAR HEMOGLOBIN 28.6 PG (27.0-31.0); MEAN CORPUSCULAR HGB CONC 32.2 G/DL (32.0-36.0); MEAN CORPUSCULAR VOLUME 89 FL (80-99); MEAN PLATELET VOLUME 5.3 FL (6.5-10.1); MONOCYTES % (AUTO) 14.8 % (1.0-10.0); NEUTROPHILS % (AUTO) 48.6 % (45.0-75.0); PLATELET COUNT 256 K/UL (150-450); RED BLOOD COUNT 4.45 M/UL (4.70-6.10); RED CELL DISTRIBUTION WIDTH 13.4 % (11.6-14.8); WHITE BLOOD COUNT 6.9 K/UL (4.8-10.8)
[2016-11-17 07:44] LABS: ANION GAP 12 (5-15); CALCIUM 9.7 mg/dL (8.6-10.2); CARBON DIOXIDE 28 mEQ/L (20-30); CHLORIDE 102 mEQ/L (98-107); CREATININE 1.1 mg/dL (0.7-1.2); HEMOLYSIS 5; POTASSIUM 4.4 mEQ/L (3.4-4.9); SODIUM 142 mEQ/L (135-145)
[2016-11-17] MEDS: Lisinopril 10mg tab ORAL SCH (08:58)
[2016-11-17] MEDS: Heparin 5000 units/ml inj SUBQ SCH ×2 (09:00→20:55)
[2016-11-17] MEDS ORDERED: KEPPRA500 M3 ORAL (11:13)
[2016-11-17] MEDS ORDERED: DEPAKOTE250 MG ORAL (11:13)
[2016-11-17] MEDS ORDERED: MYLANTA II30 ML ORAL (11:13)
--- NOTE | 2016-11-17 11:16 | Internal Med Progress Note ---
Subjective Date of Service: November 17, 2016 Physician Name DrakeKay fournier Attending Physician Josue Hawkins MD Current Medications Medications (Trade) Dose Ordered Sig/Rufina Route PRN Reason Start Time Stop Time Status Last Admin Dose Admin Acetaminophen (Tylenol) 650 mg Q4H PRN ORAL fever 11/13/16 14:30 12/13/16 14:29 Al Hydroxide/Mg Hydroxide (Mylanta II) 30 ml Q6H PRN ORAL dyspepsia 11/13/16 14:30 12/13/16 14:29 Dextrose (Dextrose 50%) STAT PRN IV Hypoglycemia 11/13/16 14:30 12/13/16 14:29 Divalproex Sodium (Depakote) 250 mg EVERY 12 HOURS ORAL 11/14/16 21:00 12/14/16 20:59 11/17/16 08:59 Heparin Sodium (Porcine) (Heparin 5000 units/ml) 5,000 units EVERY 12 HOURS SUBQ 11/13/16 21:00 12/13/16 20:59 11/17/16 09:00 Levetiracetam (Keppra) 250 mg Q12HR ORAL 11/14/16 21:00 12/14/16 20:59 11/17/16 08:58 Lisinopril (Zestril) 10 mg DAILY ORAL 11/14/16 09:00 12/14/16 08:59 11/17/16 08:58 Lorazepam (Ativan 2mg/ml 1ml) 2 mg Q1H PRN IV seizures 11/13/16 14:30 11/20/16 14:29 11/13/16 18:46 Morphine Sulfate (Morphine Sulfate) 1 mg Q4H PRN IVP For Pain 11/13/16 14:30 11/20/16 14:29 Olanzapine (ZyPREXA) 5 mg BEDTIME ORAL 11/13/16 21:00 12/13/16 20:59 11/16/16 20:21 Ondansetron HCl (Zofran) 4 mg Q6H PRN IVP Nausea & Vomiting 11/13/16 14:30 12/13/16 14:29 Polyethylene Glycol (Miralax) 17 gm HSPRN PRN ORAL Constipation 11/13/16 14:30 12/13/16 14:29 Tamsulosin HCl (Flomax) 0.4 mg BEDTIME ORAL 11/13/16 21:00 12/13/16 20:59 11/16/16 20:22 Zolpidem Tartrate (Ambien) 5 mg HSPRN PRN ORAL Insomnia 11/13/16 14:30 12/13/16 14:29 Allergies: Coded Allergies: No Known Allergies (Unverified , 09/04/15) ROS Limited/Unobtainable: No Constitutional: Reports: no symptoms HEENT: Reports: no symptoms Cardiovascular: Reports: no symptoms Respiratory: Reports: no symptoms Gastrointestinal/Abdominal: Reports: no symptoms Genitourinary: Reports: no symptoms Neurologic/Psychiatric: Reports: no symptoms Subjective 81 YO M admitted with seizure. Cover for Int Jt-Dr Hawkins. Await discharge to [facility] Objective Last Vital Signs Date Time Temp Pulse Resp B/P Pulse Ox O2 Delivery O2 Flow Rate FiO2 11/17/16 08:58 140/79 11/17/16 07:50 96.6 84 18 98 Room Air Laboratory Tests Test 11/17/16 05:45 White Blood Count 6.9 K/UL (4.8-10.8) Red Blood Count 4.45 M/UL (4.70-6.10) L Hemoglobin 12.7 G/DL (14.2-18.0) L Hematocrit 39.4 % (42.0-52.0) L Mean Corpuscular Volume 89 FL (80-99) Mean Corpuscular Hemoglobin 28.6 PG (27.0-31.0) Mean Corpuscular Hemoglobin Concent 32.2 G/DL (32.0-36.0) Red Cell Distribution Width 13.4 % (11.6-14.8) Platelet Count 256 K/UL (150-450) Mean Platelet Volume 5.3 FL (6.5-10.1) L Neutrophils (%) (Auto) 48.6 % (45.0-75.0) Lymphocytes (%) (Auto) 34.6 % (20.0-45.0) Monocytes (%) (Auto) 14.8 % (1.0-10.0) H Eosinophils (%) (Auto) 1.3 % (0.0-3.0) Basophils (%) (Auto) 0.7 % (0.0-2.0) Sodium Level 142 mEQ/L (135-145) Potassium Level 4.4 mEQ/L (3.4-4.9) Chloride Level 102 mEQ/L (98-107) Carbon Dioxide Level 28 mEQ/L (20-30) Anion Gap 12 (5-15) Blood Urea Nitrogen 16 mg/dL (7-23) Creatinine 1.1 mg/dL (0.7-1.2) Estimat Glomerular Filtration Rate mL/min (>60) Glucose Level 84 mg/dL (74-106) Calcium Level 9.7 mg/dL (8.6-10.2) Intake and Output 11/16/16 11/17/16 19:00 07:00 Intake Total 1320 ml Balance 1320 ml Intake Oral 1320 ml # Voids 7 3 # Bowel Movements 3 Objective General: alert, cooperative, no distress, appears stated age Head: normocephalic, without obvious abnormality, atraumatic Eyes: conjunctivae/corneas clear. PERRL, EOM's intact Throat: lips, mucosa, and tongue normal. MMM Neck: supple, symmetrical, trachea midline, and no JVD Lungs: clear to auscultation bilaterally Heart: regular rate and rhythm, S1, S2 normal, no murmur, click, rub or gallop Abdomen: soft, non-tender, non-distended, bowel sounds normal; no masses or organomegaly Extremities: extremities normal, atraumatic, no cyanosis or edema Pulses: 2+ and symmetric Skin: skin color, texture, turgor normal; no rashes or lesions Neurologic: grossly normal, no focal deficits Assessment/Plan Problem List: (1) Agitation Assessment & Plan: Await psych conuslt. 1:1 Sitter (2) Epileptic seizure, generalized Assessment & Plan: Await EEG. D/Ct keppra; start depakote-see neuro consult. (3) Altered mental status (4) UTI (lower urinary tract infection) Assessment & Plan: await urine culture results. Cont rocephin for now (5) BPH (benign prostatic hypertrophy) (6) Hypertension Status: stable Assessment/Plan Discharge to [facility]. KAY DRAKE November 17, 2016 11:16
[2016-11-17] MEDS: Tamsulosin 0.4mg cap ORAL SCH (20:52)
--- NOTE | 2016-11-17 23:33 | Pulmonology Progress Note ---
Assessment/Plan Problems: (1) Epileptic seizure, generalized (2) Agitation (3) COPD (chronic obstructive pulmonary disease) (4) Delirium due to general medical condition (5) Dementia (6) Cachexia Assessment/Plan seizures controlled social service note appreciated pt will be a difficult placement b/o behavioural issues. Subjective ROS Limited/Unobtainable: No Constitutional: Reports: no symptoms HEENT: Repors: no symptoms Respiratory: Reports: no symptoms Allergies: Coded Allergies: No Known Allergies (Unverified , 09/04/15) Objective Last 24 Hour Vital Signs Date Time Temp Pulse Resp B/P Pulse Ox O2 Delivery O2 Flow Rate FiO2 11/17/16 19:40 97.3 82 18 145/96 96 Room Air 11/17/16 17:59 130/80 11/17/16 16:00 96.5 91 18 95/47 96 Room Air 11/17/16 08:58 140/79 11/17/16 07:50 96.6 84 18 140/79 98 Room Air 11/17/16 04:00 97.2 79 20 119/82 96 Room Air 11/17/16 00:00 97.5 82 20 94/56 96 Room Air Intake and Output 11/16/16 11/17/16 19:00 07:00 Intake Total 1320 ml Balance 1320 ml Intake Oral 1320 ml # Voids 7 3 # Bowel Movements 3 General Appearance: cachetic HEENT: normocephalic, atraumatic Respiratory/Chest: chest wall non-tender, lungs clear Cardiovascular: normal peripheral pulses, normal rate Abdomen: normal bowel sounds, soft, non tender Genitourinary: normal external genitalia Extremities: no clubbing Skin: no rash Laboratory Tests 11/17/16 05:45: White Blood Count 6.9, Red Blood Count 4.45L, Hemoglobin 12.7L, Hematocrit 39.4L , Mean Corpuscular Volume 89, Mean Corpuscular Hemoglobin 28.6, Mean Corpuscular Hemoglobin Concent 32.2, Red Cell Distribution Width 13.4, Platelet Count 256, Mean Platelet Volume 5.3L, Neutrophils (%) (Auto) 48.6, Lymphocytes ( %) (Auto) 34.6, Monocytes (%) (Auto) 14.8H, Eosinophils (%) (Auto) 1.3, Basophils (%) (Auto) 0.7, Sodium Level 142, Potassium Level 4.4, Chloride Level 102, Carbon Dioxide Level 28, Anion Gap 12, Blood Urea Nitrogen 16, Creatinine 1.1, Estimat Glomerular Filtration Rate , Glucose Level 84, Calcium Level 9.7 Current Medications Medications (Trade) Dose Ordered Sig/Rufina Route PRN Reason Start Time Stop Time Status Last Admin Dose Admin Acetaminophen (Tylenol) 650 mg Q4H PRN ORAL fever 11/13/16 14:30 12/13/16 14:29 Al Hydroxide/Mg Hydroxide (Mylanta II) 30 ml Q6H PRN ORAL dyspepsia 11/13/16 14:30 12/13/16 14:29 Dextrose (Dextrose 50%) STAT PRN IV Hypoglycemia 11/13/16 14:30 12/13/16 14:29 Divalproex Sodium (Depakote) 250 mg EVERY 12 HOURS ORAL 11/14/16 21:00 12/14/16 20:59 11/17/16 20:53 Heparin Sodium (Porcine) (Heparin 5000 units/ml) 5,000 units EVERY 12 HOURS SUBQ 11/13/16 21:00 12/13/16 20:59 11/17/16 20:55 Levetiracetam (Keppra) 250 mg Q12HR ORAL 11/14/16 21:00 12/14/16 20:59 11/17/16 20:53 Lisinopril (Zestril) 10 mg DAILY ORAL 11/14/16 09:00 12/14/16 08:59 11/17/16 08:58 Lorazepam (Ativan 2mg/ml 1ml) 2 mg Q1H PRN IV seizures 11/13/16 14:30 11/20/16 14:29 11/13/16 18:46 Morphine Sulfate (Morphine Sulfate) 1 mg Q4H PRN IVP For Pain 11/13/16 14:30 11/20/16 14:29 Olanzapine (ZyPREXA) 5 mg BEDTIME ORAL 11/13/16 21:00 12/13/16 20:59 11/17/16 20:52 Ondansetron HCl (Zofran) 4 mg Q6H PRN IVP Nausea & Vomiting 11/13/16 14:30 12/13/16 14:29 Polyethylene Glycol (Miralax) 17 gm HSPRN PRN ORAL Constipation 11/13/16 14:30 12/13/16 14:29 Tamsulosin HCl (Flomax) 0.4 mg BEDTIME ORAL 11/13/16 21:00 12/13/16 20:59 11/17/16 20:52 Zolpidem Tartrate (Ambien) 5 mg HSPRN PRN ORAL Insomnia 11/13/16 14:30 12/13/16 14:29 KRISTY JAMES November 17, 2016 23:33
[2016-11-18 04:00] VITALS: BP 143/96
--- NOTE | 2016-11-18 04:31 | Consultation ---
DATE OF CONSULTATION: HISTORY OF PRESENT ILLNESS: This is an 81-year-old male with a history of multiple medical problems including seizure disorder, dementia, anxiety, and agitation, who has been admitted to this hospital. I am treating this patient agitation. He is unable to provide history. PAST MEDICAL HISTORY: Significant for chronic obstructive pulmonary disease, dementia, and prostatic hypertrophy. ALLERGIES: No known drug allergies. MEDICATIONS: At home include Zyprexa, Tylenol, tamsulosin, aspirin, and lisinopril. SUBSTANCE ABUSE HISTORY: No history of illicit drug use or alcohol. SOCIAL HISTORY: The patient is in the nursing facility. He is a . MENTAL STATUS EXAMINATION: The patient is well developed and well nourished. Alert and oriented to self. Mood is anxious and agitated. Affect is constricted. Congruent mood. Thought process is concrete. Thought content, there is a paucity of thought content. Cognition is impaired. ASSESSMENT: Mcneal I Dementia and psychotic disorder. PLAN: 1. We will increase the Zyprexa to 5 mg p.o. b.i.d. 2. We will continue prescribing benzodiazepines. 3. We will continue to monitor the patient's behavior. Susan Garcia M.D. DR: GIL JOB#: [id number] CC:
[2016-11-18 08:03] VITALS: BP 140/98
[2016-11-18] MEDS: Lisinopril 10mg tab ORAL SCH (09:28)
[2016-11-18] MEDS: Heparin 5000 units/ml inj SUBQ SCH (09:28)
[2016-11-18 11:47] VITALS: BP 135/81
--- NOTE | 2016-11-18 18:32 | Progress Note ---
SUBJECTIVE: The patient continues to be confused. He is very agitated. He is not following staff's direction. He has no insight into his mental condition. MENTAL STATUS EXAMINATION: The patient is alert and oriented times self. Mood is agitated. Affect is constricted. Congruent with mood. Thought process is disorganized. Thought content, positive for delusions. Insight and judgment are non-existent. ASSESSMENT: Psychotic disorder. PLAN: 1. The patient will be continued on olanzapine. 2. Continue Depakote. 3. We will continue to observe behavior and readjust medications accordingly. Susan Garcia M.D. DR: GIL JOB#: [id number] CC:
--- NOTE | 2016-11-18 23:50 | Pulmonology Progress Note ---
Assessment/Plan Problems: (1) Epileptic seizure, generalized (2) Agitation (3) COPD (chronic obstructive pulmonary disease) (4) Delirium due to general medical condition (5) Dementia (6) Cachexia Assessment/Plan seizures controlled social service note appreciated pt will be a difficult placement b/o behavioural issues. Subjective Allergies: Coded Allergies: No Known Allergies (Unverified , 09/04/15) Objective Last 24 Hour Vital Signs Date Time Temp Pulse Resp B/P Pulse Ox O2 Delivery O2 Flow Rate FiO2 11/18/16 11:47 97.0 73 20 135/81 96 Room Air 11/18/16 09:28 140/98 11/18/16 08:03 97.7 89 21 140/98 99 Room Air 11/18/16 04:00 96.8 88 18 143/96 97 Room Air Intake and Output 11/17/16 11/18/16 19:00 07:00 Intake Total 600 ml 375 ml Balance 600 ml 375 ml Intake Oral 600 ml 375 ml # Voids 4 6 KRISTY JAMES November 18, 2016 23:50
--- NOTE | 2016-11-20 10:15 | Discharge Summary ---
Discharge Summary Hospital Course Date of Admission November 13, 2016 at 13:25 Date of Discharge November 18, 2016 at 15:40 Admitting Diagnosis SEIZURE HPI Ariel Barbour is a 81 year old male who was admitted on November 13, 2016 at 13:25 for Seizure Hospital Course [id number] Discharge Discharge Disposition Patient was discharged to SNF/Subacute Facility(03) Discharge Diagnoses: [place] Gonzales NP November 20, 2016 10:15
--- NOTE | 2016-11-20 23:32 | Discharge Summary 2 SIG ---
DATE OF ADMISSION: 11/13/2016 DATE OF DISCHARGE: 11/18/2016 CONSULTANTS: 1. Manolo Marcial M.D. 2. Bhavya Fitzpatrick M.D. 3. Susan Garcia M.D. BRIEF HOSPITAL COURSE: The patient is an 81-year-old male who was at home, apparently had a generalized tonic-clonic seizure in front of a family member. The patient was transported to [place] emergency room via 911. On evaluation, CT of the head showed no acute disease. Chest x-ray showed no evidence of acute cardiopulmonary disease. He was given Keppra IV at ED and was admitted for further management. He was placed on seizure precautions and underwent neurologic and psychiatric evaluation. He was seen by Dr. Marcial and was continued on Keppra 500 mg twice a day. He was given aspirin and statins. He was also provided a sitter at bedside for the patient's safety. Dr. Garcia was consulted for psychiatric evaluation as the patient had anxiety and agitation. He was diagnosed to have diagnosed to have dementia and psychotic disorder and was given Zyprexa 500 mg twice a day. He was continued on Flomax for his BPH, and blood pressure was controlled with lisinopril. care worker discussed long-term plans for patient. The patient was then discharged to [facility]. He was continued on intravenous Rocephin for possible urinary tract infection. Urine culture done, did not isolate any growth. Anticonvulsants were titrated and Depakote was added to the patient's regimen. The patient was eventually discharged to a [facility] facility. FINAL DIAGNOSES: 1. New onset of generalized seizure. 2. Acute toxic encephalopathy. 3. Urinary tract infection. 4. Hypertension. 5. Chronic obstructive pulmonary disease. 6. Pacemaker. 7. Schizophrenia. 8. Benign prostatic hypertrophy. 9. Agitation. 10. Delirium. Anurag Drake M.D. I have been assigned to dictate discharge summary on this account and I was not involved in the patient's management. [place] Gonzales N.P. DR: GAURAV JOB#: [id number] CC:
== END 2016-11-18 15:40 | DRG 100 ==
LOC: EDBD 12:31 → CMPBEDREQ 12:46 → EMR 13:20 → 4W 13:25
DX: G40.409 Other generalized epilepsy and epileptic syndromes, not intractable, without status epilepticus (principal); G92 Toxic encephalopathy; R64 Cachexia; F05 Delirium due to known physiological condition; F03.90 Unspecified dementia, unspecified severity, without behavioral disturbance, psychotic disturbance, mood disturbance, and anxiety; N39.0 Urinary tract infection, site not specified; N40.0 Benign prostatic hyperplasia without lower urinary tract symptoms; I10 Essential (primary) hypertension; J44.9 Chronic obstructive pulmonary disease, unspecified; Z68.25 Body mass index [BMI] 25.0-25.9, adult; Z95.0 Presence of cardiac pacemaker; F41.9 Anxiety disorder, unspecified; F20.9 Schizophrenia, unspecified; R45.1 Restlessness and agitation
CPT/HCPCS: 36415; 70450; 71010; 80048; 80053; 80299; 81003; 82550; 82553; 82962; 83690; 83880; 84484; 85025; 85610; 85730; 86703; 86803; 87081; 87086; 87340; 93005